=== PATIENT | male | born 1950 | race African-American/Black ===

== ENCOUNTER 2017-12-19 13:49 | Day surgery (SDC) | payer OTHER ==
--- OUTSIDE RECORDS SUMMARY | 2017-12-19 13:55 | XMS REPORT | Clinical Summary ---
:1950 Author Organization [facility] Address [address] [place] [address] Care Team Providers Name Role Phone Britt Cadet MD Primary Care Provider Allergies Active Allergy Reactions Severity Noted Date Comments Diphenhydramine Hcl Other (See Comments) 06/08/2016 Urinary retention Current Medications Prescription Sig. Disp. Refills Start End Date Status Date allopurinol allopurinol 100 mg Active (ZYLOPRIM) 100 MG tablet tablet amLODIPine amlodipine 10 mg Active (NORVASC) 10 mg tablet tablet baclofen (LIORESAL) baclofen 10 mg Active 10 MG tablet tablet codeine-guaifenesin TK 2 TEA PO Q 4 H Active (CHERATUSSIN AC) PRN 10-100 mg/5 mL liquid cycloSPORINE Restasis 0.05 % Active (RESTASIS) 0.05 % eye drops in a ophthalmic emulsion dropperette guanFACINE (TENEX) guanfacine 1 mg Active 1 MG tablet tablet lactulose lactulose 10 Active (CHRONULAC) 10 gram/15 mL oral gram/15 mL solution solution lisinopril lisinopril 20 mg Active (PRINIVIL,ZESTRIL) tablet 20 mg tablet losartan (COZAAR) losartan 100 mg Active 100 MG tablet tablet metoprolol tartrate Take 1 tablet Active (LOPRESSOR) 100 mg every day by oral tablet route for 90 days. tamsulosin (FLOMAX) tamsulosin 0.4 mg Active 0.4 mg capsule capsule,extended release 24hr amoxicillin-pot amoxicillin 875 02/03/20 Discontinued clavulanate mg-potassium 17 (AUGMENTIN) 875-125 clavulanate 125 mg mg per tablet tablet benzonatate Take 1 capsule 02/03/20 Discontinued (TESSALON) 100 MG twice a day by 17 capsule oral route. cefuroxime (CEFTIN) cefuroxime axetil 02/03/20 Discontinued 500 MG tablet 500 mg tablet 17 chlorhexidine chlorhexidine 02/03/20 Discontinued (PERIDEX) 0.12 % gluconate 0.12 % 17 solution mouthwash glimepiride glimepiride 2 mg 10/12/19 Discontinued (AMARYL) 2 MG tablet 18 tablet indomethacin Take 1 capsule as 06/08/20 Discontinued (INDOCIN) 50 MG needed by oral 17 capsule route as needed for 20 days. levoFLOXacin levofloxacin 500 02/03/20 Discontinued (LEVAQUIN) 500 MG mg tablet 17 tablet linaclotide Linzess 145 mcg 02/03/20 Discontinued (LINZESS) 145 mcg capsule 17 capsule meloxicam (MOBIC) meloxicam 15 mg 02/03/20 Discontinued 15 mg tablet tablet 17 metFORMIN metformin 500 mg 10/12/19 Discontinued (GLUCOPHAGE) 500 mg tablet BID 18 tablet pyridostigmine pyridostigmine 02/03/20 Discontinued (MESTINON) 60 mg bromide 60 mg 17 tablet tablet solifenacin HS. 02/03/20 Discontinued (VESICARE) 5 MG 17 tablet GUANFACINE HCL 2 TABLETS AT 02/03/20 Discontinued (TENEX ORAL) NIGHT. 17 megestrol (MEGACE) Take 1 tablet (40 270 tablet 3 10/06/02/03/20 Discontinued 40 MG mg total) by mouth 7 17 tabletIndications: 3 (three) times a Amyotrophic lateral day. 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 Dyspnea 06/08/2016 Respiratory insufficiency 06/08/2016 Overview: BIPAP - 05/2008 Resolved Problems Problem Noted Date Resolved Date Anorexia 10/06/2016 06/08/2017 Chronic pain syndrome 06/08/2016 06/08/2017 Localization-related (focal) (partial) symptomatic epilepsy 06/08/20162016 and epileptic syndromes with complex partial seizures, intractable, without status epilepticus Seizure disorder 06/08/2016 06/08/2017 Encounters Date Type Specialty Care Team Description 10/12/2017 Lab Lab Nick Gold Amyotrophic lateral H.MD sclerosis 10/12/2017 Multidisciplinary Visit Neurology Leona Berrios Respiratory insufficiency (Primary Dx); MD Mario Amyotrophic lateral sclerosis Naima Simon RN 10/04/2017 Orders Only Neurology Naima Simon, Amyotrophic lateral RN sclerosis (Primary Dx) 06/08/2017 Lab Lab Nick Gold lateral MD Camelia sclerosis 06/08/2017 Multidisciplinary Visit Neurology Nick Gold Amyotrophic lateral sclerosis (Primary Dx); MD Camelia Shortness of breath; Naima Simon, Sialorrhea Erika Alarcon, [facility] 05/31/2017 Orders Only Neurology Naima Simon, Amyotrophic lateral RN sclerosis (Primary Dx) 05/17/2017 Orders Only Neurology Leona Berrios ALS (amyotrophic P., MD lateral sclerosis) (Primary Dx) 02/02/2017 Lab Lab Nick Gold lateral MD Camelia sclerosis 02/02/2017 Multidisciplinary Visit Neurology Leona Berrios Amyotrophic lateral sclerosis (Primary Dx); MD Mario Respiratory insufficiency Naima Simon, Negra Guerrero, [facility] 02/02/2017 Documentation Neda Bustamante RN 01/24/2017 Orders Only Neurology Naima Simon, Amyotrophic lateral RN sclerosis (Primary Dx) after 12/18/2016 Family History Medical History Relation Name Comments Heart disease Brother Diabetes Other unspecified family Hypertension Other unspecified family Relation Name Status Comments Brother Other unspecified family Social History Tobacco Use Types Packs/Day Years Used Date Never Smoker Sex Assigned at Date Recorded Not on file Last Filed Vital Signs Vital Sign Reading Time Taken Blood Pressure 157/88 10/12/2017 8:05 AM SCAFFOLD ERECTOR Pulse 65 10/12/2017 8:05 AM SCAFFOLD ERECTOR Temperature 36.6 C (97.8 F) 10/12/2017 8:05 AM SCAFFOLD ERECTOR Respiratory Rate 18 10/12/2017 8:05 AM SCAFFOLD ERECTOR Oxygen Saturation - - Inhaled Oxygen Concentration - - Weight 59.6 kg (131 lb 4.8 oz) 10/12/2017 8:05 AM SCAFFOLD ERECTOR Height 170.2 cm (5' 7") 10/12/2017 8:05 AM SCAFFOLD ERECTOR Body Mass Index 20.56 10/12/2017 8:05 AM SCAFFOLD ERECTOR Plan of Treatment Date Type Specialty Care Team Description 02/01/2018 Multidisciplinary Visit Neurology Naima Simon, CORTNEY Health Maintenance Due Date Last Done Comments COLONOSCOPY 01/05/2000 ZOSTER VACCINE 2010 PNEUMOCOCCAL POLYSACCHARIDE VACCINE AGE 65 AND OVER 2015 PNEUMOCOCCAL-13 2015 INFLUENZA VACCINE 04/03/2018 06/03/2015 Results CBC with platelet and differential (10/12/2017 7:40 AM)Only the most recent of3 resultswithin the time period is included. Component Value Ref Range WBC 5.56 4.50 - 11.00 k/uL RBC 4.39 (L) 4.40 - 6.00 m/uL HGB 13.7 (L) 14.0 - 18.0 g/dL HCT 44.1 41.0 - 51.0 % MCV 100.5 (H) 82.0 - 100.0 fL MCH 31.2 27.0 - 34.0 pg MCHC 31.1 31.0 - 37.0 g/dL RDW - SD 45.1 37.0 - 55.0 fL MPV 12.2 8.8 - 13.2 fL Platelet count 198 150 - 400 k/uL Nucleated RBC 0.00 /100 WBC Neutrophils 52.2 39.0 - 69.0 % Lymphocytes 30.8 25.0 - 45.0 % Monocytes 13.3 (H) 0.0 - 10.0 % Eosinophils 2.2 0.0 - 5.0 % Basophils 1.1 (H) 0.0 - 1.0 % Immature granulocytes 0.4Comment: "Immature granulocytes" 0.0 - 1.0 % (promyelocytes, myelocytes, metamyelocytes) Specimen Performing Laboratory Blood [facility] DEPARTMENT OF PATHOLOGY AND GENOMIC MEDICINE [address] [place] [id number] Hepatic function panel (10/12/2017 7:40 AM)Only the most recent of3 resultswithin the time period is included. Component Value Ref Range Albumin 3.8 3.5 - 5.0 g/dL Total bilirubin 0.4 0.0 - 1.2 mg/dL Bilirubin direct <0.2 0.0 - 0.3 mg/dL Alkaline phosphatase 95 40 - 129 U/L Protein 7.8 6.3 - 8.3 g/dL Comment: [place] 4.6-7.0 g/dL 1 week 4.4-7.6 g/dL 7 months-1year5.1-7.3 g/dL 1-2 years5.6-7.5 g/dL >3 years6.0-8.0 g/dL 18-150 6.3-8.3 g/dL ALT 23 5 - 50 U/L AST 31 10 - 50 U/L Specimen Performing Laboratory Plasma specimen [facility] DEPARTMENT OF PATHOLOGY AND GENOMIC MEDICINE [address] [place] [address] after 12/18/2016 Insurance Payer Benefit Plan / Group Subscriber ID Type Phone Address MEDICARE MEDICARE PART A AND B xxxxxxxxxx Medicare [place] [facility] - xxxxxxxxx Indemnity SECONDARY y [phone] [facility] [address] [place] [address] DYSTROPHY,MUSCULA Other Other Home: [id number] [id number] [place] [id number]
--- NOTE | 2017-12-19 15:15 | RAD REPORT ---
EXAM DESCRIPTION: RAD - Abdomen 1 View (KUB) - 12/19/2017 2:35 pm CLINICAL HISTORY: Possible ingested foreign body COMPARISON: None. FINDINGS: Bowel gas pattern is non-specific. No obstruction, free air or pneumatosis. No suspicious calcifications. No radiopaque foreign body identifiable. No significant bony findings IMPRESSION: Negative KUB examination. No foreign body identifiable.
--- NOTE | 2017-12-19 17:50 | EDPHYS ---
Physician Documentation [facility] Name: Felipe Garrett Age: 67 yrs Sex: Male : 1950 Arrival Date: 12/19/2017 Time: 13:46 Bed 3 Private MD: ED Physician Angelo Booth HPI: 12/19 14:13 This 67 yrs old Black Male presents to ER via EMS with complaints of Swallowed Foreign ps1 Body. 14:13 was at dentist and swallowed crown. States that he has FB sensation in neck. Tolerating ps1 secretions. No wheezing. No pain. No difficulty breathing. . Historical: - Allergies: 13:51 Benadryl; dm5 - Home Meds: 14:10 glycopyrrolate oral oral [Active]; Metoprolol Tartrate Oral [Active]; amlodipine oral dm5 [Active]; - PMHx: 13:51 Diabetes - NIDDM; ALS; Hypertension; dm5 - Immunization history:: Adult Immunizations up to date. - Social history:: Smoking status: Patient/guardian denies using tobacco. ROS: 14:13 Constitutional: Negative for fever, chills, and weight loss, Eyes: Negative for injury, ps1 pain, redness, and discharge, Cardiovascular: Negative for chest pain, palpitations, and edema. 14:13 Respiratory: Negative for shortness of breath, cough, wheezing, and pleuritic chest pain, Abdomen/GI: Negative for abdominal pain, nausea, vomiting, diarrhea, and constipation, Back: Negative for injury and pain, MS/Extremity: Negative for injury and deformity, Skin: Negative for injury, rash, and discoloration, Neuro: Negative for headache, weakness, numbness, tingling, and seizure, Psych: Negative for depression, anxiety, suicide ideation, homicidal ideation, and hallucinations. 14:13 ENT: Positive for foreign body sensation. Exam: 14:13 Constitutional: This is a well developed, well nourished patient who is awake, alert, ps1 and in no acute distress. Head/Face: Normocephalic, atraumatic. Eyes: Pupils equal round and reactive to light, extra-ocular motions intact. Lids and lashes normal. Conjunctiva and sclera are non-icteric and not injected. Chest/axilla: Normal chest wall appearance and motion. Nontender with no deformity. No lesions are appreciated. Cardiovascular: Regular rate and rhythm. No gallops, murmurs, or rubs. Normal PMI, no JVD. No pulse deficits. 14:13 Respiratory: Lungs have equal breath sounds bilaterally, clear to auscultation and percussion. No rales, rhonchi or wheezes noted. No increased work of breathing, no retractions or nasal flaring. Abdomen/GI: Soft, non-tender, with normal bowel sounds. No distension or tympany. No guarding or rebound. No evidence of tenderness throughout. MS/ Extremity: Pulses equal, no cyanosis. Neurovascular intact. Full, normal range of motion. Neuro: Awake and alert, GCS 15, oriented to person, place, time, and situation. Cranial nerves II-XII grossly intact. Sensory grossly intact. Psych: Awake, alert, with orientation to person, place and time. Behavior, mood, and affect are within normal limits. 14:13 Neck: External neck: is normal, Trachea: is midline with no obvious abnormalities, no acute changes, no musical sounds. Vital Signs: 13:51 BP 187 / 92; Pulse 63; Resp 18; Temp 98.9; Pulse Ox 99% on R/A; Weight 61.23 kg (R); dm5 15:29 BP 166 / 96; Pulse 55; Resp 16; Pulse Ox 98% ; tl3 17:24 BP 180 / 94; Pulse 52; Resp 16 S; Pulse Ox 100% on R/A; Pain 0/10; jl7 18:09 BP 128 / 92; Pulse 54; Resp 14 S; Pulse Ox 100% on R/A; jl7 MDM: 14:20 Patient medically screened. ps1 16:59 Data reviewed: vital signs, nurses notes. ED course: Called Dr. Gonzalez, she is not on ps1 call. However said that she would come to ED as soon as possible. . 12/19 14:15 Order name: Abdomen 1 View (KUB) XRAY; Complete Time: 15:18 dm5 12/19 15:21 Order name: Neck Soft Tissue XRAY; Complete Time: 18:23 ps1 Administered Medications: No medications were administered Disposition: 12/19/17 17:49 Hospitalization ordered by Cira Sena for Observation. Preliminary diagnosis is Foreign Body in Larynx.. - Bed requested for DAY SURGERY OTHER. - Status is Observation. jl7 - Condition is Stable. - Problem is new. - Symptoms are unchanged. UTI on Admission? No Signatures: Dispatcher [employer] EDMS Swapna Arevalo, RN RN dm5 Erica Brice RN RN jl7 Angelo Booth MD MD ps1 Corrections: (The following items were deleted from the chart) 14:16 13:55 Abdomen 1 View (KUB)+RAD.RAD.BRZ ordered. EDMS EDMS 14:16 14:12 Chest Single View+RAD.RAD.BRZ ordered. EDMS EDMS 14:16 14:12 Abdomen 1 View (KUB)+RAD.RAD.BRZ ordered. EDMS EDMS
--- NOTE | 2017-12-19 17:50 | ER ---
Nurse's Notes [facility] Name: Felipe Garrett Age: 67 yrs Sex: Male : 1950 Arrival Date: 12/19/2017 Time: 13:46 Bed 3 Private MD: Diagnosis: Foreign Body in Larynx. Presentation: 12/19 13:47 Presenting complaint: EMS states: pt was at the dentist when he swallowed the crown dm5 they were placing. Pt states that he feels it is stuck. Airway patent at this time. Pt is able to swallow secretions. Transition of care: patient was received from another setting of care (ambulatory specialty care practice), Dr. Elham DDS. Onset of symptoms was December 19, 2017. Care prior to arrival: None. 13:47 Method Of Arrival: EMS: [facility] dm5 13:47 Acuity: MARINO 3 dm5 13:47 Initial Sepsis Screen: Does the patient meet any 2 criteria? No. Patient's initial dm5 sepsis screen is negative. Does the patient have a suspected source of infection? No. Patient's initial sepsis screen is negative. Triage Assessment: 13:51 General: Appears in no apparent distress. Behavior is calm, cooperative. Pain: Denies dm5 pain. Historical: - Allergies: 13:51 Benadryl; dm5 - Home Meds: 14:10 glycopyrrolate oral oral [Active]; Metoprolol Tartrate Oral [Active]; amlodipine oral dm5 [Active]; - PMHx: 13:51 Diabetes - NIDDM; ALS; Hypertension; dm5 - Immunization history:: Adult Immunizations up to date. - Social history:: Smoking status: Patient/guardian denies using tobacco. Screenin:50 Abuse screen: Denies threats or abuse. Denies injuries from another. Nutritional sg screening: No deficits noted. Tuberculosis screening: No symptoms or risk factors identified. Never had TB. Fall Risk None identified. Assessment: 14:10 General: Appears in no apparent distress. comfortable, well groomed, well developed, sg well nourished, Behavior is calm, cooperative, appropriate for age. Pain: Denies pain. Neuro: Level of Consciousness is awake, alert, obeys commands, Oriented to person, place, time, situation, Wire Stitcher Machine are equal bilaterally Moves all extremities. Full function Gait is steady, Speech is normal, Facial symmetry appears normal, Pupils are PERRLA. Cardiovascular: Heart tones S1 S2 present Capillary refill is brisk in bilateral fingers Patient's skin is warm and dry. Chest pain is denied. Respiratory: Airway is patent Respiratory effort is even, unlabored, Respiratory pattern is regular, symmetrical, Breath sounds are clear. GI: Abdomen is round non-distended, Bowel sounds present X 4 quads. Patient currently denies abdominal pain, nausea, pain, vomiting. : No signs and/or symptoms were reported regarding the genitourinary system. EENT: No signs and/or symptoms were reported regarding the EENT system. Derm: No signs and/or symptoms reported regarding the dermatologic system. Musculoskeletal: No signs and/or symptoms reported regarding the musculoskeletal system. 14:50 Reassessment: Patient appears in no apparent distress at this time. Patient and/or sg family updated on plan of care and expected duration. Pain level reassessed. Patient is alert, oriented x 3, equal unlabored respirations, skin warm/dry/pink. awaiting new orders at this time, awaiting radiology results, will continue to monitor Patient states symptoms have not improved. 16:00 Reassessment: Pt. resting in room \\T\\ this time, in no obvious distress... friend/family rk2 \\T\\ bedside. Pt. voiced no needs \\T\\ this time. Waiting results. 17:26 Reassessment: Pt sitting in bed, respirations even and unlabored, no signs of distress jl7 noted. Pt denies pain but reports "It hurts when I swallow." Yaunker provided to pt and instructed to use the Yaunker instead of swallowing. Pt verbalized understanding. 17:40 Reassessment: Dr. Sena and Dr. Booth at bedside. jl7 Vital Signs: 13:51 BP 187 / 92; Pulse 63; Resp 18; Temp 98.9; Pulse Ox 99% on R/A; Weight 61.23 kg (R); dm5 15:29 BP 166 / 96; Pulse 55; Resp 16; Pulse Ox 98% ; tl3 17:24 BP 180 / 94; Pulse 52; Resp 16 S; Pulse Ox 100% on R/A; Pain 0/10; jl7 18:09 BP 128 / 92; Pulse 54; Resp 14 S; Pulse Ox 100% on R/A; jl7 ED Course: 13:46 Patient arrived in ED. dm5 13:49 Triage completed. dm5 13:50 Nael Franco, RN is Primary Nurse. sg 13:51 Arm band placed on right wrist. dm5 14:04 Angelo Booth MD is Attending Physician. ps1 14:10 No provider procedures requiring assistance completed. sg 14:35 Abdomen 1 View (KUB) XRAY In Process Unspecified. EDMS 15:00 Report given to Trinidad BARR. sg 15:44 X-ray completed. Portable x-ray completed in exam room. Patient tolerated procedure ml well. 15:44 Neck Soft Tissue XRAY In Process Unspecified. EDMS 15:44 Trinidad Dixon, RN is Primary Nurse. rk2 17:20 Primary Nurse role handed off by Trinidad Dixon RN jl7 17:20 Erica Brice RN is Primary Nurse. jl7 17:26 Patient has correct armband on for positive identification. Bed in low position. Call jl7 light in reach. Side rails up X 1. Adult w/ patient. rental car ferry driver on. Pulse ox on. NIBP on. Warm blanket given. 17:49 Cira Sena MD is Hospitalizing Provider. ps1 17:50 Missed attempt(s): 22 gauge in left antecubital area. Bleeding controlled, band aid jl7 applied, catheter tip intact. 18:03 Inserted saline lock: 22 gauge in left antecubital area, using aseptic technique. Blood ae1 collected. 18:42 Patient admitted, IV remains in place. intact, No redness/swelling at site. jl7 Administered Medications: No medications were administered Outcome: 17:49 Decision to Hospitalize by Provider. ps1 18:42 Admitted to OR accompanied by nurse, via stretcher, Other Malka Yin transported pt to OR jl7 via stretcher 18:42 Condition: stable 18:42 Discharge instructions given to patient, friend, Instructed on the need for admit, Demonstrated understanding of instructions. 18:49 Patient left the ED. jl7 Signatures: Dispatcher [employer] EDMS Swapna Arevalo, CORTNEY BARR dm5 Nael Franco, RN RN sg Torri Paez Andrea, RN RN ae1 Erica Brice RN RN jl7 Angelo Booth MD MD ps1 Trinidad Dixon, RN RN rk2 Bere Bustamante, RN RN tl3
--- NOTE | 2017-12-19 18:20 | RAD REPORT ---
EXAM DESCRIPTION: RAD - Neck Soft Tissue - 12/19/2017 3:45 pm CLINICAL HISTORY: Foreign body ingestion COMPARISON: None. TECHNIQUE: Single lateral soft tissue neck exam performed. FINDINGS: Radiopaque foreign body is seen in the right side mid neck. Posterior positioning would in dicate location in the right-side of the cervical esophagus at the level of the larynx. IMPRESSION: Ingested foreign bodies in the right-side of the cervical esophagus at the level of the larynx.
[2017-12-19] MEDS ORDERED: Ringers Lactate 0 ML IV ONE (18:36)
[2017-12-19] MEDS ORDERED: NA CHLORIDE 0.9% 1,000 ML ONE (18:37)
--- OUTSIDE RECORDS SUMMARY | 2017-12-19 18:50 | XMS REPORT | Clinical Summary ---
:1950 Author Organization [facility] Address [address] [place] [address] Care Team Providers Name Role Phone Britt [...] of breath; Naima Simon, Sialorrhea Erika Alarcon, [facility] 05/31/2017 Orders Only Neurology Naima Simon, Amyotrophic lateral RN sclerosis (Primary Dx) 05/17/2017 Orders Only Neurology Leona Berrios ALS (amyotrophic P., MD lateral sclerosis) (Primary Dx) 02/02/2017 Lab Lab Nick Gold lateral MD Camelia sclerosis 02/02/2017 Multidisciplinary Visit Neurology Leona Berrios Amyotrophic lateral sclerosis (Primary Dx); MD Mario Respiratory insufficiency Naima Simon, Negra Guerrero, [facility] 02/02/2017 Documentation Neda Bustamante RN 01/24/2017 Orders [...] Taken Blood Pressure 157/88 10/12/2017 8:05 AM PRECISION GRINDER EXTERNAL Pulse 65 10/12/2017 8:05 AM PRECISION GRINDER EXTERNAL Temperature 36.6 C (97.8 F) 10/12/2017 8:05 AM PRECISION GRINDER EXTERNAL Respiratory Rate 18 10/12/2017 8:05 AM PRECISION GRINDER EXTERNAL Oxygen Saturation - - Inhaled Oxygen Concentration - - Weight 59.6 kg (131 lb 4.8 oz) 10/12/2017 8:05 AM PRECISION GRINDER EXTERNAL Height 170.2 cm (5' 7") 10/12/2017 8:05 AM PRECISION GRINDER EXTERNAL Body Mass Index 20.56 10/12/2017 8:05 AM PRECISION GRINDER EXTERNAL Plan of Treatment Date Type Specialty Care [...] (promyelocytes, myelocytes, metamyelocytes) Specimen Performing Laboratory Blood [facility] DEPARTMENT OF PATHOLOGY AND GENOMIC MEDICINE [address] [place] [id number] Hepatic function panel (10/12/2017 7:40 AM)Only the most recent of3 resultswithin the time period is included. Component Value Ref Range Albumin 3.8 3.5 - 5.0 g/dL Total bilirubin 0.4 0.0 - 1.2 mg/dL Bilirubin direct <0.2 0.0 - 0.3 mg/dL Alkaline phosphatase 95 40 - 129 U/L Protein 7.8 6.3 - 8.3 g/dL Comment: [place] 4.6-7.0 g/dL 1 week 4.4-7.6 g/dL 7 months-1year5.1-7.3 g/dL 1-2 years5.6-7.5 g/dL >3 years6.0-8.0 g/dL 18-150 6.3-8.3 g/dL ALT 23 5 - 50 U/L AST 31 10 - 50 U/L Specimen Performing Laboratory Plasma specimen [facility] DEPARTMENT OF PATHOLOGY AND GENOMIC MEDICINE [address] [place] [address] after 12/18/2016 Insurance Payer Benefit Plan / Group Subscriber ID Type Phone Address MEDICARE MEDICARE PART A AND B xxxxxxxxxx Medicare [place] [facility] - xxxxxxxxx Indemnity SECONDARY y [phone] [facility] [address] [place] [address] DYSTROPHY,MUSCULA Other Other Home: [address] [phone] [place] [id number]
[2017-12-19] MEDS ORDERED: SUCCINYLCHOLINE 20 MG/ML (10 ML) IV ONE (18:53)
[2017-12-19] MEDS ORDERED: PROPOFOL 200 MG/20 ML VIAL IV ONE (18:59)
[2017-12-19] MEDS ORDERED: FENTANYL CITR 100 MCG/2 ML ONE (18:59)
[2017-12-19] MEDS ORDERED: ROCURONIUM 50 MG/5 ML VIAL IV ONE (19:09)
--- NOTE | 2017-12-19 19:30 | P.BOP ---
Preoperative diagnosis: FB larynx/hypopharynx Postoperative diagnosis: negative exam Primary procedure: DL, bronch, cervical esophagoscopy Ad Operations Specialist: NONE,NONE Estimated blood loss: nil Specimen: none Findings: No FB found Anesthesia: General Complications: None Implants: none Fluids & blood products: crystalloid 300ml Transferred to: Recovery Room Condition: Good
--- NOTE | 2017-12-19 20:01 | RAD REPORT ---
EXAM DESCRIPTION: RAD - Chest Single View - 12/19/2017 7:50 pm CLINICAL HISTORY: Postop chest, foreign body retrieval COMPARISON: None. TECHNIQUE: AP portable chest image was obtained 1942 hours . FINDINGS: Lung volumes are low. No pulmonary edema. Cardiomegaly is present accentuated by portable exam. Vasculature is mildly prominent. Trachea is midline. The area of foreign body midcervical esoph amelia is outside of the field of view of this examination. No foreign body seen on this study. No pneu mothorax or measurable pleural fluid collection. No gross bony abnormality seen. No acute aortic find ings suspected. IMPRESSION: Cardiomegaly and mild prominence of the vasculature. Chest findings are accentuated by s hallow inspiration. No diffuse pulmonary edema pattern. Mild cardiac decompensation or volume overload could be obscured by the exam limitations.
--- NOTE | 2017-12-20 05:51 | OP ---
Date of Procedure: 12/19/2017 Surgeon: Cira Sena MD Preoperative Diagnosis: Hypopharyngeal foreign body. Postoperative Diagnosis: Negative exam. Procedures: 1.Direct laryngoscopy with telescope. 2.Rigid cervical esophagoscopy. 3.Flexible bronchoscopy. Indication For Procedure: Mr. Garrett is a 67-year-old black male who presented to the emergency room a fter being at a dentist with concern for an inhaled or swallowed foreign body consisting of a dental crown. An x-ray performed in the emergency room demonstrated a metallic irregular state foreign body which appeared to be lodged in the right piriform sinus. An indirect mirror laryngoscopy was perfor med in the operating room. The vallecula and epiglottis were visualized, but the vocal cords and pir iform sinus could not be visualized, and decision was made to proceed to the operating room for keli r visualization and removal of the foreign body. The risks, benefits, and alternatives to the proced ure were discussed with the patient who agreed to proceed. Description Of Procedure: The patient was brought to the operating room. He was placed under genera l anesthesia via inhalational mask and medication with fentanyl and propofol. A brief direct laryngo scopy using a Jessi laryngoscope was performed. The tip of the laryngoscope was placed in the wes lecular space and the vallecular space was carefully examined. There was no evidence of foreign body . The epiglottis was elevated and the postcricoid space was visualized but no foreign body was noted . The piriform sinus was quickly suctioned from secretions but no foreign body could be visualized. Decision was made to place the endotracheal tube and allow for garzon lengthier examination. After Anesthesia intubated the patient, the Foster-Berci laryngoscope with telescope was used to perform a direct laryngoscopy for magnification and better visualization. The tip of the laryngoscope was used to elevate the larynx, the glottis, and endotracheal tube were visualized. There was no evidence of foreign body. The left and right piriform sinuses were carefully examined after suctioning and ther e was no evidence of foreign body. The laryngoscope was set aside and the rigid cervical esophagosco pe was used to perform a cervical esophagoscopy. The tip of the esophagoscope was passed with care t hrough the hypopharynx and slowly advanced. Full advancement was limited by the patient's habitus. The first 5 cm or 6 cm of the esophagus were examined and there was no evidence of foreign body in th ose areas. The scope was then withdrawn. After careful consideration, decision was made to proceed with bronchoscopy to be absolutely sure there was no evidence of foreign body in the airway. The fle xible bronchoscope was passed through the endotracheal tube with care. The juanita was easily visuali zed, the scope was turned, and the right mainstem and secondary bronchi were carefully examined. The re was no evidence of blood, secretions, or foreign body noted. The scope was partially withdrawn an d passed toward the left mainstem bronchus. The left main stem and secondary bronchi were examined a nd there were no signs of secretion. No foreign body and no blood in these areas. The bronchoscope was then carefully withdrawn. The patient was returned to care of the Anesthesia for awakening and e xtubation in the operating room, which proceeded without difficulty. Disposition: The patient was transported to the recovery room. A stat chest x-ray was performed for further confirmation. After negative examination, the x-ray was personally reviewed by me. The lar ynx, trachea, and pulmonary jaime all appeared to be clear from foreign body. There was a densely m etallic irregular-shaped foreign body in the stomach consistent with intraoperative findings/suspicio ns. The patient will be discharged home later today in the care of family friends. He can resume diet as tolerated. He can take Tylenol or ibuprofen as needed for pain and follow up with Dr. Sena on an as-needed basis. The intraoperative findings, pre and postoperative x-rays were reviewed with his brianna fountain, Dr. Lizarraga, and Dr. Lizarraga was reassured. There was no evidence of significant complication note d and the ingested foreign body is expected to pass through the digestive system over the next 12-48 ho urs. HIWOT/MODL Voice ID: [id number] Report ID: [id number]
== END 2017-12-19 21:25 | disposition home health service (06) ==
LOC: ER 13:49 → OR 17:49
PROVIDERS: ATTEND Otolaryngology
PROC: 0CJS8ZZ Inspection of Larynx, Via Natural or Artificial Opening Endoscopic (ICD-10-PCS; 2017-12-19)
PROC: 0BJ08ZZ Inspection of Tracheobronchial Tree, Via Natural or Artificial Opening Endoscopic (ICD-10-PCS; 2017-12-19)
PROC: 0DJ08ZZ Inspection of Upper Intestinal Tract, Via Natural or Artificial Opening Endoscopic (ICD-10-PCS; principal; 2017-12-19 18:30)
DX: T17.298A Other foreign object in pharynx causing other injury, initial encounter (principal); E11.9 Type 2 diabetes mellitus without complications; I10 Essential (primary) hypertension; G12.21 Amyotrophic lateral sclerosis; Z88.8 Allergy status to other drugs, medicaments and biological substances
CPT/HCPCS: 31526; 31622; 43191; 70360; 71045; 74018; 99285; J0330; J3010; J7030

== ENCOUNTER 2018-04-08 10:50 | Day surgery (SDC) | payer OTHER ==
--- OUTSIDE RECORDS SUMMARY | 2018-04-08 12:57 | XMS REPORT | Clinical Summary ---
:1950 Author Organization [facility] Address [address] [place] [address] Care Team Providers Name Role Phone Britt Cadet MD Primary Care Provider Allergies Active Allergy Reactions Severity Noted Date Comments Diphenhydramine Hcl Other (See Comments) 06/08/2016 Urinary retention Current Medications Prescription Sig. Disp. Refills Start Date End Date Status allopurinol 1 TABLET BID Active (ZYLOPRIM) 100 MG tablet amLODIPine 1 TABLET DAILY Active (NORVASC) 10 mg tablet baclofen (LIORESAL) 1 TABLET BID Active 10 MG tablet codeine-guaifenesin TK 2 TEA PO Q 4 H Active (CHERATUSSIN AC) PRN 10-100 mg/5 mL liquid cycloSPORINE 1 DROP EACH EYE Active (RESTASIS) 0.05 % DAILY ophthalmic emulsion guanFACINE (TENEX) 1 TABLET DAILY Active 1 MG tablet lactulose 10 GRAM/15 mL Active (CHRONULAC) 10 NEEDED gram/15 mL solution lisinopril 1 TABLET DAILY Active (PRINIVIL,ZESTRIL) 20 mg tablet losartan (COZAAR) 1 TABLET DAILY Active 100 MG tablet metoprolol tartrate Take 1 tablet Active (LOPRESSOR) 100 mg every day by oral tablet route for 90 days. tamsulosin (FLOMAX) 2 CAPSULES AT Active 0.4 mg NIGHT capsule,extended release 24hr multivitamin Take 1 tablet by Active (THERAGRAN) tablet mouth daily. glimepiride glimepiride 2 mg 10/12/2017 Discontinued (AMARYL) 2 MG tablet tablet indomethacin Take 1 capsule as 06/08/2017 Discontinued (INDOCIN) 50 MG needed by oral capsule route as needed for 20 days. metFORMIN metformin 500 mg 10/12/2017 Discontinued (GLUCOPHAGE) 500 mg tablet BID tablet Active Problems Problem Noted Date Sialorrhea 06/08/2017 [...] Encounters Date Type Specialty Care Team Description 02/01/2018 Lab Lab Nick Gold MD sclerosis 02/01/2018 Multidisciplinary Visit Neurology London Botello Amyotrophic lateral sclerosis (Primary Dx); MD Alon Chavezness of breath Naima Simon RN 02/01/2018 Documentation Jaja Claudio 01/24/2018 Orders Only Neurology Naima Simon, Amyotrophic lateral RN sclerosis (Primary Dx) 10/12/2017 Lab Lab Nick Gold MD sclerosis 10/12/2017 Multidisciplinary Visit Neurology Leona Berrios Respiratory insufficiency (Primary Dx); MD Mario Amyotrophic lateral sclerosis Naima Simon RN 10/04/2017 Orders Only Neurology Naima Simon, Amyotrophic lateral RN sclerosis (Primary Dx) 06/08/2017 Lab Lab Nick Gold MD sclerosis 06/08/2017 Multidisciplinary Visit Neurology Nick Gold Amyotrophic lateral sclerosis (Primary Dx); MD Camelia Shortness of breath; Naima Simon, Sialorrhea RN Erika Barney, CCC-INSPECTOR FINAL ASSEMBLY MECHANICAL 05/31/2017 Orders Only Neurology Naima Simon, Amyotrophic lateral RN sclerosis (Primary Dx) 05/17/2017 Orders Only Neurology Leona Berrios ALS (amyotrophic PMD Lui lateral sclerosis) (Primary Dx) after 04/07/2017 Family History Medical History Relation Name Comments Heart disease Brother Diabetes Other unspecified family Hypertension Other unspecified family Relation Name Status Comments Brother Other unspecified family Social History Tobacco Use Types Packs/Day Years Used Date Never Smoker Sex Assigned at Date Recorded Not on file Last Filed Vital Signs Vital Sign Reading Time Taken Blood Pressure 129/76 02/01/2018 8:35 AM CDT Pulse 64 02/01/2018 8:35 AM CDT Temperature 36.7 C (98.1 F) 02/01/2018 8:34 AM CDT Respiratory Rate 18 02/01/2018 8:34 AM CDT Oxygen Saturation - - Inhaled Oxygen Concentration - - Weight 60.3 kg (133 lb) 02/01/2018 8:34 AM CDT Height 170.2 cm (5' 7") 02/01/2018 8:34 AM CDT Body Mass Index 20.83 02/01/2018 8:34 AM CDT Plan of Treatment Date Type Specialty Care Team Description 06/07/2018 Multidisciplinary Visit Neurology Naima Simon, CORTNEY Health Maintenance Due Date Last Done Comments COLON CANCER SCREENING 01/05/2000 SHINGRIX VACCINE (#1) 01/05/2000 ZOSTER VACCINE 2010 PNEUMOCOCCAL POLYSACCHARIDE VACCINE AGE 65 AND OVER 2015 PNEUMOCOCCAL-13 2015 INFLUENZA VACCINE 04/03/2018 06/03/2015 Procedures Procedure Name Priority Date/Time Associated Diagnosis Comments HEPATIC FUNCTION Routine 02/01/2018 9:50 AM Amyotrophic lateral Results for this PANEL CDT sclerosis procedure are in the results section. HEPATIC FUNCTION Routine 10/12/2017 7:40 AM Amyotrophic lateral Results for this PANEL PHARMACEUTICAL SPECIALTY REPRESENTATIVE sclerosis procedure are in the results section. HC COMPLETE BLD Routine 10/12/2017 7:40 AM Amyotrophic lateral Results for this COUNT W/AUTO DIFF PHARMACEUTICAL SPECIALTY REPRESENTATIVE sclerosis procedure are in the results section. HC COMPLETE BLD Routine 06/08/2017 7:38 AM Amyotrophic lateral Results for this COUNT W/AUTO DIFF CDT sclerosis procedure are in the results section. HEPATIC FUNCTION Routine 06/08/2017 7:38 AM Amyotrophic lateral Results for this PANEL CDT sclerosis procedure are in the results section. after 04/07/2017 Results Hepatic function panel (02/01/2018 9:50 AM)Only the most recent of3 resultswithin the time period is included. Albumin 4.1 3.5 - 5.0 g/dL [facility] DEPARTMENT OF PATHOLOGY AND GENOMIC MEDICINE Total bilirubin 0.3 0.0 - 1.2 mg/dL [facility] DEPARTMENT OF PATHOLOGY AND GENOMIC MEDICINE Bilirubin direct <0.2 0.0 - 0.3 mg/dL [facility] DEPARTMENT OF PATHOLOGY AND GENOMIC MEDICINE Alkaline phosphatase 123 40 - 129 U/L [facility] DEPARTMENT OF PATHOLOGY AND GENOMIC MEDICINE Protein 7.9 6.3 - 8.3 g/dL [facility] DEPARTMENT OF Comment: PATHOLOGY AND GENOMIC [place] 4.6-7.0 g/dL MEDICINE 1 week 4.4-7.6 g/dL 7 months-1year5.1-7.3 g/dL 1-2 years5.6-7.5 g/dL >3 years6.0-8.0 g/dL 18-150 6.3-8.3 g/dL ALT 29 5 - 50 U/L [facility] DEPARTMENT OF PATHOLOGY AND GENOMIC MEDICINE AST 40 10 - 50 U/L [facility] DEPARTMENT OF PATHOLOGY AND GENOMIC MEDICINE Specimen Plasma specimen Performing Organization Address City/State/Zipcode Phone Number [facility] DEPARTMENT OF PATHOLOGY AND [address] [place] [id number] [facility] CBC with platelet and differential (10/12/2017 7:40 AM)Only the most recent of2 resultswithin the time period is included. WBC 5.56 4.50 - 11.00 k/uL [facility] DEPARTMENT OF PATHOLOGY AND GENOMIC MEDICINE RBC 4.39 (L) 4.40 - 6.00 m/uL [facility] DEPARTMENT OF PATHOLOGY AND GENOMIC MEDICINE HGB 13.7 (L) 14.0 - 18.0 g/dL [facility] DEPARTMENT OF PATHOLOGY AND GENOMIC MEDICINE HCT 44.1 41.0 - 51.0 % [facility] DEPARTMENT OF PATHOLOGY AND GENOMIC MEDICINE MCV 100.5 (H) 82.0 - 100.0 fL [facility] DEPARTMENT OF PATHOLOGY AND GENOMIC MEDICINE MCH 31.2 27.0 - 34.0 pg [facility] DEPARTMENT OF PATHOLOGY AND GENOMIC MEDICINE MCHC 31.1 31.0 - 37.0 g/dL [facility] DEPARTMENT OF PATHOLOGY AND GENOMIC MEDICINE RDW - SD 45.1 37.0 - 55.0 fL [facility] DEPARTMENT OF PATHOLOGY AND GENOMIC MEDICINE MPV 12.2 8.8 - 13.2 fL [facility] DEPARTMENT OF PATHOLOGY AND GENOMIC MEDICINE Platelet count 198 150 - 400 k/uL [facility] DEPARTMENT OF PATHOLOGY AND GENOMIC MEDICINE Nucleated RBC 0.00 /100 WBC [facility] DEPARTMENT OF PATHOLOGY AND GENOMIC MEDICINE Neutrophils 52.2 39.0 - 69.0 % [facility] DEPARTMENT OF PATHOLOGY AND GENOMIC MEDICINE Lymphocytes 30.8 25.0 - 45.0 % [facility] DEPARTMENT OF PATHOLOGY AND GENOMIC MEDICINE Monocytes 13.3 (H) 0.0 - 10.0 % [facility] DEPARTMENT OF PATHOLOGY AND GENOMIC MEDICINE Eosinophils 2.2 0.0 - 5.0 % [facility] DEPARTMENT OF PATHOLOGY AND GENOMIC MEDICINE Basophils 1.1 (H) 0.0 - 1.0 % [facility] DEPARTMENT OF PATHOLOGY AND GENOMIC MEDICINE Immature granulocytes 0.4Comment: 0.0 - 1.0 % [facility] DEPARTMENT OF "Immature PATHOLOGY AND GENOMIC granulocytes" MEDICINE (promyelocytes, myelocytes, metamyelocytes) Specimen Blood Performing Organization Address City/State/Zipcode Phone Number [facility] DEPARTMENT OF PATHOLOGY AND [address] [place] [address] GENOMIC MEDICINE after 04/07/2017 Insurance Payer Benefit Plan / Group Subscriber ID Type Phone Address MEDICARE MEDICARE PART A AND B xxxxxxxxxx Medicare [place], [place] y [phone] [place] [id number] [employer]YSTR[employer]HY,MUSCULA Other Other Home: [address] [facility] [phone] [place] [id number]
[2018-04-08] MEDS ORDERED: Ringers Lactate 1,000 ML IV ONE (13:02)
[2018-04-08] MEDS ORDERED: PROPOFOL 200 MG/20 ML VIAL IV ONE (14:05)
[2018-04-08] MEDS ORDERED: LIDOCAINE 1% MPF 5 ML VIAL ONE (14:06)
[2018-04-08] MEDS ORDERED: EPHEDRINE SULF 50 MG/ML SYR ONE (14:20)
--- NOTE | 2018-04-08 15:37 | RAD REPORT ---
EXAM DESCRIPTION: RAD - Abdomen 1 View (KUB) - 04/08/2018 3:21 pm CLINICAL HISTORY: Abdominal distention, possible foreign body COMPARISON: KUB February 08 FINDINGS: Patient continues to show a very prominent -is distention of the large and small bowel. It is unknown if this is chronic or the patient had a colonoscopy procedure earlier in the day. No free air or pneumatosis. The metallic foreign body seen in the right mid abdomen on the February 08 study is no longer present. IMPRESSION: Metallic foreign body has passed since the February 08 study. Prominent large and small bowel gas pattern. No free air or pneumatosis.
--- NOTE | 2018-04-08 15:53 | ENDO RPT ---
[address], [address] COLONOSCOPY PROCEDURE REPORT EXAM DATE: 04/08/2018 PATIENT NAME: Felipe Garrett MR #: [id number] BIRTHDATE: 1950 ATTENDING: Live [address]ore[address] Dr STATUS: outpatient MEDICAL DRIVER: Jacquelin Treviño and Almaz Haddad RN INDICATIONS: The patient is a 68 yr old Male here for a colonoscopy due to foreign body removal - gold tooth cap and abnormal CT of abdomen / KUB PROCEDURE PERFORMED: Colonoscopy with biopsy - cold polypectomy MEDICATIONS: Per Anesthesia. ESTIMATED BLOOD LOSS: None CONSENT: The patient understands the risks and benefits of the procedure and understands that these risks include, but are not limited to: sedation, allergic reaction, infection, perforation and/or bleeding. Alternative means of evaluation and treatment include, among others: physical exam, x-rays, and/or surgical intervention. The patient elects to proceed with this endoscopic procedure. DESCRIPTION OF PROCEDURE: During intra-op preparation period all mechanical medical equipment was checked for proper function. Hand hygiene and appropriate measures for infection prevention was taken. Procedure, possible complications, alternatives including, but not limited to possibility of bleeding, perforation, tear, infection, sepsis, need for surgery, need for blood transfusion, were explained to the patient. After the risks, benefits and alternatives of the procedure were thoroughly explained, Informed consent was verified, confirmed and timeout was successfully executed by the treatment team. The patient was placed in the left lateral position. A digital rectal exam was performed and revealed no abnormalities of the rectum. After appropriate level of anesthesia, the scope was passed. The EC-[id number] ([id number]) endoscope was introduced through the anus and advanced to the terminal ileum which was intubated for a short distance. The quality of the prep was good. The instrument was then slowly withdrawn as the colon was fully examined. Scope withdrawal time was 9 minutes. COLON FINDINGS: A flat polyp measuring 7 mm in size was found at the cecum. A polypectomy was performed with cold forceps. Mild diverticulosis was noted in the left colon. No bleeding was noted from the diverticulosis. Small internal hemorrhoids were found. Retroflexed views revealed small hemorrhoids. The scope was then completely withdrawn from the patient and the procedure terminated. ADVERSE EVENTS: There were no complications. IMPRESSIONS: 1. 7 mm flat polyp in the cecum; polypectomy was performed with cold forceps 2. Mild diverticulosis in the left colon (transverse to sigmoid colon) 3. Small internal hemorrhoids 4. Intubation to terminal ileum RECOMMENDATIONS: KUB now RECALL: Live Sorensen Dr eSigned: Live Sorensen Dr 04/08/2018 2:44 PM cc: Cira Sena M.D and Britt Cadet M.D. CPT CODES: ICD9 CODES: PATIENT NAME: Felipe Garrett MR#: [id number]
--- NOTE | 2018-04-08 15:53 | ENDO RPT ---
[address], [address] COLONOSCOPY PROCEDURE REPORT EXAM DATE: 04/08/2018 PATIENT NAME: Felipe Garrett MR #: [id number] BIRTHDATE: 1950 ATTENDING: Live Sorensen Dr STATUS: outpatient MORTISING MACHINE OPERATOR: Jacquelin Treviño and Almaz Haddad RN INDICATIONS: The patient is a 68 yr old Male here for a colonoscopy due to foreign body removal - gold tooth cap possibly within the terminal ileum on KUB PROCEDURE PERFORMED: Colonoscopy with biopsy - cold polypectomy MEDICATIONS: Per Anesthesia. ESTIMATED BLOOD LOSS: None CONSENT: The patient understands the risks and benefits of the procedure and understands that these risks include, but are not limited to: sedation, allergic reaction, infection, perforation and/or bleeding. Alternative means of evaluation and treatment include, among others: physical exam, x-rays, and/or surgical intervention. The patient elects to proceed with this endoscopic procedure. DESCRIPTION OF PROCEDURE: During intra-op preparation period all mechanical medical equipment was checked for proper function. Hand hygiene and appropriate measures for infection prevention was taken. Procedure, possible complications, alternatives including, but not limited to possibility of bleeding, perforation, tear, infection, sepsis, need for surgery, need for blood transfusion, were explained to the patient. After the risks, benefits and alternatives of the procedure were thoroughly explained, Informed consent was verified, confirmed and timeout was successfully executed by the treatment team. The patient was placed in the left lateral position. A digital rectal exam was performed and revealed no abnormalities of the rectum. After appropriate level of anesthesia, the scope was passed. The EC-[id number] ([id number]) endoscope was introduced through the anus and advanced to the terminal ileum which was intubated for a short distance. The quality of the prep was good. The instrument was then slowly withdrawn as the colon was fully examined. Scope withdrawal time was 9 minutes. COLON FINDINGS: A flat polyp measuring 7 mm in size was found at the cecum. A polypectomy was performed with cold forceps. Mild diverticulosis was noted in the left colon. No bleeding was noted from the diverticulosis. Small internal hemorrhoids were found. Retroflexed views revealed small hemorrhoids. The scope was then completely withdrawn from the patient and the procedure terminated. ADVERSE EVENTS: There were no complications. IMPRESSIONS: 1. 7 mm flat polyp in the cecum; polypectomy was performed with cold forceps 2. Mild diverticulosis in the left colon (transverse to sigmoid colon) 3. Small internal hemorrhoids 4. Intubation to terminal ileum RECOMMENDATIONS: KUB now RECALL: Live Sorensen Dr eSigned: Live Sorensen Dr 04/08/2018 2:46 PM Revised: 04/08/2018 2:46 PM cc: Cira Sena M.D and Britt Cadet M.D. CPT CODES: ICD9 CODES: PATIENT NAME: Felipe Garrett MR#: [id number]
== END 2018-04-08 15:36 | disposition home or self-care (01) ==
LOC: OR 10:50
PROVIDERS: ATTEND Internal Medicine Gastroenterology
PROC: 0DBH8ZX Excision of Cecum, Via Natural or Artificial Opening Endoscopic, Diagnostic (ICD-10-PCS; principal; 2018-04-08 14:45)
DX: D12.0 Benign neoplasm of cecum (principal); K57.30 Diverticulosis of large intestine without perforation or abscess without bleeding; K64.8 Other hemorrhoids; E11.9 Type 2 diabetes mellitus without complications; G12.21 Amyotrophic lateral sclerosis
CPT/HCPCS: 74018; 88305

== ENCOUNTER 2022-06-19 14:07 | Observation (INO) | payer OTHER ==
--- OUTSIDE RECORDS SUMMARY | 2022-06-19 14:13 | XMS REPORT | Continuity of Care Document ---
:1950 Author Organization [facility] t Address [address] [place] [address] [address] [place] [address] Care Team Providers Name Role Phone Juan FIGUEREDO, Britt Aj Primary Care Physician Carley Lemus Attending Clinician Unavailable Olivier Lala Attending Clinician Unavailable JUAN_Cherelle Attending Clinician Unavailable Aurelia Moura MD Attending Clinician [phone] Naima Simon RN Attending Clinician Unavailable Bijan Gold MD Attending Clinician Vidhi Murillo RN Attending Clinician Unavailable Britt Cadet Attending Clinician [phone] Filemon Jhaveri MD Attending Clinician Blanca Kay MD Attending Clinician YanMargaretW Attending Clinician Unavailable Reynaldo Fuller RN Attending Clinician Unavailable Thea Manning Attending Clinician [phone] MARLYN PATEL Attending Clinician Unavailable ILDA WOODS Attending Clinician Unavailable juan_cherelle Attending Clinician Unavailable Physician, No Primary or Family Admitting Clinician UnavailOlivier Barney Admitting Clinician Unavailable JUAN_Cherelle Admitting Clinician Unavailable Rian Admitting Clinician Unavailable geena Admitting Clinician Unavailable Payers Payer Name Policy Type Policy Number Effective Date Expiration Date Prem sarmiento [place]ICARE [place]: [id number] 2006 NOVITAS 00:00:00 SOLUTIONS [facility]IC[facility] [id number] [facility] MEDICARE NOVITAS MB [id number] [facility] [id number] [facility] Problems Condition Condition Condition Status Onset Resolution Last Treating Co mments Source Name Details Category Date Date Treatment Clinician Date Acute Acute Problem Active [place] pharyngiti Pharyngiti 8-11 Co m[facility]:00: [facility] Scre[facility] Problem Active 0 Swe rupesh for for 5-26 Communi malignant Malignant 00:00: ty neoplasm Neoplasm 00 [facility] prostate Prostate Clinic s Impacted Impacted Problem Active 0 [facility]ween y cerumen of Cerumen of 5-26 Co mmuni bilateral Bilateral 00:00: ty ears [facility] Hemoptysis Hemoptysis Problem Active 2020- S weeny 1-16 Communi 00:00: ty 00 [facility]ospita Clinics 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 6-03 Communi 00:00: ty 00 Hospita Clinics Chest pain Chest Pain Problem Active 2020-0 S weeny 2-11 Communi 00:00: ty [facility] At risk At Risk Problem Active 2020-0 [place] for falls for Falls 2-11 Comm uni 00:00: ty 00 Hospita Clinics Nausea Nausea Problem Active 2019-0 [place] 6-11 Communi 00:00: ty 00 [facility]ospita Clinics Abdominal Abdominal Problem Active 2019-0 Swe rupesh pain Pain 6-11 Communi 00:00: ty 00 Hospita Clinics Insomnia Insomnia Problem Active 2019-0 Sween y 2-25 Communi 00:00: ty 00 Hospita Clinics Bradycardi Bradycardi Problem Active 2018-09 S solo a a 1-21 Communi 00:00: ty [facility] Abnormal Abnormal Problem Active [facility] weight Weight 9-19 Communi loss Loss 00:00: ty 00 [facility] Folliculit Folliculit Problem Active S solo is is 7-11 Communi 00:00: ty 00 [facility] Cough Cough Problem Active [place] 6-19 Communi 00:00: ty 00 [facility] Chronic Chronic Problem Active [place] constipati Constipati 4-22 Co mmuni on on 00:00: ty [facility] Pain of Pain of Problem Active [place] left ankle Left Ankle 1-08 Co mmuni joint Joint 00:00: ty 00 [facility] 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 6-27 Commun i mellitus Mellitus 00:00: ty 00 [facility] Essential Essential Problem Active Swe rupesh hypertensi Hypertensi 6-27 Co mmuni on on 00:00: ty 00 [facility] Benign Benign Problem Active [place] hypertensi Hypertensi 6-27 Co mmuni on on 00:00: ty 00 [facility] Neck pain Neck Pain Problem Active 2016-09 [facility] 2-19 da 00:00: Medical 00 Group Sialorrhea Sialorrhea Disease Active 2016-09 M ethodi 0-06 st 00:00: Hospita 00 l Benign Benign Problem Active [place] prostatic Prostatic 8-07 da hyperplasi Hyperplasi 00:00: Me dical a without a without 00 Grou p outflow Outflow obstructio Obstructio n n Gastroesop Gastroesop Problem Active M [facility] hageal hageal 5-15 da reflux Reflux 00:00: Medical disease Disease 00 Group Obstructiv Obstructiv Disease Active 2015-09 M ethodi e sleep e sleep 0-06 st apnea apnea 00:00: Hospita syndrome syndrome 00 l 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 BIPAP - 05/2008 Amyotrophi Amyotrophi Problem Active S weeny c lateral c Lateral 09-03 Comm uni sclerosis Sclerosis 00:00: ty 00 Hospita l Clinics Impacted Impacted Problem Active [place] [facility] Acute Acute Problem Active [place] sinusitis Sinusitis [facility] Acute Acute Problem Active [place] bronchitis Bronchitis [facility] Constipati Constipati Problem Active M [facility] on on [facility] Unexplaine Unexplaine Problem Active M [facility] d weight d Weight da loss Loss Medical Group Long-term Long-term Problem Active [place] drug Drug da therapy Therapy Medical Group Well male Well Male Problem Active [place] [facility] [id number] Incomplete Problem Active Co mmon emptying Spirit of bladder [facility] [id number] BPH loc w Problem Active Com mon urin Spirit obs/LUTS [facility] Prostate Prostate Problem Active Commo n nodule nodule [facility] [id number] Lesion of Problem Active Com mon bladder Spirit 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[place] [facility] Allergies, Adverse Reactions, Alerts Allergy Allergy Status Severity Reaction(s) Onset Inactive Treating Comm ents Source Name Type Date Date Clinician diphenhy DA Active U UNKNOWN [facility] dramine 2-23 Clear 00:00: [facility] diphenhy DA Active U [facility] dramine 2-23 Clear 00:00: Flor 00 [facility] Breanne Propensi Active Methodi Inhibito ty to 02-07 st rs adverse 00:00: Hospita reaction 00 l s to drug Diphenhy Propensi Active Other (See 2015-09 Urinary M ethodi dramine ty to Comments) 0-[address] Hcl adverse 00:00: Hospita reaction 00 l s to drug BREANNE Allergy Active [place] INHIBITO to [facility] RS substanc ty e Hospita l Clinics Benadryl Allergy Active Severe Other [place] to [facility] substan ty e Hospita l Clinics Family History Family Member Diagnosis Comments Start Date Stop Date Source Natural brother Heart disease [facility] Other Diabetes [facility] Other Hypertension [facility] Social History Social Habit Start Date Stop Date Quantity Comments Source History of [facility] - [facility] Use [facility] Sex Assigned At [facility] - [facility] Tobacco use and 2018-10-11 2018-10-11 Smokeless tobacco Me [facility]odist exposure 00:00:00 00:00:00 non-user Hospital Smoking Status Start Date Stop Date Source Never smoked tobacco [facility] Medications Ordered Filled Start Stop Current Ordering Indication Dosage Frequency Signature Comments Components Source Medication Medication Date Date Medication? Clinician (SIG) Name Name allopurinol 2021-09 Yes 1 TABLET Me thodi (ZYLOPRIM) 0-[address] 100 MG 07:36: Hospita tablet 18 l baclofen 2021-09 Yes 1 TABLET Metho di (LIORESAL) 0-[address] 10 MG 07:36: Hospita tablet 18 l codeine-gua 2021-09 Yes TK 2 TEA Me thodi ifenesin 0-07 PO Q [address] (GUAIFENESI 07:36: PRN Hospit a N AC) 18 l 10-100 mg/5 mL liquid cycloSPORIN 2021-09 Yes 1 DROP Meth sheree E 0-[address] (RESTASIS) 07:36: DAILY Hospit a 0.05 % 18 l ophthalmic emulsion lactulose 2021-09 Yes 4 ounces Meth sheree (CHRONULAC) 0-[address] 10 gram/15 07:36: days Hospita mL solution 18 l metoprolol 2021-09 Yes Take .5 Meth sheree tartrate 0-[address] (LOPRESSOR) 07:36: every day H ospita 100 mg 18 by oral l tablet route for 90 days. tamsulosin 2021-09 Yes 2 CAPSULES M ethodi (FLOMAX) 0-[address] 0.4 mg 07:36: Hospita capsule,ext 18 l ended release 24hr multivitami 2021-09 Yes 1{tbl} QD Take 1 Me thodi n 0-[address] (THERAGRAN) 07:36: mouth Hospi ta tablet 18 daily. l diltiazem 2021-09 Yes 240mg QD Take 240 Met hodi CD 0-[address] (CardIZEM 07:36: mouth Hospita CD) 240 MG 18 daily. l 24 hr capsule oxybutynin 2021-09 Yes 10mg QD Take 10 mg M ethodi XL 0-[address] (DITROPAN-X 07:36: nightly. Ho spita L) 10 MG 24 18 l hr tablet indomethaci 2021-09 Yes 100mg Take 100 M ethodi n (INDOCIN) 0-[address] 50 MG 07:36: mouth as Hospita capsule 18 needed. l cholecalcif 2021-09 Yes 2000U QD Take 2,000 Methodi pb, 0-[address] vitamin D3, 07:36: mouth Hospi ta (VITAMIN 18 every l D3) 2,000 morning. unit capsule capsule omega-3-dha 2021-09 Yes 1{tbl} QD Take 1 Me thodi -epa-dpa-fi 0-[address] sh oil 07:36: mouth Hospita 1,050-1,200 18 nightly. l mg capsule docusate 2021-09 Yes 100mg Take 100 Meth sheree sodium 0-[address] (COLACE) 07:36: mouth as Hospi ta 100 MG 18 needed. l capsule aspirin 2021-09 Yes 81mg QD Take 81 mg Meth sheree (ECOTRIN) 0-[address] 81 MG 07:36: daily. Hospita enteric 18 l coated tablet UNABLE TO 2021-09 Yes 1{tbl} QD Take 1 Meth sheree FIND 0-[address] 07:36: mouth Hospita 18 every l morning. Med Name: PHYTOSTEM finasteride 2021-09 Yes 5mg QD Take 5 mg M ethodi (PROSCAR) 5 0-[address] mg tablet 07:36: daily. Hospit a 18 l multivitami 2021-09 Yes 15mL QD Take 15 mL Methodi ns & 0-[address] minerals-fe 07:36: daily. Hosp tanner rrous 18 l gluconate 9 mg iron/15 mL liquid montelukast 2021-09 Yes 10mg QD Take 1 Meth sheree (SINGULAIR) 0-07 tablet (10 st 10 mg 07:36: mg total) Hospita tablet 18 by mouth l nightly. lubiproston 2021-09 Yes 24ug Q.5D Take 24 Met hodi e (AMITIZA) 0-[address] 24 MCG 07:36: mouth 2 Hospita capsule 18 (two) l times a day with meals. senna 2021-09 Yes 1{tbl} QD Take 1 Methodi (SENOKOT) 0-[address] 8.6 mg 07:36: mouth Hospita tablet 18 daily. l ticagrelor 2021-09 Yes 90mg Q.5D Take 90 mg M ethodi (BRILINTA) 0-[address] 90 mg 07:36: (two) Hospita tablet 18 times a l day. 2 pills daily AM, PM FOR THE HEART atorvastati 2021-09 Yes 40mg QD Take 40 mg Methodi n (LIPITOR) 0-[address] 40 mg 07:36: daily. 1 Hospita tablet 18 PILL daily l PM for Cholestero l bedtime folic 2021-09 Yes Take by Methodi acid/multiv 0-[address] it-min/lute 07:36: pill daily Hospita in (CENTRUM 18 AM l SILVER ORAL) melatonin 5 2021-09 Yes Take by Met hodi mg capsule 0-[address] 07:36: Hospita 18 l Brilinta 90 Brilinta 90 No 1 BID Brilinta [place] mg tablet mg tablet 8-11 90 mg Comm uni Take 1 Take 1 00:00: tablet ty tablet tablet 00 Take 1 Hospita twice a day twice a day tablet l by oral by oral twice a Clinic s route. route. day by oral route. Brilinta 90 Brilinta 90 No 1 BID Brilinta [place] mg tablet mg tablet 8-11 90 mg Comm uni Take 1 Take 1 00:00: tablet ty tablet tablet 00 Take 1 Hospita twice a day twice a day tablet l by oral by oral twice a Clinic s route. route. day by oral route. azithromyci Yes 250mg QD Take 1 Met hodi n 8-[address] (Zithromax 00:00: (250 mg Hosp tanner Z-Hakan) 250 00 total) by l MG tablet mouth daily. Take 2 tablets the first day, then 1 tablet daily for 4 days. famotidine 2021- No 40mg QD Take 1 Meth sheree (Pepcid) 40 04-1210 tablet (40 s t MG tablet 00:00: 04:59 mg total) Ho spita 00 :00 by mouth l daily for 30 days. bisacodyL No 10mg QD Insert 1 Met hodi (Dulcolax, 04-[address] bisacodyl,) 00:00: 04:59 y (10 mg H ospita 10 mg 00 :00 total) l suppository into the rectum daily for 30 days. docusate No 100mg Q12H Take 1 Metho di sodium 04-[address] (COLACE) 00:00: 04:59 (100 mg Hospi ta 100 MG 00 :00 total) by l capsule mouth every 12 (twelve) hours for 30 days. albuterol No 2{puff} Q4H Inhale 2 Methodi (PROAIR 04-12 08-[address] HFA) 90 00:00: 04:59 every 4 Hospit a mcg/actuati 00 :00 (four) l on inhaler hours as needed (cough) for up to 10 days. dexamethaso No 6mg QD Take 1 Met hodi ne 04-12 08-16 tablet (6 st (DECADRON) 00:00: 04:59 mg total) H ospita 6 MG tablet 00 :00 by mouth l daily with breakfast for 5 days. glycopyrrol 2020-09 Yes 2 TABLETS M ethodi ate 0-01 QAM, 2 st (ROBINUL) 2 00:00: TABLETS [facility] [place] MG tablet 00 MIDDAY, 2 l TABLETS QHS Cefdinir Cefdinir 2019-09- No BID Cefdinir 300 MG 300 MG 1-12 11-19 300 MG 00:00: 00:00 00 :00 Centrum - Centrum - No Centrum - Oxybutynin Oxybutynin No 1{table BID Oxybutynin Chloride 5 Chloride 5 t} Chloride 5 MG MG MG baclofen baclofen No baclofen Montelukast Montelukast No 1{table QD Montelukas Sodium 10 Sodium 10 t} t Sodium MG MG 10 MG Vitamin D3 Vitamin D3 No Vitamin D3 [id number] UNIT/GM UNIT/GM UNIT/GM Glycopyrrol Glycopyrrol No 1{table QD Glycopyrro ate 2 MG ate 2 MG t} late 2 MG Cartia XT Cartia XT No 1{capsu QD Cartia XT 300 MG 300 MG le} 300 MG Sennosides Sennosides No 2{table QD Sennosides 8.6 MG 8.6 MG ts_at_b 8.6 MG edtime_ as_need ed} Aspirin 81 Aspirin 81 No 1{table QD Aspirin 81 81 MG 81 MG t} 81 MG Lactulose Lactulose No 1{packe QD Lactulose 10 GM 10 GM t} 10 GM Metoprolol Metoprolol No 1{capsu QD Metoprolol Succinate Succinate le} Succinate 100 MG 100 MG 100 MG Allopurinol Allopurinol No 1{table QD Allopurino 100 MG 100 MG t} l 100 MG Finasteride Finasteride No 1{table QD Finasterid 5 MG 5 MG t} e 5 MG Tamsulosin Tamsulosin No 1{capsu QD Tamsulosin HCl 0.4 MG HCl 0.4 MG le} HCl 0.4 MG Lubiproston Lubiproston No BID Lubiprosto e 24 MCG e 24 MCG ne 24 MCG Centrum - Centrum - No Centrum - Lubiproston Lubiproston No BID Lubiprosto e 24 MCG e 24 MCG ne 24 MCG Metoprolol Metoprolol No 1{capsu QD Metoprolol Succinate Succinate le} Succinate 100 MG 100 MG 100 MG baclofen baclofen No baclofen Montelukast Montelukast No 1{table QD Montelukas Sodium 10 Sodium 10 t} t Sodium MG MG 10 MG Vitamin D3 Vitamin D3 No Vitamin D3 [id number] UNIT/GM UNIT/GM UNIT/GM Glycopyrrol Glycopyrrol No 1{table QD Glycopyrro ate 2 MG ate 2 MG t} late 2 MG Sennosides Sennosides No 2{table QD Sennosides 8.6 MG 8.6 MG ts_at_b 8.6 MG edtime_ as_need ed} Oxybutynin Oxybutynin No 1{table BID Oxybutynin Chloride 5 Chloride 5 t} Chloride 5 MG MG MG Aspirin 81 Aspirin 81 No 1{table QD Aspirin 81 81 MG 81 MG t} 81 MG Allopurinol Allopurinol No 1{table QD Allopurino 100 MG 100 MG t} l 100 MG Cartia XT Cartia XT No 1{capsu QD Cartia XT 300 MG 300 MG le} 300 MG Finasteride Finasteride No 1{table QD Finasterid 5 MG 5 MG t} e 5 MG Tamsulosin Tamsulosin No 1{capsu QD Tamsulosin HCl 0.4 MG HCl 0.4 MG le} HCl 0.4 MG Lactulose Lactulose No 1{packe QD Lactulose 10 GM 10 GM t} 10 GM Lubiproston Lubiproston No BID Lubiprosto e 24 MCG e 24 MCG ne 24 MCG Allopurinol Allopurinol No 1{table QD Allopurino 100 MG 100 MG t} l 100 MG Glycopyrrol Glycopyrrol No 1{table QD Glycopyrro ate 2 MG ate 2 MG t} late 2 MG Tamsulosin Tamsulosin No 1{capsu QD Tamsulosin HCl 0.4 MG HCl 0.4 MG le} HCl 0.4 MG Metoprolol Metoprolol No 1{capsu QD Metoprolol Succinate Succinate le} Succinate 100 MG 100 MG 100 MG Oxybutynin Oxybutynin No 1{table BID Oxybutynin Chloride 5 Chloride 5 t} Chloride 5 MG MG MG Cartia XT Cartia XT No 1{capsu QD Cartia XT 300 MG 300 MG le} 300 MG Aspirin 81 Aspirin 81 No 1{table QD Aspirin 81 81 MG 81 MG t} 81 MG baclofen baclofen No baclofen Montelukast Montelukast No 1{table QD Montelukas Sodium 10 Sodium 10 t} t Sodium MG MG 10 MG Lactulose Lactulose No 1{packe QD Lactulose 10 GM 10 GM t} 10 GM Sennosides Sennosides No 2{table QD Sennosides 8.6 MG 8.6 MG ts_at_b 8.6 MG edtime_ as_need ed} Vitamin D3 Vitamin D3 No Vitamin D3 [id number] UNIT/GM UNIT/GM UNIT/GM Finasteride Finasteride No 1{table QD Finasterid 5 MG 5 MG t} e 5 MG Centrum - Centrum - No Centrum - allopurinol allopurinol No allopurino [place] 100 mg 100 mg l 100 mg da tablet Take tablet Take tablet Medical 1 tablet by 1 tablet by Take 1 Group mouth every mouth every tablet by day in the day in the mouth morning morning every day in the morning baclofen 10 baclofen 10 No baclofen [place] mg tablet mg tablet 10 mg da Take 1 Take 1 tablet Medical tablet by tablet by Take 1 [place] up mouth twice mouth twice tablet by a day a day mouth twice a day allopurinol allopurinol No 1 Q1D allopurino [place] 100 mg 100 mg l 100 mg Communi tablet Take tablet Take tablet ty 1 tablet 1 tablet Take 1 Hospi ta every day every day tablet l by oral by oral every day Clin ics route. route. by oral route. Asprin Ec Asprin Ec No 1 Q1D Asprin Ec [place] Low Dose 81 Low Dose 81 Low Dose Communi mg mg 81 mg ty tablet,ioana tablet,ioana tablet,del Hospita yed release yed release ayed l Take 1 Take 1 release Clinics tablet tablet Take 1 every day every day tablet by oral by oral every day route. route. by oral route. baclofen 10 baclofen 10 No 1 BID baclofen [place] mg tablet mg tablet 10 mg Comm uni Take 1 Take 1 tablet ty tablet tablet Take 1 Hospita twice a day twice a day tablet l by oral by oral twice a Clinic s route. route. day by oral route. carboxymeth carboxymeth No 1drop(s Q1D carboxymet [place] yl 0.5 yl 0.5 ) hyl 0.5 Communi %-glycerin %-glycerin %-glycerin ty 1 1 1 Hospita %-polysorb %-polysorb %-polysorb l 80 0.5 %-PF 80 0.5 %-PF 80 0.5 Clinics eye eye %-PF eye dropperette dropperette dropperett Apply 1 Apply 1 e Apply 1 drop every drop every drop every day by day by day by ophthalmic ophthalmic ophthalmic route as route as route as needed. needed. needed. Cartia XT Cartia XT No Cartia XT [place] 300 mg 300 mg 300 mg Communi capsule,ext capsule,ext capsule,ex ty ended ended tended Hospita release release release l TAKE 1 TAKE 1 TAKE 1 Clinics CAPSULE BY CAPSULE BY CAPSULE BY MOUTH ONCE MOUTH ONCE MOUTH ONCE DAILY DAILY DAILY cholecalcif cholecalcif No 1capsul Q1D cholecalci [place] pb pb e(s) ferol Communi (vitamin (vitamin (vitamin ty D3) 10 mcg D3) 10 mcg D3) 10 mcg Hospita (400 unit) (400 unit) (400 unit) l capsule capsule capsule Clinic s Take 1 Take 1 Take 1 capsule capsule capsule every day every day every day by oral by oral by oral route. route. route. Dulcolax Dulcolax No Dulcolax Swe rupesh (bisacodyl) (bisacodyl) (bisacodyl Communi 90 mg 90 mg ) 90 mg ty liquid liquid liquid Hospita l Clinics finasteride finasteride No finasterid [place] 5 mg tablet 5 mg tablet e 5 mg Communi TAKE 1 TAKE 1 tablet ty TABLET BY TABLET BY TAKE 1 [facility] MOUTH ONCE MOUTH ONCE TABLET BY l DAILY DAILY MOUTH ONCE Clinics DAILY glycopyrrol glycopyrrol No glycopyrro [place] ate 2 mg ate 2 mg late 2 mg Co mmuni tablet TAKE tablet TAKE tablet ty 2 TABLETS 2 TABLETS TAKE 2 [facility] BY MOUTH BY MOUTH TABLETS BY l THREE TIMES THREE TIMES MOUTH Clinics DAILY DAILY THREE TIMES DAILY hydrocodone hydrocodone No hydrocodon [place] 10 10 e 10 Communi mg-chlorphe mg-chlorphe mg-chlorph ty niramine 8 niramine 8 eniramine Hospita mg/5 mL mg/5 mL 8 mg/5 mL l oral susp oral susp oral susp Clinics extend.rel extend.rel extend.rel 12hr TAKE 5 12hr TAKE 5 12hr TAKE ML BY MOUTH ML BY MOUTH 5 ML BY EVERY 12 EVERY 12 MOUTH HOURS HOURS EVERY 12 HOURS FreeStyle FreeStyle No FreeStyle [place] Lite Strips Lite Strips Lite d a check sugar check sugar Strips Medical 3x a day 3x a day check Group sugar 3x a day indomethaci indomethaci No indomethac [place] n 50 mg n 50 mg in 50 mg Commu ni capsule capsule capsule ty TAKE 1 TAKE 1 TAKE 1 Hospita CAPSULE BY CAPSULE BY CAPSULE BY l MOUTH THREE MOUTH THREE MOUTH Clinics TIMES DAILY TIMES DAILY THREE TIMES DAILY lactulose lactulose No lactulose [place] Communi ty Hospita Clinics levofloxaci levofloxaci No levofloxac [place] n 750 mg n 750 mg in 750 mg Co mmuni tablet TAKE tablet TAKE tablet ty 1 TABLET BY 1 TABLET BY TAKE 1 Hospita MOUTH ONCE MOUTH ONCE TABLET BY l DAILY FOR DAILY FOR MOUTH ONCE Clinics 10 DAYS 10 DAYS DAILY FOR 10 DAYS lubiproston lubiproston No 1capsul BID lubiprosto [place] e 24 mcg e 24 mcg e(s) ne 24 mcg Co mmuni capsule capsule capsule ty Take 1 Take 1 Take 1 Hospita capsule capsule capsule l twice a day twice a day twice a Clinics by oral by oral day by route. route. oral route. metoprolol metoprolol No metoprolol [place] tartrate 25 tartrate 25 tartrate Communi mg tablet mg tablet 25 mg ty TAKE 1 TAKE 1 tablet Hospita TABLET BY TABLET BY TAKE 1 l MOUTH TWICE MOUTH TWICE TABLET BY Clinics DAILY DAILY MOUTH TWICE DAILY montelukast montelukast No 1 Q1D montelukas [place] 10 mg 10 mg t 10 mg Communi tablet Take tablet Take tablet ty 1 tablet 1 tablet Take 1 Hospi ta every day every day tablet l by oral by oral every day Clin ics route. route. by oral route. polyethylen polyethylen No polyethyle [place] e glycol e glycol ne glycol Co mmuni 3350 8.5 3350 8.5 3350 8.5 ty gram oral gram oral gram oral Hospita powder powder powder l packet packet packet [facility] Dissolve in Dissolve in Dissolve liquid mix liquid mix in liquid per per mix per instruction instruction instructio s, drink by s, drink by ns, drink mouth twice mouth twice by mouth a day as a day as twice a directed directed day as directed Restasis Restasis No Restasis Swe rupesh 0.05 % eye 0.05 % eye 0.05 % eye Communi drops in a drops in a drops in a ty dropperette dropperette dropperett Hospita INSTILL 1 INSTILL 1 e INSTILL l DROP INTO DROP INTO 1 DROP Cli nics AFFECTED AFFECTED INTO EYE(S) BY EYE(S) BY AFFECTED OPHTHALMIC OPHTHALMIC EYE(S) BY ROUTE EVERY ROUTE EVERY OPHTHALMIC 12 HOURS 12 HOURS ROUTE EVERY 12 HOURS sodium sodium No sodium [place] citrate citrate citrate Commun i ty Hospita l Clinics allopurinol allopurinol No 1 Q1D allopurino [place] 100 mg 100 mg l 100 mg Communi tablet Take tablet Take tablet ty 1 tablet 1 tablet Take 1 Hospi ta every day every day tablet l by oral by oral every day Clin ics route. route. by oral route. Asprin Ec Asprin Ec No 1 Q1D Asprin Ec [place] Low Dose 81 Low Dose 81 Low Dose Communi mg mg 81 mg ty tablet,ioana tablet,ioana tablet,del Hospita yed release yed release ayed l Take 1 Take 1 release Clinics tablet tablet Take 1 every day every day tablet by oral by oral every day route. route. by oral route. atorvastati atorvastati No 1 Q1D atorvastat [place] n 40 mg n 40 mg in 40 mg Commu ni tablet Take tablet Take tablet ty 1 tablet 1 tablet Take 1 Hospi ta every day every day tablet l by oral by oral every day Clin ics route. route. by oral route. baclofen 10 baclofen 10 No 1 BID baclofen [place] mg tablet mg tablet 10 mg Comm uni Take 1 Take 1 tablet ty tablet tablet Take 1 Hospita twice a day twice a day tablet l by oral by oral twice a Clinic s route. route. day by oral route. Brilinta 90 Brilinta 90 No 1 BID Brilinta [place] mg tablet mg tablet 90 mg Comm uni Take 1 Take 1 tablet ty tablet tablet Take 1 Hospita twice a day twice a day tablet l by oral by oral twice a Clinic s route. route. day by oral route. Centrum Centrum No Centrum [place] Silver Silver Silver Communi ty Hospita l [facility] [place] diltiazem diltiazem No 1capsul Q1D diltiazem [place] CD 240 mg CD 240 mg e(s) CD 240 mg Communi capsule,ext capsule,ext capsule,ex ty ended ended tended Hospita release 24 release 24 release 24 l hr Take 1 hr Take 1 hr Take 1 Clinics capsule capsule capsule every day every day every day by oral by oral by oral route. route. route. finasteride finasteride No finasterid [place] 5 mg tablet 5 mg tablet e 5 mg [facility]i TAKE 1 TAKE 1 tablet ty TABLET BY TABLET BY TAKE 1 [facility] MOUTH ONCE MOUTH ONCE TABLET BY l DAILY DAILY MOUTH ONCE Clinics DAILY glycopyrrol glycopyrrol No glycopyrro [place] ate 2 mg ate 2 mg late 2 mg [facility] tablet TAKE tablet TAKE tablet ty 2 TABLETS 2 TABLETS TAKE 2 [facility] BY MOUTH BY MOUTH TABLETS BY l THREE TIMES THREE TIMES MOUTH Clinics DAILY DAILY THREE TIMES DAILY indomethaci indomethaci No indomethac [place] n 50 mg n 50 mg in 50 mg Commu ni capsule capsule capsule ty TAKE 1 TAKE 1 TAKE 1 Hospita CAPSULE BY CAPSULE BY CAPSULE BY l MOUTH THREE MOUTH THREE MOUTH Clinics TIMES DAILY TIMES DAILY THREE WITH MEALS WITH MEALS TIMES NEEDED NEEDED DAILY WITH FOR GOUT FOR GOUT MEALS NEEDED FOR GOUT Linzess 145 Linzess 145 No 1capsul Q1D Linzess [place] mcg capsule mcg capsule e(s) 145 mcg [facility] Take 1 Take 1 capsule ty capsule capsule Take 1 Hospita every day every day capsule l by oral by oral every day Clin ics route. route. by oral route. metoprolol metoprolol No metoprolol [place] succinate succinate succinate [facility] ER 25 mg ER 25 mg ER 25 mg ty tablet,exte tablet,exte tablet,ext [facility]ospita nded nded ended l release 24 release 24 release 24 Clinics hr TAKE 1 hr TAKE 1 hr TAKE 1 TABLET BY TABLET BY TABLET BY MOUTH ONCE MOUTH ONCE MOUTH ONCE DAILY DAILY DAILY montelukast montelukast No 1 Q1D montelukas [place] 10 mg 10 mg t 10 mg [facility] tablet Take tablet Take tablet ty 1 tablet 1 tablet Take 1 [facility]pi ta every day every day tablet l by oral by oral every day Clin ics route. route. by oral route. [place] 3 [place] 3 No [place] 3 [place] [facility] oxybutynin oxybutynin No 1 Q1D oxybutynin [place] chloride ER chloride ER chloride [facility] 10 mg 10 mg ER 10 mg ty tablet,exte tablet,exte tablet,ext [facility]ospita nded nded ended l release 24 release 24 release 24 Clinics hr Take 1 hr Take 1 hr Take 1 tablet tablet tablet every day every day every day by oral by oral by oral route. route. route. sennosides sennosides No 8 Q1D sennosides [place] 8.6 mg 8.6 mg 8.6 mg [facility] tablet Take tablet Take tablet ty 8 tablets 8 tablets Take 8 [facility] every day every day tablets l by oral by oral every day Clin ics route. route. by oral route. tamsulosin tamsulosin No 2capsul Q1D tamsulosin [place] 0.4 mg 0.4 mg e(s) 0.4 mg [facility] capsule capsule capsule ty Take 2 Take 2 Take 2 Hospita capsules capsules capsules l every day every day every day Clinics by oral by oral by oral route. route. route. allopurinol allopurinol No 1 Q1D allopurino [place] 100 mg 100 mg l 100 mg [facility] tablet Take tablet Take tablet ty 1 tablet 1 tablet Take 1 [facility] ta every day every day tablet l by oral by oral every day Clin ics route. route. by oral route. Asprin Ec Asprin Ec No 1 Q1D Asprin Ec [place] Low Dose 81 Low Dose 81 Low Dose [facility] mg mg 81 mg ty tablet,ioana tablet,ioana tablet,del [facility]ospita yed release yed release ayed l Take 1 Take 1 release Clinics tablet tablet Take 1 every day every day tablet by oral by oral every day route. route. by oral route. atorvastati atorvastati No 1 Q1D atorvastat [place] n 40 mg n 40 mg in 40 mg [facility] ni tablet Take tablet Take tablet ty 1 tablet 1 tablet Take 1 [facility] ta every day every day tablet l by oral by oral every day Clin ics route. route. by oral route. baclofen 10 baclofen 10 No 1 BID baclofen [place] mg tablet mg tablet 10 mg Comm uni Take 1 Take 1 tablet ty tablet tablet Take 1 [facility]ospita twice a day twice a day tablet l by oral by oral twice a Clinic s route. route. day by oral route. glycopyrrol glycopyrrol No glycopyrro [place] ate 1 mg ate 1 mg late 1 mg da tablet Take tablet Take tablet Medical by oral by oral Take by Group route. route. oral route. Brilinta 90 Brilinta 90 No 1 BID Brilinta [place] mg tablet mg tablet 90 mg Comm uni Take 1 Take 1 tablet ty tablet tablet Take 1 Hospita twice a day twice a day tablet l by oral by oral twice a Clinic s route. route. day by oral route. Centrum Centrum No Centrum [place] Silver Silver Silver [facility] diltiazem diltiazem No 1capsul Q1D diltiazem [place] CD 240 mg CD 240 mg e(s) CD 240 mg [facility] capsule,ext capsule,ext capsule,ex ty ended ended tended [facility]ospita release 24 release 24 release 24 l hr Take 1 hr Take 1 hr Take 1 Clinics capsule capsule capsule every day every day every day by oral by oral by oral route. route. route. finasteride finasteride No finasterid [place] 5 mg tablet 5 mg tablet e 5 mg [facility] TAKE 1 TAKE 1 tablet ty TABLET BY TABLET BY TAKE 1 [facility] MOUTH ONCE MOUTH ONCE TABLET BY l DAILY DAILY MOUTH ONCE Clinics DAILY glycopyrrol glycopyrrol No glycopyrro [place] ate 2 mg ate 2 mg late 2 mg [facility] tablet TAKE tablet TAKE tablet ty 2 TABLETS 2 TABLETS TAKE 2 [facility] BY MOUTH BY MOUTH TABLETS BY l THREE TIMES THREE TIMES MOUTH Clinics DAILY DAILY THREE TIMES DAILY indomethaci indomethaci No indomethac [place] n 50 mg n 50 mg in 50 mg [facility] ni capsule capsule capsule ty TAKE 1 TAKE 1 TAKE 1 [facility]ospita CAPSULE BY CAPSULE BY CAPSULE BY l MOUTH THREE MOUTH THREE MOUTH Clinics TIMES DAILY TIMES DAILY THREE WITH MEALS WITH MEALS TIMES NEEDED NEEDED DAILY WITH FOR GOUT FOR GOUT MEALS NEEDED FOR GOUT metoprolol metoprolol No metoprolol [place] succinate succinate succinate [facility] ER 25 mg ER 25 mg ER 25 mg ty tablet,exte tablet,exte tablet,ext [facility]ospita nded nded ended l release 24 release 24 release 24 Clinics hr TAKE 1 hr TAKE 1 hr TAKE 1 TABLET BY TABLET BY TABLET BY MOUTH ONCE MOUTH ONCE MOUTH ONCE DAILY DAILY DAILY montelukast montelukast No 1 Q1D montelukas [place] 10 mg 10 mg t 10 mg [facility] tablet Take tablet Take tablet ty 1 tablet 1 tablet Take 1 Hospi ta every day every day tablet l by oral by oral every day Clin ics route. route. by oral route. [place] 3 [place] 3 No [place] 3 [place] [facility] oxybutynin oxybutynin No 1 Q1D oxybutynin [place] chloride ER chloride ER chloride [facility] 10 mg 10 mg ER 10 mg ty tablet,exte tablet,exte tablet,ext [facility]ospita nded nded ended l release 24 release 24 release 24 Clinics hr Take 1 hr Take 1 hr Take 1 tablet tablet tablet every day every day every day by oral by oral by oral route. route. route. sennosides sennosides No 8 Q1D sennosides [place] 8.6 mg 8.6 mg 8.6 mg [facility] tablet Take tablet Take tablet ty 8 tablets 8 tablets Take 8 [facility] every day every day tablets l by oral by oral every day Clin ics route. route. by oral route. tamsulosin tamsulosin No 2capsul Q1D tamsulosin [place] 0.4 mg 0.4 mg e(s) 0.4 mg [facility] capsule capsule capsule ty Take 2 Take 2 Take 2 [facility]ospita capsules capsules capsules l every day every day every day Clinics by oral by oral by oral route. route. route. allopurinol allopurinol No 1 Q1D allopurino [place] 100 mg 100 mg l 100 mg [facility] tablet Take tablet Take tablet ty 1 tablet 1 tablet Take 1 Hos[facility] ta every day every day tablet l by oral by oral every day Clin ics route. route. by oral route. Asprin Ec Asprin Ec No 1 Q1D Asprin Ec [place] Low Dose 81 Low Dose 81 Low Dose [facility] mg mg 81 mg ty tablet,ioana tablet,ioana tablet,del [facility]ospita yed release yed release ayed l Take 1 Take 1 release Clinics tablet tablet Take 1 every day every day tablet by oral by oral every day route. route. by oral route. atorvastati atorvastati No 1 Q1D atorvastat [place] n 40 mg n 40 mg in 40 mg [facility] ni tablet Take tablet Take tablet ty 1 tablet 1 tablet Take 1 Hos[facility] ta every day every day tablet l by oral by oral every day Clin ics route. route. by oral route. baclofen 10 baclofen 10 No 1 BID baclofen [place] mg tablet mg tablet 10 mg Comm uni Take 1 Take 1 tablet ty tablet tablet Take 1 [facility]ospita twice a day twice a day tablet l by oral by oral twice a Clinic s route. route. day by oral route. Brilinta 90 Brilinta 90 No 1 BID Brilinta [place] mg tablet mg tablet 90 mg Comm uni Take 1 Take 1 tablet ty tablet tablet Take 1 [facility]ospita twice a day twice a day tablet l by oral by oral twice a Clinic s route. route. day by oral route. Centrum Centrum No Centrum [place] Silver Silver Silver [facility] l Clinics Cipro 500 Cipro 500 No 1 Q12H Cipro 500 [place] mg tablet mg tablet mg tablet [facility] Take 1 Take 1 Take 1 ty tablet tablet tablet Hospita every 12 every 12 every 12 l hours by hours by hours by Cli nics oral route oral route oral route for 7 days. for 7 days. for 7 days. lactulose lactulose No 15mL Q1D lactulose [place] 10 gram/15 10 gram/15 10 gram/15 da mL oral mL oral mL oral Medica l solution solution solution [place] up Take 15 mL Take 15 mL Take 15 mL every day every day every day by oral by oral by oral route for route for route for 90 days. 90 days. 90 days. diltiazem diltiazem No 1capsul Q1D diltiazem [place] CD 240 mg CD 240 mg e(s) CD 240 mg [facility] capsule,ext capsule,ext capsule,ex ty ended ended tended [facility]ospita release 24 release 24 release 24 l hr Take 1 hr Take 1 hr Take 1 Clinics capsule capsule capsule every day every day every day by oral by oral by oral route. route. route. finasteride finasteride No finasterid [place] 5 mg tablet 5 mg tablet e 5 mg [facility] TAKE 1 TAKE 1 tablet ty TABLET BY TABLET BY TAKE 1 [facility] MOUTH ONCE MOUTH ONCE TABLET BY l DAILY DAILY MOUTH ONCE Clinics DAILY glycopyrrol glycopyrrol No glycopyrro [place] ate 2 mg ate 2 mg late 2 mg [facility] tablet TAKE tablet TAKE tablet ty 2 TABLETS 2 TABLETS TAKE 2 [facility] BY MOUTH BY MOUTH TABLETS BY l THREE TIMES THREE TIMES MOUTH Clinics DAILY DAILY THREE TIMES DAILY indomethaci indomethaci No indomethac [place] n 50 mg n 50 mg in 50 mg [facility] ni capsule capsule capsule ty TAKE 1 TAKE 1 TAKE 1 [facility]ospita CAPSULE BY CAPSULE BY CAPSULE BY l MOUTH THREE MOUTH THREE MOUTH Clinics TIMES DAILY TIMES DAILY THREE WITH MEALS WITH MEALS TIMES NEEDED NEEDED DAILY WITH FOR GOUT FOR GOUT MEALS NEEDED FOR GOUT metoprolol metoprolol No metoprolol [place] succinate succinate succinate [facility] ER 25 mg ER 25 mg ER 25 mg ty tablet,exte tablet,exte tablet,ext [facility]ospita nded nded ended l release 24 release 24 release 24 Clinics hr TAKE 1 hr TAKE 1 hr TAKE 1 TABLET BY TABLET BY TABLET BY MOUTH ONCE MOUTH ONCE MOUTH ONCE DAILY DAILY DAILY montelukast montelukast No 1 Q1D montelukas [place] 10 mg 10 mg t 10 mg [facility] tablet Take tablet Take tablet ty 1 tablet 1 tablet Take 1 [facility] ta every day every day tablet l by oral by oral every day Clin ics route. route. by oral route. [place] 3 [place] 3 No [place] 3 [place] [facility] oxybutynin oxybutynin No 1 Q1D oxybutynin [place] chloride ER chloride ER chloride [facility] 10 mg 10 mg ER 10 mg ty tablet,exte tablet,exte tablet,ext [facility]ospita nded nded ended l release 24 release 24 release 24 Clinics hr Take 1 hr Take 1 hr Take 1 tablet tablet tablet every day every day every day by oral by oral by oral route. route. route. sennosides sennosides No 8 Q1D sennosides [place] 8.6 mg 8.6 mg 8.6 mg [facility] tablet Take tablet Take tablet ty 8 tablets 8 tablets Take 8 [facility] every day every day tablets l by oral by oral every day Clin ics route. route. by oral route. tamsulosin tamsulosin No 2capsul Q1D tamsulosin [place] 0.4 mg 0.4 mg e(s) 0.4 mg [facility] capsule capsule capsule ty Take 2 Take 2 Take 2 Hospita capsules capsules capsules l every day every day every day Clinics by oral by oral by oral route. route. route. losartan losartan No losartan [place] 100 mg 100 mg 100 mg da tablet Take tablet Take tablet Medical by oral by oral Take by Group route. route. oral route. allopurinol allopurinol No 1 Q1D allopurino [place] 100 mg 100 mg l 100 mg [facility] tablet Take tablet Take tablet ty 1 tablet 1 tablet Take 1 [facility] ta every day every day tablet l by oral by oral every day Clin ics route. route. by oral route. Asprin Ec Asprin Ec No 1 Q1D Asprin Ec [place] Low Dose 81 Low Dose 81 Low Dose [facility] mg mg 81 mg ty tablet,ioana tablet,ioana tablet,del [facility]ospita yed release yed release ayed l Take 1 Take 1 release Clinics tablet tablet Take 1 every day every day tablet by oral by oral every day route. route. by oral route. atorvastati atorvastati No 1 Q1D atorvastat [place] n 40 mg n 40 mg in 40 mg [facility] ni tablet Take tablet Take tablet ty 1 tablet 1 tablet Take 1 [facility] ta every day every day tablet l by oral by oral every day Clin ics route. route. by oral route. baclofen 10 baclofen 10 No 1 BID baclofen [place] mg tablet mg tablet 10 mg Comm uni Take 1 Take 1 tablet ty tablet tablet Take 1 [facility]ospita twice a day twice a day tablet l by oral by oral twice a Clinic s route. route. day by oral route. Brilinta 90 Brilinta 90 No 1 BID Brilinta [place] mg tablet mg tablet 90 mg Comm uni Take 1 Take 1 tablet ty tablet tablet Take 1 [facility]ospita twice a day twice a day tablet l by oral by oral twice a Clinic s route. route. day by oral route. Centrum Centrum No Centrum [place] Silver Silver Silver [facility] Clin[facility] diltiazem diltiazem No 1capsul Q1D diltiazem [place] CD 240 mg CD 240 mg e(s) CD 240 mg [facility] capsule,ext capsule,ext capsule,ex ty ended ended tended [facility]osp[facility] release 24 release 24 release 24 l hr Take 1 hr Take 1 hr Take 1 Clinics capsule capsule capsule every day every day every day by oral by oral by oral route. route. route. metformin metformin No metformin [place] 500 mg 500 mg 500 mg da tablet Take tablet Take tablet Medical 1 tablet by 1 tablet by Take 1 Group mouth twice mouth twice tablet by a day a day mouth twice a day finasteride finasteride No finasterid [place] 5 mg tablet 5 mg tablet e 5 mg [facility]i TAKE 1 TAKE 1 tablet ty TABLET BY TABLET BY TAKE 1 [facility] MOUTH ONCE MOUTH ONCE TABLET BY l DAILY DAILY MOUTH ONCE Clinics DAILY glycopyrrol glycopyrrol No glycopyrro [place] ate 2 mg ate 2 mg late 2 mg [facility] tablet TAKE tablet TAKE tablet ty 2 TABLETS 2 TABLETS TAKE 2 [facility] BY MOUTH BY MOUTH TABLETS BY l THREE TIMES THREE TIMES MOUTH Clinics DAILY DAILY THREE TIMES DAILY indomethaci indomethaci No indomethac [place] n 50 mg n 50 mg in 50 mg [facility] ni capsule capsule capsule ty TAKE 1 TAKE 1 TAKE 1 [facility] CAPSULE BY CAPSULE BY CAPSULE BY l MOUTH THREE MOUTH THREE MOUTH Clinics TIMES DAILY TIMES DAILY THREE WITH MEALS WITH MEALS TIMES NEEDED NEEDED DAILY WITH FOR GOUT FOR GOUT MEALS NEEDED FOR GOUT metoprolol metoprolol No metoprolol [place] succinate succinate succinate [facility] ER 25 mg ER 25 mg ER 25 mg ty tablet,exte tablet,exte tablet,ext [facility]ospita nded nded ended l release 24 release 24 release 24 Clinics hr TAKE 1 hr TAKE 1 hr TAKE 1 TABLET BY TABLET BY TABLET BY MOUTH ONCE MOUTH ONCE MOUTH ONCE DAILY DAILY DAILY montelukast montelukast No 1 Q1D montelukas [place] 10 mg 10 mg t 10 mg [facility] tablet Take tablet Take tablet ty 1 tablet 1 tablet Take 1 [facility] every day every day tablet l by oral by oral every day Clin ics route. route. by oral route. [place] 3 [place] 3 No [place] 3 [place] [facility] oxybutynin oxybutynin No 1 Q1D oxybutynin [place] chloride ER chloride ER chloride [facility] 10 mg 10 mg ER 10 mg ty tablet,exte tablet,exte tablet,ext [facility]ospita nded nded ended l release 24 release 24 release 24 Clinics hr Take 1 hr Take 1 hr Take 1 tablet tablet tablet every day every day every day by oral by oral by oral route. route. route. sennosides sennosides No 8 Q1D sennosides [place] 8.6 mg 8.6 mg 8.6 mg [facility] tablet Take tablet Take tablet ty 8 tablets 8 tablets Take 8 [facility] every day every day tablets l by oral by oral every day Clin ics route. route. by oral route. tamsulosin tamsulosin No 2capsul Q1D tamsulosin [place] 0.4 mg 0.4 mg e(s) 0.4 mg [facility] capsule capsule capsule ty Take 2 Take 2 Take 2 [facility]ospita capsules capsules capsules l every day every day every day Clinics by oral by oral by oral route. route. route. allopurinol allopurinol No 1 Q1D allopurino [place] 100 mg 100 mg l 100 mg [facility] tablet Take tablet Take tablet ty 1 tablet 1 tablet Take 1 [facility] ta every day every day tablet l by oral by oral every day Clin ics route. route. by oral route. Asprin Ec Asprin Ec No 1 Q1D Asprin Ec [place] Low Dose 81 Low Dose 81 Low Dose [facility] mg mg 81 mg ty tablet,ioana tablet,ioana tablet,del [facility]osp[facility] yed release yed release ayed l Take 1 Take 1 release Clinics tablet tablet Take 1 every day every day tablet by oral by oral every day route. route. by oral route. atorvastati atorvastati No 1 Q1D atorvastat [place] n 40 mg n 40 mg in 40 mg [facility] ni tablet Take tablet Take tablet ty 1 tablet 1 tablet Take 1 [facility] ta every day every day tablet l by oral by oral every day Clin ics route. route. by oral route. baclofen 10 baclofen 10 No 1 BID baclofen [place] mg tablet mg tablet 10 mg Comm uni Take 1 Take 1 tablet ty tablet tablet Take 1 [facility]ospita twice a day twice a day tablet l by oral by oral twice a Clinic s route. route. day by oral route. benzonatate benzonatate No 1capsul TID benzonatat [place] 100 mg 100 mg e(s) e 100 mg [facility] capsule capsule capsule ty Take 1 Take 1 Take 1 [facility]ospita capsule 3 capsule 3 capsule 3 l times a day times a day times a Clinics by oral by oral day by route as route as oral route needed. needed. as needed. metoprolol metoprolol No metoprolol [place] tartrate tartrate tartrate da 100 mg 100 mg 100 mg Medical tablet Take tablet Take tablet Group 2 tablets 2 tablets Take 2 by mouth by mouth tablets by every every mouth morning morning every morning Brilinta 90 Brilinta 90 No 1 BID Brilinta [place] mg tablet mg tablet 90 mg Comm uni Take 1 Take 1 tablet ty tablet tablet Take 1 [facility]ospita twice a day twice a day tablet l by oral by oral twice a Clinic s route. route. day by oral route. Centrum Centrum No Centrum [place] Silver Silver Silver [facility] Clin[facility] diltiazem diltiazem No 1capsul Q1D diltiazem [place] CD 240 mg CD 240 mg e(s) CD 240 mg [facility] capsule,ext capsule,ext capsule,ex ty ended ended tended [facility] release 24 release 24 release 24 l hr Take 1 hr Take 1 hr Take 1 Clinics capsule capsule capsule every day every day every day by oral by oral by oral route. route. route. finasteride finasteride No finasterid [place] 5 mg tablet 5 mg tablet e 5 mg [facility] TAKE 1 TAKE 1 tablet ty TABLET BY TABLET BY TAKE 1 [facility] MOUTH ONCE MOUTH ONCE TABLET BY l DAILY DAILY MOUTH ONCE Clinics DAILY glycopyrrol glycopyrrol No glycopyrro [place] ate 2 mg ate 2 mg late 2 mg [facility] tablet TAKE tablet TAKE tablet ty 2 TABLETS 2 TABLETS TAKE 2 [facility] BY MOUTH BY MOUTH TABLETS BY l THREE TIMES THREE TIMES MOUTH Clinics DAILY DAILY THREE TIMES DAILY indomethaci indomethaci No indomethac [place] n 50 mg n 50 mg in 50 mg [facility] ni capsule capsule capsule ty TAKE 1 TAKE 1 TAKE 1 [facility]ita CAPSULE BY CAPSULE BY CAPSULE BY l MOUTH THREE MOUTH THREE MOUTH Clinics TIMES DAILY TIMES DAILY THREE WITH MEALS WITH MEALS TIMES NEEDED NEEDED DAILY WITH FOR GOUT FOR GOUT MEALS NEEDED FOR GOUT Linzess 290 Linzess 290 No 1capsul Q1D Linzess [place] mcg capsule mcg capsule e(s) 290 mcg [facility] Take 1 Take 1 capsule ty capsule capsule Take 1 [facility]ospita every day every day capsule l by oral by oral every day Clin ics route for route for by oral 30 days. 30 days. route for 30 days. metoclopram metoclopram No metoclopra [place] anurag 10 mg anurag 10 mg mide 10 mg [facility] tablet TAKE tablet TAKE tablet ty 4 TABLETS 4 TABLETS TAKE 4 [facility] BY MOUTH BY MOUTH TABLETS BY l DIRECTED DIRECTED MOUTH Cli nics PER YOUR PER YOUR DIRECTED COLONOSCOPY COLONOSCOPY PER YOUR PREP PACKET PREP PACKET COLONOSCOP Y PREP PACKET oxybutynin oxybutynin No 1 Q1D oxybutynin [place] chloride ER chloride ER chloride da 10 mg 10 mg ER 10 mg Medical tablet,exte tablet,exte tablet,ext Group nded nded ended release 24 release 24 release 24 hr Take 1 hr Take 1 hr Take 1 tablet tablet tablet every day every day every day by oral by oral by oral route. route. route. metoprolol metoprolol No metoprolol [place] succinate succinate succinate [facility] ER 25 mg ER 25 mg ER 25 mg ty tablet,exte tablet,exte tablet,ext [facility]ospita nded nded ended l release 24 release 24 release 24 Clinics hr TAKE 1 hr TAKE 1 hr TAKE 1 TABLET BY TABLET BY TABLET BY MOUTH ONCE MOUTH ONCE MOUTH ONCE DAILY DAILY DAILY montelukast montelukast No 1 Q1D montelukas [place] 10 mg 10 mg t 10 mg [facility] tablet Take tablet Take tablet ty 1 tablet 1 tablet Take 1 [facility] ta every day every day tablet l by oral by oral every day Clin ics route. route. by oral route. [place] 3 [place] 3 No [place] 3 [place] [facility] oxybutynin No oxybutynin [place] chloride ER chloride ER chloride Communi 10 mg 10 mg ER 10 mg ty tablet,exte tablet,exte tablet,ext [facility]ospita nded nded ended l release 24 release 24 release 24 Clinics hr Take 1 hr Take 1 hr Take 1 tablet tablet tablet every day every day every day by oral by oral by oral route for route for route for 30 days. 30 days. 30 days. sennosides sennosides No 8 Q1D sennosides [place] 8.6 mg 8.6 mg 8.6 mg [facility] tablet Take tablet Take tablet ty 8 tablets 8 tablets Take 8 [facility] every day every day tablets l by oral by oral every day Clin ics route. route. by oral route. tamsulosin tamsulosin No 2capsul Q1D tamsulosin [place] 0.4 mg 0.4 mg e(s) 0.4 mg [facility] capsule capsule capsule ty Take 2 Take 2 Take 2 Hospita capsules capsules capsules l every day every day every day Clinics by oral by oral by oral route. route. route. albuterol albuterol No 2puff(s Q4H albuterol [place] sulf 90 sulf 90 ) sulf 90 Commun i mcg/actuati mcg/actuati mcg/actuat ty on breath on breath ion breath [facility] activated activated activated l powder powder powder [facility] inhaler,sen inhaler,sen inhaler,se sor Inhale sor Inhale nsor 2 puffs 2 puffs Inhale 2 every 4 every 4 puffs hours by hours by every 4 inhalation inhalation hours by route. route. inhalation route. allopurinol allopurinol No 1 Q1D allopurino [place] 100 mg 100 mg l 100 mg [facility]i tablet Take tablet Take tablet ty 1 tablet 1 tablet Take 1 Hos[facility] ta every day every day tablet l by oral by oral every day Clin ics route. route. by oral route. Asprin Ec Asprin Ec No 1 Q1D Asprin Ec [place] Low Dose 81 Low Dose 81 Low Dose [facility] mg mg 81 mg ty tablet,ioana tablet,ioana tablet,del [facility]ospita yed release yed release ayed l Take 1 Take 1 release Clinics tablet tablet Take 1 every day every day tablet by oral by oral every day route. route. by oral route. atorvastati atorvastati No 1 Q1D atorvastat [place] n 40 mg n 40 mg in 40 mg Commu ni tablet Take tablet Take tablet ty 1 tablet 1 tablet Take 1 Hospi ta every day every day tablet l by oral by oral every day Clin ics route. route. by oral route. Restasis Restasis No Restasis [place] 0.05 % eye 0.05 % eye 0.05 % eye da drops in a drops in a drops in a Medical dropperette dropperette dropperett Group e azithromyci azithromyci No azithromyc [place] n 250 mg n 250 mg in 250 mg [facility] tablet TAKE tablet TAKE tablet ty 2 TABLETS 2 TABLETS TAKE 2 [facility] (500 MG) BY (500 MG) BY TABLETS l ORAL ROUTE ORAL ROUTE (500 MG) Clinics ONCE DAILY ONCE DAILY BY ORAL FOR 1 DAY FOR 1 DAY ROUTE ONCE THEN 1 THEN 1 DAILY FOR TABLET (250 TABLET (250 1 DAY THEN MG) BY ORAL MG) BY ORAL 1 TABLET ROUTE ONCE ROUTE ONCE (250 MG) DAILY FOR 4 DAILY FOR 4 BY ORAL DAYS DAYS ROUTE ONCE DAILY FOR 4 DAYS baclofen 10 baclofen 10 No 1 BID baclofen [place] mg tablet mg tablet 10 mg Comm uni Take 1 Take 1 tablet ty tablet tablet Take 1 Hospita twice a day twice a day tablet l by oral by oral twice a Clinic s route. route. day by oral route. benzonatate benzonatate No 1capsul TID benzonatat [place] 100 mg 100 mg e(s) e 100 mg Communi capsule capsule capsule ty Take 1 Take 1 Take 1 [facility] capsule 3 capsule 3 capsule 3 l times a day times a day times a Clinics by oral by oral day by route as route as oral route needed. needed. as needed. bisacodyl bisacodyl No 1suppos Q1D bisacodyl [place] 10 mg 10 mg itor(y/ 10 mg [facility]i rectal rectal ies) rectal ty suppository suppository suppositor [facility] Insert 1 Insert 1 y Insert 1 l suppository suppository suppositor Clinics every day every day y every by rectal by rectal day by route for route for rectal 30 days. 30 days. route for 30 days. Centrum Centrum No Centrum [place] Silver Silver Silver Communi ty [facility]osp[facility] l Clinics dexamethaso dexamethaso No 1 Q1D dexamethas [place] ne 6 mg ne 6 mg one 6 mg Commu ni tablet Take tablet Take tablet ty 1 tablet 1 tablet Take 1 Hospi ta every day every day tablet l by oral by oral every day Clin ics route with route with by oral meals for 5 meals for 5 route with days. days. meals for 5 days. diltiazem diltiazem No 1capsul Q1D diltiazem [place] CD 240 mg CD 240 mg e(s) CD 240 mg Communi capsule,ext capsule,ext capsule,ex ty ended ended tended [facility]ospita release 24 release 24 release 24 l hr Take 1 hr Take 1 hr Take 1 Clinics capsule capsule capsule every day every day every day by oral by oral by oral route. route. route. finasteride finasteride No finasterid [place] 5 mg tablet 5 mg tablet e 5 mg [facility]i TAKE 1 TAKE 1 tablet ty TABLET BY TABLET BY TAKE 1 [facility] MOUTH ONCE MOUTH ONCE TABLET BY l DAILY DAILY MOUTH ONCE Clinics DAILY glycopyrrol glycopyrrol No glycopyrro [place] ate 2 mg ate 2 mg late 2 mg [facility] tablet TAKE tablet TAKE tablet ty 2 TABLETS 2 TABLETS TAKE 2 [facility] BY MOUTH BY MOUTH TABLETS BY l THREE TIMES THREE TIMES MOUTH Clinics DAILY DAILY THREE TIMES DAILY indomethaci indomethaci No indomethac [place] n 50 mg n 50 mg in 50 mg Commu ni capsule capsule capsule ty TAKE 1 TAKE 1 TAKE 1 [facility]ospita CAPSULE BY CAPSULE BY CAPSULE BY l MOUTH THREE MOUTH THREE MOUTH Clinics TIMES DAILY TIMES DAILY THREE WITH MEALS WITH MEALS TIMES NEEDED NEEDED DAILY WITH FOR GOUT FOR GOUT MEALS NEEDED FOR GOUT lactulose lactulose No 15mL Q1D lactulose [place] 10 gram/15 10 gram/15 10 gram/15 [facility] mL (15 mL) mL (15 mL) mL (15 mL) ty oral oral oral [facility]osp[facility] solution solution solution l Take 15 mL Take 15 mL Take 15 mL Clinics every day every day every day by oral by oral by oral route. route. route. tamsulosin tamsulosin No tamsulosin [place] 0.4 mg 0.4 mg 0.4 mg da capsule capsule capsule Medica l Take 1 Take 1 Take 1 Group capsule capsule capsule twice a day twice a day twice a by oral by oral day by route for route for oral route 90 days. 90 days. for 90 days. Linzess 290 Linzess 290 No 1capsul Q1D Linzess [place] mcg capsule mcg capsule e(s) 290 mcg [facility] Take 1 Take 1 capsule ty capsule capsule Take 1 [facility]ospita every day every day capsule l by oral by oral every day Clin ics route for route for by oral 30 days. 30 days. route for 30 days. lubiproston lubiproston No 1capsul BID lubiprosto [place] e 24 mcg e 24 mcg e(s) ne 24 mcg [facility] capsule capsule capsule ty Take 1 Take 1 Take 1 [facility]ospita capsule capsule capsule l twice a day twice a day twice a Clinics by oral by oral day by route. route. oral route. melatonin melatonin No melatonin [place] Commun[facility] ty [facility] metoclopram metoclopram No metoclopra [place] anurag 10 mg anurag 10 mg mide 10 mg Communi tablet TAKE tablet TAKE tablet ty 4 TABLETS 4 TABLETS TAKE 4 [facility] BY MOUTH BY MOUTH TABLETS BY l DIRECTED DIRECTED MOUTH Cli nics PER YOUR PER YOUR DIRECTED COLONOSCOPY COLONOSCOPY PER YOUR PREP PACKET PREP PACKET COLONOSCOP Y PREP PACKET metoprolol metoprolol No 1 Q1D metoprolol [place] tartrate tartrate tartrate Com [place] 100 mg 100 mg 100 mg ty tablet Take tablet Take tablet Hospita 1 tablet 1 tablet Take 1 l every day every day tablet Cli nics by oral by oral every day route. route. by oral route. montelukast montelukast No 1 Q1D montelukas [place] 10 mg 10 mg t 10 mg Communi tablet Take tablet Take tablet ty 1 tablet 1 tablet Take 1 Hospi ta every day every day tablet l by oral by oral every day Clin ics route. route. by oral route. [place] 3 [place] 3 No [place] 3 [place] Commun[facility] ty [facility] oxybutynin oxybutynin No oxybutynin [place] chloride ER chloride ER chloride [facility]i 10 mg 10 mg ER 10 mg ty tablet,exte tablet,exte tablet,ext Hospita nded nded ended l release 24 release 24 release 24 Clinics hr Take 1 hr Take 1 hr Take 1 tablet tablet tablet every day every day every day by oral by oral by oral route for route for route for 30 days. 30 days. 30 days. senna 8.6 senna 8.6 No 2 Q1D senna 8.6 [place] mg tablet mg tablet mg tablet Commun[facility] Take 2 Take 2 Take 2 ty tablets tablets tablets Hospit a every day every day every day l by oral by oral by oral Clinic s route. route. route. tamsulosin tamsulosin No 2capsul Q1D tamsulosin [place] 0.4 mg 0.4 mg e(s) 0.4 mg [facility]i capsule capsule capsule ty Take 2 Take 2 Take 2 Hospita capsules capsules capsules l every day every day every day Clinics by oral by oral by oral route. route. route. albuterol albuterol No 2puff(s Q4H albuterol [place] sulf 90 sulf 90 ) sulf 90 Commun i mcg/actuati mcg/actuati mcg/actuat ty on breath on breath ion breath [facility]ospita activated activated activated l powder powder powder Clinics inhaler,sen inhaler,sen inhaler,se sor Inhale sor Inhale nsor 2 puffs 2 puffs Inhale 2 every 4 every 4 puffs hours by hours by every 4 inhalation inhalation hours by route. route. inhalation route. albuterol albuterol No albuterol [place] sulfate HFA sulfate HFA sulfate Communi 90 90 HFA 90 ty mcg/actuati mcg/actuati mcg/actuat Hospita on aerosol on aerosol ion l inhaler inhaler aerosol Clinic s INHALE 2 INHALE 2 inhaler PUFFS BY PUFFS BY INHALE 2 MOUTH EVERY MOUTH EVERY PUFFS BY 4 HOURS 4 HOURS MOUTH NEEDED FOR NEEDED FOR EVERY 4 COUGH FOR COUGH FOR HOURS 10 DAYS 10 DAYS NEEDED FOR COUGH FOR 10 DAYS allopurinol allopurinol No 1 Q1D allopurino [place] 100 mg 100 mg l 100 mg Communi tablet Take tablet Take tablet ty 1 tablet 1 tablet Take 1 Hospi ta every day every day tablet l by oral by oral every day Clin ics route. route. by oral route. Asprin Ec Asprin Ec No 1 Q1D Asprin Ec [place] Low Dose 81 Low Dose 81 Low Dose Communi mg mg 81 mg ty tablet,ioana tablet,ioana tablet,del Hospita yed release yed release ayed l Take 1 Take 1 release Clinics tablet tablet Take 1 every day every day tablet by oral by oral every day route. route. by oral route. atorvastati atorvastati No 1 Q1D atorvastat [place] n 40 mg n 40 mg in 40 mg Commu ni tablet Take tablet Take tablet ty 1 tablet 1 tablet Take 1 Hospi ta every day every day tablet l by oral by oral every day Clin ics route. route. by oral route. baclofen 10 baclofen 10 No 1 BID baclofen [place] mg tablet mg tablet 10 mg Comm uni Take 1 Take 1 tablet ty tablet tablet Take 1 [facility]ospita twice a day twice a day tablet l by oral by oral twice a Clinic s route. route. day by oral route. bisacodyl bisacodyl No 1suppos Q1D bisacodyl [place] 10 mg 10 mg itor(y/ 10 mg [facility] rectal rectal ies) rectal ty suppository suppository suppositor [facility] Insert 1 Insert 1 y Insert 1 l suppository suppository suppositor Clinics every day every day y every by rectal by rectal day by route for route for rectal 30 days. 30 days. route for 30 days. Centrum Centrum No Centrum [place] Silver Silver Silver Communi ty [facility]osp[facility] l Clinics diltiazem diltiazem No 1capsul Q1D diltiazem [place] CD 240 mg CD 240 mg e(s) CD 240 mg Communi capsule,ext capsule,ext capsule,ex ty ended ended tended [facility]osp[facility] release 24 release 24 release 24 l hr Take 1 hr Take 1 hr Take 1 Clinics capsule capsule capsule every day every day every day by oral by oral by oral route. route. route. famotidine famotidine No famotidine [place] 40 mg 40 mg 40 mg [facility] tablet TAKE tablet TAKE tablet ty 1 TABLET BY 1 TABLET BY TAKE 1 [facility]ospita MOUTH ONCE MOUTH ONCE TABLET BY l DAILY FOR DAILY FOR MOUTH ONCE Clinics 30 DAYS 30 DAYS DAILY FOR 30 DAYS finasteride finasteride No finasterid [place] 5 mg tablet 5 mg tablet e 5 mg Communi TAKE 1 TAKE 1 tablet ty TABLET BY TABLET BY TAKE 1 [facility] MOUTH ONCE MOUTH ONCE TABLET BY l DAILY DAILY MOUTH ONCE Clinics DAILY glycopyrrol glycopyrrol No glycopyrro [place] ate 2 mg ate 2 mg late 2 mg [facility] tablet TAKE tablet TAKE tablet ty 2 TABLETS 2 TABLETS TAKE 2 [facility] BY MOUTH BY MOUTH TABLETS BY l THREE TIMES THREE TIMES MOUTH Clinics DAILY DAILY THREE TIMES DAILY indomethaci indomethaci No indomethac [place] n 50 mg n 50 mg in 50 mg Commu ni capsule capsule capsule ty TAKE 1 TAKE 1 TAKE 1 [facility]ospita CAPSULE BY CAPSULE BY CAPSULE BY l MOUTH THREE MOUTH THREE MOUTH Clinics TIMES DAILY TIMES DAILY THREE WITH MEALS WITH MEALS TIMES NEEDED NEEDED DAILY WITH FOR GOUT FOR GOUT MEALS NEEDED FOR GOUT lactulose lactulose No 15mL Q1D lactulose [place] 10 gram/15 10 gram/15 10 gram/15 [facility] mL (15 mL) mL (15 mL) mL (15 mL) ty oral oral oral [facility]osp[facility] solution solution solution l Take 15 mL Take 15 mL Take 15 mL Clinics every day every day every day by oral by oral by oral route. route. route. Linzess 290 Linzess 290 No 1capsul Q1D Linzess [place] mcg capsule mcg capsule e(s) 290 mcg Communi Take 1 Take 1 capsule ty capsule capsule Take 1 [facility]ospita every day every day capsule l by oral by oral every day Clin ics route for route for by oral 30 days. 30 days. route for 30 days. lubiproston lubiproston No 1capsul BID lubiprosto [place] e 24 mcg e 24 mcg e(s) ne 24 mcg [facility] capsule capsule capsule ty Take 1 Take 1 Take 1 [facility]ospita capsule capsule capsule l twice a day twice a day twice a Clinics by oral by oral day by route. route. oral route. melatonin melatonin No melatonin [place] Commun[facility] ty [facility] l Clinics metoprolol metoprolol No 1 Q1D metoprolol [place] tartrate tartrate tartrate Com [place] 100 mg 100 mg 100 mg ty tablet Take tablet Take tablet [facility]ospita 1 tablet 1 tablet Take 1 l every day every day tablet Cli nics by oral by oral every day route. route. by oral route. montelukast montelukast No 1 Q1D montelukas [place] 10 mg 10 mg t 10 mg Communi tablet Take tablet Take tablet ty 1 tablet 1 tablet Take 1 Hospi ta every day every day tablet l by oral by oral every day Clin ics route. route. by oral route. [place] 3 [place] 3 No [place] 3 [place] [facility] l Clinics oxybutynin oxybutynin No oxybutynin [place] chloride ER chloride ER chloride Communi 10 mg 10 mg ER 10 mg ty tablet,exte tablet,exte tablet,ext [facility]ospita nded nded ended l release 24 release 24 release 24 Clinics hr Take 1 hr Take 1 hr Take 1 tablet tablet tablet every day every day every day by oral by oral by oral route for route for route for 30 days. 30 days. 30 days. senna 8.6 senna 8.6 No 2 Q1D senna 8.6 [place] mg tablet mg tablet mg tablet Communi Take 2 Take 2 Take 2 ty tablets tablets tablets Hospit a every day every day every day l by oral by oral by oral Clinic s route. route. route. tamsulosin tamsulosin No 2capsul Q1D tamsulosin [place] 0.4 mg 0.4 mg e(s) 0.4 mg [facility] capsule capsule capsule ty Take 2 Take 2 Take 2 Hospita capsules capsules capsules l every day every day every day Clinics by oral by oral by oral route. route. route. allopurinol allopurinol No 1 Q1D allopurino [place] 100 mg 100 mg l 100 mg Communi tablet Take tablet Take tablet ty 1 tablet 1 tablet Take 1 Hospi ta every day every day tablet l by oral by oral every day Clin ics route. route. by oral route. Asprin Ec Asprin Ec No 1 Q1D Asprin Ec [place] Low Dose 81 Low Dose 81 Low Dose [facility] mg mg 81 mg ty tablet,ioana tablet,ioana tablet,del Hospita yed release yed release ayed l Take 1 Take 1 release Clinics tablet tablet Take 1 every day every day tablet by oral by oral every day route. route. by oral route. baclofen 10 baclofen 10 No 1 BID baclofen [place] mg tablet mg tablet 10 mg Comm uni Take 1 Take 1 tablet ty tablet tablet Take 1 Hospita twice a day twice a day tablet l by oral by oral twice a Clinic s route. route. day by oral route. carboxymeth carboxymeth No 1drop(s Q1D carboxymet [place] yl 0.5 yl 0.5 ) hyl 0.5 Communi %-glycerin %-glycerin %-glycerin ty 1 1 1 Hospita %-polysorb %-polysorb %-polysorb l 80 0.5 %-PF 80 0.5 %-PF 80 0.5 Clinics eye eye %-PF eye dropperette dropperette dropperett Apply 1 Apply 1 e Apply 1 drop every drop every drop every day by day by day by ophthalmic ophthalmic ophthalmic route as route as route as needed. needed. needed. Cartia XT Cartia XT No Cartia XT [place] 300 mg 300 mg 300 mg Commun[facility] capsule,ext capsule,ext capsule,ex ty ended ended tended [facility]osp[facility] release release release l TAKE 1 TAKE 1 TAKE 1 Clinics CAPSULE BY CAPSULE BY CAPSULE BY MOUTH ONCE MOUTH ONCE MOUTH ONCE DAILY DAILY DAILY cholecalcif cholecalcif No 1capsul Q1D cholecalci [place] pb pb e(s) ferol [facility] (vitamin (vitamin (vitamin ty D3) 10 mcg D3) 10 mcg D3) 10 mcg Hospita (400 unit) (400 unit) (400 unit) l capsule capsule capsule Clinic s Take 1 Take 1 Take 1 capsule capsule capsule every day every day every day by oral by oral by oral route. route. route. Dulcolax Dulcolax No Dulcolax Swe rupesh (bisacodyl) (bisacodyl) (bisacodyl [facility] 90 mg 90 mg ) 90 mg ty liquid liquid liquid Hospita l Clinics finasteride finasteride No finasterid [place] 5 mg tablet 5 mg tablet e 5 mg Communi TAKE 1 TAKE 1 tablet ty TABLET BY TABLET BY TAKE 1 [facility] MOUTH ONCE MOUTH ONCE TABLET BY l DAILY DAILY MOUTH ONCE Clinics DAILY glycopyrrol glycopyrrol No glycopyrro [place] ate 2 mg ate 2 mg late 2 mg [facility] tablet TAKE tablet TAKE tablet ty 2 TABLETS 2 TABLETS TAKE 2 [facility] BY MOUTH BY MOUTH TABLETS BY l THREE TIMES THREE TIMES MOUTH Clinics DAILY DAILY THREE TIMES DAILY hydrocodone hydrocodone No hydrocodon [place] 10 10 e 10 Communi mg-chlorphe mg-chlorphe mg-chlorph ty niramine 8 niramine 8 eniramine Hospita mg/5 mL mg/5 mL 8 mg/5 mL l oral susp oral susp oral susp Clinics extend.rel extend.rel extend.rel 12hr TAKE 5 12hr TAKE 5 12hr TAKE ML BY MOUTH ML BY MOUTH 5 ML BY EVERY 12 EVERY 12 MOUTH HOURS HOURS EVERY 12 HOURS indomethaci indomethaci No indomethac [place] n 50 mg n 50 mg in 50 mg Commu ni capsule capsule capsule ty TAKE 1 TAKE 1 TAKE 1 [facility]ospita CAPSULE BY CAPSULE BY CAPSULE BY l MOUTH THREE MOUTH THREE MOUTH Clinics TIMES DAILY TIMES DAILY THREE TIMES DAILY lactulose lactulose No lactulose [place] Communi ty [facility] l Clinics levofloxaci levofloxaci No levofloxac [place] n 750 mg n 750 mg in 750 mg [facility] tablet TAKE tablet TAKE tablet ty 1 TABLET BY 1 TABLET BY TAKE 1 [facility]ospita MOUTH ONCE MOUTH ONCE TABLET BY l DAILY FOR DAILY FOR MOUTH ONCE Clinics 10 DAYS 10 DAYS DAILY FOR 10 DAYS lubiproston lubiproston No 1capsul BID lubiprosto [place] e 24 mcg e 24 mcg e(s) ne 24 mcg [facility] capsule capsule capsule ty Take 1 Take 1 Take 1 [facility]ospita capsule capsule capsule l twice a day twice a day twice a Clinics by oral by oral day by route. route. oral route. metoprolol metoprolol No 1 BID metoprolol [place] tartrate 25 tartrate 25 tartrate Communi mg tablet mg tablet 25 mg ty Take 1 Take 1 tablet Hospita tablet tablet Take 1 l twice a day twice a day tablet Clinics by oral by oral twice a route. route. day by oral route. montelukast montelukast No 1 Q1D montelukas [place] 10 mg 10 mg t 10 mg Communi tablet Take tablet Take tablet ty 1 tablet 1 tablet Take 1 Hospi ta every day every day tablet l by oral by oral every day Clin ics route. route. by oral route. polyethylen polyethylen No polyethyle [place] e glycol e glycol ne glycol [facility] 3350 8.5 3350 8.5 3350 8.5 ty gram oral gram oral gram oral [facility]osp[facility] powder powder powder l packet packet packet Clinics Dissolve in Dissolve in Dissolve liquid mix liquid mix in liquid per per mix per instruction instruction instructio s, drink by s, drink by ns, drink mouth twice mouth twice by mouth a day as a day as twice a directed directed day as directed Restasis Restasis No Restasis Swe rupesh 0.05 % eye 0.05 % eye 0.05 % eye [facility]i drops in a drops in a drops in a ty dropperette dropperette dropperett [facility] INSTILL 1 e INSTILL l DROP INTO DROP INTO 1 DROP Cli nics AFFECTED AFFECTED INTO EYE(S) BY EYE(S) BY AFFECTED OPHTHALMIC OPHTHALMIC EYE(S) BY ROUTE EVERY ROUTE EVERY OPHTHALMIC 12 HOURS 12 HOURS ROUTE EVERY 12 HOURS sodium sodium No sodium [place] citrate citrate citrate Commun i ty Hospita l Clinics Immunizations Ordered Immunization Filled Immunization Date Status Commen ts Source Name Name [facility] READY TO USE 2022-03-18 Completed [facility] COVID-19 MRNA 00:00:00 [facility] VACCINATION PFIZER COVID-19 MRNA 2021-06-06 Completed [facility] VACCINATION 00:00:00 Hospital PFIZER COVID-19 MRNA 2020-10-04 Completed [facility] VACCINATION 00:00:00 [facility] PFIZER COVID-19 MRNA 2020-09-16 Completed [facility] VACCINATION 00:00:00 [facility] Influenza, Influenza, 2020-06-03 Completed [place] injectable, MDCK, injectable, MDCK, 11:51:51 [facility] Influenza, Influenza, 2020-06-03 Completed [place] injectable, MDCK, injectable, MDCK, 11:51:51 [facility] Influenza, Influenza, 2020-06-03 Completed [place] injectable, MDCK, injectable, MDCK, 11:51:51 [facility] Influenza, Influenza, 2020-06-03 Completed [place] injectable, MDCK, injectable, MDCK, 11:51:51 [facility] Influenza, Influenza, 2020-06-03 Completed [place] injectable, MDCK, injectable, MDCK, 11:51:51 [facility] Influenza, Influenza, 2020-06-03 Completed [place] injectable, MDCK, injectable, MDCK, 11:51:51 [facility] Influenza, Influenza, 2020-06-03 Completed [place] injectable, MDCK, injectable, MDCK, 11:51:51 [facility] Influenza, Influenza, 2020-06-03 Completed [place] injectable, MDCK, injectable, MDCK, 11:51:51 [facility] Influenza, Influenza, 2020-06-03 Completed [place] injectable, MDCK, injectable, MDCK, 11:51:51 [facility] 2019-[facility]-26 Completed [place] injectable, injectable, 00:00:00 [facility] influenza, influenza, 2019-06-26 Completed [place] injectable, injectable, 00:00:00 [facility] influenza, influenza, 2019-06-26 Completed [place] injectable, injectable, 00:00:00 [facility] influenza, influenza, 2019-06-26 Completed [place] injectable, injectable, 00:00:00 [facility] influenza, influenza, 2019-06-26 Completed [place] injectable, injectable, 00:00:00 [facility] influenza, influenza, 2019-06-26 Completed [place] injectable, injectable, 00:00:00 [facility] influenza, influenza, 2019-06-26 Completed [place] injectable, injectable, 00:00:00 [facility] influenza, influenza, 2019-06-26 Completed [place] injectable, injectable, 00:00:00 [facility] influenza, influenza, 2019-06-26 Completed [place] injectable, injectable, 00:00:00 [facility] pneumococcal pneumococcal 2018-11-05 Completed [place] polysaccharide PPV23 polysaccharide PPV23 00:00:00 [facility] influenza, influenza, 2018-11-05 Completed [place] unspecified unspecified 00:00:00 [facility] pneumococcal pneumococcal 2018-11-05 Completed [place] polysaccharide PPV23 polysaccharide PPV23 00:00:00 [facility] influenza, influenza, 2018-11-05 Completed [place] unspecified unspecified 00:00:00 [facility] pneumococcal pneumococcal 2018-11-05 Completed [place] polysaccharide PPV23 polysaccharide PPV23 00:00:00 [facility] influenza, influenza, 2018-11-05 Completed [place] unspecified unspecified 00:00:00 [facility] pneumococcal pneumococcal 2018-11-05 Completed [place] polysaccharide PPV23 polysaccharide PPV23 00:00:00 [facility] influenza, influenza, 2018-11-05 Completed [place] unspecified unspecified 00:00:00 [facility] pneumococcal pneumococcal 2018-11-05 Completed [place] polysaccharide PPV23 polysaccharide PPV23 00:00:00 [facility] influenza, influenza, 2018-11-05 Completed [place] unspecified unspecified 00:00:00 [facility] pneumococcal pneumococcal 2018-11-05 Completed [place] polysaccharide PPV23 polysaccharide PPV23 00:00:00 [facility] influenza, influenza, 2018-11-05 Completed [place] unspecified unspecified 00:00:00 [facility] pneumococcal pneumococcal 2018-11-05 Completed [place] polysaccharide PPV23 polysaccharide PPV23 00:00:00 [facility] influenza, influenza, 2018-11-05 Completed [place] unspecified unspecified 00:00:00 [facility] pneumococcal pneumococcal 2018-11-05 Completed [place] polysaccharide PPV23 polysaccharide PPV23 00:00:00 [facility] influenza, influenza, 2018-11-05 Completed [place] unspecified unspecified 00:00:00 [facility] pneumococcal pneumococcal 2018-11-05 Completed [place] polysaccharide PPV23 polysaccharide PPV23 00:00:00 [facility] influenza, influenza, 2018-11-05 Completed [place] unspecified unspecified 00:00:00 [facility] pneumococcal pneumococcal 2017-06-11 Completed [place] polysaccharide PPV23 polysaccharide PPV23 16:16:02 [facility] influenza, high dose influenza, high dose 2017-06-11 Completed [place] seasonal seasonal 16:14:44 [facility] influenza, high dose influenza, high dose 2015-06-02 Completed [place] seasonal seasonal 14:40:46 [facility] influenza, influenza, 2014-06-03 Completed [place] injectable, injectable, 12:03:05 [facility] quadrivalent quadrivalent Vital Signs Vital Name Observation Time Observation Value Comments Source BP Diastolic 2022-05-09 00:00:00 80 mm[Hg] [facility] s Height 2022-05-09 00:00:00 67 [in_i] [facility] s BMI (Body Mass 2022-05-09 00:00:00 17.4 kg/m2 [facility] s BP Systolic 2022-05-09 00:00:00 130 mm[Hg] [facility] s Body Weight 2022-05-09 00:00:00 1776 [oz_av] [facility] s BP Diastolic 2022-04-13 00:00:00 70 mm[Hg] [facility] s Height 2022-04-13 00:00:00 67 [in_i] [facility] s BMI (Body Mass 2022-04-13 00:00:00 17.6 kg/m2 [facility]) [facility] s BP Systolic 2022-04-13 00:00:00 130 mm[Hg] [facility] s Body Weight 2022-04-13 00:00:00 1798.4 [oz_av] [facility] s BP Diastolic 2022-01-26 00:00:00 60 mm[Hg] [facility] s Height 2022-01-26 00:00:00 67 [in_i] [facility] s BMI (Body Mass 2022-01-26 00:00:00 18 kg/m2 [facility]) [facility] s BP Systolic 2022-01-26 00:00:00 110 mm[Hg] [facility] s Body Weight 2022-01-26 00:00:00 1836.8 [oz_av] [facility] s BP Diastolic 2021-07-21 00:00:00 85 mm[Hg] [facility] Height 2021-07-21 00:00:00 64 [in_i] [facility] BMI (Body Mass 2021-07-21 00:00:00 20.8 kg/m2 [facility] 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 BP Systolic 2021-07-21 00:00:00 141 mm[Hg] [facility] Body Weight 2021-07-21 00:00:00 121.2 [lb_av] [facility] BP Diastolic 2021-07-19 00:00:00 80 mm[Hg] [facility] s Height 2021-07-19 00:00:00 67 [in_i] [facility] s BMI (Body Mass 2021-07-19 00:00:00 18.8 kg/m2 [facility] s BP Systolic 2021-07-19 00:00:00 130 mm[Hg] [facility] s Body Weight 2021-07-19 00:00:00 1923.2 [oz_av] [facility] s BP Diastolic 2021-04-20 00:00:00 76 mm[Hg] [facility] s Height 2021-04-20 00:00:00 67 [in_i] [facility] s BMI (Body Mass 2021-04-20 00:00:00 18.8 kg/m2 [facility] s BP Systolic 2021-04-20 00:00:00 132 mm[Hg] [facility] s Body Weight 2021-04-20 00:00:00 1920 [oz_av] [facility] s BP Diastolic 2021-02-24 00:00:00 68 mm[Hg] [facility] s Height 2021-02-24 00:00:00 67 [in_i] [facility] s BMI (Body Mass 2021-02-24 00:00:00 18.6 kg/m2 [facility] s BP Systolic 2021-02-24 00:00:00 122 mm[Hg] [facility] s Body Weight 2021-02-24 00:00:00 1904 [oz_av] [facility] s BP Diastolic 2021-02-03 00:00:00 68 mm[Hg] [facility] s Height 2021-02-03 00:00:00 67 [in_i] [facility] s BMI (Body Mass 2021-02-03 00:00:00 18.4 kg/m2 [facility] s BP Systolic 2021-02-03 00:00:00 120 mm[Hg] [facility] s Body Weight 2021-02-03 00:00:00 1875.2 [oz_av] [facility] s Height 2020-10-26 00:00:00 67 [in_i] [facility] s BP Diastolic 2020-10-14 00:00:00 100 mm[Hg] [facility] Height 2020-10-14 00:00:00 67 [in_i] [facility] s BMI (Body Mass 2020-10-14 00:00:00 18.8 kg/m2 [facility] s BP Systolic 2020-10-14 00:00:00 120 mm[Hg] [facility] s Body Weight 2020-10-14 00:00:00 1920 [oz_av] [facility] s height 2020-09-09 13:30:00 67 [in_i] [facility] weight 2020-09-09 13:30:00 123.6 [lb_av] [facility] temperature 2020-09-09 13:30:00 98.2 [degF] [facility] bmi 2020-09-09 13:30:00 19.36 kg/m2 [facility] oximetry 2020-09-09 13:30:00 98 % [facility] blood pressure 2020-09-09 13:30:00 133 mm[Hg] [facility] blood pressure 2020-09-09 13:30:00 77 mm[Hg] [facility] height 2020-07-06 13:00:00 67 [in_i] Common [facility] weight 2020-07-06 13:00:00 121.4 [lb_av] Common [facility] temperature 2020-07-06 13:00:00 97.0 [degF] [facility] bmi 2020-07-06 13:00:00 19.01 kg/m2 Common S [facility] oximetry 2020-07-06 13:00:00 97 % [facility] blood pressure 2020-07-06 13:00:00 127 mm[Hg] [facility] blood pressure 2020-07-06 13:00:00 66 mm[Hg] [facility] Systolic blood 2022-06-09 12:34:00 152 mm[Hg] [facility] pressure Diastolic blood 2022-06-09 12:34:00 82 mm[Hg] [facility] pressure Heart rate 2022-06-09 12:34:00 66 /min [facility] Body temperature 2022-06-09 12:34:00 36.11 Angela [facility] Body height 2022-06-09 12:34:00 170.2 cm [facility] Body weight 2022-06-09 12:34:00 51.529 kg [facility] BMI 2022-06-09 12:34:00 17.79 kg/m2 [facility] Respiratory rate 2022-04-12 16:08:58 18 /min [facility] Oxygen saturation in 2022-04-12 16:08:58 99 /min [facility] Arterial blood by Pulse oximetry Procedures Procedure Date / Time Performing Clinician Source Performed HEPATIC FUNCTION PANEL 2022-06-09 13:00:00 [facility] RESPIRATORY PATHOGEN PANEL 2022-04-12 17:57:00 [facility] WITH COVID-19 RT-PCR XR CHEST 2 VW 2022-04-12 17:06:00 [facility] HEPATIC FUNCTION PANEL 2022-02-03 12:30:00 [facility] HEPATIC FUNCTION PANEL 2021-10-07 13:45:00 [facility] XR, chest, 2 view 2021-07-19 00:00:00 [facility] Cardiac Catheterization 2021-01-01 00:00:00 [facility] [id number] 2020-10-29 00:00:00 ALDMO [facility] [id number] 2020-10-29 00:00:00 CHEZU [facility] [id number] 2020-10-29 00:00:00 ALDMO [facility] [id number] 2020-10-29 00:00:00 ALDMO [facility] [id number] 2020-10-29 00:00:00 ALDMO [facility] [id number] 2020-10-29 00:00:00 ALDMO [facility] [id number] 2020-10-29 00:00:00 ALDMO [facility] [id number] 2020-10-29 00:00:00 CHEZU [facility] [id number] 2020-10-28 00:00:00 ARMRO.01 [facility] [id number] 2020-10-28 00:00:00 ARMRO.01 [facility] [id number] 2020-10-27 00:00:00 ARMRO.01 [facility] [id number] 2020-10-27 00:00:00 ARMRO.01 [facility] electrocardiogram 2020-10-14 00:00:00 [facility] XR, chest, 2 view 2020-10-14 00:00:00 [facility] Hernia Repair [facility] Hemorrhoidectomy [facility] Back [facility] Cervical Laminoplsty 2/> Counts Include 234 Beds At [facility] Clinics Placement of Stent in Count includes the [facility] Cardiac Conduit [facility] Plan of Care Planned Activity Planned Date Details Comments Source Future Scheduled Test 2022-06-19 HEPATITIS B VACCINES [facility] 14:09:39 (1 of 3 - 3-dose series) [code = HEPATITIS B VACCINES (1 of 3 - 3-dose series)] Future Scheduled Test 2022-06-19 Hepatitis C screening [facility] 14:09:39 (procedure) [code = 281250664] Future Scheduled Test 2022-06-19 COLONOSCOPY SCREENING [facility] 14:09:39 [code = COLONOSCOPY SCREENING] Future Scheduled Test 2022-06-19 SHINGLES VACCINES (1 [facility] 14:09:39 of 2) [code = SHINGLES VACCINES (1 of 2)] Future Scheduled Test 2022-06-19 65+ PNEUMOCOCCAL Me [facility] 14:09:39 VACCINE (2 - PCV) [code = 65+ PNEUMOCOCCAL VACCINE (2 - PCV)] Future Scheduled Test 2022-06-19 INFLUENZA VACCINE [facility] 14:09:39 [code = INFLUENZA VACCINE] Future Scheduled Test 2022-06-19 COVID-19 VACCINE (5 - [facility] 14:09:39 Booster for Pfizer series) [code = COVID-19 VACCINE (5 - Booster for Pfizer series)] Diagnostic Test 2022-05-09 HbA1c (hemoglobin [facility] Pending 00:00:00 A1c), blood [code = [facility] HbA1c (hemoglobin A1c), blood] Diagnostic Test 2022-05-09 lipid panel, serum [facility] Pending 00:00:00 [code = lipid panel, [facility] serum] Diagnostic Test 2022-05-09 CMP, serum or plasma [facility] Pending 00:00:00 [code = CMP, serum or [facility] plasma] Diagnostic Test 2022-05-09 CBC w/ auto diff [facility] Pending 00:00:00 [code = CBC w/ auto [facility] diff] Diagnostic Test 2022-05-09 TSH + T4, serum [code [facility] Pending 00:00:00 = TSH + T4, serum] Hospital Clinics Diagnostic Test 2022-05-09 vitamin D, [place] [facility] Pending 00:00:00 25-hydroxy, total, [facility] serum [code = vitamin D, 25-hydroxy, total, serum] Diagnostic Test 2022-05-09 urinalysis complete, [facility] Pending 00:00:00 reflex culture [code [facility] = urinalysis complete, reflex culture] Diagnostic Test 2022-05-09 uric acid, serum or [facility] Pending 00:00:00 plasma [code = uric [facility] acid, serum or plasma] Diagnostic Test 2022-05-09 vitamin B12 + folate, [facility] Pending 00:00:00 serum or blood [code [facility] = vitamin B12 + folate, serum or blood] Diagnostic Test 2022-05-09 microalbumin, urine [facility] Pending 00:00:00 [code = microalbumin, Hospit [facility] urine] Diagnostic Test 2022-05-09 PSA, serum or plasma [facility] Pending 00:00:00 [code = PSA, serum or Hospit [facility] plasma] Future Appointment 2022-08-08 Britt Cadet, [address] [facility] 00:00:00 [address]; [facility] [address], [place] [address] Encounters Start End Encounter Admission Attending Care Care Encounter Source Date/Time Date/Time Type Type Clinicians Facility Department ID 2021-09-28 Outpatient [facility] [id number] Common 12:01:38 47850 [facility] 2020-11-06 Inpatient Aldeiri, HCACL [facility] [id number] [facility] 00:58:34 Mol[place] 01 [facility] 2020-10-29 Inpatient EM Lala, HCAMN HCAMN [id number] [facility] 05:28:11 Olivier 75 [facility] 2022-06-13 2022-06-13 Outpatient JUAN_Cherelle [facility] [id number] [place] 00:00:00 00:00:00 011 [facility] 2022-06-09 2022-06-09 Multidisci Aurelia Moura 1.2.840. 1 [id number] Methodi 07:00:00 14:53:11 plinary Naima Simon 99433.1.[address] Visit 3.430.2.7 Hospit a .3.984003 l .8 2022-06-09 2022-06-09 Lab Ale, 1.2.840.1 [id number] Methodi 07:15:00 07:20:[address] [facility] 3.430.2.7 Hospit a .3.625988 l .8 2022-06-09 2022-06-09 Travel 1.2.840.1 1.2.672.379 [id number] Methodi 00:00:00 00:00:[address] 3.430.2.7 0.2.7.3.698 Ho spita .3.624607 084.8 l .8 2022-06-09 2022-06-09 Outpatient DANIELE, [facility] [id number] [address] [place] 00:00:00 00:00:[address] 2022-06-09 2022-06-09 Outpatient ALE, [facility] [id number] [address] [place] 00:00:00 00:00:00 BIJAN [address] 2022-06-02 2022-06-02 Travel 1.2.840.1 1.2.290.793 7124 [id number] Methodi 00:00:00 00:00:[address] 3.430.2.7 0.2.7.3.698 Ho spita .3.916328 084.8 l .8 2022-06-01 2022-06-01 Orders Chidi, 1.2.840.1 [id number] 1985 Methodi 00:00:00 00:00:00 [address] Vidhi 84889.1.[address] 3.430.2.7 Hospit a .3.323264 l .8 2022-06-01 2022-06-01 Orders Chidi, 1.2.840.1 [id number] Methodi 00:00:00 00:00:[address] Vidhi 07294.1.[address] 3.430.2.7 Hospit a .3.581494 l .8 2022-05-09 2022-05-09 Outpatient GEENA [facility] [id number] [place] 00:00:00 00:00:00 906 [facility] i ty [facility]osp[facility] Clinics 2022-05-09 2022-05-09 Britt Aj [facility] [place] 906 [place] 00:00:00 00:00:00 Elvis Cadet MD: [address] [facility] ty [place] Hospit a [address], COMM[facility]ITY [address], H[facility], [address] JUAN , Ph. 2022-05-09 2022-05-09 Outpatient Britt Cadet [facility] [id number] 00:00:00 00:00:00 Madai [id number] 2022-04-13 2022-04-13 Outpatient GEENA [facility] [id number] [place] 00:00:00 00:00:00 811 [facility] i ty Hospita l [facility] 2022-04-13 2022-04-13 Britt Aj [facility] [place] 811 [place] 00:00:00 00:00:00 Elvis Cadet [facility] MD: [address] [facility] Hospit a [address], [facility] [address], [facility], [address] JUAN , Ph. 2022-04-13 2022-04-13 Outpatient Britt Cadet [facility] [id number] 00:00:00 00:00:00 Madai [id number] 2022-04-12 2022-04-12 Emergency Pending Sale To [facility], 1.2.840.1 [id number] Methodi 11:05:00 13:04:00 [facility] 92434.1.[address] 3.430.2.7 Hospit a .3.434489 l .8 2022-04-12 2022-04-12 Travel 1.2.840.1 1.2.063.860 9473 [id number] Methodi 00:00:00 00:00:[address] 3.430.2.7 0.2.7.3.698 Ho spita .3.277384 084.8 l .8 2022-04-12 2022-04-12 [facility] [id number] [address] [place] 00:00:00 00:00:00 FILEMON [address] 2022-04-01 2022-04-01 Outpatient KEFFER_A [facility] [id number] [place] 00:00:00 00:00:00 730 Commun i ty Hospita [facility] Clinics 2022-02-03 2022-02-03 Multidisci AleBijan coyne [facility] 1.2.840.1 [id number] Methodi 07:00:00 16:02:42 plinary Toerupindercesario Naima 29695.1.[address] Visit 3.430.2.7 Hospit a .3.537325 l .8 2022-02-03 2022-02-03 Lab Ale, 1.2.840.1 [id number] 6222 Methodi 06:15:00 06:20:[address] [facility] 3.430.2.7 Hospit a .3.595204 l .8 2022-02-03 2022-02-03 Travel 1.2.840.1 1.2.735.845 8334 [id number] Methodi 00:00:00 00:00:[address] 3.430.2.7 0.2.7.3.698 Ho spita .3.409715 084.8 l .8 2022-02-03 2022-02-03 Outpatient [facility] [id number] [address] [place] 00:00:00 00:00:[address]IJAN [address] 2022-02-03 2022-02-03 Outpatient [facility] [id number] [address] [place] 00:00:00 00:00:00 BIJAN [address] 2022-01-31 2022-01-31 Travel 1.2.840.1 1.2.517.913 2986 [id number] Methodi 00:00:00 00:00:[address] 3.430.2.7 0.2.7.3.698 Ho spita .3.667653 084.8 l .8 2022-01-27 2022-01-27 Orders Chidi, 1.2.840.1 [id number] 7589 Methodi 00:00:00 00:00:00 Only Vidhi 77745.1.[address] 3.430.2.7 Hospit a .3.826019 l .8 2022-01-26 2022-01-26 Outpatient GEENA [facility] [id number] [place] 03:12:00 03:12:00 526 Commun i ty Hospita l [facility] 2022-01-26 2022-01-26 Britt jA [facility] [place] 526 [place] 00:00:00 00:00:00 Elvis Cadet MD: [address] [facility] ty [facility] Hospit a [address], [facility] [address], HOSPITAL [facility] [place] [facility], [address] JUAN , Ph. 2022-01-26 2022-01-26 Outpatient Britt Cadet [facility] bba [id number] 00:00:00 00:00:00 Madai [id number] 2021-10-07 2021-10-07 Multidisci Blanca Kay 1.2.840.1 [id number] Methodi 07:00:00 13:00:17 plinary Aurelia Moura 90908.1.[address] Naima [place] 3.430.2.7 Hospita .3.726663 l .8 2021-10-07 2021-10-07 Lab Ale, 1.2.840.1 [id number] 5077 Methodi 08:50:00 08:55:[address] [facility] 3.430.2.7 Hospit a .3.121060 l .8 2021-10-07 2021-10-07 Travel 1.2.840.1 1.2.803.599 6143 [id number] Methodi 00:00:00 00:00:[address] 3.430.2.7 0.2.7.3.698 Ho spita .3.088853 084.8 l .8 2021-10-07 2021-10-07 Outpatient ALE, [facility] [id number] [place] 00:00:00 00:00:[address]AN [address] 2021-10-07 2021-10-07 Outpatient TANISHA, [facility] [id number] [place] 00:00:00 00:00:[address] BLANCA [address] 2021-09-30 2021-09-30 Travel 1.2.840.1 1.2.211.265 2941 [id number] Methodi 00:00:00 00:00:[address] 3.430.2.7 0.2.7.3.698 Ho spita .3.895251 084.8 l .8 2021-09-29 2021-09-29 Orders Chidi, 1.2.840.1 [id number] 0441 Methodi 00:00:00 00:00:00 Only Vidhi 17537.1.[address] 3.430.2.7 Hospit a .3.416275 l .8 2021-09-29 2021-09-29 Orders Chidi, 1.2.840.1 [id number] 5959 Methodi 00:00:00 00:00:00 Only Vidhi 85901.1.[address] 3.430.2.7 Hospit a .3.888570 l .8 2021-08-13 2021-08-13 Outpatient KEFFER_A [facility] [id number] [place] 04:11:00 04:11:00 211 Commun i ty Hospita l Clinics 2021-08-11 2021-08-11 Outpatient Yan_W [facility] [id number] [place] 01:02:00 01:02:00 1209 [facility] 2021-07-21 2021-07-21 Outpatient Yan_W [facility] [id number] 021 [place] 12:22:00 12:22:00 1118 [facility] 2021-07-21 2021-07-21 Hi Castle [facility] [place] - [id number] [place] 00:00:00 00:00:00 : [address] [facility] [address], [facility] [place] kwameKEIKO [address] , Ph. 2021-07-20 2021-07-20 Outpatient Tin_W [facility] [id number] 021 [place] 03:46:00 03:46:00 1117 Medical [facility] 2021-07-19 2021-07-19 Outpatient JUAN_Cherelle [facility] [id number] [place] 02:45:00 02:45:00 116 [facility] 2021-07-19 2021-07-19 Britt Aj [facility] [place] 116 [place] 00:00:00 00:00:00 Elvis Cadet MD: [address] [facility] Hospit a [address], [facility] [address], H[facility] [place], [place] CLINIC, [address] JUAN , Ph. 2021-07-19 2021-07-19 Outpatient Britt Cadet [facility] [id number] 00:00:00 00:00:00 Madai [id number] 8589-11-01 2021-07-04 Telephone Alina 1.2.840.1 [id number] Methodi 00:00:00 00:00:[address] 3.430.2.7 Hospit a .3.964344 l .8 2021-06-30 2021-06-30 Telephone Wilner Fuller.2.840.1 [id number] Methodi 00:00:00 00:00:[address] 3.430.2.7 Hospit a .3.380906 l .8 2021-06-03 2021-06-03 [id number] [address] [place] 00:00:00 00:00:00 BIJAN [address] 2021-06-03 2021-06-03 Outpatient DANIELE [facility] [id number] [place] 00:00:00 00:00:00 [address] [facility] 2021-05-28 2021-05-28 Outpatient [facility] [id number] [place] 03:01:00 03:01:00 925 [facility] i ty [facility] Clinics 2021-04-20 2021-04-20 Outpatient KEFFER_A [facility] [id number] [place] 03:07:00 03:07:00 818 Commun i ty Hospita [facility] Clinics 2021-04-20 2021-04-20 Outpatient Nigel [facility] [id number] 00:00:00 00:00:00 Thea [id number] 2021-04-20 2021-04-20 [facility] [place] 00:00:00 00:00:00 [facility] [place] [facility], [facility] [facility], Hospital - ty RN PACU-C: 303 [place] Hospi [facility], [place] [facility] s [address], [facility] [address], [place], [place] MSN, RN PACU-C [address] , Ph. 2021-04-12 2021-04-12 Outpatient [facility] [id number] [place] 12:57:00 12:57:00 810 Commun i ty Hosp[facility] Clinics 2021-03-08 2021-03-08 Outpatient KEFFER_A [facility] [id number] 0210 [place] 12:34:00 12:34:00 706 Commun i ty [facility]ospita [facility] Clinics 2021-02-24 2021-02-24 Outpatient [facility]A [facility] [id number] [place] 03:03:00 03:03:00 624 Commun i ty Hospita [facility] Clinics 2021-02-24 2021-02-24 Britt Aj [facility] [place] [id number] 624 [place] 00:00:00 00:00:00 Elvis [facility] MD[facility] [address] [facility] [address] [address], [facility] [place], [place] CL[place]IC, [address] JUAN , Ph. 2021-02-24 2021-02-24 Outpatient Britt Cadet [facility] [id number] 00:00:00 00:00:00 Madai [id number] 2021-02-04 2021-02-04 Outpatient ALE, [facility] [id number] [place] 00:00:00 00:00:00 BIJAN [address] 2021-02-04 2021-02-04 Outpatient ALE, [facility] [id number] [place] 00:00:00 00:00:00 BIJAN [address] 2021-02-03 2021-02-03 Outpatient KEFFER_A [facility] [id number] [place] 03:28:00 03:28:00 603 Commun i ty Hosp[facility] Clinics 2021-02-03 2021-02-03 Britt Aj [facility] [id number] [place] 00:00:00 00:00:00 Elvis Cadet MD: [address] [facility] [place] Hospit a [address], COMMUNITY l [address], HOSPITAL [place], [place] CLINIC, [address] JUAN , Ph. 2021-02-03 2021-02-03 Outpatient Britt Cadet [facility] [id number] 00:00:00 00:00:00 Madai [id number] 2020-11-14 2020-11-14 Outpatient [facility] [id number] [place] 01:03:00 01:03:00 314 Commun i ty [facility] Clinics 2020-10-26 2020-10-26 Outpatient [facility] [id number] [place] 04:27:00 04:27:00 223 Commun i ty Hospita l Clinics 2020-10-26 2020-10-26 Britt Aj [facility] [place] 223 [place] 00:00:00 00:00:00 Elvis Cadet MD: [address] [facility] [address], COMMUNITY l [address], [facility], [address] JUAN , Ph. 2020-10-26 2020-10-26 Outpatient JuanBritt [facility] [id number] 00:00:00 00:00:00 Madai [id number] 2020-10-14 2020-10-14 Outpatient GEENA [facility] [id number] [place] 03:42:00 03:42:00 211 Commun i ty Hospita [facility] Clinics 2020-10-14 2020-10-14 Outpatient JuanBritt [facility] [id number] 00:00:00 00:00:00 Madai [id number] 2020-10-14 2020-10-14 Britt Aj [facility] [place] 211 [place] 00:00:00 00:00:00 Elvis Cadet MD: [address] [facility] a [address], COMMUNITY l [address], [facility], [address] JUAN , Ph. 2020-10-08 2020-10-08 Outpatient ALE, [facility] [id number] [address] [place] 00:00:00 00:00:00 BIJAN [address] 2020-10-08 2020-10-08 Outpatient MOURA, [facility] [id number] [place] 00:00:00 00:00:00 AURELIA [address] 2020-10-04 2020-10-04 Outpatient [facility] [id number] [place] 00:00:00 00:00:00 605 Method i 2020-09-16 2020-09-16 Outpatient PATEL, [facility] [id number] [place] 00:00:00 00:00:00 MARLYN 939 Method i 2020-09-09 2020-09-09 OFFICE STLMLC STLMLC [id number] [place] 00:00:00 00:00:00 VISIT [facility] EST[facility] PT - [facility] LEVEL 2 [facility] 2020-07-15 2020-07-15 (TEL) STLMLC ST[facility] [id number] [place] 00:00:00 00:00:00 [facility] - [facility] 2020-07-06 2020-07-06 OFFICE STL[facility] [id number] [place] 00:00:00 00:00:00 VISIT MANOLO Tamayo it PT LEVEL 4 - [facility] 2020-06-04 2020-06-04 Outpatient ALE, [facility] [id number] [place] 00:00:00 00:00:00 BIJAN 848 [facility] 2020-06-04 2020-06-04 Outpatient TANISHA, [facility] [id number] [address] [place] 00:00:00 00:00:00 BLANCA 171 [facility] 2019-06-02 2019-06-02 Outpatient COLOMER, [facility] [id number] [place] 00:00:00 00:00:00 ILDA 460 [facility] i 2018-06-04 2018-06-04 Outpatient keffer_a [facility] [id number] [place] 09:30:00 09:30:00 0422 [facility] Results Test Description Test Time Test Comments Results Result Comments Source BASIC METABOLIC PANEL 2020-11-02 20:45:00 Test Item Value Reference Range Interpretation Comme nts SODIUM (test code = NA) 139 mEq/L 134-147 N POTASSIUM (test code = K) 4.2 mEq/L 3.4-5.0 N CHLORIDE (test code = CL) 108 mEq/L 100-108 N CARBON DIOXIDE (test code = CO2) 28 mEq/l 21-33 N ANION GAP (test code = GAP) 7 0-20 N GLUCOSE (test code = GLU) 151 mg/dL 70-110 H BLOOD UREA NITROGEN (test code = 15 mg/dL 7-18 N BUN) GLOMERULAR FILTRATION RATE (test 115.6 70-80 H Units of measure = ml/min/1.73 code = GFR) m2 CREATININE (test code = CREAT) 0.8 mg/dL 0.6-1.3 N CALCIUM (test code = CA) 9.0 mg/dL 8.0-10.5 N [id number] 20:45:00 Test Item Value Reference Range Interpretation Comments MAGNESIUM (test code = MAG) 2.20 mg/dL 1.80-2.40 N [id number] 20:26:00 Test Item Value Reference Range Interpretation Comments GLUBED (test code = 94 MG/DL 70-110 N Performe d by certified GLUBED) ager operator at [facility] [id number] 10:40:00 Test Item Value Reference Range Interpretation Comments MAGNESIUM (test code = MAG) 2.09 mg/dL 1.80-2.40 N BASIC METABOLIC [id number] 05:48:00 Test Item Value Reference Range Interpretation Comments SODIUM (test code = NA) 137 mEq/L 134-147 N POTASSIUM (test code = 4.7 mEq/L 3.4-5.0 K) CHLORIDE (test code = 107 mEq/L 100-108 N CL) CARBON DIOXIDE (test 24 mEq/l 21-33 N code = CO2) ANION GAP (test code = 11 0-20 N GAP) GLUCOSE (test code = 110 mg/dL 70-110 N GLU) BLOOD UREA NITROGEN 15 mg/dL 7-18 N (test code = BUN) GLOMERULAR FILTRATION 134.9 70-80 H Units of measure = RATE (test code = GFR) ml/mi n/1.73 m2 CREATININE (test code = 0.7 mg/dL 0.6-1.3 N CREAT) CALCIUM (test code = 8.8 mg/dL 8.0-10.5 N CA) BASIC METABOLIC [id number] 05:17:00 Test Item Value Reference Range Interpretation Comments SODIUM (test code = NA) 139 mEq/L 134-147 N POTASSIUM (test code = 3.7 mEq/L 3.4-5.0 N K) CHLORIDE (test code = 108 mEq/L 100-108 N CL) CARBON DIOXIDE (test 22 mEq/l 21-33 N code = CO2) ANION GAP (test code = 13 0-20 N GAP) GLUCOSE (test code = 129 mg/dL 70-110 H GLU) BLOOD UREA NITROGEN 18 mg/dL 7-18 N (test code = BUN) GLOMERULAR FILTRATION 115.6 70-80 H Units of measure = RATE (test code = GFR) ml/mi n/1.73 m2 CREATININE (test code = 0.8 mg/dL 0.6-1.3 N CREAT) CALCIUM (test code = 9.1 mg/dL 8.0-10.5 N CA) LIPID PROFILE (CORONARY RISK)2020-10-30 05:17:00 Test Item Value Reference Range Interpretation Comments TRIGLYCERIDES (test 112 mg/dL 40-150 N code = TRIG) CHOLESTEROL (test 127 mg/dL <200 code = CHOL) CHOLESTEROL/HDL 3.38 RATIO 3.43-4.97 L RISK ASSOCIA ANAMARIA WITH RATIO (test code = CHOL/HDL RATIOS: RISK CHOLHDL) MALE FEMALE1/2 AVERAGE 3.43 3.27AVERAG E 4.97 4.442X AVERAGE 9.55 7.053X AVERAGE 23.39 11.04 NOTE THAT THE REFERENCE VALUE IS RELATEDTO RISK LEVELS RECOMMENDED BY THE NATL.HEART, QASIM G, AND BLOOD INST. HDL CHOLESTEROL 37.6 mg/dL 32-72 N (test code = HDL) LIPOPROTEIN LDL 77.7 mg/dL 0-100 N <100 OPTIMAL 100-129 (test code = LDL) NEAR OPTIM AL/ABOVE [id number] HIGH>OF=916 JOZEF Y HIGH*Guidelines provided by the National Choles terol EducationProgra m Adult Treatment Panel III [id number] 05:17:00 Test Item Value Reference Range Interpretation Comments MAGNESIUM (test code = MAG) 1.90 mg/dL 1.80-2.40 N CBC W/AUTO [id number] 05:02:00 Test Item Value Reference Range Interpretation Comments WHITE BLOOD CELL (test code = 8.7 x10 3/uL 4.5-11.0 N WBC) RED BLOOD CELL (test code = 3.44 x10 6/uL 4.00-5.60 L RBC) HEMOGLOBIN (test code = HGB) 10.6 g/dL 12.5-16.9 L HEMATOCRIT (test code = HCT) 33.7 % 37.5-50.7 L MEAN CELL VOLUME (test code = 98.0 fL 81.0-99.0 N MCV) MEAN CELL HGB (test code = MCH) 30.8 pg 27.0-33.0 N MEAN CELL HGB CONCETRATION 31.5 g/dL 33.0-37.0 L (test code = MCHC) RED CELL DISTRIBUTION WIDTH CV 12.4 % 11.5-14.5 N (test code = RDW) RED CELL DISTRIBUTION WIDTH SD 44.8 fL 37.0-54.0 N (test code = RDW-SD) PLATELET COUNT (test code = 166 x10 3/uL 150-400 N PLT) MEAN PLATELET VOLUME (test code 11.3 fL 7.0-9.0 H = MPV) NEUTROPHIL % (test code = NT%) 74.4 % 56.0-77.0 N IMMATURE GRANULOCYTE % (test 0.2 % 0.0-2.0 N code = IG%) LYMPHOCYTE % (test code = LY%) 15.2 % 14.0-32.0 N MONOCYTE % (test code = MO%) 9.4 % 4.8-9.0 H EOSINOPHIL % (test code = EO%) 0.6 % 0.3-3.7 N BASOPHIL % (test code = BA%) 0.2 % 0.0-2.0 N NUCLEATED RBC % (test code = 0.0 % 0-0 N NRBC%) NEUTROPHIL # (test code = NT#) 6.48 x10 3/uL 2.0-7.6 N IMMATURE GRANULOCYTE # (test 0.02 x10 3/uL 0.00-0.03 N code = IG#) LYMPHOCYTE # (test code = LY#) 1.32 x10 3/uL 1.0-3.8 N MONOCYTE # (test code = MO#) 0.82 x10 3/uL 0.1-0.8 H EOSINOPHIL # (test code = EO#) 0.05 x10 3/uL 0.0-0.2 N BASOPHIL # (test code = BA#) 0.02 x10 3/uL 0.0-0.2 N NUCLEATED RBC # (test code = 0.00 x10 3/uL 0.0-0.1 N NRBC#) MANUAL DIFF REQUIRED (test code NO = MDIFF) CBC W/AUTO [id number] 05:01:00 Test Item Value Reference Range Interpretation Comments WHITE BLOOD CELL (test code = x10 3/uL 4.5-11.0 WBC) RED BLOOD CELL (test code = RBC) x10 6/uL 4.00-5.60 HEMOGLOBIN (test code = HGB) g/dL 12.5-16.9 HEMATOCRIT (test code = HCT) % 37.5-50.7 MEAN CELL VOLUME (test code = fL 81.0-99.0 MCV) MEAN CELL HGB (test code = MCH) pg 27.0-33.0 MEAN CELL HGB CONCETRATION (test g/dL 33.0-37.0 code = MCHC) RED CELL DISTRIBUTION WIDTH CV % 11.5-14.5 (test code = RDW) PLATELET COUNT (test code = PLT) 166 x10 3/uL 150-400 N NEUTROPHIL % (test code = NT%) % 56.0-77.0 LYMPHOCYTE % (test code = LY%) % 14.0-32.0 NEUTROPHIL # (test code = NT#) x10 3/uL 2.0-7.6 LYMPHOCYTE # (test code = LY#) x10 3/uL 1.0-3.8 MANUAL DIFF REQUIRED (test code = MDIFF) [id number] 17:29:00 Test Item Value Reference Range Interpretation Comments ACT-ISTAT (test code 340 SEC 74-137 H Perform ed by certified = ACTI) 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 operator at [facility] [id number] 17:10:00 Test Item Value Reference Range Interpretation Comments ACT-ISTAT (test code 279 SEC 74-137 H Perform ed by certified = ACTI) ager operator at [facility] [id number] 14:12:00 Test Item Value Reference Range Interpretation Comments GLUBED (test code = GLUBED) 105 mg/dL 70-110 N [id number] 14:11:00 Test Item Value Reference Range Interpretation Comments GLUBED (test code = GLUBED) 91 mg/dL 70-110 N [id number] 08:55:00 Test Item Value Reference Range Interpretation Comments GLUBED (test code = GLUBED) 102 mg/dL 70-110 N BASIC METABOLIC [id number] 07:25:00 Test Item Value Reference Range Interpretation Comments SODIUM (test code = NA) 133 mmol/l 134.0-147.0 L POTASSIUM (test code = K) 3.6 mmol/L 3.6-5.2 N CHLORIDE (test code = CL) 99 mmol/l 98.0-107.0 N CARBON DIOXIDE (test code = CO2) 26.2 mmol/l 21.0-33.0 N ANION GAP (test code = GAP) 11.4 0-20 N GLUCOSE (test code = GLU) 103 mg/dl 70.0-110.0 N BLOOD UREA NITROGEN (test code = 15 mg/dl 7.0-18.0 N BUN) CREATININE (test code = CREAT) 0.60 mg/dL 0.60-1.30 N GFR NON BLACK (test code = 142 mL/min 70-80 H GFRNONBLACK) GFR BLACK (test code = GFRBLACK) 171 mL/min 85-97 H CALCIUM (test code = CA) 8.7 mg/dl 8.0-10.5 N THROMBOPLASTIN TIME [id number] 07:03:00 Test Item Value Reference Range Interpretation Comments THROMBOPLASTIN TIME 68.00 SECONDS 25.86-36.07 [facility] PARTIAL (test code = Therape utic Range - PTT) APTT of 55.8-85 .4 secondscorrelat es with plasma heparin concentration o f 0.2-0.4 u/mL Ne w range effective - Is patient on anticoagulants? YIf yes, please list anticoagulants: HEPARINIs patient on heparin protocol? YCBC W/AUTO [id number] 06:47:00 Test Item Value Reference Range Interpretation Comments WHITE BLOOD CELL (test code = 5.5 K/mm3 4.5-11.0 N WBC) RED BLOOD CELL (test code = 3.95 M/mm3 4.40-5.90 L RBC) HEMOGLOBIN (test code = HGB) 12.1 gm/dL 13.0-17.0 L HEMATOCRIT (test code = HCT) 38.2 % 36.0-48.0 N MEAN CELL VOLUME (test code = 96.7 UM3 80.0-94.0 H MCV) MEAN CELL HGB (test code = MCH) 30.6 UUG 25.5-32.5 N MEAN CELL HGB CONCETRATION 31.7 gm/dL 29.0-35.5 N (test code = MCHC) RED CELL DISTRIBUTION WIDTH 12.3 % 11.5-15.0 N (test code = RDW) RED CELL DISTRIBUTION WIDTH SD 44.2 fL 34.8-50.2 N (test code = RDW-SD) PLATELET COUNT (test code = 181 K/mm3 150-400 PLT) MEAN PLATELET VOLUME (test code 12.3 fl 7.4-10.4 H = MPV) NEUTROPHIL % (test code = NT%) 64.4 % 49.0-76.0 N IMMATURE GRANULOCYTE % (test 0.2 % 0.0-0.4 N code = IG%) LYMPHOCYTE % (test code = LY%) 22.8 % 23.0-38.0 L MONOCYTE % (test code = MO%) 10.4 % 1.0-10.0 H EOSINOPHIL % (test code = EO%) 1.8 % 1.0-5.0 N BASOPHIL % (test code = BA%) 0.4 % 0.0-1.0 N NUCLEATED RBC % (test code = 0.0 % 0.0-0.1 N NRBC%) NEUTROPHIL # (test code = NT#) 3.5 K/mm3 2.4-6.3 N IMMATURE GRANULOCYTE # (test 0.01 x10 3/uL 0.00-0.07 N code = IG#) LYMPHOCYTE # (test code = LY#) 1.3 K/mm3 1.2-4.0 N MONOCYTE # (test code = MO#) 0.6 K/mm3 0.0-0.6 N EOSINOPHIL # (test code = EO#) 0.1 K/MM3 0.0-0.7 N BASOPHIL # (test code = BA#) 0.0 K/mm3 0.0-0.2 N NUCLEATED RBC # (test code = 0.00 X10 3uL 0.00-0.01 N NRBC#) Specimen comments: Daily while on HeparinTHROMBOPLASTIN TIME [id number] 20:35:00 Test Item Value Reference Range Interpretation Comments THROMBOPLASTIN TIME 61.00 SECONDS 25.86-36.07 [facility] PARTIAL (test code = Therape utic Range - PTT) APTT of 55.8-85 .4 secondscorrelat es with plasma heparin concentration o f 0.2-0.4 u/mL Ne w range effective - Is patient on anticoagulants? YIf yes, please list anticoagulants: HEPARINIs patient on heparin protocol? [id number] 14:10:00 Test Item Value Reference Range Interpretation Comments GLUBED (test code = GLUBED) 89 mg/dL 70-110 N THROMBOPLASTIN TIME [id number] 06:36:00 Test Item Value Reference Range Interpretation Comments THROMBOPLASTIN TIME 58.70 SECONDS 25.86-36.07 [facility] PARTIAL (test code = Therape utic Range - PTT) APTT of 55.8-85 .4 secondscorrelat es with plasma heparin concentration o f 0.2-0.4 u/mL Ne w range effective - Specimen comments: DRAW PTT 6 HOURS AFTER INITIATION OF HEPARINCBC W/AUTO DIFF 2020-10-28 05:27:00 Test Item Value Reference Range Interpretation Comments WHITE BLOOD CELL (test code = 5.2 K/mm3 4.5-11.0 N WBC) RED BLOOD CELL (test code = 4.28 M/mm3 4.40-5.90 L RBC) HEMOGLOBIN (test code = HGB) 13.1 gm/dL 13.0-17.0 N HEMATOCRIT (test code = HCT) 41.1 % 36.0-48.0 N MEAN CELL VOLUME (test code = 96.0 UM3 80.0-94.0 H MCV) MEAN CELL HGB (test code = MCH) 30.6 UUG 25.5-32.5 N MEAN CELL HGB CONCETRATION 31.9 gm/dL 29.0-35.5 N (test code = MCHC) RED CELL DISTRIBUTION WIDTH 12.6 % 11.5-15.0 N (test code = RDW) RED CELL DISTRIBUTION WIDTH SD 44.4 fL 34.8-50.2 N (test code = RDW-SD) PLATELET COUNT (test code = 119 K/mm3 150-400 L PLT) MEAN PLATELET VOLUME (test code 12.7 fl 7.4-10.4 H = MPV) NEUTROPHIL % (test code = NT%) 64.2 % 49.0-76.0 N IMMATURE GRANULOCYTE % (test 0.2 % 0.0-0.4 N code = IG%) LYMPHOCYTE % (test code = LY%) 18.4 % 23.0-38.0 L MONOCYTE % (test code = MO%) 14.9 % 1.0-10.0 H EOSINOPHIL % (test code = EO%) 2.1 % 1.0-5.0 N BASOPHIL % (test code = BA%) 0.2 % 0.0-1.0 N NUCLEATED RBC % (test code = 0.0 % 0.0-0.1 N NRBC%) NEUTROPHIL # (test code = NT#) 3.4 K/mm3 2.4-6.3 N IMMATURE GRANULOCYTE # (test 0.01 x10 3/uL 0.00-0.07 N code = IG#) LYMPHOCYTE # (test code = LY#) 1.0 K/mm3 1.2-4.0 L MONOCYTE # (test code = MO#) 0.8 K/mm3 0.0-0.6 H EOSINOPHIL # (test code = EO#) 0.1 K/MM3 0.0-0.7 N BASOPHIL # (test code = BA#) 0.0 K/mm3 0.0-0.2 N NUCLEATED RBC # (test code = 0.00 X10 3uL 0.00-0.01 N NRBC#) Specimen comments: Daily while on [id number] 00:21:00 Test Item Value Reference Range Interpretation Comments GLUBED (test code = GLUBED) 124 mg/dL 70-110 H LIPID PROFILE (CORONARY RISK)2020-10-27 18:06:00 Test Item Value Reference Range Interpretation Comments TRIGLYCERIDES (test code = TRIG) 55 mg/dl 40.0-150.0 N CHOLESTEROL (test code = CHOL) 188 mg/dl 0.0-200.0 N CHOLESTEROL/HDL RATIO (test code = 2.2 RATIO CHOLHDL) HDL CHOLESTEROL (test code = HDL) 85 mg/dl 30.0-60.0 H LIPOPROTEIN LDL (test code = LDL) 94 mg/dl 70-130 N [id number] 17:14:00 Test Item Value Reference Range Interpretation Comments GLUBED (test code = GLUBED) 95 mg/dL 70-110 N PROTHROMBIN [id number] 16:19:00 Test Item Value Reference Range Interpretation Comments PROTHROMBIN TIME 13.5 SECONDS 9.9-12.8 H PATIENT (test code = PTP) INTERNATIONAL NORMAL 1.1 0.89-1.14 N THE INR IS TO BE USED RATIO (test code = ONLY FOR MONITORING INR) ORAL ANTICOAGULANTTH ERAPY. THE FOLLOWING A RE SUGGESTED RANGE S FROM [facility]:[place] C[facility] INR VALUEPROPHY LAXIS OF VENOUS THROM BOSIS (ORTHOPEDIC QIAN DIVINA) 2.0 - 3.0PROPHY LAXIS OF VENOUS THROM BOSIS (OTHER THAN HIG H-RISK SURGERY) 2.0 - 3.0TREATMENT OF DEEP VEIN THROMBOSIS OR PULMONARY EMBOL ISM 2.0 - 3.0PREVENTION OF SYSTEMIC EMBOLI SM TISSUE HEART VA LVES 2.0 - 3.0 ACUTE MYOCARDIAL INFA RCTION (TO PREVENT SYS TEMIC EMBOLISM) 2.0 - 3.0 ACUTE MYOCARDIA L INFARCTION (TO PREVENT RECURRENT INFAR CT) 2.5 - 3.0 VALVULAR HEART DISEASE 2.0 - 3 .0 ATRIAL FIBRILAT ION 2.0 - 3.0BILEAFLET MECHANICAL VALV E IN AORTIC POSITION 2.0 - 3.0MECHANICAL PROSTHETIC VALV ES (HIGH RISK) 2.5 - 3.5PRESENCE OF LUPUS ANTICOAGULANT O R ANTIPHOSPHOLIPI D ANTIBODIES 2.5 - 3.5 Specimen comments: IF NOT ALREADY DONE WITHIN LAST 24 HOURSTHROMBOPLASTIN TIME [id number] 16:19:00 Test Item Value Reference Range Interpretation Comments THROMBOPLASTIN TIME 51.40 SECONDS 25.86-36.07 [facility] PARTIAL (test code = Therape uti Range - PTT) APTT of 55.8-85 .4 secondscorrelat es with plasma heparin concentration o f 0.2-0.4 u/mL Ne w range effective - Specimen comments: IF NOT ALREADY DONE WITHIN LAST 24 HOURSCB W/AUTO DIFF 2020-10-27 15:47:00 Test Item Value Reference Range Interpretation Comments WHITE BLOOD CELL (test code = 4.4 K/mm3 4.5-11.0 L WBC) RED BLOOD CELL (test code = 4.52 M/mm3 4.40-5.90 N RBC) HEMOGLOBIN (test code = HGB) 13.9 gm/dL 13.0-17.0 N HEMATOCRIT (test code = HCT) 43.3 % 36.0-48.0 N MEAN CELL VOLUME (test code = 95.8 UM3 80.0-94.0 H MCV) MEAN CELL HGB (test code = MCH) 30.8 UUG 25.5-32.5 N MEAN CELL HGB CONCETRATION 32.1 gm/dL 29.0-35.5 N (test code = MCHC) RED CELL DISTRIBUTION WIDTH 12.7 % 11.5-15.0 N (test code = RDW) RED CELL DISTRIBUTION WIDTH SD 45.2 fL 34.8-50.2 N (test code = RDW-SD) PLATELET COUNT (test code = 168 K/mm3 150-400 N PLT) MEAN PLATELET VOLUME (test code 12.6 fl 7.4-10.4 H = MPV) NEUTROPHIL % (test code = NT%) 72.8 % 49.0-76.0 N IMMATURE GRANULOCYTE % (test 0.2 % 0.0-0.4 N code = IG%) LYMPHOCYTE % (test code = LY%) 13.1 % 23.0-38.0 L MONOCYTE % (test code = MO%) 13.5 % 1.0-10.0 H EOSINOPHIL % (test code = EO%) 0.2 % 1.0-5.0 L BASOPHIL % (test code = BA%) 0.2 % 0.0-1.0 N NUCLEATED RBC % (test code = 0.0 % 0.0-0.1 N NRBC%) NEUTROPHIL # (test code = NT#) 3.2 K/mm3 2.4-6.3 N IMMATURE GRANULOCYTE # (test 0.01 x10 3/uL 0.00-0.07 N code = IG#) LYMPHOCYTE # (test code = LY#) 0.6 K/mm3 1.2-4.0 L MONOCYTE # (test code = MO#) 0.6 K/mm3 0.0-0.6 N EOSINOPHIL # (test code = EO#) 0.0 K/MM3 0.0-0.7 N BASOPHIL # (test code = BA#) 0.0 K/mm3 0.0-0.2 N NUCLEATED RBC # (test code = 0.00 X10 3uL 0.00-0.01 N NRBC#) Specimen comments: IF NOT ALREADY DONE WITHIN LAST 24 [id number] 15:32:00 Test Item Value Reference Range Interpretation Comments HGBA1C% (test code = HGBA1C%) 5.4 %A1C 4.8-6.0 N ESTIMATED AVERAGE GLUCOSE (test 108 MG/DL code = EAG) [id number] 08:10:00 Test Item Value Reference Range Interpretation Comments TROPONIN-I (test 2.80 NG/ML 0.00-0.06 HH REFERENCE R JERRY TROPONIN code = TROPI) I HEALTHY WATSON VIDUALS: <0.06 ng/mL R/O ISCHEMIA: 0.07 - 0.60 ng/mL CUT-OFF R JERRY FOR AMI: 0.60 - 1.5 ng/mL [id number] 04:08:00 Test Item Value Reference Range Interpretation Comments TROPONIN-I (test 2.71 NG/ML 0.00-0.06 HH REFERENCE R JERRY TROPONIN code = TROPI) I HEALTHY [place]SON VIDUALS: <0.06 ng/mL R/O ISCHEMIA: 0.07 - 0.60 ng/mL CUT-OFF R JERRY FOR AMI: 0.60 - 1.5 ng/mL BASIC METABOLIC [id number] 22:26:00 Test Item Value Reference Range Interpretation Comments SODIUM (test code = NA) 131 mmol/l 134.0-147.0 L POTASSIUM (test code = K) 3.8 mmol/L 3.6-5.2 N CHLORIDE (test code = CL) 96 mmol/l 98.0-107.0 L CARBON DIOXIDE (test code = CO2) 27.0 mmol/l 21.0-33.0 N ANION GAP (test code = GAP) 11.8 0-20 N GLUCOSE (test code = GLU) 111 mg/dl 70.0-110.0 H BLOOD UREA NITROGEN (test code = 20 mg/dl 7.0-18.0 H BUN) CREATININE (test code = CREAT) 0.62 mg/dL 0.60-1.30 N GFR NON BLACK (test code = 136 mL/min 70-80 H GFRNONBLACK) GFR BLACK (test code = GFRBLACK) 165 mL/min 85-97 H CALCIUM (test code = CA) 8.9 mg/dl 8.0-10.5 N [id number] 22:26:00 Test Item Value Reference Range Interpretation Comments TROPONIN-I (test 3.74 NG/ML 0.00-0.06 HH REFERENCE R JERRY TROPONIN code = TROPI) I HEALTHY W[place]SON VIDUALS: <0.06 ng/mL R/O ISCHEMIA: 0.07 - 0.60 ng/mL CUT-OFF R JERRY FOR AMI: 0.60 - 1.5 ng/mL CBC W/AUTO [id number] 22:19:00 Test Item Value Reference Range Interpretation Comments WHITE BLOOD CELL (test code = 4.1 K/mm3 4.5-11.0 L WBC) RED BLOOD CELL (test code = 4.42 M/mm3 4.40-5.90 N RBC) HEMOGLOBIN (test code = HGB) 13.6 gm/dL 13.0-17.0 N HEMATOCRIT (test code = HCT) 43.1 % 36.0-48.0 N MEAN CELL VOLUME (test code = 97.5 UM3 80.0-94.0 H MCV) MEAN CELL HGB (test code = MCH) 30.8 UUG 25.5-32.5 N MEAN CELL HGB CONCETRATION 31.6 gm/dL 29.0-35.5 N (test code = MCHC) RED CELL DISTRIBUTION WIDTH 12.7 % 11.5-15.0 N (test code = RDW) RED CELL DISTRIBUTION WIDTH SD 45.5 fL 34.8-50.2 N (test code = RDW-SD) PLATELET COUNT (test code = 194 K/mm3 150-400 N PLT) MEAN PLATELET VOLUME (test code 11.0 fl 7.4-10.4 H = MPV) NEUTROPHIL % (test code = NT%) 73.0 % 49.0-76.0 N IMMATURE GRANULOCYTE % (test 0.5 % 0.0-0.4 H code = IG%) LYMPHOCYTE % (test code = LY%) 14.6 % 23.0-38.0 L MONOCYTE % (test code = MO%) 11.2 % 1.0-10.0 H EOSINOPHIL % (test code = EO%) 0.2 % 1.0-5.0 L BASOPHIL % (test code = BA%) 0.5 % 0.0-1.0 N NUCLEATED RBC % (test code = 0.0 % 0.0-0.1 N NRBC%) NEUTROPHIL # (test code = NT#) 3.0 K/mm3 2.4-6.3 N IMMATURE GRANULOCYTE # (test 0.02 x10 3/uL 0.00-0.07 N code = IG#) LYMPHOCYTE # (test code = LY#) 0.6 K/mm3 1.2-4.0 L MONOCYTE # (test code = MO#) 0.5 K/mm3 0.0-0.6 N EOSINOPHIL # (test code = EO#) 0.0 K/MM3 0.0-0.7 N BASOPHIL # (test code = BA#) 0.0 K/mm3 0.0-0.2 N NUCLEATED RBC # (test code = 0.00 X10 3uL 0.00-0.01 N NRBC#) - XR CHEST 1 [id number] 22:03:00 [facility] 1950 Sex: M FAX: Wayne Emerson DO [phone] [place]: EM St: PRE Name: VLADIMIR DICKSON [facility] : 1950 Age/S: 70/M [address] [facility] Unit #: [id number] Loc: [address] Phys: [place] [id number] Acct: [id number] Dis Date: Status: PRE ER PHONE #: [phone] Exam Date: 10/26/20202200 FAX #: [phone] Reason: SOB EXAMS: CPT CODE: [id number] XR CHEST 1 V 15588 EXAM: - XR CHEST 1 V COMPARISON: None LOCATION: H57 HISTORY: 70 years-old Male with SOB TECHNIQUE: Single AP view of the chest. FINDINGS: The cardiomediastinal silhouette is within normal limits. The lungs are well aerated. Small scattered pleural calcifications or granulomas are seen. No large pneumothorax or pleural effusion. Osseous structu res and soft tissues demonstrate no acute findings. The visualized upper abdomen is unremarkable. IMPRESSION: No acute cardiopulmonary abnormality. at 2203 Reported and signed by: Leo Martin MD CC: Wayne Emerson DO Technologist: SARAH Rockwell Date/Time/By: 10/26/2020 (2202) : By: [email or web address] PAGE 1 Signed Report FAX: Wayne Emerson DO [phone] [place]: St: PRE Name: VLADIMIR DICKSON [facility] : 1950 Age/S: 70/M [address] [facility] Unit #: [id number] Loc: [address] Phys: [place] [id number] Acct: [id number] Date: Status: PRE ER PHONE #: [phone] Exam Date: 10/26/20202200 FAX #: [phone] Reason: SOB EXAMS: CPT CODE: [id number] XR CHEST 1 V 25564 (Continued) Orig Print D/T: S: 10/26/2020 (2205) PAGE 2 Signed Report
[2022-06-19 15:54] LABS: Absolute Lymphocytes (CBC) 1.3 K/uL (0.7-4.9); Hematocrit 43.4 % (39.6-49.0); Lymphocytes % 23.4 % (15.3-44.8); MCV 99.8 fL (80-100); MPV 9.2 fL (7.6-11.3); RBC Red Blood Cell Count 4.35 M/uL (4.33-5.43)
[2022-06-19 16:14] LABS: Albumin 4.4 g/dL (3.4-5.0); Bilirubin Total 0.8 mg/dL (0.2-1.0); Protein, Total 8.7 g/dL (6.4-8.2)
[2022-06-19] MEDS ORDERED: MORPHINE 4 MG/ML SYR ONE (16:46)
[2022-06-19] MEDS ORDERED: ONDANSETRON 4 MG/2 ML VIAL ONE (16:47)
[2022-06-19] MEDS ORDERED: NA CHLORIDE 0.9% 500 ML ONE (16:47)
--- NOTE | 2022-06-19 17:09 | RAD REPORT ---
EXAM DESCRIPTION: CT - Angio Aorta For Dissection - 06/19/2022 4:58 pm CLINICAL HISTORY: Chest pain radiating to the back. abd pain COMPARISON: Abdomen 1 View (KUB) dated 04/08/2018 TECHNIQUE: CT angiography of the aorta was performed with MIPs. All CT scans are performed using dose optimization technique as appropriate and may include automated exposure control or mA/KV adjustment according to patient size. FINDINGS: A left aortic arch is present with normal branching pattern of the great vessels.No acute aortic finding is seen such as aneurysm, penetrating ulcer or dissection. Moderate atherosclerosis i s seen at the origin of the major visceral arteries. No abdominal aortic aneurysm or dissection seen. No evidence of pulmonary embolism. 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 Mild COPD is present. The liver demonstrates no focal mass or biliary dilatation.The spleen, pancreas, adrenal glands and r ight kidney are within normal limits for arterial phase imaging.5 cm cyst is present left kidney. There is small umbilical hernia present containing small loop of small intestine.There is a significa nt amount of air and stool in a distended colon. There is elevation of the right hemidiaphragm.No pat hologic enlarged lymphadenopathy identified. Significant lumbosacral degenerative changes are present. IMPRESSION: No acute aortic finding is demonstrated. There is quite significant retained stool and air distention of the colon present.
[2022-06-19] MEDS ORDERED: FLEET ENEMA ADULT PR ONE (18:32)
[2022-06-19] MEDS ORDERED: BISACODYL E.C. 5 MG TAB PO ONE (19:25)
--- NOTE | 2022-06-19 19:49 | EDPHYS ---
Physician Documentation [facility] Name: Felipe Garrett Age: 72 yrs Sex: Male : 1950 Arrival Date: 06/19/2022 Time: 14:09 Bed 26 Private MD: ED Physician Cira Paris HPI: 06/19 15:26 This 72 yrs old Black Male presents to ER via Unassigned with complaints of Abdominal kb Pain. 15:26 The patient presents with abdominal pain that is diffuse. Onset: The symptoms/episode kb began/occurred at 06:30. The symptoms do not radiate. Associated signs and symptoms: Pertinent positives: constipation. The symptoms are described as intermittent. Modifying factors: The symptoms are alleviated by nothing, the symptoms are aggravated by nothing. Severity of pain: At its worst the pain was moderate in the emergency department the pain has improved. The patient has not experienced similar symptoms in the past. The patient has not recently seen a physician. Pt reports diffuse abd pain that started at 0630. States he has had constipation for 6 days so he took 7ml of lactulose every 5 minutes for 45 minutes. Still has not had a bowel movement.. Historical: - Allergies: 15:53 Benadryl; ld1 - PMHx: 15:53 ALS; Diabetes - NIDDM; Hypertension; ld1 - PSHx: 15:53 None; ld1 - Immunization history:: Adult Immunizations up to date, Client reports receiving the 2nd dose of the Covid vaccine. - Social history:: Smoking status: Patient denies any tobacco usage or history of. Patient/guardian denies using alcohol. ROS: 15:25 Constitutional: Negative for fever, chills, and weight loss. kb 15:25 Abdomen/GI: Positive for abdominal pain, constipation. 15:25 All other systems are negative. Exam: 15:25 Constitutional: This is a well developed, well nourished patient who is awake, alert, kb and in no acute distress. Head/Face: Normocephalic, atraumatic. ENT: Moist Mucous membranes Cardiovascular: Regular rate and rhythm with a normal S1 and S2. No gallops, murmurs, or rubs. No pulse deficits. Respiratory: Respirations even and unlabored. No increased work of breathing. Talking in full sentences Abdomen/GI: Soft, non-tender. No distention Skin: Warm, dry with normal turgor. Normal color. MS/ Extremity: Pulses equal, no cyanosis. Neurovascular intact. Full, normal range of motion. Neuro: Awake and alert, GCS 15, oriented to person, place, time, and situation. Moves all extremities. Normal gait. Vital Signs: 15:51 BP 170 / 102; Pulse 87; Resp 26; Temp 98.1(O); Pulse Ox 99% on R/A; Weight 54.43 kg; ld1 Height 5 ft. 5 in. (165.10 cm); Pain 10/10; 16:30 BP 176 / 103; Pulse 88; Resp 21; Pulse Ox 99% on R/A; Pain 10/10; ld1 17:14 BP 164 / 94; Pulse 91; Resp 23; Pulse Ox 98% on R/A; ld1 17:51 BP 160 / 99; Pulse 94; Resp 20; Pulse Ox 94% on R/A; Pain 3/10; ld1 19:02 BP 145 / 86; Pulse 89; Resp 19; Pulse Ox 94% on R/A; ld1 20:20 BP 163 / 92; Pulse 81; Resp 20; Pulse Ox 95% on R/A; ld1 15:51 Body Mass Index 19.97 (54.43 kg, 165.10 cm) ld1 MDM: 15:08 Patient medically screened. 15:26 Data reviewed: vital signs, nurses notes. Data interpreted: Pulse oximetry: on room air kb is 100 %. Interpretation: normal. ED course: Pt reports no tenderness at this time. STates the pain comes and goes. 19:48 Data reviewed: I have discussed the patient's presentation/case with the attending Emergency Department Physician; and as a result, I will admit patient. Counseling: I had a detailed discussion with the patient and/or guardian regarding: the historical points, exam findings, and any diagnostic results supporting the discharge/admit diagnosis, lab results, radiology results, the need for further work-up and treatment in the hospital. Physician consultation: Clary Bustamante PA-C was contacted at 19:48, regarding admission, patient's condition. 06/19 15:16 Order name: CBC with Diff; Complete Time: 16:07 kb 06/19 15:16 Order name: CMP; Complete Time: 16:26 kb 06/19 15:16 Order name: Lipase; Complete Time: 16:26 kb 06/19 19:49 Order name: SARS RAPID; Complete Time: 20:36 kb 06/19 23:19 Order name: Glucose, Ancillary Testing; Complete Time: 00:10 EDMS 06/20 03:04 Order name: CBC with Automated Diff; Complete Time: 03:38 EDMS 06/20 03:31 Order name: Basic Metabolic Panel; Complete Time: 03:38 EDMS 06/20 03:31 Order name: Phosphorus; Complete Time: 03:38 EDMS 06/20 03:31 Order name: Lipid Profile; Complete Time: 03:38 EDMS 06/20 03:31 Order name: Magnesium; Complete Time: 03:38 EDMS 06/20 03:31 Order name: Thyroid Stimulating Hormone; Complete Time: 03:38 EDMS 06/20 07:58 Order name: Glucose, Ancillary Testing EDMS 06/20 12:17 Order name: Glucose, Ancillary Testing EDMS 06/20 15:43 Order name: Urinalysis EDMS 06/19 14:14 Order name: CT Aorta for Dissection snw 06/19 15:16 Order name: IV Saline Lock; Complete Time: 16:29 kb 06/19 15:16 Order name: Labs collected and sent; Complete Time: 15:51 kb 06/19 15:27 Order name: Angio Aorta For Dissection; Complete Time: 17:15 EDMS Administered Medications: 16:50 Drug: morphine 4 mg Route: IVP; Infused Over: 4 mins; Site: left wrist; ld1 17:51 Follow up: Response: No adverse reaction; Pain is decreased; RASS: Alert and Calm (0) ld1 16:50 Drug: Zofran (Ondansetron) 4 mg Route: IVP; Site: left wrist; ld1 17:51 Follow up: Response: No adverse reaction ld1 17:50 Drug: NS 0.9% 500 ml Route: IV; Rate: bolus; Site: left wrist; ld1 18:47 Drug: Fleet Enema (sodium phosphate) 133 ml Route: [place]; ld1 19:30 Not Given (Other Intervention Used): Magnesium Citrate Liquid 300 ml PO once ld1 19:30 Drug: Dulcolax (bisacodyl) Delayed Release Tablet 10 mg Route: PO; ld1 Disposition Summary: 06/19/22 19:49 Hospitalization Ordered Hospitalization Status: Observation kb Provider: Jacques Escobedo Condition: Stable(06/19/22 19:49) kb Problem: new kb Symptoms: are unchanged kb Bed/Room Type: Standard kb Location: [facility] ER HOLD(06/19/22 20:22) Room Assignment: ERHOLD-(06/19/22 20:22) cg Diagnosis - Constipation(06/19/22 19:49) kb - Abdominal pain, Generalized(06/19/22 19:49) kb Forms: - Medication Reconciliation Form kb - SBAR form kb Addendum: 06/22/2022 03:45 STAFF ATTESTATION STATEMENT: I was immediately available onsite in the emergency s d2 department for consultation in the care of this patient. I did not see or examine this patient. Cira Paris MD. Signatures: Dispatcher [employer] EDMS Cassie Diaz, RELATIONS MANAGER-C RELATIONS MANAGER-Latasha Maradiaga RN RN cg Nori Rojas RN RN ld1 Cira Paris MD MD sd2 Clary Bustamante PA-C PA-C sb4 Corrections: (The following items were deleted from the chart) 06/19 15:31 15:27 CT-ABD ordered. EDWA EDMS 19:48 19:48 Home kb kb 19:48 19:48 Stable kb kb 19:48 19:48 Constipation kb kb 19:48 19:48 Abdominal pain, Generalized kb kb 20:22 19:49 Telemetry/MedSurg (observation) kb cg 20:22 19:49 kb
--- NOTE | 2022-06-19 19:49 | ER ---
Nurse's Notes [facility] Name: Felipe Garrett Age: 72 yrs Sex: Male : 1950 Arrival Date: 06/19/2022 Time: 14:09 Bed 26 Private MD: Diagnosis: Constipation;Abdominal pain, Generalized Presentation: 06/19 15:51 Chief complaint: Patient states: Lower abdominal pain X 3-4 days - reports ld1 constipation. Coronavirus screen: At this time, the client does not indicate any symptoms associated with coronavirus-19. Ebola Screen: No symptoms or risks identified at this time. Initial Sepsis Screen: Does the patient meet any 2 criteria? No. Patient's initial sepsis screen is negative. Does the patient have a suspected source of infection? No. Patient's initial sepsis screen is negative. Risk Assessment: Do you want to hurt yourself or someone else? Patient reports no desire to harm self or others. Onset of symptoms was June 19, 2022. 15:51 Method Of Arrival: Wheelchair ld1 15:51 Acuity: MARINO 3 ld1 Triage Assessment: 15:53 General: Appears in no apparent distress. uncomfortable, Behavior is calm, cooperative, ld1 appropriate for age. Pain: Complains of pain in right lower quadrant and left lower quadrant Pain does not radiate. Pain currently is 10 out of 10 on a pain scale. Quality of pain is described as aching, crampy, throbbing, Pain began 2-3 days ago. Is intermittent. EENT: No signs and/or symptoms were reported regarding the EENT system. Neuro: Level of Consciousness is awake, alert, obeys commands, Oriented to person, place, time, situation, Appropriate for age. Cardiovascular: Capillary refill < 3 seconds Patient's skin is warm and dry. Rhythm is sinus rhythm. Respiratory: Airway is patent Respiratory effort is even, labored, Respiratory pattern is regular, symmetrical. GI: Abdomen is flat, non-distended, Reports lower abdominal pain. GI: Reports constipation. : No signs and/or symptoms were reported regarding the genitourinary system. Derm: No signs and/or symptoms reported regarding the dermatologic system. Musculoskeletal: No signs and/or symptoms reported regarding the musculoskeletal system. Historical: - Allergies: 15:53 Benadryl; ld1 - PMHx: 15:53 ALS; Diabetes - NIDDM; Hypertension; ld1 - PSHx: 15:53 None; ld1 - Immunization history:: Adult Immunizations up to date, Client reports receiving the 2nd dose of the Covid vaccine. - Social history:: Smoking status: Patient denies any tobacco usage or history of. Patient/guardian denies using alcohol. Screenin:54 Abuse screen: Denies threats or abuse. Denies injuries from another. Nutritional ld1 screening: No deficits noted. Tuberculosis screening: No symptoms or risk factors identified. Fall Risk None identified. Assessment: 15:54 Reassessment: See triage assessment. ld1 16:30 Reassessment: Pt C/O Abdominal pain - notified ERP. See [facility] for orders. ld1 17:14 Reassessment: Patient appears in no apparent distress at this time. Patient and/or ld1 family updated on plan of care and expected duration. Pain level reassessed. 17:51 Reassessment: Patient appears in no apparent distress at this time. Patient and/or ld1 family updated on plan of care and expected duration. Pain level reassessed. Patient is alert, oriented x 3, equal unlabored respirations, skin warm/dry/pink. Patient states symptoms have improved. 19:02 Reassessment: Patient appears in no apparent distress at this time. Patient and/or ld1 family updated on plan of care and expected duration. Pain level reassessed. 20:24 GI: Bowel sounds present X 4 quads. Abd is soft Abdomen is tender to palpation X 4 ld1 quads. Vital Signs: 15:51 BP 170 / 102; Pulse 87; Resp 26; Temp 98.1(O); Pulse Ox 99% on R/A; Weight 54.43 kg; ld1 Height 5 ft. 5 in. (165.10 cm); Pain 10/10; 16:30 BP 176 / 103; Pulse 88; Resp 21; Pulse Ox 99% on R/A; Pain 10/10; ld1 17:14 BP 164 / 94; Pulse 91; Resp 23; Pulse Ox 98% on R/A; ld1 17:51 BP 160 / 99; Pulse 94; Resp 20; Pulse Ox 94% on R/A; Pain 3/10; ld1 19:02 BP 145 / 86; Pulse 89; Resp 19; Pulse Ox 94% on R/A; ld1 20:20 BP 163 / 92; Pulse 81; Resp 20; Pulse Ox 95% on R/A; ld1 15:51 Body Mass Index 19.97 (54.43 kg, 165.10 cm) ld1 ED Course: 14:09 Patient arrived in ED. as 15:07 [facility]C [facility] kb 15:07 Cira Paris MD is Attending Physician. kb 15:53 Triage completed. ld1 15:53 Arm band placed on right wrist. ld1 15:54 Patient has correct armband on for positive identification. Placed in gown. Bed in low ld1 position. Call light in reach. Side rails up X2. monitor technician on. Pulse ox on. NIBP on. Door closed. Noise minimized. Warm blanket given. 15:54 No provider procedures requiring assistance completed. Missed attempt(s): 20 gauge in ld1 right antecubital area. 17:00 Angio Aorta For Dissection In Process Unspecified. EDMS 17:14 Nori Rojas, CORTNEY is Primary Nurse. ld1 19:49 Jacques Escobedo is Hospitalizing Provider. kb 20:24 Patient admitted, IV remains in place. ld1 Administered Medications: 16:50 Drug: morphine 4 mg Route: IVP; Infused Over: 4 mins; Site: left wrist; ld1 17:51 Follow up: Response: No adverse reaction; Pain is decreased; RASS: Alert and Calm (0) ld1 16:50 Drug: Zofran (Ondansetron) 4 mg Route: IVP; Site: left wrist; ld1 17:51 Follow up: Response: No adverse reaction ld1 17:50 Drug: NS 0.9% 500 ml Route: IV; Rate: bolus; Site: left wrist; ld1 18:47 Drug: Fleet Enema (sodium phosphate) 133 ml Route: [place]; ld1 19:30 Not Given (Other Intervention Used): Magnesium Citrate Liquid 300 ml PO once ld1 19:30 Drug: Dulcolax (bisacodyl) Delayed Release Tablet 10 mg Route: PO; ld1 Medication: 15:54 VIS not applicable for this client. ld1 Outcome: 19:48 Discharge ordered by . kb 19:49 Decision to Hospitalize by Provider. kb 20:24 Admitted to ER Hold. Please see [employer] for further documentation. ld1 20:24 Condition: stable 20:24 Instructed on the need for admit. 06/20 16:09 Patient left the ED. ss Signatures: Dispatcher [employer] EDCassie John, INNERSOLE MAKER-C INNERSOLE MAKER-Itzel Patton Shelby, RN RN ss Nori Rojas RN RN ld1 Corrections: (The following items were deleted from the chart) 06/19 20:21 20:20 BP 163 / 92; Pulse 81bpm; ld1 ld1
[2022-06-19 20:31] LABS: SARS-CoV-2 Antigen Rapid Res Negative (Negative)
--- NOTE | 2022-06-19 21:30 | P.HP ---
Certification for Inpatient Patient admitted to: Observation With expected LOS: <2 Midnights Patient will require the following post-hospital care: None Practitioner: I am a practitioner with admitting privileges, knowledge of patient current condition, hospital course, and medical plan of care. Services: Services provided to patient in accordance with Admission requirements found in Title 42 Section 412.3 of the Code of Federal Regulations Patient History Date of Service: 06/20/22 Reason for admission: Abdominal Pain, Constipation History of Present Illness: Patient is a 72-year-old male with history of ALS, gout, [id number] type 2 diabetes, and hypertension who presented to the ED with complaints of diffuse abdominal pain. Patient reports the pain began this morning. He reports that he has not had a bowel movement in 6 days. He states that he took 7 mL of lactulose every 5 minutes for 45 minutes today and still did not have a bowel movement. He was given morphine, Zofran, 0.5L fluid, fleet enema, and Dulcolax in the ED. Hospital does not have mag citrate at this time. CT showed significant retained stool and air distention of the colon. The pain has persisted and patient has not had a bowel movement. ED provider wishes admit patient for observation. Allergies diphenhydramine [From Benadryl] Allergy (Verified 04/08/18 13:35) Unknown Home medications list reviewed: Yes Home Medications: Aspirin 81 mg PO DAILY 04/08/18 Baclofen [Lioresal] 10 mg PO BID 04/08/18 Glycopyrrolate 1 mg PO Q4H PRN 04/08/18 Indomethacin 50 mg PO DAILY PRN 04/08/18 Lactulose 10 gm PO DAILY PRN 04/08/18 Losartan Potassium 100 mg PO DAILY 04/08/18 Metoprolol Tartrate 100 mg PO DAILY 04/08/18 Tamsulosin [Flomax] 0.4 mg PO BEDTIME 04/08/18 allopurinoL [Allopurinol] 100 mg PO DAILY 04/08/18 - Past Medical/Surgical History Diabetic: No -: ALS -: NIDDM -: Hypertension -: Gout Past Surgical History: Patient denies surgical history Psychosocial/ Personal History: Patient lives at home. - Family History Family History: Reviewed- Non-Contributory - Social History Smoking Status: Never smoker Alcohol use: No CD- Drugs: No Caffeine use: Yes Place of Residence: Home Review of Systems Gastrointestinal: Abdominal Pain, Constipation Physical Examination - Physical Exam General: Alert, In no apparent distress HEENT: Atraumatic, PERRLA, EOMI, Sclerae nonicteric Neck: Supple, 2+ carotid pulse no bruit, No LAD, Without JVD or thyroid abnormality Respiratory: Clear to auscultation bilaterally, Normal air movement Cardiovascular: Regular rate/rhythm, Normal S1 S2 Gastrointestinal: Normal bowel sounds, No tenderness Musculoskeletal: No tenderness Integumentary: No rashes Neurological: Normal speech, Normal strength at 5/5 x4 extr, Normal tone, Normal affect - Studies Laboratory Data (last 24 hrs) 06/19/22 15:47: Sodium 144, Potassium 4.0, BUN 17, Creatinine 0.98, Glucose 113 H, Total Bilirubin 0.8, AST 33, ALT 38, Alkaline Phosphatase 109, Lipase 41 L 06/19/22 15:47: WBC 5.40, Hgb 14.0, Hct 43.4, Plt Count 195 Assessment and Plan - Problems (Diagnosis) (1) Constipation Current Visit: Yes Status: Acute Qualifiers: Constipation type: unspecified constipation type Qualified Code(s): K59.00 - Constipation, unspecified (2) Abdominal pain Current Visit: Yes Status: Acute Qualifiers: Abdominal location: generalized Qualified Code(s): R10.84 - Generalized abdominal pain (3) Type 2 diabetes mellitus Current Visit: Yes Status: Chronic Qualifiers: Diabetes mellitus terminologist insulin use: without terminologist use Diabetes mellitus complication status: without complication Qualified Code(s): E11.9 - Type 2 diabetes mellitus without complications (4) ALS (amyotrophic lateral sclerosis) Current Visit: Yes Status: Chronic (5) Hypertension Current Visit: Yes Status: Chronic Qualifiers: Hypertension type: primary hypertension Qualified Code(s): I10 - Essential (primary) hypertension - Plan -Will try klyte to relieve constipation/abdominal pain -Minimize pain medications -Full liquid diet -Monitor and replete electrolytes per protocol -Reconcile and continue home medications -Lovenox for VTE ppx -Full code Discharge Plan: Home Plan to discharge in: 24 Hours - Advance Directives Does patient have a Living Will: No Does patient have a Durable POA for Healthcare: No - Code Status/Comfort Care Code Status Assessed: Yes (Full) Critical Care: No Time Spent Managing Pts Care (In Minutes): 50
[2022-06-19] MEDS ORDERED: GOLYTELY 4000 ML PO SCH (22:19)
[2022-06-19] MEDS ORDERED: ACETAMINOPHEN 500 MG TAB PO PRN (22:19)
[2022-06-19] MEDS: INSULIN -REGULAR HUMAN 50 UNIT/0.5 ML ML SQ SCH (22:19)
[2022-06-19] MEDS ORDERED: ONDANSETRON 4 MG/2 ML VIAL IV PRN (22:19)
[2022-06-19] MEDS ORDERED: NA CHLORIDE 0.9% 1,000 ML ONE (22:44)
[2022-06-19] MEDS: NA CHLORIDE 0.9% 1,000 ML IV SCH (22:59)
[2022-06-20 02:13] VITALS: O2SAT 96; BMI 17.7
[2022-06-20 02:56] LABS: Absolute Lymphocytes (CBC) 1.2 K/uL (0.7-4.9); Hematocrit 39.9 % (39.6-49.0); Lymphocytes % 14.9 % (15.3-44.8); MCV 99.8 fL (80-100); MPV 9.5 fL (7.6-11.3)
[2022-06-20 03:30] LABS: Magnesium 2.2 mg/dL (1.8-2.4); Phosphorus 3.6 mg/dL (2.5-4.9); Potassium 3.7 mmol/L (3.5-5.1); Thyroid Stimulating Hormone 0.379 uIU/mL (0.360-3.740)
[2022-06-20] MEDS ORDERED: POTASSIUM CL SA 10 MEQ TAB PO ONE ×2 (05:04→06:00)
[2022-06-20] MEDS: INSULIN -REGULAR HUMAN 50 UNIT/0.5 ML ML SQ SCH ×2 (07:30→11:30)
[2022-06-20] MEDS ORDERED: PNEUMOCOCCAL VACCINE 0.5 ML IMVAC ONE (08:00)
[2022-06-20] MEDS ORDERED: INFLUENZA VACCINE (for 6+ mo) 0.5 ML DOSE IMVAC ONE (08:00)
[2022-06-20] MEDS ORDERED: NA CHLORIDE 0.9% 1,000 ML ONE (09:07)
[2022-06-20] MEDS: NA CHLORIDE 0.9% 1,000 ML IV SCH (09:10)
[2022-06-20] MEDS ORDERED: allopurinoL 100 MG TAB PO SCH (12:31)
[2022-06-20] MEDS ORDERED: METOPROLOL XL 25 MG TAB PO SCH (12:32)
[2022-06-20] MEDS ORDERED: FINASTERIDE 5 MG TAB PO SCH (12:32)
[2022-06-20] MEDS ORDERED: TICAGRELOR 90 MG TABLET PO SCH (12:33)
[2022-06-20] MEDS ORDERED: SENOSIDES 8.6 MG TAB PO SCH ×2 (12:33→21:00)
[2022-06-20] MEDS ORDERED: MONTELUKAST 10 MG TAB PO SCH (12:33)
[2022-06-20 13:29] VITALS: BP 158/80; TEMP 98.8
[2022-06-20] MEDS ORDERED: DILTIAZEM HCL 120 MG SR CAP PO SCH (14:00)
[2022-06-20] MEDS ORDERED: GLYCOPYRROLATE 1 MG PO SCH (14:00)
--- NOTE | 2022-06-20 14:49 | P.DS ---
Admission Date: 06/19/22 Discharge Date: 06/20/22 Disposition: [facility] HOME/HOME HEALTH CARE Discharge Condition: FAIR Reason for Admission: Abdominal Pain, Constipation - Problems (1) Abdominal pain Current Visit: Yes Status: Acute Qualifiers: Abdominal location: generalized Qualified Code(s): R10.84 - Generalized abdominal pain (2) Constipation Current Visit: Yes Status: Acute Qualifiers: Constipation type: unspecified constipation type Qualified Code(s): K59.00 - Constipation, unspecified (3) ALS (amyotrophic lateral sclerosis) Current Visit: Yes Status: Chronic (4) Hypertension Current Visit: Yes Status: Chronic Qualifiers: Hypertension type: primary hypertension Qualified Code(s): I10 - Essential (primary) hypertension (5) Type 2 diabetes mellitus Current Visit: Yes Status: Chronic Qualifiers: Diabetes mellitus termite treater insulin use: without termite treater use Diabetes mellitus complication status: without complication Qualified Code(s): E11.9 - Type 2 diabetes mellitus without complications Brief History of Present Illness: Patient is a 72-year-old male with history of ALS, gout, exb-cjzfsez-qrxkfpnlr type 2 diabetes, and hypertension who presented to the ED with complaints of diffuse abdominal pain. He reported no bowel movement for 6 days. He stated that he took 7 mL of lactulose every 5 minutes for 45 minutes today and still did not have a bowel movement. He was given morphine, Zofran, 0.5L fluid, fleet enema, and Dulcolax in the ED. CT showed significant retained stool and air distention of the colon. Patient was hospitalized for further management. Hospital Course: Patient placed under observation on the medical floor and treated with GoLytely for the constipation. He successfully had multiple bowel movements. Her abdominal pain resolved. Patient was complaining of urinary retention. Bladder scan revealed about 700 mL of postvoid urine. He has a history of BPH on Flomax and finasteride. Patient reports prior history of urinary retention. Fierro catheter was inserted and maintained with about 700 ml of urine drained. Patient will need the Fierro catheter for at least 2 weeks. He is recommended to follow-up with urology as outpatient for voiding trial. Patient request to go home today. He is clinically stable. Other home medications resumed on discharge. Vital Signs/Physical Exam: Temp Pulse Resp BP Pulse Ox 98.8 F 87 16 158/80 H 98 06/20/22 12:00 06/20/22 12:00 06/20/22 12:00 06/20/22 12:00 06/20/22 12:00 General: Alert, In no apparent distress, Oriented x3 HEENT: Mucous membr. moist/pink Neck: JVD not distended Respiratory: Clear to auscultation bilaterally, Normal air movement Cardiovascular: No edema, Regular rate/rhythm, Normal S1 S2 Gastrointestinal: Normal bowel sounds, Soft and benign, Non-distended Musculoskeletal: No swelling Integumentary: No breakdown Laboratory Data at Discharge: WBC 8.40 K/uL (4.3-10.9) 06/20/22 02:28 Hgb 12.9 g/dL (13.6-17.9) L 06/20/22 02:28 Hct 39.9 % (39.6-49.0) 06/20/22 02:28 Plt Count 179 K/uL (152-406) 06/20/22 02:28 Sodium 141 mmol/L (136-145) 06/20/22 02:28 Potassium 3.7 mmol/L (3.5-5.1) 06/20/22 02:28 BUN 11 mg/dL (7-18) 06/20/22 02:28 Creatinine 0.65 mg/dL (0.55-1.3) 06/20/22 02:28 Glucose 104 mg/dL (74-106) 06/20/22 02:28 Phosphorus 3.6 mg/dL (2.5-4.9) 06/20/22 02:28 Magnesium 2.2 mg/dL (1.8-2.4) 06/20/22 02:28 Total Bilirubin 0.8 mg/dL (0.2-1.0) 06/19/22 15:47 AST 33 U/L (15-37) 06/19/22 15:47 ALT 38 U/L (12-78) 06/19/22 15:47 Alkaline Phosphatase 109 U/L (45-117) 06/19/22 15:47 Triglycerides 43 mg/dL (<150) 06/20/22 02:28 Cholesterol 137 mg/dL (<200) 06/20/22 02:28 HDL Cholesterol 75 mg/dL (40-60) H 06/20/22 02:28 Cholesterol/HDL Ratio 1.83 06/20/22 02:28 Lipase 41 U/L (73-393) L 06/19/22 15:47 Home Medications: Aspirin 81 mg PO DAILY 04/08/18 Baclofen [Lioresal*] 10 mg PO BID 04/08/18 Glycopyrrolate 2 mg PO TID 04/08/18 Tamsulosin [Flomax*] 0.8 mg PO BEDTIME 04/08/18 allopurinoL [Allopurinol] 100 mg PO DAILY 04/08/18 Atorvastatin Calcium 40 mg PO BEDTIME 06/20/22 Diltiazem Tab [Cardizem Tab*] 240 mg PO DAILY 06/20/22 Finasteride 5 mg PO DAILY 06/20/22 Metoprolol Succinate 25 mg PO DAILY 06/20/22 Montelukast [Singulair*] 10 mg PO DAILY 06/20/22 Oxybutynin Chloride [Ditropan Xl] 10 mg PO DAILY 06/20/22 Polyethylene Glycol 3350 [Miralax] 17 gm PO DAILY #30 packet 06/20/22 Sennosides 17.2 mg PO BEDTIME 06/20/22 Sennosides 17.2 mg PO NOON 06/20/22 Sennosides 34.4 mg PO DAILY 06/20/22 Ticagrelor [Brilinta*] 90 mg PO BID 06/20/22 New Medications: Polyethylene Glycol 3350 [Miralax] 17 gm PO DAILY #30 packet Diet: AHA Activity: Fall precautions Followup: PEDRO VASQUEZ [Primary Care Provider] - Tereso Giraldo [ACTIVE - CAN ADMIT] - 1-2 Weeks (Urinary retention. BPH Retained fierro catheter)
[2022-06-20 15:43] LABS: Specific Gravity > 1.030 (1.005-1.030); Urine Bilirubin NEGATIVE (Negative); Urine Blood Negative (Negative); Urine Clarity Clear (Clear); Urine Color Light-Yellow (Yellow); Urine Glucose NEGATIVE (Negative); Urine Protein NEGATIVE (Negative); Urine Urobilinogen Normal (Normal)
[2022-06-20] MEDS ORDERED: TAMSULOSIN 0.4 MG SR CAP PO SCH (21:00)
[2022-06-20] MEDS ORDERED: BACLOFEN 10 MG TAB PO SCH (21:00)
[2022-06-20] MEDS ORDERED: ATORVASTATIN 40 MG TAB PO SCH (21:00)
[2022-06-21] MEDS ORDERED: ASPIRIN 81 MG CHEWABLE TABLET PO SCH (09:00)
== END 2022-06-20 16:09 | disposition home or self-care (01) ==
LOC: ER 14:07 → ERHOLD 20:42
PROVIDERS: ADMIT Internal Medicine; ATTEND Internal Medicine
PROC: 0T9B70Z Drainage of Bladder with Drainage Device, Via Natural or Artificial Opening (ICD-10-PCS; principal; 2022-06-20)
DX: K59.00 Constipation, unspecified (principal); M10.9 Gout, unspecified; G12.21 Amyotrophic lateral sclerosis; R10.84 Generalized abdominal pain; N40.0 Benign prostatic hyperplasia without lower urinary tract symptoms; R33.9 Retention of urine, unspecified; Z20.822 Contact with and (suspected) exposure to COVID-19; E11.9 Type 2 diabetes mellitus without complications
CPT/HCPCS: 36415; 71275; 74175; 80048; 80053; 80061; 81003; 82947; 83690; 83735; 84100; 84443; 85025; 87811; 96374; 96375; 99285; G0378; J2405; J7030; J7050; Q9967

== ENCOUNTER 2022-06-23 12:53 | Emergency (ER) | payer OTHER ==
--- OUTSIDE RECORDS SUMMARY | 2022-06-23 13:01 | XMS REPORT | Continuity of Care Document ---
:1950 Author Organization [facility] t Address [address] [place] [address] [address]. [address] [place] [address] Care Team Providers Name Role Phone Sandra FIGUEREDO, Britt Aj Primary Care Physician Carley Lemus Attending Clinician Unavailable Olivier Lala Attending Clinician Unavailable SANDRA_A Attending Clinician Unavailable Aurelia Moura MD Attending Clinician [phone] Naima Simon RN Attending Clinician Unavailable Ale FIGUEREDO, Bijan Romo Attending Clinician Vidhi Murillo RN Attending Clinician Unavailable Britt Cadet Attending Clinician [phone] Filemon Jhaveri MD Attending Clinician Tanisha FIGUEREDO, Blanca Attending Clinician Rian Attending Clinician Unavailable Reynaldo Fuller RN Attending Clinician Unavailable Thea Manning Attending Clinician [phone] MARLYN PATEL Attending Clinician Unavailable ILDA WOODS Attending Clinician Unavailable keffer_a Attending Clinician Unavailable Physician, No Primary or Family Admitting Clinician UnavailOlivier Barney Admitting Clinician Unavailable SANDRA_A Admitting Clinician Unavailable Tin_Alicia Admitting Clinician Unavailable geena Admitting Clinician Unavailable Payers Payer Name Policy Type Policy Number Effective Date Expiration Date Prem sarmiento [place]ICARE [place]: [id number] 2006 NOVITAS 00:00:00 SOLUTIONS MEDICARE [facility] [place] [id number] [facility] [id number] [facility] [id number] [facility] Problems Condition Condition Condition Status Onset Resolution Last Treating Co mments Source Name Details Category Date Date Treatment Clinician Date Acute Acute Problem Active [place] pharyngiti Pharyngiti 8-11 Co m[facility] s s 00:00: ty 00 [facility] Screening Screening Problem Active Swe rupesh for for 5-26 Communi malignant Malignant 00:00: ty neoplasm Neoplasm 00 [facility] prostate [facility] s Impacted Impacted Problem Active 0 [facility] cerumen of Cerumen of 5-26 Co [facility]i bilateral Bilateral 00:00: ty [facility] Hemoptysis Hemoptysis Problem Active 2020-09 S weeny 1-16 [facility] 00:00: ty 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 Chest pain Chest Pain Problem Active 2020-0 S weeny 2-11 Communi 00:00: ty 00 [facility] Clin[facility] At risk At Risk Problem Active 2020-0 [place] for falls for Falls 2-11 Comm uni 00:00: ty 00 [facility]ospita Clinics Nausea Nausea Problem Active 2019-0 [facility] 6-11 [facility] 00:00: ty [facility] Abdominal Abdominal Problem Active 2019-0 Swe rupesh pain Pain 6-11 [facility] 00:00: ty [facility] Insomnia Insomnia Problem Active 2019-0 Sween y 2-25 Communi 00:00: ty 00 [facility] Clin[facility] Bradycardi Bradycardi Problem Active 2018-09 S solo a a 1-21 Communi 00:00: ty 00 [facility] Abnormal Abnormal Problem Active 2018- [facility] y weight Weight 9-19 Communi loss Loss 00:00: ty 00 [facility] Folliculit Folliculit Problem Active S solo is is 7-11 Communi 00:00: ty 00 [facility] Cough Cough Problem Active 2018- [facility] 6-19 Communi 00:00: ty 00 [facility] Chronic Chronic Problem Active 2018- [place] constipati Constipati 4-22 Co mmuni on on 00:00: ty 00 [facility] Pain of Pain of Problem Active 2018- [place] left ankle Left Ankle 1-08 [facility] joint Joint 00:00: ty 00 [facility] Type 2 Type 2 Problem Active [place] diabetes Diabetes 6-27 Commun i mellitus Mellitus 00:00: ty 00 [facility] Essential Essential Problem Active Swe rupesh hypertensi Hypertensi 6-27 Co mmuni on on 00:00: ty 00 [facility] Benign Benign Problem Active 2017- [place] hypertensi Hypertensi 6-27 Co mmuni on on 00:00: ty 00 [facility] Neck pain Neck Pain Problem Active 2016-09 [...] Comm uni sclerosis Sclerosis 00:00: ty [facility] [id number] Incomplete Problem Active Co mmon emptying [facility] of bladder [facility] [id number] BPH loc w Problem Active Com mon urin Spirit obs/LUTS [facility] Prostate Prostate Problem Active Commo n nodule nodule [facility] [id number] Lesion of Problem Active Com mon bladder [facility] Benign BPH Problem Active [facility] prostatic (benign [facility] hyperplasi prostatic - C HI a hyperplasi [facility] Mycosis Mycosis Problem Active [facility] Impacted Impacted Problem Active [place] cerumen [...] [facility] Allergies, Adverse Reactions, Alerts Allergy Allergy Status Severity Reaction(s) Onset Inactive Treating Comm ents Source Name Type Date Date Clinician diphenhy DA Active U UNKNOWN [facility] dramine 2-23 Clear 00:00: Flor 00 [facility] diphenhy DA Active U [facility] dramine 2-23 Clear 00:00: Flor 00 [facility] Breanne Propensi Active Methodi Inhibito ty to 07 st rs adverse 00:00: Hospita reaction 00 l s to drug Diphenhy Propensi Active Other (See 2015-09 Urinary M ethodi dramine ty to Comments) 0-[address] Hcl adverse 00:00: Hospita reaction 00 l s to drug BREANNE Allergy Active [place] INHIBITO to Communi RS substanc ty e Hospita l Clinics Benadryl Allergy Active Severe Other [place] to Communi substanc ty e Hospita l Clinics Family History Family Member Diagnosis Comments Start Date Stop Date Source Natural brother [facility] Other Hypertension [facility] Social History Social Habit Start Date Stop Date Quantity Comments Source History of [facility] - Tobacco Use [facility] Sex Assigned At [facility] Tobacco use and 2018-10-11 2018-10-11 Smokeless tobacco [facility] exposure 00:00:00 00:00:00 [facility]-user Hospital Smoking Status Start Date Stop Date Source Never smoked tobacco [facility] Medications Ordered Filled Start Stop [...] Take 2,000 Methodi pb, 0-07 Units by vitamin D3, 07:36: mouth Hospi ta (VITAMIN 18 every l D3) 2,000 morning. unit capsule capsule omega-3-dha 2021-09 Yes 1{tbl} QD Take 1 Me thodi -epa-dpa-fi 0-07 tablet by sh oil 07:36: mouth Hospita 1,050-1,200 18 [...] 0-[address] 07:36: Hospita 18 l allopurinol 2021-09 Yes 1 TABLET Me thodi [...] 90 Brilinta 90 No 1 BID Brilinta [place] mg tablet mg tablet 8-11 90 mg Comm uni Take 1 Take 1 00:00: tablet ty tablet tablet 00 Take 1 Hospita twice a day twice a day tablet l by oral by oral twice a Clinic s route. route. day by oral route. Brilinta 90 Brilinta 90 0 No 1 BID Brilinta [place] mg tablet mg tablet 8-11 90 mg Comm uni Take 1 Take 1 00:00: tablet ty tablet tablet 00 Take 1 Hospita twice a day twice a day tablet l by oral by oral twice a Clinic s route. route. day by oral route. azithromyci 2021-0 Yes 250mg QD Take 1 Met hodi n 8-[address] (Zithromax 00:00: (250 mg Hosp tanner Z-Hakan) 250 00 total) by l MG tablet mouth daily. Take 2 tablets the first day, then 1 tablet daily for 4 days. azithromyci 2021-0 Yes 250mg QD Take 1 Met hodi n 8-[address] (Zithromax 00:00: (250 mg Hosp tanner [facility]) 250 00 total) by l MG tablet mouth daily. Take 2 tablets the first day, then 1 tablet daily for 4 days. famotidine 2021- No 40mg QD Take 1 Meth sheree (Pepcid) 40 8- 09-10 tablet (40 s t MG tablet 00:00: 04:59 mg total) Ho spita 00 :00 by mouth l daily for 30 days. bisacodyL 2021- No 10mg QD Insert 1 Met hodi ([facility]ulcol[facility], 04[facility] [facility] 00:00: 04:59 y (10 mg H ospita 10 mg 00 :00 total) l suppository into the rectum daily for 30 days. docusate 2021- No 100mg Q12H Take 1 Metho di sodium 8-06 11-[address] (COLACE) 00:00: 04:59 (100 mg Hospi ta 100 MG 00 :00 total) by l capsule mouth every 12 (twelve) hours for 30 days. famotidine 2021- No 40mg QD Take 1 Meth shreee (Pepcid) 40 8- 09-10 tablet (40 s t MG tablet 00:00: 04:59 mg total) Ho spita 00 :00 by mouth l daily for 30 days. bisacodyL 2021- No 10mg QD Insert 1 Met hodi (Dulcolax, 04-[address] bisacodyl,) 00:00: 04:59 y (10 mg H ospita 10 mg 00 :00 total) l suppository into the rectum daily for 30 days. docusate 2021- No 100mg Q12H Take 1 Metho di sodium 04-[address] (COLACE) 00:00: 04:59 (100 mg Hospi ta 100 MG 00 :00 total) by l capsule mouth every 12 (twelve) hours for 30 days. albuterol 2021- No 2{puff} Q4H Inhale 2 Methodi (PROAIR 8-10 08-[address] HFA) 90 00:00: 04:59 every 4 Hospit a mcg/actuati 00 :00 (four) l on inhaler hours as needed (cough) for up to 10 days. albuterol 2021- No 2{puff} Q4H Inhale 2 Methodi (PROAIR 8-10 08-[address] HFA) 90 00:00: 04:59 every 4 Hospit a mcg/actuati 00 :00 (four) l on inhaler hours as needed (cough) for up to 10 days. dexamethaso 2021- No 6mg QD Take 1 Met hodi ne 04-12-16 tablet (6 st (DECADRON) 00:00: 04:59 mg total) H ospita 6 MG tablet 00 :00 by mouth l daily with breakfast for 5 days. dexamethaso 2021- No 6mg QD Take 1 Met hodi ne - 08-16 tablet (6 st (DECADRON) 00:00: 04:59 mg total) H ospita 6 MG tablet 00 :00 by mouth l daily with breakfast for 5 days. glycopyrrol 2020-09 Yes 2 TABLETS M ethodi ate 0-01 QAM, 2 st (ROBINUL) 2 00:00: TABLETS [facility] MG tablet 00 MIDDAY, 2 l TABLETS QHS glycopyrrol 2020-09 Yes 2 TABLETS M ethodi ate 0-01 QAM, 2 st (ROBINUL) 2 00:00: TABLETS [facility] MG tablet 00 MIDDAY, 2 l TABLETS Q Cefdinir Cefdinir 2019-09 2020- No BID Cefdinir 300 MG 300 MG 09-14 300 MG 00:00: 00:00 00 :00 Cartia XT Cartia XT No 1{capsu QD Cartia XT 300 MG 300 MG le} 300 MG metoprolol metoprolol No 1 BID metoprolol [place] tartrate 25 tartrate 25 tartrate Communi mg tablet mg tablet 25 mg ty Take 1 Take 1 tablet Hospita tablet tablet Take 1 l twice a day twice a day tablet Clinics by oral by oral twice a route. route. day by oral route. montelukast montelukast No 1 Q1D montelukas [facility] 10 mg 10 mg t 10 mg Communi tablet Take tablet Take tablet ty 1 tablet 1 tablet Take 1 Hospi ta every day every day tablet l by oral by oral every day Clin ics route. route. by oral route. polyethylen polyethylen No polyethyle [place] e glycol e glycol ne glycol Co [...] EVERY 12 HOURS sodium sodium No sodium [place] citrate citrate citrate Commun i ty Hospita Clinics Finasteride Finasteride No 1{table QD Finasterid 5 [...] Vitamin D3 Vitamin D3 No Vitamin D3 [id number] UNIT/GM UNIT/GM UNIT/GM Finasteride Finasteride No 1{table [...] day a day mouth twice a day FreeStyle FreeStyle No FreeStyle [place] Lite Strips Lite Strips Lite d a check sugar check sugar Strips Medical 3x a day 3x a day check Group sugar 3x a day glycopyrrol glycopyrrol No glycopyrro [place] ate 1 mg ate 1 mg late 1 mg da tablet Take tablet Take tablet Medical by oral by oral Take by Group route. route. oral route. lactulose lactulose No 15mL Q1D lactulose [facility] 10 gram/15 10 gram/15 10 gram/15 da mL oral mL oral mL oral Medica l solution solution solution Giuliana up Take 15 mL Take 15 mL Take 15 mL every day every day every day by oral by oral by oral route for route for route for 90 days. 90 days. 90 days. losartan losartan No losartan [facility] 100 mg 100 mg 100 mg da tablet Take tablet Take tablet Medical by oral by oral Take by Group route. route. oral route. metformin metformin No metformin [place] 500 mg 500 mg 500 mg da tablet Take tablet Take tablet Medical 1 tablet by 1 tablet by Take 1 Group mouth twice mouth twice tablet by a day a day mouth twice a day metoprolol metoprolol No metoprolol [facility] tartrate tartrate tartrate da 100 mg 100 mg 100 mg Medical tablet Take tablet Take tablet Group 2 tablets 2 tablets Take 2 by mouth by mouth tablets by every every mouth morning morning every morning oxybutynin oxybutynin No 1 Q1D oxybutynin [place] chloride ER chloride ER chloride da 10 mg 10 mg ER 10 mg Medical tablet,exte tablet,exte tablet,ext Group nded nded ended release 24 release 24 release 24 hr Take 1 hr Take 1 hr Take 1 tablet tablet tablet every day every day every day by oral by oral by oral route. route. route. Restasis Restasis No Restasis [facility] 0.05 % eye 0.05 % eye 0.05 % eye da drops in a drops in a drops in a Medical dropperette dropperette dropperett Group e tamsulosin tamsulosin No tamsulosin [facility] 0.4 mg 0.4 mg 0.4 mg da capsule capsule capsule Medica l Take 1 Take 1 Take 1 Group capsule capsule capsule twice a day twice a day twice a by oral by oral day by route for route for oral route 90 days. 90 days. for 90 days. allopurinol allopurinol No 1 Q1D allopurino [facility] 100 mg 100 mg l 100 mg Communi tablet Take tablet Take tablet ty 1 tablet 1 tablet Take 1 Hospi ta every day every day tablet l by oral by oral every day Clin ics route. route. by oral route. Asprin Ec Asprin Ec No 1 Q1D Asprin Ec [facility] Low Dose 81 Low Dose 81 Low Dose Communi mg mg 81 mg ty tablet,ioana tablet,ioana tablet,del Hospita yed release yed release ayed l Take 1 Take 1 release Clinics tablet tablet Take 1 every day every day tablet by oral by oral every day route. route. by oral route. baclofen 10 baclofen 10 No 1 BID baclofen [facility] mg tablet mg tablet 10 mg Comm uni Take 1 Take 1 tablet ty tablet tablet Take 1 Hospita twice a day twice a day tablet l by oral by oral twice a Clinic s route. route. day by oral route. carboxymeth carboxymeth No 1drop(s Q1D carboxymet [facility] yl 0.5 yl 0.5 ) hyl 0.5 [...] Cartia XT Cartia XT No Cartia XT [facility] 300 mg 300 mg 300 mg Communi capsule,ext capsule,ext capsule,ex ty ended ended tended Hospita release release release l TAKE 1 TAKE 1 TAKE 1 Clinics CAPSULE BY CAPSULE BY CAPSULE BY MOUTH ONCE MOUTH ONCE MOUTH ONCE DAILY DAILY DAILY cholecalcif cholecalcif No 1capsul Q1D cholecalci [facility] pb pb e(s) ferol Communi (vitamin (vitamin [...] ) 90 mg ty liquid liquid liquid [facility] finasteride finasteride No finasterid [place] 5 mg tablet 5 mg tablet e 5 mg Communi TAKE 1 TAKE 1 tablet ty TABLET BY TABLET BY TAKE 1 [facility] MOUTH ONCE MOUTH ONCE TABLET BY l DAILY DAILY MOUTH ONCE Clinics DAILY glycopyrrol glycopyrrol No glycopyrro [place] ate 2 mg ate 2 mg late 2 mg Co mmuni tablet TAKE tablet TAKE tablet ty 2 TABLETS 2 TABLETS TAKE 2 [facility] BY MOUTH BY MOUTH TABLETS BY l THREE TIMES THREE TIMES MOUTH Clinics DAILY DAILY THREE TIMES DAILY hydrocodone hydrocodone No hydrocodon [facility] 10 10 e 10 Communi mg-chlorphe mg-chlorphe [...] EVERY 12 HOURS indomethaci indomethaci No indomethac [place] n 50 mg n 50 mg in 50 mg Commu ni capsule capsule capsule ty TAKE 1 TAKE 1 TAKE 1 Hospita CAPSULE BY CAPSULE BY CAPSULE BY l MOUTH THREE MOUTH THREE MOUTH Clinics TIMES DAILY TIMES DAILY THREE TIMES DAILY lactulose lactulose No lactulose [facility] Communi ty [facility] Clinics levofloxaci levofloxaci No levofloxac [place] n 750 mg n 750 mg in 750 mg Co mmuni tablet TAKE tablet TAKE tablet ty 1 TABLET BY 1 TABLET BY TAKE 1 Hospita MOUTH ONCE MOUTH ONCE TABLET BY l DAILY FOR DAILY FOR MOUTH ONCE Clinics 10 DAYS 10 DAYS DAILY FOR 10 DAYS lubiproston lubiproston No 1capsul BID lubiprosto [facility] e 24 mcg e 24 mcg e(s) ne 24 mcg Co mmuni capsule capsule capsule ty Take 1 Take 1 Take 1 Hospita capsule capsule capsule l twice a day twice a day twice a Clinics by oral by oral day by route. route. oral route. metoprolol metoprolol No metoprolol [place] tartrate 25 tartrate 25 tartrate Communi mg tablet mg tablet 25 mg ty TAKE 1 TAKE 1 tablet Hospita TABLET BY TABLET BY TAKE 1 l MOUTH TWICE MOUTH TWICE TABLET BY Clinics DAILY DAILY MOUTH TWICE DAILY montelukast montelukast No 1 Q1D montelukas [facility] 10 mg 10 mg t 10 mg Communi tablet Take tablet Take tablet ty 1 tablet 1 tablet Take 1 Hospi ta every day every day tablet l by oral by oral every day Clin ics route. route. by oral route. polyethylen polyethylen No polyethyle [facility] e glycol e glycol ne glycol Co mmuni 3350 8.5 3350 8.5 3350 8.5 ty gram oral gram oral gram oral Hospita powder powder powder l packet packet packet [facility] Dissolve in Dissolve in Dissolve liquid mix [...] drops in a ty dropperette [facility] IN[facility]ILL 1 INSTILL 1 e INSTILL l DROP INTO DROP INTO 1 DROP Cli nics AFFECTED AFFECTED INTO EYE(S) BY EYE(S) BY AFFECTED OPHTHALMIC OPHTHALMIC EYE(S) BY ROUTE EVERY ROUTE EVERY OPHTHALMIC 12 HOURS 12 HOURS ROUTE EVERY 12 HOURS sodium sodium No sodium [facility] citrate citrate citrate [facility] allop[facility]ol allopurinol No 1 Q1D allopurino [place] 100 mg 100 mg l 100 mg Communi tablet Take tablet Take tablet ty 1 tablet 1 tablet Take 1 Hospi ta every day every day tablet l by oral by oral every day Clin ics route. route. by oral route. Asprin Ec Asprin Ec No 1 Q1D Asprin Ec [place] Low Dose 81 Low Dose 81 Low Dose Communi mg mg 81 mg ty tablet,ioana tablet,ioana tablet,del Hospita yed release yed release ayed l Take 1 Take 1 release [facility] tablet tablet Take 1 every day every day tablet by oral by oral every day route. route. by oral route. atorvastati atorvastati No 1 Q1D atorvastat [facility] n 40 mg n 40 mg in 40 mg Commu ni tablet Take tablet Take tablet ty 1 tablet 1 tablet Take 1 Hospi ta every day every day tablet l by oral by oral every day Clin ics route. route. by oral route. baclofen 10 baclofen 10 No 1 BID baclofen [facility] mg tablet mg tablet 10 mg Comm uni Take 1 Take 1 tablet ty tablet tablet Take 1 Hospita twice a day twice a day tablet l by oral by oral twice a Clinic s route. route. day by oral route. Brilinta 90 Brilinta 90 No 1 BID Brilinta [facility] mg tablet mg tablet 90 mg Comm uni Take 1 Take 1 tablet ty tablet tablet Take 1 Hospita twice a day twice a day tablet l by oral by oral twice a Clinic s route. route. day by oral route. Centrum Centrum No Centrum [place] Silver Silver Silver Communi ty Hospita l Clinics diltiazem diltiazem No 1capsul Q1D diltiazem [facility] CD 240 mg CD 240 mg e(s) CD 240 mg Communi capsule,ext capsule,ext capsule,ex ty ended ended tended Hospita release 24 release 24 release 24 l hr Take 1 hr Take 1 hr Take 1 Clinics capsule capsule capsule every day every day every day by oral by oral by oral route. route. route. finasteride finasteride No finasterid [facility] 5 mg tablet 5 mg tablet e 5 mg Communi TAKE 1 TAKE 1 tablet ty TABLET BY TABLET BY TAKE 1 [facility] MOUTH ONCE MOUTH ONCE TABLET BY l DAILY DAILY MOUTH ONCE Clinics DAILY glycopyrrol glycopyrrol No glycopyrro [place] ate 2 mg ate 2 mg late 2 mg Co mmuni tablet TAKE tablet TAKE tablet ty 2 TABLETS 2 TABLETS TAKE 2 [facility] BY MOUTH BY MOUTH TABLETS BY l THREE TIMES THREE TIMES MOUTH Clinics DAILY DAILY THREE TIMES DAILY indomethaci indomethaci No indomethac [facility] n 50 mg n 50 mg in [...] 145 Linzess 145 No 1capsul Q1D Linzess [facility] mcg capsule mcg capsule e(s) 145 mcg Communi Take 1 Take 1 capsule ty capsule capsule Take 1 Hospita every day every day capsule l by oral by oral every day Clin ics route. route. by oral route. metoprolol metoprolol No metoprolol [facility] succinate succinate succinate Communi ER 25 mg ER 25 mg ER 25 mg ty tablet,exte tablet,exte tablet,ext Hospita nded nded ended l release 24 release 24 release 24 Clinics hr TAKE 1 hr TAKE 1 hr TAKE 1 TABLET BY TABLET BY TABLET BY MOUTH ONCE MOUTH ONCE MOUTH ONCE DAILY DAILY DAILY montelukast montelukast No 1 Q1D montelukas [facility] 10 mg 10 mg t 10 mg Communi tablet Take tablet Take tablet ty 1 tablet 1 tablet Take 1 Hospi ta every day every day tablet l by oral by oral every day Clin ics route. route. by oral route. [employer] [facility] [employer] [facility] No [employer] [facility] [place] Communi ty [facility]ospita Clinics oxybutynin oxybutynin No 1 Q1D oxybutynin [place] chloride ER chloride ER chloride Communi 10 mg 10 mg ER 10 mg ty tablet,exte tablet,exte tablet,ext Hospita nded nded ended l release 24 release 24 release 24 Clinics hr Take 1 hr Take 1 hr Take 1 tablet tablet tablet every day every day every day by oral by oral by oral route. route. route. sennosides sennosides No 8 Q1D sennosides [facility] 8.6 mg 8.6 mg 8.6 mg Communi tablet Take tablet Take tablet ty 8 tablets 8 tablets Take 8 [facility] every day every day tablets l by oral by oral every day Clin ics route. route. by oral route. tamsulosin tamsulosin No 2capsul Q1D tamsulosin [facility] 0.4 mg 0.4 mg e(s) 0.4 mg Communi capsule capsule capsule ty Take 2 Take 2 Take 2 Hospita capsules capsules capsules l every day every day every day Clinics by oral by oral by oral route. route. route. allopurinol allopurinol No 1 Q1D allopurino [facility] 100 mg 100 mg l 100 mg Communi tablet Take tablet Take tablet ty 1 tablet 1 tablet Take 1 Hospi ta every day every day tablet l by oral by oral every day Clin ics route. route. by oral route. Asprin Ec Asprin Ec No 1 Q1D Asprin Ec [place] Low Dose 81 Low Dose 81 Low Dose Communi mg mg 81 mg ty tablet,ioana tablet,ioana tablet,del Hospita yed release yed release ayed l Take 1 Take 1 release Clinics tablet tablet Take 1 every day every day tablet by oral by oral every day route. route. by oral route. atorvastati atorvastati No 1 Q1D atorvastat [facility] n 40 mg n 40 mg in 40 mg Commu ni tablet Take tablet Take tablet ty 1 tablet 1 tablet Take 1 Hospi ta every day every day tablet l by oral by oral every day Clin ics route. route. by oral route. baclofen 10 baclofen 10 No 1 BID baclofen [facility] mg tablet mg tablet 10 mg Comm uni Take 1 Take 1 tablet ty tablet tablet Take 1 Hospita twice a day twice a day tablet l by oral by oral twice a Clinic s route. route. day by oral route. Brilinta 90 Brilinta 90 No 1 BID Brilinta [facility] mg tablet mg tablet 90 mg Comm uni Take 1 Take 1 tablet ty tablet tablet Take 1 Hospita twice a day twice a day tablet l by oral by oral twice a Clinic s route. route. day by oral route. Centrum Centrum No Centrum [place] Silver Silver Silver Communi ty Hospita l Clinics diltiazem diltiazem No 1capsul Q1D diltiazem [facility] CD 240 mg CD 240 mg e(s) CD 240 mg Communi capsule,ext capsule,ext capsule,ex ty ended ended tended Hospita release 24 release 24 release 24 l hr Take 1 hr Take 1 hr Take 1 Clinics capsule capsule capsule every day every day every day by oral by oral by oral route. route. route. finasteride finasteride No finasterid [facility] 5 mg tablet 5 mg tablet e 5 mg Communi TAKE 1 TAKE 1 tablet ty TABLET BY TABLET BY TAKE 1 [facility] MOUTH ONCE MOUTH ONCE TABLET BY l DAILY DAILY MOUTH ONCE Clinics DAILY glycopyrrol glycopyrrol No glycopyrro [place] ate 2 mg ate 2 mg late 2 mg Co mmuni tablet TAKE tablet TAKE tablet ty 2 TABLETS 2 TABLETS TAKE 2 [facility] BY MOUTH BY MOUTH TABLETS BY l THREE TIMES THREE TIMES MOUTH Clinics DAILY DAILY THREE TIMES DAILY indomethaci indomethaci No indomethac [place] n 50 mg n 50 mg in 50 mg Commu ni capsule capsule capsule ty TAKE 1 TAKE 1 TAKE 1 Hospita CAPSULE BY CAPSULE BY CAPSULE BY l MOUTH THREE MOUTH THREE MOUTH Clinics TIMES DAILY TIMES DAILY THREE WITH MEALS WITH MEALS TIMES NEEDED NEEDED DAILY WITH FOR GOUT FOR GOUT MEALS NEEDED FOR GOUT metoprolol metoprolol No metoprolol [place] succinate succinate succinate Communi ER 25 mg ER 25 mg ER 25 mg ty tablet,exte tablet,exte tablet,ext Hospita nded nded ended l release 24 release 24 release 24 Clinics hr TAKE 1 hr TAKE 1 hr TAKE 1 TABLET BY TABLET BY TABLET BY MOUTH ONCE MOUTH ONCE MOUTH ONCE DAILY DAILY DAILY montelukast montelukast No 1 Q1D montelukas [facility] 10 mg 10 mg t 10 mg Communi tablet Take tablet Take tablet ty 1 tablet 1 tablet Take 1 Hospi ta every day every day tablet l by oral by oral every day Clin ics route. route. by oral route. [employer] [facility] [employer] No [employer] [facility] [place] Communi ty Hospita l Clinics oxybutynin oxybutynin No 1 Q1D oxybutynin [place] chloride ER chloride ER chloride Communi 10 mg 10 mg ER 10 mg ty tablet,exte tablet,exte tablet,ext Hospita nded nded ended l release 24 release 24 release 24 Clinics hr Take 1 hr Take 1 hr Take 1 tablet tablet tablet every day every day every day by oral by oral by oral route. route. route. sennosides sennosides No 8 Q1D sennosides [facility] 8.6 mg 8.6 mg 8.6 mg [facility] tablet Take tablet Take tablet ty 8 tablets 8 tablets Take 8 [facility] every day every day tablets l by oral by oral every day Clin ics route. route. by oral route. tamsulosin tamsulosin No 2capsul Q1D tamsulosin [facility] 0.4 mg 0.4 mg e(s) 0.4 mg [facility] capsule capsule capsule ty Take 2 Take 2 Take 2 [facility] capsules capsules capsules l every day every day every day Clinics by oral by oral by oral route. route. route. allopurinol allopurinol No 1 Q1D allopurino [facility] 100 mg 100 mg l 100 mg [facility] tablet Take tablet Take tablet ty 1 tablet 1 tablet Take 1 [facility] every day every day tablet l by oral by oral every day Clin ics route. route. by oral route. Asprin Ec Asprin Ec No 1 Q1D Asprin Ec [facility] Low Dose 81 Low Dose 81 Low Dose [facility] mg mg 81 mg ty tablet,ioana tablet,ioana tablet,del [facility] yed release yed release ayed l Take 1 Take 1 release Clinics tablet tablet Take 1 every day every day tablet by oral by oral every day route. route. by oral route. atorvastati atorvastati No 1 Q1D atorvastat [facility] n 40 mg n 40 mg in 40 mg Commu ni tablet Take tablet Take tablet ty 1 tablet 1 tablet Take 1 [facility] ta every day every day tablet l by oral by oral every day Clin ics route. route. by oral route. baclofen 10 baclofen 10 No 1 BID baclofen [facility] mg tablet mg tablet 10 mg Comm uni Take 1 Take 1 tablet ty tablet tablet Take 1 [facility]osp[facility] twice a day twice a day tablet l by oral by oral twice a Clinic s route. route. day by oral route. Brilinta 90 Brilinta 90 No 1 BID Brilinta [facility] mg tablet mg tablet 90 mg Comm uni Take 1 Take 1 tablet ty tablet tablet Take 1 [facility]osp[facility] twice a day twice a day tablet l by oral by oral twice a Clinic s route. route. day by oral route. Centrum Centrum No Centrum [place] Silver Silver Silver [facility] Cipro 500 Cipro 500 No 1 Q12H Cipro 500 [facility] mg tablet mg tablet mg tablet [facility] Take 1 Take 1 Take 1 ty tablet tablet tablet [facility]ospita every 12 every 12 every 12 l hours by hours by hours by Cli nics oral route oral route oral route for 7 days. for 7 days. for 7 days. diltiazem diltiazem No 1capsul Q1D diltiazem [facility] CD 240 mg CD 240 mg e(s) CD 240 mg [facility] capsule,ext capsule,ext capsule,ex ty ended ended tended [facility]ospita release 24 release 24 release 24 l hr Take 1 hr Take 1 hr Take 1 Clinics capsule capsule capsule every day every day every day by oral by oral by oral route. route. route. finasteride finasteride No finasterid [facility] 5 mg tablet 5 mg tablet e 5 mg [facility] TAKE 1 TAKE 1 tablet ty TABLET BY TABLET BY TAKE 1 [facility] MOUTH ONCE MOUTH ONCE TABLET BY l DAILY DAILY MOUTH ONCE Clinics DAILY glycopyrrol glycopyrrol No glycopyrro [facility] ate 2 mg ate 2 mg late 2 mg [facility] tablet TAKE tablet TAKE tablet ty 2 TABLETS 2 TABLETS TAKE 2 [facility] BY MOUTH BY MOUTH TABLETS BY l THREE TIMES THREE TIMES MOUTH Clinics DAILY DAILY THREE TIMES DAILY indomethaci indomethaci No indomethac [facility] n 50 mg n 50 mg in 50 mg Commu ni capsule capsule capsule ty TAKE 1 TAKE 1 TAKE 1 [facility]ospita CAPSULE BY CAPSULE BY CAPSULE BY l MOUTH THREE MOUTH THREE MOUTH Clinics TIMES DAILY TIMES DAILY THREE WITH MEALS WITH MEALS TIMES NEEDED NEEDED DAILY WITH FOR GOUT FOR GOUT MEALS NEEDED FOR GOUT metoprolol metoprolol No metoprolol [facility] succinate succinate succinate [facility] ER 25 mg ER 25 mg ER 25 mg ty tablet,exte tablet,exte tablet,ext [facility]ospita nded nded ended l release 24 release 24 release 24 Clinics hr TAKE 1 hr TAKE 1 hr TAKE 1 TABLET BY TABLET BY TABLET BY MOUTH ONCE MOUTH ONCE MOUTH ONCE DAILY DAILY DAILY montelukast montelukast No 1 Q1D montelukas [facility] 10 mg 10 mg t 10 mg [facility] tablet Take tablet Take tablet ty 1 tablet 1 tablet Take 1 [facility] every day every day tablet l by oral by oral every day Clin ics route. route. by oral route. [employer] [facility] [employer] [facility] No [employer] [facility] [facility] oxybutynin oxybutynin No 1 Q1D oxybutynin [place] chloride ER chloride ER chloride [facility] 10 mg 10 mg ER 10 mg ty tablet,exte tablet,exte tablet,ext [facility]ospita nded nded ended l release 24 release 24 release 24 Clinics hr Take 1 hr Take 1 hr Take 1 tablet tablet tablet every day every day every day by oral by oral by oral route. route. route. sennosides sennosides No 8 Q1D sennosides [facility] 8.6 mg 8.6 mg 8.6 mg [facility] tablet Take tablet Take tablet ty 8 tablets 8 tablets Take 8 [facility] every day every day tablets l by oral by oral every day Clin ics route. route. by oral route. tamsulosin tamsulosin No 2capsul Q1D tamsulosin [facility] 0.4 mg 0.4 mg e(s) 0.4 mg [facility] capsule capsule capsule ty Take 2 Take 2 Take 2 [facility]osp[facility] capsules capsules capsules l every day every day every day Clinics by oral by oral by oral route. route. route. allopurinol allopurinol No 1 Q1D allopurino [facility] 100 mg 100 mg l 100 mg [facility] tablet Take tablet Take tablet ty 1 tablet 1 tablet Take 1 [facility] every day every day tablet l by oral by oral every day Clin ics route. route. by oral route. Asprin Ec Asprin Ec No 1 Q1D Asprin Ec [facility] Low Dose 81 Low Dose 81 Low Dose [facility] mg mg 81 mg ty tablet,ioana tablet,ioana tablet,del [facility] yed release yed release ayed l Take 1 Take 1 release Clinics tablet tablet Take 1 every day every day tablet by oral by oral every day route. route. by oral route. atorvastati atorvastati No 1 Q1D atorvastat [facility] n 40 mg n 40 mg in 40 mg Commu ni tablet Take tablet Take tablet ty 1 tablet 1 tablet Take 1 [facility] every day every day tablet l by oral by oral every day Clin ics route. route. by oral route. baclofen 10 baclofen 10 No 1 BID baclofen [facility] mg tablet mg tablet 10 mg Comm uni Take 1 Take 1 tablet ty tablet tablet Take 1 [facility]osp[facility] twice a day twice a day tablet l by oral by oral twice a Clinic s route. route. day by oral route. Brilinta 90 Brilinta 90 No 1 BID Brilinta [facility] mg tablet mg tablet 90 mg Comm uni Take 1 Take 1 tablet ty tablet tablet Take 1 [facility]osp[facility] twice a day twice a day tablet l by oral by oral twice a Clinic s route. route. day by oral route. Centrum Centrum No Centrum [place] Silver Silver Silver [facility] diltiazem diltiazem No 1capsul Q1D diltiazem [facility] CD 240 mg CD 240 mg e(s) CD 240 mg [facility] capsule,ext capsule,ext capsule,ex ty ended ended tended [facility]osp[facility] release 24 release 24 release 24 l hr Take 1 hr Take 1 hr Take 1 Clinics capsule capsule capsule every day every day every day by oral by oral by oral route. route. route. finasteride finasteride No finasterid [facility] 5 mg tablet 5 mg tablet e 5 mg [facility] TAKE 1 TAKE 1 tablet ty TABLET BY TABLET BY TAKE 1 [facility] MOUTH ONCE MOUTH ONCE TABLET BY l DAILY DAILY MOUTH ONCE Clinics DAILY glycopyrrol glycopyrrol No glycopyrro [facility] ate 2 mg ate 2 mg late 2 mg [facility] tablet TAKE tablet TAKE tablet ty 2 TABLETS 2 TABLETS TAKE 2 [facility] BY MOUTH BY MOUTH TABLETS BY l THREE TIMES THREE TIMES MOUTH Clinics DAILY DAILY THREE TIMES DAILY indomethaci indomethaci No indomethac [facility] n 50 mg n 50 mg in 50 mg Commu ni capsule capsule capsule ty TAKE 1 TAKE 1 TAKE 1 [facility] CAPSULE BY CAPSULE BY CAPSULE BY l MOUTH THREE MOUTH THREE MOUTH Clinics TIMES DAILY TIMES DAILY THREE WITH MEALS WITH MEALS TIMES NEEDED NEEDED DAILY WITH FOR GOUT FOR GOUT MEALS NEEDED FOR GOUT metoprolol metoprolol No metoprolol [facility] succinate succinate succinate [facility] ER 25 mg ER 25 mg ER 25 mg ty tablet,exte tablet,exte tablet,ext [facility]ospita nded nded ended l release 24 release 24 release 24 Clinics hr TAKE 1 hr TAKE 1 hr TAKE 1 TABLET BY TABLET BY TABLET BY MOUTH ONCE MOUTH ONCE MOUTH ONCE DAILY DAILY DAILY montelukast montelukast No 1 Q1D montelukas [facility] 10 mg 10 mg t 10 mg [facility] tablet Take tablet Take tablet ty 1 tablet 1 tablet Take 1 [facility] every day every day tablet l by oral by oral every day Clin ics route. route. by oral route. Centrum - Centrum - No Centrum - [employer] [facility] [employer] [facility] No [employer] [facility] oxybutynin oxybutynin No 1 Q1D oxybutynin [facility] chloride ER chloride ER chloride [facility] 10 mg 10 mg ER 10 mg ty tablet,exte tablet,exte tablet,ext [facility]ospita nded nded ended l release 24 release 24 release 24 Clinics hr Take 1 hr Take 1 hr Take 1 tablet tablet tablet every day every day every day by oral by oral by oral route. route. route. sennosides sennosides No 8 Q1D sennosides [facility] 8.6 mg 8.6 mg 8.6 mg [facility] tablet Take tablet Take tablet ty 8 tablets 8 tablets Take 8 [facility] every day every day tablets l by oral by oral every day Clin ics route. route. by oral route. Oxybutynin Oxybutynin No 1{table BID Oxybutynin Chloride 5 Chloride 5 t} Chloride 5 MG MG MG tamsulosin tamsulosin No 2capsul Q1D tamsulosin [facility] 0.4 mg 0.4 mg e(s) 0.4 mg [facility] capsule capsule capsule ty Take 2 Take 2 Take 2 [facility]osp[facility] capsules capsules capsules l every day every day every day Clinics by oral by oral by oral route. route. route. allopurinol allopurinol No 1 Q1D allopurino [facility] 100 mg 100 mg l 100 mg [facility] tablet Take tablet Take tablet ty 1 tablet 1 tablet Take 1 [facility] every day every day tablet l by oral by oral every day Clin ics route. route. by oral route. Asprin Ec Asprin Ec No 1 Q1D Asprin Ec [place] Low Dose 81 Low Dose 81 Low Dose [facility] mg mg 81 mg ty tablet,ioana tablet,ionaa tablet,del [facility]osp[facility] yed release yed release ayed l Take 1 Take 1 release Clinics tablet tablet Take 1 every day every day tablet by oral by oral every day route. route. by oral route. baclofen baclofen No baclofen atorvastati atorvastati No 1 Q1D atorvastat [facility] n 40 mg n 40 mg in 40 mg Commu ni tablet Take tablet Take tablet ty 1 tablet 1 tablet Take 1 [facility] ta every day every day tablet l by oral by oral every day Clin ics route. route. by oral route. baclofen 10 baclofen 10 No 1 BID baclofen [facility] mg tablet mg tablet 10 mg Comm uni Take 1 Take 1 tablet ty tablet tablet Take 1 [facility]osp[facility] twice a day twice a day tablet l by oral by oral twice a Clinic s route. route. day by oral route. benzonatate benzonatate No 1capsul TID benzonatat [facility] 100 mg 100 mg e(s) e 100 mg [facility] capsule capsule capsule ty Take 1 Take 1 Take 1 [facility] capsule 3 capsule 3 capsule 3 l times a day times a day times a Clinics by oral by oral day by route as route as oral route needed. needed. as needed. Montelukast Montelukast No 1{table QD Montelukas Sodium 10 Sodium 10 t} t Sodium MG MG 10 MG Brilinta 90 Brilinta 90 No 1 BID Brilinta [facility] mg tablet mg tablet 90 mg Comm uni Take 1 Take 1 tablet ty tablet tablet Take 1 [facility]osp[facility] twice a day twice a day tablet l by oral by oral twice a Clinic s route. route. day by oral route. Centrum Centrum No Centrum [place] Silver Silver Silver [facility] diltiazem diltiazem No 1capsul Q1D diltiazem [facility] CD 240 mg CD 240 mg e(s) CD 240 mg [facility] capsule,ext capsule,ext capsule,ex ty ended ended tended [facility]osp[facility] release 24 release 24 release 24 l hr Take 1 hr Take 1 hr Take 1 Clinics capsule capsule capsule every day every day every day by oral by oral by oral route. route. route. finasteride finasteride No finasterid [facility] 5 mg tablet 5 mg tablet e 5 mg [facility] TAKE 1 TAKE 1 tablet ty TABLET BY TABLET BY TAKE 1 [facility] MOUTH ONCE MOUTH ONCE TABLET BY l DAILY DAILY MOUTH ONCE Clinics DAILY Vitamin D3 Vitamin D3 No Vitamin D3 [id number] UNIT/GM UNIT/GM UNIT/GM glycopyrrol glycopyrrol No glycopyrro [facility] ate 2 mg ate 2 mg late 2 mg [facility] tablet TAKE tablet TAKE tablet ty 2 TABLETS 2 TABLETS TAKE 2 [facility] BY MOUTH BY MOUTH TABLETS BY l THREE TIMES THREE TIMES MOUTH Clinics DAILY DAILY THREE TIMES DAILY indomethaci indomethaci No indomethac [facility] n 50 mg n 50 mg in [...] 290 Linzess 290 No 1capsul Q1D Linzess [facility] mcg capsule mcg capsule e(s) 290 mcg [facility] Take 1 Take 1 capsule ty capsule capsule Take 1 [facility]ospita every day every day capsule l by oral by oral every day Clin ics route for route for by oral 30 days. 30 days. route for 30 days. Glycopyrrol Glycopyrrol No 1{table QD Glycopyrro ate 2 MG ate 2 MG t} late 2 MG metoclopram metoclopram No metoclopra [facility] anurag 10 mg anurag 10 mg mide 10 mg [facility] tablet TAKE tablet TAKE tablet ty 4 TABLETS 4 TABLETS TAKE 4 [facility] BY MOUTH BY MOUTH TABLETS BY l DIRECTED DIRECTED MOUTH Cli nics PER YOUR PER YOUR DIRECTED COLONOSCOPY COLONOSCOPY PER YOUR PREP PACKET PREP PACKET COLONOSCOP Y PREP PACKET metoprolol metoprolol No metoprolol [facility] succinate succinate succinate [facility] ER 25 mg ER 25 mg ER 25 mg ty tablet,exte tablet,exte tablet,ext [facility]ospita nded nded ended l release 24 release 24 release 24 Clinics hr TAKE 1 hr TAKE 1 hr TAKE 1 TABLET BY TABLET BY TABLET BY MOUTH ONCE MOUTH ONCE MOUTH ONCE DAILY DAILY DAILY montelukast montelukast No 1 Q1D montelukas [facility] 10 mg 10 mg t 10 mg [facility] tablet Take tablet Take tablet ty 1 tablet 1 tablet Take 1 [facility] ta every day every day tablet l by oral by oral every day Clin ics route. route. by oral route. Cartia XT Cartia XT No 1{capsu QD Cartia XT 300 MG 300 MG le} 300 MG [employer] [facility] [employer] [facility] No [employer] [facility] oxybutynin oxybutynin No oxybutynin [place] chloride ER chloride ER chloride Communi 10 [...] days. sennosides sennosides No 8 Q1D sennosides [place] 8.6 mg 8.6 mg 8.6 mg [facility] tablet Take tablet Take tablet ty 8 tablets 8 tablets Take 8 [facility] every day every day tablets l by oral by oral every day Clin ics route. route. by oral route. Sennosides Sennosides No 2{table QD Sennosides 8.6 MG 8.6 MG ts_at_b 8.6 MG edtime_ as_need ed} tamsulosin tamsulosin No 2capsul Q1D tamsulosin [facility] 0.4 mg 0.4 mg e(s) 0.4 mg [facility] capsule capsule capsule ty Take 2 Take 2 Take 2 [facility]ospita capsules capsules capsules l every day every day every day Clinics by oral by oral by oral route. route. route. albuterol albuterol No 2puff(s Q4H albuterol [facility] sulf 90 sulf 90 ) sulf 90 [...] route. allopurinol allopurinol No 1 Q1D allopurino [facility] 100 mg 100 mg l 100 mg [facility] tablet Take tablet Take tablet ty 1 tablet 1 tablet Take 1 [facility] ta every day every day tablet l by oral by oral every day Clin ics route. route. by oral route. Aspirin 81 Aspirin 81 No 1{table QD Aspirin 81 81 MG 81 MG t} 81 MG Asprin Ec Asprin Ec No 1 Q1D Asprin Ec [facility] Low Dose 81 Low Dose 81 Low Dose [facility] mg mg 81 mg ty tablet,ioana tablet,ioana tablet,del [facility]osp[facility] yed release yed release ayed l Take 1 Take 1 release Clinics tablet tablet Take 1 every day every day tablet by oral by oral every day route. route. by oral route. Lactulose Lactulose No 1{packe QD Lactulose 10 GM 10 GM t} 10 GM atorvastati atorvastati No 1 Q1D atorvastat [facility] n 40 mg n 40 mg in 40 mg Commu ni tablet Take tablet Take tablet ty 1 tablet 1 tablet Take 1 [facility] ta every day every day tablet l by oral by oral every day Clin ics route. route. by oral route. azithromyci azithromyci No azithromyc [facility] n 250 mg n 250 mg in [...] 10 baclofen 10 No 1 BID baclofen [facility] mg tablet mg tablet 10 mg Comm uni Take 1 Take 1 tablet ty tablet tablet Take 1 [facility]osp[facility] twice a day twice a day tablet l by oral by oral twice a Clinic s route. route. day by oral route. Metoprolol Metoprolol No 1{capsu QD Metoprolol Succinate Succinate le} Succinate 100 MG 100 MG 100 MG benzonatate benzonatate No 1capsul TID benzonatat [facility] 100 mg 100 mg e(s) e 100 mg [facility] capsule capsule capsule ty Take 1 Take 1 Take 1 [facility]osp[facility] capsule 3 capsule 3 capsule 3 l times a day times a day times a Clinics by oral by oral day by route as route as oral route needed. needed. as needed. bisacodyl bisacodyl No 1suppos Q1D bisacodyl [facility] 10 mg 10 mg itor(y/ 10 mg [facility] rectal rectal ies) rectal ty suppository suppository suppositor [facility] Insert 1 Insert 1 y Insert 1 l suppository suppository suppositor Clinics every day every day y every by rectal by rectal day by route for route for rectal 30 days. 30 days. route for 30 days. Centrum Centrum No Centrum [place] Silver Silver Silver [facility] Allopurinol Allopurinol No 1{table QD Allopurino 100 MG 100 MG t} l 100 MG dexamethaso dexamethaso No 1 Q1D dexamethas [facility] ne 6 mg ne 6 mg one [...] days. diltiazem diltiazem No 1capsul Q1D diltiazem [facility] CD 240 mg CD 240 mg e(s) CD 240 mg [facility] capsule,ext capsule,ext capsule,ex ty ended ended tended [facility]osp[facility] release 24 release 24 release 24 l hr Take 1 hr Take 1 hr Take 1 Clinics capsule capsule capsule every day every day every day by oral by oral by oral route. route. route. finasteride finasteride No finasterid [facility] 5 mg tablet 5 mg tablet e 5 mg [facility] TAKE 1 TAKE 1 tablet ty TABLET BY TABLET BY TAKE 1 [facility] MOUTH ONCE MOUTH ONCE TABLET BY l DAILY DAILY MOUTH ONCE Clinics DAILY Finasteride Finasteride No 1{table QD Finasterid 5 MG 5 MG t} e 5 MG glycopyrrol glycopyrrol No glycopyrro [facility] ate 2 mg ate 2 mg late 2 mg [facility] tablet TAKE tablet TAKE tablet ty 2 TABLETS 2 TABLETS TAKE 2 [facility] BY MOUTH BY MOUTH TABLETS BY l THREE TIMES THREE TIMES MOUTH Clinics DAILY DAILY THREE TIMES DAILY indomethaci indomethaci No indomethac [facility] n 50 mg n 50 mg in 50 mg Commu ni capsule capsule capsule ty TAKE 1 TAKE 1 TAKE 1 [facility] CAPSULE BY CAPSULE BY CAPSULE BY l MOUTH THREE MOUTH THREE MOUTH Clinics TIMES DAILY TIMES DAILY THREE WITH MEALS WITH MEALS TIMES NEEDED NEEDED DAILY WITH FOR GOUT FOR GOUT MEALS NEEDED FOR GOUT lactulose lactulose No 15mL Q1D lactulose [facility] 10 gram/15 10 gram/15 10 gram/15 [facility] mL (15 mL) mL (15 mL) mL (15 mL) ty oral oral oral [facility]ospita solution solution solution l Take 15 mL Take 15 mL Take 15 mL Clinics every day every day every day by oral by oral by oral route. route. route. Tamsulosin Tamsulosin No 1{capsu QD Tamsulosin HCl 0.4 MG HCl 0.4 MG le} HCl 0.4 MG Linzess 290 Linzess 290 No 1capsul Q1D Linzess [facility] mcg capsule mcg capsule e(s) 290 mcg [facility] Take 1 Take 1 capsule ty capsule capsule Take 1 [facility]ospita every day every day capsule l by oral by oral every day Clin ics route for route for by oral 30 days. 30 days. route for 30 days. lubiproston lubiproston No 1capsul BID lubiprosto [facility] e 24 mcg e 24 mcg e(s) ne 24 mcg [facility] capsule capsule capsule ty Take 1 Take 1 Take 1 [facility]osp[facility] capsule capsule capsule l twice a day twice a day twice a Clinics by oral by oral day by route. route. oral route. melatonin melatonin No melatonin [facility] Lubiproston Lubiproston No BID Lubiprosto e 24 MCG e 24 MCG ne 24 MCG metoclopram metoclopram No metoclopra [facility] anurag 10 mg anurag 10 mg mide 10 mg [facility] tablet TAKE tablet TAKE tablet ty 4 TABLETS 4 TABLETS TAKE 4 [facility] BY MOUTH BY MOUTH TABLETS BY l DIRECTED DIRECTED MOUTH Cli nics PER YOUR PER YOUR DIRECTED COLONOSCOPY COLONOSCOPY PER YOUR PREP PACKET PREP PACKET COLONOSCOP Y PREP PACKET metoprolol metoprolol No 1 Q1D metoprolol [facility] tartrate tartrate tartrate Com dieudonne 100 mg 100 mg 100 mg ty tablet Take tablet Take tablet [facility]ospita 1 tablet 1 tablet Take 1 l every day every day tablet Cli nics by oral by oral every day route. route. by oral route. montelukast montelukast No 1 Q1D montelukas [facility] 10 mg 10 mg t 10 mg [facility] tablet Take tablet Take tablet ty 1 tablet 1 tablet Take 1 [facility] ta every day every day tablet l by oral by oral every day Clin ics route. route. by oral route. Centrum - Centrum - No Centrum - [employer] [facility] [employer] [facility] No [employer] [facility] oxybutynin oxybutynin No oxybutynin [place] chloride ER chloride ER chloride Communi 10 [...] senna 8.6 No 2 Q1D senna 8.6 [facility] mg tablet mg tablet mg tablet [facility] Take 2 Take 2 Take 2 ty tablets tablets tablets Hospit a every day every day every day l by oral by oral by oral Clinic s route. route. route. Lubiproston Lubiproston No BID Lubiprosto e 24 MCG e 24 MCG ne 24 MCG tamsulosin tamsulosin No 2capsul Q1D tamsulosin [facility] 0.4 mg 0.4 mg e(s) 0.4 mg [facility]i capsule capsule capsule ty Take 2 Take 2 Take 2 [facility]ospita capsules capsules capsules l every day every day every day Clinics by oral by oral by oral route. route. route. albuterol albuterol No 2puff(s Q4H albuterol [facility] sulf 90 sulf 90 ) sulf 90 [...] route. inhalation route. albuterol albuterol No albuterol [facility] sulfate HFA sulfate HFA sulfate Communi 90 [...] DAYS NEEDED FOR COUGH FOR 10 DAYS Metoprolol Metoprolol No 1{capsu QD Metoprolol Succinate Succinate le} Succinate 100 MG 100 MG 100 MG allopurinol allopurinol No 1 Q1D allopurino [facility] 100 mg 100 mg l 100 mg [facility] tablet Take tablet Take tablet ty 1 tablet 1 tablet Take 1 [facility] ta every day every day tablet l by oral by oral every day Clin ics route. route. by oral route. Asprin Ec Asprin Ec No 1 Q1D Asprin Ec [facility] Low Dose 81 Low Dose 81 Low Dose [facility] mg mg 81 mg ty tablet,ioana tablet,ioana tablet,del [facility]osp[facility] yed release yed release ayed l Take 1 Take 1 release Clinics tablet tablet Take 1 every day every day tablet by oral by oral every day route. route. by oral route. atorvastati atorvastati No 1 Q1D atorvastat [facility] n 40 mg n 40 mg in 40 mg Commu ni tablet Take tablet Take tablet ty 1 tablet 1 tablet Take 1 [facility] ta every day every day tablet l by oral by oral every day Clin ics route. route. by oral route. baclofen 10 baclofen 10 No 1 BID baclofen [facility] mg tablet mg tablet 10 mg Comm uni Take 1 Take 1 tablet ty tablet tablet Take 1 [facility]ospita twice a day twice a day tablet l by oral by oral twice a Clinic s route. route. day by oral route. baclofen baclofen No baclofen bisacodyl bisacodyl No 1suppos Q1D bisacodyl [facility] 10 mg 10 mg itor(y/ 10 mg [facility]i rectal rectal ies) rectal [facility] y Insert 1 l suppository suppository suppositor Clinics every day every day y every by rectal by rectal day by route for route for rectal 30 days. 30 days. route for 30 days. Centrum Centrum No Centrum [place] Silver Silver Silver [facility] l Clinics diltiazem diltiazem No 1capsul Q1D diltiazem [facility] CD 240 mg CD 240 mg e(s) CD 240 mg [facility]i capsule,ext capsule,ext capsule,ex ty ended ended tended [facility]ospita release 24 release 24 release 24 l hr Take 1 hr Take 1 hr Take 1 Clinics capsule capsule capsule every day every day every day by oral by oral by oral route. route. route. Montelukast Montelukast No 1{table QD Montelukas Sodium 10 Sodium 10 t} t Sodium MG MG 10 MG famotidine famotidine No famotidine [facility] 40 mg 40 mg 40 mg [facility] tablet TAKE tablet TAKE tablet ty 1 TABLET BY 1 TABLET BY TAKE 1 [facility]ospita MOUTH ONCE MOUTH ONCE TABLET BY l DAILY FOR DAILY FOR MOUTH ONCE Clinics 30 DAYS 30 DAYS DAILY FOR 30 DAYS finasteride finasteride No finasterid [facility] 5 mg tablet 5 mg tablet e 5 mg Communi TAKE 1 TAKE 1 tablet ty TABLET BY TABLET BY TAKE 1 [facility] MOUTH ONCE MOUTH ONCE TABLET BY l DAILY DAILY MOUTH ONCE Clinics DAILY glycopyrrol glycopyrrol No glycopyrro [facility] ate 2 mg ate 2 mg late 2 mg [facility] tablet TAKE tablet TAKE tablet ty 2 TABLETS 2 TABLETS TAKE 2 [facility] BY MOUTH BY MOUTH TABLETS BY l THREE TIMES THREE TIMES MOUTH Clinics DAILY DAILY THREE TIMES DAILY Vitamin D3 Vitamin D3 No Vitamin D3 [id number] UNIT/GM UNIT/GM UNIT/GM indomethaci indomethaci No indomethac [facility] n 50 mg n 50 mg in 50 mg Commu ni capsule capsule capsule ty TAKE 1 TAKE 1 TAKE 1 [facility]osp[facility] CAPSULE BY CAPSULE BY CAPSULE BY l MOUTH THREE MOUTH THREE MOUTH Clinics TIMES DAILY TIMES DAILY THREE WITH MEALS WITH MEALS TIMES NEEDED NEEDED DAILY WITH FOR GOUT FOR GOUT MEALS NEEDED FOR GOUT lactulose lactulose No 15mL Q1D lactulose [facility] 10 gram/15 10 gram/15 10 gram/15 [facility] mL (15 mL) mL (15 mL) mL (15 mL) ty oral oral oral [facility]ospita solution solution solution l Take 15 mL Take 15 mL Take 15 mL Clinics every day every day every day by oral by oral by oral route. route. route. Karyn 290 Linzess 290 No 1capsul Q1D Linzess [facility] mcg capsule mcg capsule e(s) 290 mcg Communi Take 1 Take 1 capsule ty capsule capsule Take 1 Hospita every day every day capsule l by oral by oral every day Clin ics route for route for by oral 30 days. 30 days. route for 30 days. Glycopyrrol Glycopyrrol No 1{table QD Glycopyrro ate 2 MG ate 2 MG t} late 2 MG lubiproston lubiproston No 1capsul BID lubiprosto [facility] e 24 mcg e 24 mcg e(s) ne 24 mcg Co [facility] capsule capsule capsule ty Take 1 Take 1 Take 1 Hospita capsule capsule capsule l twice a day twice a day twice a Clinics by oral by oral day by route. route. oral route. melatonin melatonin No melatonin [facility] metoprolol metoprolol No 1 Q1D metoprolol [facility] tartrate tartrate tartrate Com dieudonne 100 mg 100 mg 100 mg ty tablet Take tablet Take tablet Hospita 1 tablet 1 tablet Take 1 l every day every day tablet Cli nics by oral by oral every day route. route. by oral route. Sennosides Sennosides No 2{table QD Sennosides 8.6 MG 8.6 MG ts_at_b 8.6 MG edtime_ as_need ed} montelukast montelukast No 1 Q1D montelukas [facility] 10 mg 10 mg t 10 mg Communi tablet Take tablet Take tablet ty 1 tablet 1 tablet Take 1 Hospi ta every day every day tablet l by oral by oral every day Clin ics route. route. by oral route. [facility] 3 [facility] No [facility] oxybutynin oxybutynin No oxybutynin [place] chloride ER chloride ER chloride Communi 10 [...] for 30 days. 30 days. 30 days. Oxybutynin Oxybutynin No 1{table BID Oxybutynin Chloride 5 Chloride 5 t} Chloride 5 MG MG MG senna 8.6 senna 8.6 No 2 Q1D senna 8.6 [facility] mg tablet mg tablet mg tablet Communi Take 2 Take 2 Take 2 ty tablets tablets tablets Hospit a every day every day every day l by oral by oral by oral Clinic s route. route. route. tamsulosin tamsulosin No 2capsul Q1D tamsulosin [facility] 0.4 mg 0.4 mg e(s) 0.4 mg Communi capsule capsule capsule ty Take 2 Take 2 Take 2 Hospita capsules capsules capsules l every day every day every day Clinics by oral by oral by oral route. route. route. allopurinol allopurinol No 1 Q1D allopurino [facility] 100 mg 100 mg l 100 mg Communi tablet Take tablet Take tablet ty 1 tablet 1 tablet Take 1 Hospi ta every day every day tablet l by oral by oral every day Clin ics route. route. by oral route. Aspirin 81 Aspirin 81 No 1{table QD Aspirin 81 81 MG 81 MG t} 81 MG Asprin Ec Asprin Ec No 1 Q1D Asprin Ec [facility] Low Dose 81 Low Dose 81 Low Dose Communi mg mg 81 mg ty tablet,ioana tablet,ioana tablet,del Hospita yed release yed release ayed l Take 1 Take 1 release Clinics tablet tablet Take 1 every day every day tablet by oral by oral every day route. route. by oral route. baclofen 10 baclofen 10 No 1 BID baclofen [facility] mg tablet mg tablet 10 mg Comm uni Take 1 Take 1 tablet ty tablet tablet Take 1 Hospita twice a day twice a day tablet l by oral by oral twice a Clinic s route. route. day by oral route. carboxymeth carboxymeth No 1drop(s Q1D carboxymet [facility] yl 0.5 yl 0.5 ) hyl 0.5 [...] Cartia XT Cartia XT No Cartia XT [place] 300 mg 300 mg 300 mg Communi capsule,ext capsule,ext capsule,ex ty ended ended tended Hospita release release release l TAKE 1 TAKE 1 TAKE 1 Clinics CAPSULE BY CAPSULE BY CAPSULE BY MOUTH ONCE MOUTH ONCE MOUTH ONCE DAILY DAILY DAILY Allopurinol Allopurinol No 1{table QD Allopurino 100 MG 100 MG t} l 100 MG cholecalcif cholecalcif No 1capsul Q1D cholecalci [facility] pb pb e(s) ferol Communi (vitamin (vitamin [...] Hospita l Clinics finasteride finasteride No finasterid [place] 5 mg tablet 5 mg tablet e 5 mg Communi TAKE 1 TAKE 1 tablet ty TABLET BY TABLET BY TAKE 1 [facility] MOUTH ONCE MOUTH ONCE TABLET BY l DAILY DAILY MOUTH ONCE Clinics DAILY glycopyrrol glycopyrrol No glycopyrro [place] ate 2 mg ate 2 mg late 2 mg Co [facility] tablet TAKE tablet TAKE tablet ty 2 TABLETS 2 TABLETS TAKE 2 [facility] BY MOUTH BY MOUTH TABLETS BY l THREE TIMES THREE TIMES MOUTH Clinics DAILY DAILY THREE TIMES DAILY hydrocodone hydrocodone No hydrocodon [facility] 10 10 e 10 Communi mg-chlorphe mg-chlorphe [...] EVERY 12 HOURS indomethaci indomethaci No indomethac [facility] n 50 mg n 50 mg in 50 mg Commu ni capsule capsule capsule ty TAKE 1 TAKE 1 TAKE 1 Hospita CAPSULE BY CAPSULE BY CAPSULE BY l MOUTH THREE MOUTH THREE MOUTH Clinics TIMES DAILY TIMES DAILY THREE TIMES DAILY lactulose lactulose No lactulose [facility] levofloxaci levofloxaci No levofloxac [facility] n 750 mg n 750 mg in 750 mg Co [facility] tablet TAKE tablet TAKE tablet ty 1 TABLET BY 1 TABLET BY TAKE 1 Hospita MOUTH ONCE MOUTH ONCE TABLET BY l DAILY FOR DAILY FOR MOUTH ONCE Clinics 10 DAYS 10 DAYS DAILY FOR 10 DAYS lubiproston lubiproston No 1capsul BID lubiprosto [place] e 24 mcg e 24 mcg e(s) ne 24 mcg Co [facility] capsule capsule capsule ty Take 1 Take 1 Take 1 Hospita capsule capsule capsule l twice a day twice a day twice a Clinics by oral by oral day by route. route. oral route. Immunizations Ordered Immunization Filled Immunization Date Status Commen ts Source Name Name PFIZER READY TO USE 2022-03-18 Completed [facility] COVID-19 MRNA 00:00:00 Hospital VACCINATION PFIZER READY TO USE 2022-03-18 Completed [facility] COVID-19 MRNA 00:00:00 Hospital VACCINATION PFIZER COVID-19 MRNA 2021-06-06 Completed [facility] VACCINATION 00:00:00 [facility] PFIZER COVID-19 MRNA 2021-06-06 Completed [facility] VACCINATION 00:00:00 [facility] PFIZER COVID-19 MRNA 2020-10-04 Completed [facility] VACCINATION 00:00:00 [facility] PFIZER COVID-19 MRNA 2020-10-04 Completed [facility] VACCINATION 00:00:00 [facility] PFIZER COVID-19 MRNA 2020-09-16 Completed [facility] VACCINATION 00:00:00 [facility] PFIZER COVID-19 MRNA 2020-09-16 Completed [facility] VACCINATION 00:00:00 [facility] Influenza, Influenza, 2020-06-03 Completed [place] injectable, MDCK, injectable, MDCK, 11:51:51 [facility] Influenza, Influenza, 2020-06-03 Completed [place] injectable, MDCK, injectable, MDCK, 11:51:51 [facility] Influenza, Influenza, 2020-06-03 Completed [place] injectable, MDCK, injectable, MDCK, 11:51:51 [facility] Influenza, Influenza, 2020-06-03 Completed [place] injectable, MDCK, injectable, MDCK, 11:51:51 [facility] Influenza, Influenza, 2020-06-03 Completed [place] injectable, MDCK, injectable, MDCK, 11:51:51 [facility] Influenza, Influenza, 2020-06-03 Completed [place] injectable, MDCK, injectable, MDCK, 11:51:51 [facility] Influenza, Influenza, 2020-06-03 Completed [place] injectable, MDCK, injectable, MDCK, 11:51:51 [facility] Influenza, Influenza, 2020-06-03 Completed [place] injectable, MDCK, injectable, MDCK, 11:51:51 [facility] Influenza, Influenza, 2020-06-03 Completed [place] injectable, MDCK, injectable, MDCK, 11:51:51 [facility] influenza, influenza, 2019-06-26 Completed [place] injectable, injectable, 00:00:00 [facility] influenza, influenza, 2019-06-26 Completed [place] injectable, injectable, 00:00:00 [facility] influenza, influenza, 2019-06-26 Completed [place] injectable, injectable, 00:00:00 [facility] influenza, influenza, 2019-06-26 Completed [place] injectable, injectable, 00:00:00 [facility] influenza, influenza, 2019-06-26 Completed [place] injectable, injectable, 00:00:00 [facility] influenza, influenza, 2019-06-26 Completed [place] injectable, injectable, 00:00:00 [facility] influenza, influenza, 2019-06-26 Completed [place] injectable, injectable, 00:00:00 [facility] influenza, influenza, 2019-06-26 Completed [place] injectable, injectable, 00:00:00 [facility] influenza, influenza, 2019-06-26 Completed [facility] injectable, injectable, 00:00:00 [facility] pneumococcal pneumococcal 2018-11-05 Completed [place] polysaccharide PPV23 polysaccharide PPV23 00:00:00 [facility] influenza, influenza, 2018-11-05 Completed [place] unspecified unspecified 00:00:00 [facility] formulation formulation Hospital Clinics pneumococcal pneumococcal 2018-11-05 Completed [place] polysaccharide PPV23 polysaccharide PPV23 00:00:00 [facility] influenza, influenza, 2018-11-05 Completed [place] unspecified unspecified 00:00:00 [facility] formulation formulation Hospital Clinics pneumococcal pneumococcal 2018-11-05 Completed [place] polysaccharide PPV23 polysaccharide PPV23 00:00:00 [facility] influenza, influenza, 2018-11-05 Completed [place] unspecified unspecified 00:00:00 [facility] formulation formulation Hospital Clinics pneumococcal pneumococcal 2018-11-05 Completed [place] polysaccharide PPV23 polysaccharide PPV23 00:00:00 [facility] influenza, influenza, 2018-11-05 Completed [place] unspecified unspecified 00:00:00 [facility] formulation formulation [facility] Clinics pneumococcal pneumococcal 2018-11-05 Completed [place] polysaccharide PPV23 polysaccharide PPV23 00:00:00 [facility] influenza, influenza, 2018-11-05 Completed [place] unspecified unspecified 00:00:00 [facility]ics pneumococcal pneumococcal 2018-11-05 Completed [place] polysaccharide PPV23 polysaccharide PPV23 00:00:00 [facility] influenza, influenza, 2018-11-05 Completed [place] unspecified unspecified 00:00:00 [facility] formulation formulation [facility] Clinics pneumococcal pneumococcal 2018-11-05 Completed [place] polysaccharide PPV23 polysaccharide PPV23 00:00:00 [facility] influenza, influenza, 2018-11-05 Completed [place] unspecified unspecified 00:00:00 [facility] formulation formulation Hospital Clinics pneumococcal pneumococcal 2018-11-05 Completed [place] polysaccharide PPV23 polysaccharide PPV23 00:00:00 [facility] influenza, influenza, 2018-11-05 Completed [place] unspecified unspecified 00:00:00 [facility] formulation formulation Hospital Clinics pneumococcal pneumococcal 2018-11-05 Completed [place] polysaccharide PPV23 polysaccharide PPV23 00:00:00 [facility] influenza, influenza, 2018-11-05 Completed [place] unspecified unspecified 00:00:00 [facility]ics pneumococcal pneumococcal 2017-06-11 Completed [place] polysaccharide PPV23 polysaccharide PPV23 16:16:02 [facility] Group influenza, high dose influenza, high dose 2017-06-11 Completed [place] seasonal seasonal 16:14:44 [facility] Group influenza, high dose influenza, high dose 2015-06-02 Completed [place] seasonal seasonal 14:40:46 [facility] influenza, influenza, 2014-06-03 Completed [place] injectable, injectable, 12:03:05 [facility] quadrivalent quadrivalent Vital Signs Vital Name Observation Time Observation Value Comments Source BP Diastolic 2022-05-09 00:00:00 80 mm[Hg] [facility] Height 2022-05-09 00:00:00 67 [in_i] [facility] s BMI (Body Mass 2022-05-09 00:00:00 17.4 kg/m2 [facility]) [facility] s BP Systolic 2022-05-09 00:00:00 130 mm[Hg] [facility] s Body Weight 2022-05-09 00:00:00 1776 [oz_av] [facility] BP Diastolic 2022-04-13 00:00:00 70 mm[Hg] [facility] Height 2022-04-13 00:00:00 67 [in_i] [facility] s BMI (Body Mass 2022-04-13 00:00:00 17.6 kg/m2 [facility]) [facility] s BP Systolic 2022-04-13 00:00:00 130 mm[Hg] [facility] Body Weight 2022-04-13 00:00:00 1798.4 [oz_av] [facility] s BP Diastolic 2022-01-26 00:00:00 60 mm[Hg] [facility] Height 2022-01-26 00:00:00 67 [in_i] [facility] s BMI (Body Mass 2022-01-26 00:00:00 18 kg/m2 [facility]) [facility] s BP Systolic 2022-01-26 00:00:00 110 mm[Hg] [facility] Body Weight 2022-01-26 00:00:00 1836.8 [oz_av] [facility] s BP Diastolic 2021-07-21 00:00:00 85 mm[Hg] [facility] Height 2021-07-21 00:00:00 64 [in_i] [facility] BMI (Body Mass 2021-07-21 00:00:00 20.8 kg/m2 [facility]) Group BP Systolic 2021-07-21 00:00:00 141 mm[Hg] [facility] Body Weight 2021-07-21 00:00:00 121.2 [lb_av] [facility] Diastolic 2021-07-19 00:00:00 80 mm[Hg] [facility] Height 2021-07-19 00:00:00 67 [in_i] [facility] s BMI (Body Mass 2021-07-19 00:00:00 18.8 kg/m2 [facility]) [facility] s BP Systolic 2021-07-19 00:00:00 130 mm[Hg] [facility] s Body Weight 2021-07-19 00:00:00 1923.2 [oz_av] [facility] s BP Diastolic 2021-04-20 00:00:00 76 mm[Hg] [facility] s Height 2021-04-20 00:00:00 67 [in_i] [facility] s BMI (Body Mass 2021-04-20 00:00:00 18.8 kg/m2 [facility]) [facility] s BP Systolic 2021-04-20 00:00:00 132 mm[Hg] [facility] Body Weight 2021-04-20 00:00:00 1920 [oz_av] [facility] BP Diastolic 2021-02-24 00:00:00 68 mm[Hg] [facility] Height 2021-02-24 00:00:00 67 [in_i] [facility] BMI (Body Mass 2021-02-24 00:00:00 18.6 kg/m2 [facility] Index) [facility] s BP Systolic 2021-02-24 00:00:00 122 mm[Hg] [facility] Body Weight 2021-02-24 00:00:00 1904 [oz_av] [facility] BP Diastolic 2021-02-03 00:00:00 68 mm[Hg] [facility] Height 2021-02-03 00:00:00 67 [in_i] [facility] s BMI (Body Mass 2021-02-03 00:00:00 18.4 kg/m2 [facility] Index) Hospital Clinic s BP Systolic 2021-02-03 00:00:00 120 mm[Hg] [facility] s Body Weight 2021-02-03 00:00:00 1875.2 [oz_av] [facility] s Height 2020-10-26 00:00:00 67 [in_i] [facility] s BP Diastolic 2020-10-14 00:00:00 100 mm[Hg] [facility] s Height 2020-10-14 00:00:00 67 [in_i] [facility] s BMI (Body Mass 2020-10-14 00:00:00 18.8 kg/m2 [facility]) [facility] Clinic s BP Systolic 2020-10-14 00:00:00 120 mm[Hg] [facility] Body Weight 2020-10-14 00:00:00 1920 [oz_av] [facility] height 2020-09-09 13:30:00 67 [in_i] [facility] weight 2020-09-09 13:30:00 123.6 [lb_av] [facility] temperature 2020-09-09 13:30:00 98.2 [degF] [facility] bmi 2020-09-09 13:30:00 19.36 kg/m2 [facility] oximetry 2020-09-09 13:30:00 98 % [facility] blood pressure 2020-09-09 13:30:00 133 mm[Hg] [facility] systolic [facility] blood pressure 2020-09-09 13:30:00 77 mm[Hg] [facility] - diastolic [facility] height 2020-07-06 13:00:00 67 [in_i] [facility] weight 2020-07-06 13:00:00 121.4 [lb_av] [facility] temperature 2020-07-06 13:00:00 97.0 [degF] [facility] bmi 2020-07-06 13:00:00 19.01 kg/m2 [facility] oximetry 2020-07-06 13:00:00 97 % [facility] blood pressure 2020-07-06 13:00:00 127 mm[Hg] [facility] systolic [facility] blood pressure 2020-07-06 13:00:00 66 mm[Hg] [facility] - diastolic [facility] Systolic blood 2022-06-09 12:34:00 152 mm[Hg] [facility] pressure Diastolic blood 2022-06-09 12:34:00 82 mm[Hg] [facility] pressure Heart rate 2022-06-09 12:34:00 66 /min [facility] Body temperature 2022-06-09 12:34:00 36.11 [facility] Body height 2022-06-09 12:34:00 170.2 cm [facility] Body weight 2022-06-09 12:34:00 51.529 kg [facility] BMI 2022-06-09 12:34:00 17.79 kg/m2 [facility] Respiratory rate 2022-04-12 16:08:58 18 /min [facility] Oxygen saturation in 2022-04-12 16:08:58 99 /min [facility] Arterial blood by Pulse oximetry Procedures Procedure Date / Time Performing Clinician Source Performed HEPATIC FUNCTION PANEL 2022-06-09 13:00:00 [facility] RESPIRATORY PATHOGEN PANEL 2022-04-12 17:57:00 [facility] WITH COVID-19 RT-PCR XR CHEST 2 VW 2022-04-12 17:06:00 [facility] HEPATIC FUNCTION PANEL 2022-02-03 12:30:00 [facility] HEPATIC FUNCTION PANEL 2021-10-07 13:45:00 [facility] XR, chest, 2 view 2021-07-19 00:00:00 [facility] Cardiac Catheterization 2021-01-01 00:00:00 [facility] [id number] 2020-10-29 00:00:00 ALDMO [facility] [id number] 2020-10-29 00:00:00 CHEZU [facility] [id number] 2020-10-29 00:00:00 ALDMO [facility] [id number] 2020-10-29 00:00:00 ALDMO [facility] [id number] 2020-10-29 00:00:00 ALDMO [facility] [id number] 2020-10-29 00:00:00 ALDMO [facility] [id number] 2020-10-29 00:00:00 ALDMO [facility] [id number] 2020-10-29 00:00:00 CHEZU [facility] [id number] 2020-10-28 00:00:00 ARMRO.01 [facility] [id number] 2020-10-28 00:00:00 ARMRO.01 [facility] [id number] 2020-10-27 00:00:00 ARMRO.01 [facility] [id number] 2020-10-27 00:00:00 ARMRO.01 [facility] electrocardiogram 2020-10-14 00:00:00 [facility] XR, chest, 2 view 2020-10-14 00:00:00 [facility] Clinics [facility] Clinics Cervical Laminoplsty 2/> [facility] Clinics Placement of Stent in [facility] Hernia Repair [facility] Plan of Care Planned Activity Planned Date Details Comments Source Future Scheduled Test 2022-06-19 HEPATITIS B VACCINES [facility] 14:09:39 (1 of 3 - 3-dose series) [code = HEPATITIS B VACCINES (1 of 3 - 3-dose series)] Future Scheduled Test 2022-06-19 Hepatitis C screening [facility] 14:09:39 (procedure) [code = [id number]] Future Scheduled Test 2022-06-19 COLONOSCOPY SCREENING [facility] 14:09:39 [code = COLONOSCOPY SCREENING] Future Scheduled Test 2022-06-19 SHINGLES VACCINES (1 [facility] 14:09:39 of 2) [code = SHINGLES VACCINES (1 of 2)] Future Scheduled Test 2022-06-19 65+ PNEUMOCOCCAL [facility] 14:09:39 VACCINE (2 - PCV) [code = 65+ PNEUMOCOCCAL VACCINE (2 - PCV)] Future Scheduled Test 2022-06-19 INFLUENZA VACCINE [facility] 14:09:39 [code = INFLUENZA VACCINE] Future Scheduled Test 2022-06-19 COVID-19 VACCINE (5 - [facility] 14:09:39 Booster for Pfizer series) [code = COVID-19 VACCINE (5 - Booster for Pfizer series)] Future Scheduled Test 2022-06-19 HEPATITIS B VACCINES [facility] 14:09:39 (1 of 3 - 3-dose series) [code = HEPATITIS B VACCINES (1 of 3 - 3-dose series)] Future Scheduled Test 2022-06-19 Hepatitis C screening [facility] 14:09:39 (procedure) [code = [id number]] Future Scheduled Test 2022-06-19 COLONOSCOPY SCREENING [facility] 14:09:39 [code = COLONOSCOPY SCREENING] Future Scheduled Test 2022-06-19 SHINGLES VACCINES (1 [facility] 14:09:39 of 2) [code = SHINGLES VACCINES (1 of 2)] Future Scheduled Test 2022-06-19 65+ PNEUMOCOCCAL [facility] 14:09:39 VACCINE (2 - PCV) [code = 65+ PNEUMOCOCCAL VACCINE (2 - PCV)] Future Scheduled Test 2022-06-19 INFLUENZA VACCINE [facility] 14:09:39 [code = INFLUENZA VACCINE] Future Scheduled Test 2022-06-19 COVID-19 VACCINE ([address] [place] [address] 14:09:39 Booster for Pfizer series) [code = COVID-19 VACCINE (5 - Booster for Pfizer series)] Diagnostic Test 2022-05-09 HbA1c (hemoglobin [facility] Pending 00:00:00 A1c), blood [code = [facility] HbA1c (hemoglobin A1c), blood] Diagnostic Test 2022-05-09 lipid panel, serum [facility] Pending 00:00:00 [code = lipid panel, [facility] serum] Diagnostic Test 2022-05-09 CMP, serum or plasma [facility] Pending 00:00:00 [code = [facility] plasma] Diagnostic Test 2022-05-09 CBC w/ auto diff [facility] Pending 00:00:00 [code = CBC w/ auto [facility] diff] Diagnostic Test 2022-05-09 TSH + T4, serum [code [facility] Pending 00:00:00 = TSH + T4, serum] [facility] Diagnostic Test 2022-05-09 vitamin D, [facility] Pending 00:00:00 25-hydroxy, total, [facility] serum [code = vitamin D, 25-hydroxy, total, serum] Diagnostic Test 2022-05-09 urinalysis complete, [facility] Pending 00:00:00 reflex culture [code [facility] = urinalysis complete, reflex culture] Diagnostic Test 2022-05-09 uric acid, serum or [facility] Pending 00:00:00 plasma [code = uric Hospital Clinics acid, serum or plasma] Diagnostic Test 2022-05-09 vitamin B12 + folate, [facility] Pending 00:00:00 serum or blood [code [facility] = vitamin B12 + folate, serum or blood] Diagnostic Test 2022-05-09 microalbumin, urine [facility] Pending 00:00:00 [code = microalbumin, [facility] urine] Diagnostic Test 2022-05-09 PSA, serum or plasma [facility] Pending 00:00:00 [code = PSA, serum or Hospit al Clinics plasma] Future Appointment 2022-08-08 Britt Sandra, [address] [facility] 00:00:00 Tara [address]; [facility] [address], [place] [address] Encounters Start End Encounter Admission Attending Care Care Encounter Source Date/Time Date/Time Type Type Clinicians Facility Department ID 2021-09-28 Outpatient STLMLC STLMLC [id number] Common 12:01:38 [id number] [facility] 2020-11-06 Inpatient Aldeiri, HCACL HCACL [id number] HCA 00:58:34 Molham 01 [facility] 2020-10-29 Inpatient EM Lala, HCAMN HCAMN [id number] HCA 05:28:11 Olivier 75 [facility] 2022-06-13 2022-06-13 Outpatient SANDRA_Cherelle [facility] [id number] 0221 [place] 00:00:00 00:00:00 011 Commun i ty Hospita [facility] 2022-06-09 2022-06-09 Aurelia Schroeder 1.2.840. 1 [id number] Methodi 07:00:00 14:53:11 Naima Ma 75967.1.[address] Visit 3.430.2.7 Hospit a .3.596534 l .8 2022-06-09 2022-06-09 Aurelia Schroeder 1.2.840. 1 [id number] Methodi 07:00:00 14:53:11 Naima Ma 60645.1.[address] Visit 3.430.2.7 Hospit a .3.671396 l .8 2022-06-09 2022-06-09 Lab Ale, 1.2.840.1 [id number] 0307 Methodi 07:15:00 07:20:[address] Demetrius 3.430.2.7 Hospit a .3.997186 l .8 2022-06-09 2022-06-09 Lab Ale, 1.2.840.1 [id number] 960551 1131 Methodi 07:15:00 07:20:[address] Demetirus 3.430.2.7 Hospit a .3.738139 l .8 2022-06-09 2022-06-09 Travel 1.2.840.1 1.2.139.454 0592 680156 Methodi 00:00:00 00:00:[address] 3.430.2.7 0.2.7.3.698 Ho spita .3.146529 084.8 l .8 2022-06-09 2022-06-09 Travel 1.2.840.1 1.2.460.299 6038 973928 Methodi 00:00:00 00:00:[address] 3.430.2.7 0.2.7.3.698 Ho spita .3.381996 084.8 l .8 2022-06-02 2022-06-02 Travel 1.2.840.1 1.2.015.313 2439 291415 Methodi 00:00:00 00:00:[address] 3.430.2.7 0.2.7.3.698 Ho spita .3.636555 084.8 l .8 2022-06-02 2022-06-02 Travel 1.2.840.1 1.2.592.704 9201 917390 Methodi 00:00:00 00:00:[address] 3.430.2.7 0.2.7.3.698 Ho spita .3.982061 084.8 l .8 2022-06-01 2022-06-01 Orders Chidi, 1.2.840.1 [id number] 700457 4244 Methodi 00:00:00 00:00:00 Only Vidhi 43759.1.[address] 3.430.2.7 Hospit a .3.595105 l .8 2022-06-01 2022-06-01 Orders Chidi, 1.2.840.1 [id number] 106588 9062 Methodi 00:00:00 00:00:00 Only Vidhi 00699.1.[address] 3.430.2.7 Hospit a .3.743313 l .8 2022-06-01 2022-06-01 Orders Chidi, 1.2.840.1 094122226 213322 4449 Methodi 00:00:00 00:00:00 Only Vidhi 94068.1.[address] 3.430.2.7 Hospit a .3.790473 l .8 2022-06-01 2022-06-01 Orders Chidi, 1.2.840.1 [id number] 308655 2747 Methodi 00:00:00 00:00:00 [address] Vidhi 61122.1.[address] 3.430.2.7 Hospit a .3.007681 l .8 2022-05-09 2022-05-09 Outpatient SANDRA_Cherelle [facility] 5586-2 0220 [place] 00:00:00 00:00:00 906 Commun i ty Hospita [facility] 2022-05-09 2022-05-09 Britt Aj [facility] [place] 00:00:00 00:00:00 Elvis Cadet MD: [address] [facility] Hosp a [address], [facility] [address], [facility], [facility] [address] SANDRA , Ph. 2022-05-09 2022-05-09 Outpatient Britt Cadet [facility] 7a4 [id number] 00:00:00 00:00:00 Madai [id number] [id number] nns440 2022-04-13 2022-04-13 Outpatient SANDRA_Cherelle [facility] 5586-2 0220 [place] 00:00:00 00:00:00 811 Commun i ty Hospita l [facility] 2022-04-13 2022-04-13 Britt Aj [facility] [place] [address] 811 [place] 00:00:00 00:00:00 Elvis Cadet MD: [address] [facility] Hospit a [address], COMMUNITY l [address], HOSPITAL Clinic [facility], [facility], [address] SANDRA , Ph. 2022-04-13 2022-04-13 Outpatient Britt Cadet [facility] 293 [id number] 00:00:00 00:00:00 Madai [id number]-c [id number] ab016s 2022-04-12 2022-04-12 Emergency Kukkalli, 1.2.840.1 [id number] Methodi 11:05:00 13:04:[address] 3.430.2.7 Hospit a .3.439101 l .8 2022-04-12 2022-04-12 Emergency Kukkalli, 1.2.840.1 [id number] 21 [id number] Methodi 11:05:00 13:04:[address] 3.430.2.7 Hospit a .3.549780 l .8 2022-04-12 2022-04-12 Travel 1.2.840.1 1.2.899.847 5231 653428 Methodi 00:00:00 00:00:[address] 3.430.2.7 0.2.7.3.698 Ho spita .3.858173 084.8 l .8 2022-04-12 2022-04-12 Travel 1.2.840.1 1.2.121.851 2300 404120 Methodi 00:00:00 00:00:[address] 3.430.2.7 0.2.7.3.698 Ho spita .3.358546 084.8 l .8 2022-04-01 2022-04-01 Outpatient KEFFER_A [facility] 5586-2 0220 [place] 00:00:00 00:00:00 730 Commun i ty Hospita l Clinics 2022-02-03 2022-02-03 Multidisci AleBijan coyne 1.2.840.1 [id number] Methodi 07:00:00 16:02:42 plinary ToeNaima rossi 11334.1.[address] Visit 3.430.2.7 Hospit a .3.347011 l .8 2022-02-03 2022-02-03 Multidisci AleBijan coyne 1.2.840.1 [id number] [id number] Methodi 07:00:00 16:02:42 plinary Naima Simon 67239.1.[address] Visit 3.430.2.7 Hospit a .3.274128 l .8 2022-02-03 2022-02-03 Lab Ale, 1.2.840.1 560056007 620281 3389 Methodi 06:15:00 06:20:[address] Demetrius 3.430.2.7 Hospit a .3.700541 l .8 2022-02-03 2022-02-03 Lab Ale, 1.2.840.1 [id number] 297504 6018 Methodi 06:15:00 06:20:[address] Demetrius 3.430.2.7 Hospit a .3.422878 l .8 2022-02-03 2022-02-03 Travel 1.2.840.1 1.2.322.897 6953 932736 Methodi 00:00:00 00:00:[address] 3.430.2.7 0.2.7.3.698 Ho spita .3.173038 084.8 l .8 2022-02-03 2022-02-03 Travel 1.2.840.1 1.2.888.151 2568 414675 Methodi 00:00:00 00:00:[address] 3.430.2.7 0.2.7.3.698 Ho spita .3.611737 084.8 l .8 2022-01-31 2022-01-31 Travel 1.2.840.1 1.2.432.454 9607 548693 Methodi 00:00:00 00:00:[address] 3.430.2.7 0.2.7.3.698 Ho spita .3.663071 084.8 l .8 2022-01-31 2022-01-31 Travel 1.2.840.1 1.2.386.610 7677 236015 Methodi 00:00:00 00:00:[address] 3.430.2.7 0.2.7.3.698 Ho spita .3.739449 084.8 l .8 2022-01-27 2022-01-27 Orders Chidi, 1.2.840.1 [id number] 695689 1998 Methodi 00:00:00 00:00:00 Only Vidhi 33707.1.[address] 3.430.2.7 Hospit a .3.705257 l .8 2022-01-27 2022-01-27 Orders Chidi, 1.2.840.1 [id number] 004624 8519 Methodi 00:00:00 00:00:00 Only Vidhi 67573.1.[address] 3.430.2.7 Hospit a .3.819101 l .8 2022-01-26 2022-01-26 Outpatient SANDRA_Cherelle [facility] 5586-2 0220 [place] 03:12:00 03:12:00 526 Commun i ty Hospita l Clinics 2022-01-26 2022-01-26 Britt Aj [facility] [place] - [place] 526 [place] 00:00:00 00:00:00 Elvis Cadet MD: [address] [facility] [place] a [address], COMMUNITY l [address], HOSPITAL [place], [address] SANDRA , Ph. 2022-01-26 2022-01-26 Outpatient Britt Cadet [facility] bba q960n-f 00:00:00 00:00:00 Madai z56-70kg-2 [id number] 30eec2 2021-10-07 2021-10-07 Multidisci Tanisha, Blanca 1.2.840.1 07319 5005 [id number] Methodi 07:00:00 13:00:17 plinary Aurelia Mouraley 73540.1.[address] Visit Naima Simon 3.430.2.7 Hospita .3.011047 l .8 2021-10-07 2021-10-07 Multidisci Tanisha, Blanca 1.2.840.1 67039 5005 [id number] Methodi 07:00:00 13:00:17 plAurelia Arce Portley 06277.1.[address] Visit ToeNaima rossi 3.430.2.7 Hospita .3.204711 l .8 2021-10-07 2021-10-07 Lab Ale, 1.2.840.1 [id number] 642492 1701 Methodi 08:50:00 08:55:[address] Demetrius 3.430.2.7 Hospit a .3.642766 l .8 2021-10-07 2021-10-07 Lab Ale, 1.2.840.1 [id number] 852068 8575 Methodi 08:50:00 08:55:[address] Demetrius 3.430.2.7 Hospit a .3.974769 l .8 2021-10-07 2021-10-07 Travel 1.2.840.1 1.2.655.387 5575 097707 Methodi 00:00:00 00:00:[address] 3.430.2.7 0.2.7.3.698 Ho spita .3.322985 084.8 l .8 2021-10-07 2021-10-07 Travel 1.2.840.1 1.2.615.350 4781 489921 Methodi 00:00:00 00:00:[address] 3.430.2.7 0.2.7.3.698 Ho spita .3.878985 084.8 l .8 2021-09-30 2021-09-30 Travel 1.2.840.1 1.2.230.641 2723 331833 Methodi 00:00:00 00:00:[address] 3.430.2.7 0.2.7.3.698 Ho spita .3.120993 084.8 l .8 2021-09-30 2021-09-30 Travel 1.2.840.1 1.2.836.829 4607 667279 Methodi 00:00:00 00:00:[address] 3.430.2.7 0.2.7.3.698 Ho spita .3.349966 084.8 l .8 2021-09-29 2021-09-29 Orders Chidi, 1.2.840.1 343225544 027631 9375 Methodi 00:00:00 00:00:00 Only Vidhi 84431.1.[address] 3.430.2.7 Hospit a .3.748047 l .8 2021-09-29 2021-09-29 Orders Chidi, 1.2.840.1 298974800 937266 1911 Methodi 00:00:00 00:00:00 Only Vidhi 61127.1.[address] 3.430.2.7 Hospit a .3.192185 l .8 2021-09-29 2021-09-29 Orders Chidi, 1.2.840.1 389944591 630959 1505 Methodi 00:00:00 00:00:00 Only Vidhi 65089.1.[address] 3.430.2.7 Hospit a .3.944296 l .8 2021-09-29 2021-09-29 Shahzad Murillo, 1.2.840.1 [id number] 031519 4773 Method 00:00:00 00:00:00 Only Vidhi 57359.1.[address] 3.430.2.7 Hospit a .3.999381 l .8 2021-08-13 2021-08-13 Outpatient SANDRA_A [facility] 5586-2 210 [place] 04:11:00 04:11:00 211 Commun i ty Hospita l Clinics 2021-08-11 2021-08-11 Outpatient Yan_W [facility] [id number] 021 [place] 01:02:00 01:02:00 1209 Medical Group 2021-07-21 2021-07-21 Outpatient Yan_W [facility] [id number] 021 [place] 12:22:00 12:22:00 1118 Medical [facility] 2021-07-21 2021-07-21 Hi Castle [facility] [place] - [id number] [place] 00:00:00 00:00:00 MD: Andrew Urena [facility] [address], [facility], [place] Precious [address] , Ph. 2021-07-20 2021-07-20 Outpatient Yan_W [facility] [id number] 021 [place] 03:46:00 03:46:00 1117 Medical Group 2021-07-19 2021-07-19 Outpatient KEFFER_A [facility] 5586-2 210 [place] 02:45:00 02:45:00 116 Commun i ty Hospita l Clinics 2021-07-19 2021-07-19 Britt Aj [facility] [place] - 116 [place] 00:00:00 00:00:00 Elvis Cadet MD: [address] [facility] [place] Hospit a [address], COMMUNITY l [address], HOSPITAL [facility] [place], [place] [address] [place] [address] SANDRA , Ph. 2021-07-19 2021-07-19 Outpatient Britt Cadet [facility] 736 01aea-4 00:00:00 00:00:00 Madai [id number]-a [id number] 830428 9904-11-01 2021-07-04 Telephone Shivitz, 1.2.840.1 [id number] 050 [id number] Methodi 00:00:00 00:00:[address] 3.430.2.7 Hospit a .3.960149 l .8 2021-07-04 2021-07-04 Telephone Shivitz, 1.2.840.1 [id number] [address] [id number] Methodi 00:00:00 00:00:[address] 3.430.2.7 Hospit a .3.384105 l .8 2021-06-30 2021-06-30 Telephone Shivitz, 1.2.840.1 [id number] 714 5750440 Methodi 00:00:00 00:00:[address] 3.430.2.7 Hospit a .3.239348 l .8 2021-06-30 2021-06-30 Telephone Shivitz, 1.2.840.1 035517944 483 1789512 Methodi 00:00:00 00:00:[address] 3.430.2.7 Hospit a .3.549929 l .8 2021-06-03 2021-06-03 Outpatient MOURA, [facility] [id number] 947 [facility] 00:00:00 00:00:00 AURELIA [address] 2021-06-03 2021-06-03 Outpatient ALE, [facility] [id number] 568 [facility] 00:00:00 00:00:00 BIJAN [address] 2021-05-28 2021-05-28 Outpatient GEENA [facility] [id number] 0210 [place] 03:01:00 03:01:00 925 Commun i ty Hospita l Clinics 2021-04-20 2021-04-20 Outpatient KEFFER_A [facility] 5586-2 0210 [place] 03:07:00 03:07:00 818 Commun i ty Hospita l Clinics 2021-04-20 2021-04-20 Outpatient Nigel [facility] [id number] a-0 00:00:00 00:00:00 Thea 05b-11ec-8 [id number] 2021-04-20 2021-04-20 [facility] [place] - [place] 18 [place] 00:00:00 00:00:00 Nigel [facility] MSN, ABALONE PROCESSOR, [facility] ty PASTEURIZER-C: [address] [place] [facility], Clinic s [address], [facility] [address], Nigel [place], [place] MSN, PASTEURIZER-C [address] , Ph. 2021-04-12 2021-04-12 Outpatient KEFFER_A [facility] [id number] 0210 [place] 12:57:00 12:57:00 810 Commun i ty Hospita l Clinics 2021-03-08 2021-03-08 Outpatient KEFFER_A [facility] 5586-2 0210 [place] 12:34:00 12:34:00 706 Commun i ty Hospita l Clinics 2021-02-24 2021-02-24 Outpatient KEFFER_A [facility] 5586-2 0210 [place] 03:03:00 03:03:00 624 Commun i ty Hospita l Clinics 2021-02-24 2021-02-24 Britt Aj [facility] [place] - [place] 624 [place] 00:00:00 00:00:00 Elvis Cadet MD: [address] [facility] [place] Hospit a [address], [facility] l [address], HOSPITAL Clinic s [place], [place] CLINIC, [address] SANDRA , Ph. 2021-02-24 2021-02-24 Outpatient Britt Cadet [facility] 253 [id number] 00:00:00 00:00:00 Madai [id number] 2021-02-04 2021-02-04 Outpatient ALE, [facility] [id number] 662 [facility] 00:00:00 00:00:00 BIJAN [address] 2021-02-04 2021-02-04 Outpatient ALE [facility] [id number] 780 [facility] 00:00:00 00:00:00 BIJAN [address] 2021-02-03 2021-02-03 Outpatient SANDRA_A [facility] [id number] 0210 [place] 03:28:00 03:28:00 603 Commun i ty Hospita l Clinics 2021-02-03 2021-02-03 Britt Aj [facility] [place] - [place] 60 [place] 00:00:00 00:00:00 Elvis Cadet MD: [address] [facility] Hospit a [address], COMMUNITY l [address], [place], [place] CLINIC, [address] SANDRA , Ph. 2021-02-03 2021-02-03 Outpatient Britt Cadet [facility] 23f [id number] 00:00:00 00:00:00 Madai [id number] 2020-11-14 2020-11-14 Outpatient SANDRA_A [facility] 5586-2 0210 [place] 01:03:00 01:03:00 314 Commun i ty Hospita l Clinics 2020-10-26 2020-10-26 Outpatient KEFFER_A [facility] 5586-2 0210 [place] 04:27:00 04:27:00 223 Commun i ty Hospita l Clinics 2020-10-26 2020-10-26 Britt Aj [facility] [place] - [place] 223 [place] 00:00:00 00:00:00 Elvis Cadet MD: [address] [facility] Hospit a [address], COMMUNITY l [address], [place], [place] CLINIC, [address] SANDRA , Ph. 2020-10-26 2020-10-26 Outpatient Britt Cadet [facility] 0d4 [id number] 00:00:00 00:00:00 Madai [id number] 2020-10-14 2020-10-14 Outpatient GEENA [facility] 5586-2 209 [place] 03:42:00 03:42:00 211 [facility] i ty Hospita l Clinics 2020-10-14 2020-10-14 Outpatient Britt Cadet [facility] 0c9 [id number] 00:00:00 00:00:00 Madai [id number] 2020-10-14 2020-10-14 Britt Aj [facility] [place] 00:00:00 00:00:00 Elvis Cadet MD: [address] [facility] Hospit a [address], [facility] l [address], HOSPITAL [facility] s [place], [place] CLINIC, [address] SANDRA , Ph. 2020-10-08 2020-10-08 Outpatient ALE, [facility] [id number] 219 [facility] 00:00:00 00:00:00 BIJAN [address] 2020-10-08 2020-10-08 Outpatient DANIELE, [facility] [id number] 982 [facility] 00:00:00 00:00:00 AURELIA [address] 2020-10-04 2020-10-04 Outpatient [facility] [id number] [facility] 00:00:00 00:00:[address] 2020-09-16 2020-09-16 Outpatient PATEL, [facility] [id number] [facility] 00:00:00 00:00:[address] MARLYN [address] 2020-09-09 2020-09-09 OFFICE STLMLC STLMLC [id number] Co mmon 00:00:00 00:00:00 VISIT [facility] ESTAB PT - [facility] 2020-07-15 2020-07-15 (TEL) STLMLC STLMLC [id number] Co mmon 00:00:00 00:00:00 [facility] 2020-07-06 2020-07-06 OFFICE STLMLC STLMLC [id number] Co mmon 00:00:00 00:00:00 VISIT NEW Spir it PT LEVEL 4 - [facility] 2020-06-04 2020-06-04 Outpatient ALE, [facility] [id number] 570 [facility] 00:00:00 00:00:00 BIJAN 848 Method i 2020-06-04 2020-06-04 Outpatient TANISHA, [facility] [id number] 457 [facility] 00:00:00 00:00:00 BLANCA 171 Method i 2019-06-02 2019-06-02 Outpatient COLOMER, [facility] [id number] [facility] 00:00:00 00:00:00 ILDA 460 Method i 2018-06-04 2018-06-04 Outpatient keffer_a [facility] 2019 [place] 09:30:00 09:30:00 0422 [facility] [...] code = CA) 9.0 mg/dL 8.0-10.5 N [id number] 20:45:00 Test Item Value Reference Range Interpretation Comments MAGNESIUM (test code = MAG) 2.20 mg/dL 1.80-2.40 N [id number] 20:26:00 Test Item Value Reference Range Interpretation Comments GLUBED (test code = 94 MG/DL 70-110 N Performe d by certified GLUBED) 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 [facility] [id number] 10:40:00 Test Item Value Reference Range Interpretation Comments MAGNESIUM (test code = MAG) 2.09 mg/dL 1.80-2.40 N BASIC METABOLIC [id number] 05:48:00 Test Item Value Reference Range Interpretation [...] 8.8 mg/dL 8.0-10.5 N CA) BASIC METABOLIC [id number] 05:17:00 Test Item Value Reference Range Interpretation [...] (test code = LDL) NEAR OPTIM AL/ABOVE [id number] HIGH>AA=549 JOZEF Y HIGH*Guidelines provided by the National [facility] terol [employer] m Adult Treatment Panel III [id number] 05:17:00 Test Item Value Reference Range Interpretation Comments MAGNESIUM (test code = MAG) 1.90 mg/dL 1.80-2.40 N CBC W/AUTO [id number] 05:02:00 Test Item Value Reference Range Interpretation [...] (test code NO = MDIFF) CBC W/AUTO [id number] 05:01:00 Test Item Value Reference Range Interpretation [...] MANUAL DIFF REQUIRED (test code = MDIFF) [id number] 17:29:00 Test Item Value Reference Range Interpretation Comments ACT-ISTAT (test code 340 SEC 74-137 H Perform ed by certified = ACTI) 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 [facility] [id number] 17:10:00 Test Item Value Reference Range Interpretation Comments ACT-ISTAT (test code 279 SEC 74-137 H Perform ed by certified = ACTI) 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 [facility] [id number] 14:12:00 Test Item Value Reference Range Interpretation Comments GLUBED (test code = GLUBED) 105 mg/dL 70-110 N [id number] 14:11:00 Test Item Value Reference Range Interpretation Comments GLUBED (test code = GLUBED) 91 mg/dL 70-110 N [id number] 08:55:00 Test Item Value Reference Range Interpretation Comments GLUBED (test code = GLUBED) 102 mg/dL 70-110 N BASIC METABOLIC [id number] 07:25:00 Test Item Value Reference Range Interpretation [...] CA) 8.7 mg/dl 8.0-10.5 N THROMBOPLASTIN TIME [id number] 07:03:00 Test Item Value Reference Range Interpretation Comments THROMBOPLASTIN TIME 68.00 SECONDS 25.86-36.07 H [facility] Lab PARTIAL (test code = Therape utic Range - PTT) APTT of 55.8-85 .4 secondscorrelat es with plasma heparin concentration o f 0.2-0.4 u/mL Ne w range effective - Is patient on anticoagulants? YIf yes, please list anticoagulants: HEPARINIs patient on heparin protocol? YCBC W/AUTO [id number] 06:47:00 Test Item Value Reference Range Interpretation [...] Specimen comments: Daily while on HeparinTHROMBOPLASTIN TIME [id number] 20:35:00 Test Item Value Reference Range Interpretation Comments THROMBOPLASTIN TIME 61.00 SECONDS 25.86-36.07 H [place] d Lab PARTIAL (test code = Therape uti Range - PTT) APTT of 55.8-85 .4 secondscorrelat es with plasma heparin concentration o f 0.2-0.4 u/mL Ne w range effective - Is patient on anticoagulants? YIf yes, please list anticoagulants: HEPARINIs patient on heparin protocol? [id number] 14:10:00 Test Item Value Reference Range Interpretation Comments GLUBED (test code = GLUBED) 89 mg/dL 70-110 N THROMBOPLASTIN TIME [id number] 06:36:00 Test Item Value Reference Range Interpretation [...] N NRBC#) Specimen comments: Daily while on [id number] 00:21:00 Test Item Value Reference Range Interpretation [...] code = LDL) 94 mg/dl 70-130 N [id number] 17:14:00 Test Item Value Reference Range Interpretation Comments GLUBED (test code = GLUBED) 95 mg/dL 70-110 N PROTHROMBIN [id number] 16:19:00 Test Item Value Reference Range Interpretation Comments PROTHROMBIN TIME 13.5 SECONDS 9.9-12.8 H PATIENT (test code = PTP) INTERNATIONAL NORMAL 1.1 0.89-1.14 N THE INR IS TO BE USED RATIO (test code = ONLY FOR MONITORING INR) ORAL ANTICOAGULANTTH ERAPY. THE FOLLOWING A RE SUGGESTED RANGE S [facility]:[place] [facility] INR VALUEPROPHY LAXIS [...] ALREADY DONE WITHIN LAST 24 HOURSTHROMBOPLASTIN TIME [id number] 16:19:00 Test Item Value Reference Range Interpretation Comments THROMBOPLASTIN TIME 51.40 SECONDS 25.86-36.07 [facility] PARTIAL (test code = Therape utic Range - PTT) APTT of 55.8-85 .4 secondscorrelat es with plasma heparin concentration o f 0.2-0.4 u/mL Ne w range effective - Specimen comments: IF NOT ALREADY DONE WITHIN LAST 24 HOURSCBC W/AUTO DIFF 2020-10-27 15:47:00 Test Item Value [...] IF NOT ALREADY DONE WITHIN LAST 24 [id number] 15:32:00 Test Item Value Reference Range Interpretation Comments HGBA1C% (test code = HGBA1C%) 5.4 %A1C 4.8-6.0 N ESTIMATED AVERAGE GLUCOSE (test 108 MG/DL code = EAG) [id number] 08:10:00 Test Item Value Reference Range Interpretation Comments TROPONIN-I (test 2.80 NG/ML 0.00-0.06 HH REFERENCE R JERRY TROPONIN code = TROPI) I HEALTHY [place] VIDUALS: <0.06 ng/mL R/O ISCHEMIA: 0.07 - 0.60 ng/mL CUT-OFF R JERRY FOR AMI: 0.60 - 1.5 ng/mL [id number] 04:08:00 Test Item Value Reference Range Interpretation Comments TROPONIN-I (test 2.71 NG/ML 0.00-0.06 REFERENCE R JERRY TROPONIN code = TROPI) I HEALTHY [place] VIDUALS: <0.06 ng/mL R/O ISCHEMIA: 0.07 - 0.60 ng/mL CUT-OFF R JERRY FOR AMI: 0.60 - 1.5 ng/mL BASIC METABOLIC [id number] 22:26:00 Test Item Value Reference Range Interpretation [...] code = CA) 8.9 mg/dl 8.0-10.5 N [id number] 22:26:00 Test Item Value Reference Range Interpretation Comments TROPONIN-I (test 3.74 NG/ML 0.00-0.06 REFERENCE R JERRY TROPONIN code = TROPI) I HEALTHY [place] VIDUALS: <0.06 ng/mL R/O ISCHEMIA: 0.07 - 0.60 ng/mL CUT-OFF R JERRY FOR AMI: 0.60 - 1.5 ng/mL CBC W/AUTO [id number] 22:19:00 Test Item Value Reference Range Interpretation [...] 0.00-0.01 N NRBC#) - XR CHEST 1 [id number] 22:03:00 [facility] [place] [place] : 1950 Sex: M FAX: Wayne Emerson DO [phone] [place]: St: PRE Name: VLADIMIR DICKSON [facility] : 1950 Age/S: 70/M [address] [facility] Unit #: [id number] Loc: [address] Phys: [place] [id number] Acct: [id number] Dis Date: Status: PRE ER PHONE #: [phone] Exam Date: 10/26/20202200 FAX #: [phone] Reason: SOB EXAMS: CPT CODE: [id number] XR CHEST 1 V 25230 EXAM: - XR CHEST 1 V COMPARISON: None LOCATION: H57 HISTORY: 70 years-old Male with SOB TECHNIQUE: Single AP view of the chest. FINDINGS: Thecardiomediastinal silhouette is within normal limits. The lungs are well aerated. Small scattered pleural calcifications or granulomas are seen. No large pneumothorax or pleural effusion. Osseous structures and soft tissues demonstrate no acute findings. The visualized upper abdomen is unremarkable. IMPRESSION: No acute cardiopulmonary abnormality. at 2203 Reported and signed by: Leo Martin MD CC: Wayne Emerson DO Technologist: SARAH Rockwell Date/Time/By: 10/26/2020 (2202) : By: [email or web address] PAGE 1 Signed Report FAX: Wayne Emerson DO [phone] [place]: St: PRE Name: RANDOLPHVLADIMIR [facility] : 1950 Age/S: 70/M [address] [facility] Unit #: [id number] Loc: [address] Phys: [place] [id number] Acct: [id number] Dis Date: Status: PRE ER PHONE #: [phone] Exam Date: 10/26/20202200 FAX #: [phone] Reason: SOB EXAMS: CPT CODE: [id number] XR CHEST 1 V 92017 (Continued) Orig Print D/T: S: 10/26/2020 (2205) PAGE 2 Signed Report
[2022-06-23 13:50] LABS: Absolute Lymphocytes (CBC) 1.5 K/uL (0.7-4.9); Hematocrit 39.2 % (39.6-49.0); Lymphocytes % 25.8 % (15.3-44.8); MCV 99.6 fL (80-100); MPV 9.5 fL (7.6-11.3); RBC Red Blood Cell Count 3.93 M/uL (4.33-5.43)
[2022-06-23 14:05] LABS: Albumin 3.6 g/dL (3.4-5.0); Bilirubin Total 0.5 mg/dL (0.2-1.0); Potassium 4.1 mmol/L (3.5-5.1); Protein, Total 7.5 g/dL (6.4-8.2)
--- NOTE | 2022-06-23 15:25 | RAD REPORT ---
EXAM DESCRIPTION: CT - Stone Protocol - 06/23/2022 2:57 pm CLINICAL HISTORY: blood in catheter COMPARISON: Angio Aorta For Dissection dated 06/19/2022 TECHNIQUE: Axial 3 mm thick images were obtained without oral or IV contrast. The [id number] span s the entirety of the system including uppermost abdomen and lung bases. All CT scans are performed using dose optimization technique as appropriate and may include automated exposure control or mA/KV adjustment according to patient size. FINDINGS: No hydronephrosis is present and no obstructing ureteral calculi. No nonobstructing calcul i seen. Isodense masses and pyelonephritis are not excluded stone protocol study. A 4-5 cm homogeneou s fluid attenuation mass lower pole left kidney has not changed from the short interval June 19 st . Benign cyst is favored etiology. No significant adrenal finding. Urinary bladder is fully contra cted around a Vargas catheter and cannot be further assessed. Imaged portions of the liver, spleen and pancreas show no suspicious findings on non-contrast imaging . Gallbladder is contracted. A 5 mm gallstone is suspected. No biliary tree dilatation. Stomach is dilated. This is distended primarily by air. An obstructing mass near the pylorus is not s een. No gastric wall thickening or wall thickness asymmetry. No acute small bowel finding. Prominent amount of stool is present in the right-side of the colon. No colon mass or wall thickening identifie d. No suspicion for appendicitis. No hernia, mass or bulky lymphadenopathy noted. No free air, free fluid or inflammatory stranding. No significant bony abnormality. IMPRESSION: Urinary bladder is fully contracted around a Vargas catheter and cannot be further assess ed. No hydronephrosis or acute renal finding. A 4-5 cm low-attenuation mass lower pole left kidney is bel ieved to be an incidental cyst unchanged from short interval June 19 imaging. Stomach is dilated without evidence for obstructing mass at the pylorus. This could be gastro paresis affect. There is a large stool volume in the right-side of the colon. Isodense masses and pyelonephritis are not excluded on stone protocol technique.
[2022-06-23 15:41] LABS: Urine Blood 3+ (Negative); Urine Glucose Negative (Negative); Urine Protein Negative (Negative); Urine Specific Gravity 1.015 (1.005-1.030); Urine pH 8.5 (5.0-7.0)
[2022-06-23 16:18] LABS: Urine Crystals Unidentified Few /HPF (None Seen); Urine Mucus Slight /HPF (None Seen); Urine RBC >50 /HPF (None Seen); Urine WBC Clump Rare /HPF (None Seen)
--- NOTE | 2022-06-23 16:26 | ER ---
Nurse's Notes [facility] Name: Felipe Garrett Age: 72 yrs Sex: Male : 1950 Arrival Date: 06/23/2022 Time: 12:54 Bed 4 Private MD: Diagnosis: Hematuria, unspecified Presentation: 06/23 13:13 Chief complaint: Patient states: Blood in urine since last night. Coronavirus screen: kb3 Vaccine status: Patient reports receiving the 2nd dose of the covid vaccine. Client denies travel out of the [place] in the last 14 days. Ebola Screen: Patient negative for fever greater than or equal to 101.5 degrees Fahrenheit, and additional compatible Ebola Virus Disease symptoms Patient denies exposure to infectious person. Patient denies travel to an Ebola-affected area in the 21 days before illness onset. No symptoms or risks identified at this time. Initial Sepsis Screen: Does the patient meet any 2 criteria? No. Patient's initial sepsis screen is negative. Does the patient have a suspected source of infection? No. Patient's initial sepsis screen is negative. Risk Assessment: Do you want to hurt yourself or someone else? Patient reports no desire to harm self or others. Onset of symptoms was June 22, 2022. 13:13 Method Of Arrival: Wheelchair kb3 13:13 Acuity: MARINO 3 kb3 Triage Assessment: 13:14 General: Appears in no apparent distress. Behavior is calm, cooperative. Pain: Denies kb3 pain. Historical: - Allergies: 13:14 Benadryl; kb3 - PMHx: 13:14 ALS; Diabetes - NIDDM; Hypertension; Urinary retention; kb3 - Immunization history:: Adult Immunizations up to date, Client reports receiving the 2nd dose of the Covid vaccine, Last tetanus immunization: up to date. - Social history:: Smoking status: Patient denies any tobacco usage or history of. Screenin:43 Abuse screen: Denies threats or abuse. Denies injuries from another. Nutritional tp1 screening: No deficits noted. Tuberculosis screening: No symptoms or risk factors identified. Fall Risk No fall in past 12 months (0 pts). No secondary diagnosis (0 pts). IV access (20 points). Ambulatory Aid- None/Bed Rest/Nurse Assist (0 pts). Gait- Normal/Bed Rest/Wheelchair (0 pts) Mental Status- Oriented to own ability (0 pts). Total Wick Fall Scale indicates No Risk (0-24 pts). Assessment: 13:10 General: Appears in no apparent distress. comfortable, Behavior is calm, cooperative. tp1 Pain: Denies pain. Neuro: Level of Consciousness is awake, alert, obeys commands, Oriented to person, place, time, situation. Cardiovascular: Patient's skin is warm and dry. Respiratory: Airway is patent Respiratory effort is even, unlabored. GI: Abdomen is flat, non-distended, Patient currently denies abdominal pain, diarrhea, nausea, vomiting. : Vargas in place to gravity drainage urine appears dark red in color. EENT: No signs and/or symptoms were reported regarding the EENT system. Derm: Skin is pink, warm \T\ dry. Musculoskeletal: Circulation, motion, and sensation intact. 14:12 Reassessment: Patient appears in no apparent distress at this time. No changes from tp1 previously documented assessment. Patient and/or family updated on plan of care and expected duration. Pain level reassessed. Patient is alert, oriented x 3, equal unlabored respirations, skin warm/dry/pink. Patient denies pain at this time. 15:27 Reassessment: Patient appears in no apparent distress at this time. No changes from tp1 previously documented assessment. Patient is alert, oriented x 3, equal unlabored respirations, skin warm/dry/pink. urinary catheter bag changed. 300mL kavita colored urine collected. Patient denies pain at this time. Vital Signs: 13:13 BP 149 / 77; Pulse 96; Resp 20; Temp 97.9; Pulse Ox 98% ; Weight 49.9 kg; Height 5 ft. kb3 7 in. (170.18 cm); Pain 0/10; 14:12 BP 136 / 72; Pulse 79; Resp 16; Pulse Ox 99% on R/A; tp1 13:13 Body Mass Index 17.23 (49.90 kg, 170.18 cm) kb3 ED Course: 12:54 Patient arrived in ED. am2 13:04 Cassie Diaz FNP-C [facility]. kb 13:04 Mehran Soni MD is Attending Physician. kb 13:04 Arm band placed on Patient placed in an exam room, on a stretcher. ll1 13:10 Patient has correct armband on for positive identification. Placed in gown. Bed in low tp1 position. Call light in reach. Side rails up X2. Pulse ox on. NIBP on. 13:12 Rosie Grimes, RN is Primary Nurse. tp1 13:14 Triage completed. kb3 13:20 Inserted saline lock: 22 gauge in left forearm, using aseptic technique. ,using aseptic vg1 technique. flushes well; no blood return. 13:26 Inserted saline lock: 22 gauge in right wrist, using aseptic technique. vg1 14:59 Stone Protocol In Process Unspecified. EDMS 17:23 No provider procedures requiring assistance completed. IV discontinued, intact, iw bleeding controlled, No redness/swelling at site. Pressure dressing applied. Administered Medications: No medications were administered Medication: 17:23 VIS not applicable for this client. iw Outcome: 16:25 Discharge ordered by MD. kb 17:23 Discharged to home via wheelchair, with family. iw 17:23 Condition: good 17:23 Discharge instructions given to patient, family, Instructed on discharge instructions, follow up and referral plans. Demonstrated understanding of instructions, follow-up care, medications, Prescriptions given X 1. 17:24 Patient left the ED. iw Signatures: Dispatcher [employer] EDMS Cassie Diaz, AUTO REPAIR SHOP MANAGER-C AUTO REPAIR SHOP MANAGER-Ckb Gricelda Rothman, RN Laurie Mccloud Victoria, RN CORTNEY vg1 Dougie Fortune RN RN ll1 Rosie Grimes, RN RN tp1 Marie Shaffer, RN RN kb3
--- NOTE | 2022-06-23 16:26 | EDPHYS ---
Physician Documentation [facility] Name: Felipe Garrett Age: 72 yrs Sex: Male : 1950 Arrival Date: 06/23/2022 Time: 12:54 Bed 4 Private MD: ED Physician Mehran Soni HPI: 06/23 13:14 This 72 yrs old Black Male presents to ER via Unassigned with complaints of blood in kb catheter. 13:14 The patient presents with a Vargas catheter problem, draining bloody urine. Onset: The kb symptoms/episode began/occurred this morning. Modifying factors: The symptoms are alleviated by nothing, the symptoms are aggravated by nothing. Associated signs and symptoms: Pertinent positives: hematuria, Pertinent negatives: abdominal pain, constipation, diarrhea, dysuria, fever, nausea, vomiting. Severity of symptoms: At their worst the symptoms were moderate, in the emergency department the symptoms are unchanged. The patient has not experienced similar symptoms in the past. The patient has not recently seen a physician. Historical: - Allergies: 13:14 Benadryl; kb3 - PMHx: 13:14 ALS; Diabetes - NIDDM; Hypertension; Urinary retention; kb3 - Immunization history:: Adult Immunizations up to date, Client reports receiving the 2nd dose of the Covid vaccine, Last tetanus immunization: up to date. - Social history:: Smoking status: Patient denies any tobacco usage or history of. ROS: 13:13 Constitutional: Negative for fever, chills, and weight loss. kb 13:13 : Positive for hematuria. 13:13 All other systems are negative. Exam: 13:13 Constitutional: This is a well developed, well nourished patient who is awake, alert, kb and in no acute distress. Head/Face: Normocephalic, atraumatic. ENT: Moist Mucous membranes Cardiovascular: Regular rate and rhythm with a normal S1 and S2. No gallops, murmurs, or rubs. No pulse deficits. Respiratory: Respirations even and unlabored. No increased work of breathing. Talking in full sentences Abdomen/GI: Soft, non-tender. No distention Back: No spinal tenderness. No costovertebral tenderness. Full range of motion. Skin: Warm, dry with normal turgor. Normal color. MS/ Extremity: Pulses equal, no cyanosis. Neurovascular intact. Full, normal range of motion. 13:13 Neuro: Exam negative for acute changes. Vital Signs: 13:13 BP 149 / 77; Pulse 96; Resp 20; Temp 97.9; Pulse Ox 98% ; Weight 49.9 kg; Height 5 ft. kb3 7 in. (170.18 cm); Pain 0/10; 14:12 BP 136 / 72; Pulse 79; Resp 16; Pulse Ox 99% on R/A; tp1 13:13 Body Mass Index 17.23 (49.90 kg, 170.18 cm) kb3 MDM: 13:04 Patient medically screened. kb 13:13 Data reviewed: vital signs, nurses notes. Data interpreted: Pulse oximetry: on room air kb is 100 %. Interpretation: normal. 16:25 Counseling: I had a detailed discussion with the patient and/or guardian regarding: the kb historical points, exam findings, and any diagnostic results supporting the discharge/admit diagnosis, lab results, radiology results, the need for outpatient follow up, a urologist, to return to the emergency department if symptoms worsen or persist or if there are any questions or concerns that arise at home. 06/23 13:07 Order name: CBC with Diff kb 06/23 13:07 Order name: CMP; Complete Time: 14:06 kb 06/23 13:07 Order name: Lipase; Complete Time: 14:06 kb 06/23 13:07 Order name: Urine Microscopic Only; Complete Time: 16:24 kb 06/23 13:07 Order name: IV Saline Lock; Complete Time: 13:33 kb 06/23 13:07 Order name: Labs collected and sent; Complete Time: 13:33 kb 06/23 13:07 Order name: Urine Dipstick-Ancillary (obtain specimen); Complete Time: 15:50 kb 06/23 13:13 Order name: CT Stone Protocol kb 06/23 13:51 Order name: CBC with Automated Diff; Complete Time: 13:55 EDMS 06/23 14:40 Order name: Stone Protocol; Complete Time: 15:27 EDMS 06/23 15:42 Order name: Urine Dipstick-Ancillary; Complete Time: 15:46 EDMS Administered Medications: No medications were administered Disposition Summary: 06/23/22 16:25 Discharge Ordered Location: Home kb Condition: Stable kb Diagnosis - Hematuria, unspecified kb Followup: kb - With: Emergency Department - When: As needed - Reason: Worsening of condition Followup: kb - With: Private Physician - When: 2 - 3 days - Reason: Recheck today's complaints, Continuance of care, Re-evaluation by your physician Discharge Instructions: - Discharge Summary Sheet kb - Hematuria, Adult kb Forms: - Medication Reconciliation Form kb - Thank You Letter kb - Antibiotic Education kb - Prescription Opioid Use kb Prescriptions: - Cipro 500 mg Oral Tablet - take 1 tablet by ORAL route every 12 hours for 7 days; 14 tablet; Refills: 0, kb Product Selection Permitted Addendum: 06/27/2022 04:09 Co-signature as Attending Physician, Mehran Soni MD I agree with the assessment and c elizabeth plan of care. Signatures: Dispatcher [employer] Cassie Morris, BOILERMAKER HELPER-C BOILERMAKER HELPER-Mehran Carrera MD MD cha Bradberry, Kelly, RN RN kb3 Corrections: (The following items were deleted from the chart) 06/23 14:59 14:59 Stone Protocol ordered. [facility] EDTN
[2022-06-23 17:51] VITALS: TEMP 97.9
[2022-06-23 17:53] VITALS: BP 136/72; O2SAT 99
== END 2022-06-23 17:24 | disposition home or self-care (01) ==
LOC: ER 12:53
DX: R31.9 Hematuria, unspecified (principal); T83.091A Other mechanical complication of indwelling urethral catheter, initial encounter; E11.9 Type 2 diabetes mellitus without complications; I10 Essential (primary) hypertension; R33.9 Retention of urine, unspecified
CPT/HCPCS: 36415; 74176; 76377; 80053; 81003; 81015; 83690; 85025; 99284

== ENCOUNTER 2022-08-29 08:03 | Day surgery (SDC) | payer OTHER ==
[2022-08-16 11:28] LABS: Absolute Lymphocytes (CBC) 0.7 K/uL (0.7-4.9); Hematocrit 29.2 % (39.6-49.0); Lymphocytes % 12.7 % (15.3-44.8); MCV 101.7 fL (80-100); MPV 8.7 fL (7.6-11.3); Protime INR 1.13; RBC Red Blood Cell Count 2.87 M/uL (4.33-5.43)
[2022-08-16 11:30] LABS: Potassium 3.9 mmol/L (3.5-5.1)
--- NOTE | 2022-08-17 08:05 | EKG ---
Test Date: 2022-08-16 Test Time: 10:45:57 Dispatcher Service Chief: COREY MEASUREMENT RESULTS: Intervals: Rate: 90 ID: [id number] QRSD: 76 QT: 350 QTc: 428 [place]: P: 77 ID: [id number] QRS: 74 T: 104 INTERPRETIVE STATEMENTS: Sinus rhythm with short ID Otherwise normal ECG Compared to ECG 06/15/2005 09:47:00 Short ID interval now present Sinus bradycardia no longer present Electronically Signed On 08-17-22 08:01:56 GENERAL MANAGER by Gab Benito
[2022-08-29] MEDS ORDERED: CEFAZOLIN SODIUM 1 GM/VIAL ONE (08:36)
[2022-08-29] MEDS ORDERED: Ringers Lactate 1,000 ML IV ONE (08:37)
[2022-08-29] MEDS ORDERED: LIDOCAINE 2% W/EPI 1:200,000 MPF 20 ML VIAL IM ONE ×2 (09:01→09:54)
[2022-08-29] MEDS ORDERED: FENTANYL CITR 100 MCG/2 ML ONE (09:20)
[2022-08-29 11:12] VITALS: O2SAT 100
--- NOTE | 2022-08-29 11:26 | RAD REPORT ---
EXAM DESCRIPTION: RAD - Urethrocystogrphy Retrograde - 08/29/2022 11:07 am CLINICAL HISTORY: STENT PLACEMENT COMPARISON: No comparisons FINDINGS: Total fluoro time: 0.19 minutes
[2022-08-29] MEDS ORDERED: ACETAMINOPHEN 160 MG/5 ML UCUP PO PRN (11:27)
[2022-08-29 11:49] VITALS: BP 120/56; TEMP 98.2
--- NOTE | 2022-08-29 13:46 | OP ---
Surgeon: ELENA WOLFF Preoperative Diagnoses: 1.Gross hematuria. 2.Bladder lesions. 3.Urinary retention. 4.BPH with obstruction. 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 Postoperative Diagnoses: 1.Gross hematuria. 2.Bladder lesions. 3.Urinary retention. 4.BPH with obstruction. 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 Principal Procedures: 1.Cystoscopy with bladder biopsies. 2.Bilateral retrograde pyelography. Indication For Procedure: Mr. Garrett is a 72-year-old gentleman with ALS, who presented to the Urology Clinic with gross hematuria. He had significant bothersome obstructive lower urinary symptoms and u ltimately required a catheter to be replaced, but cystoscopic evaluation revealed the presence of pos terior wall catheter trauma, typically noted, but there was also a right lateral wall slightly more s uspicious papillary urothelial lesion potentially consistent with tumor. As a result, he was recomme nded for operative evaluation including biopsies and underwent extensive preoperative evaluation and preparation including with Neurology and Pulmonology along with Internal Medicine before presenting t alycia for evaluation. Procedure In Detail: The patient was consented in the preoperative holding area before being transfe rred to the operative suite where an epidural anesthesia was provided using lidocaine and fentanyl. The patient was awake and conversive throughout the procedure and able to express if he had any diffi culty with secretions that might result in aspiration. The patient was placed in the reverse [place] en[place] position in order to keep his head elevated throughout the procedure. He was placed in the li thotomy position, padded and secured appropriately. His genitalia were prepped with Hibiclens and he was draped in standard fashion. The case was begun using a 22-Central African rigid cystoscope to traverse t he urethra and into the bladder with ease. Of note, there was the preexisting lateral lobar hypertro phy, but an elevated median bar with [id number] intravesical projection of the median lobe. Up on entry into the bladder, it was decompressed of fluid and urine and surveyed in its entirety. Misha tionally, a 70-degree lens was also employed to survey the bladder neck. The previously observed pap illary urothelial neoplasm within the right lateral wall of greater suspicion was no longer visible o n this occasion. Posteriorly, there was a sessile and micropapillary urothelial change of minimal hope spicion and likely consistent with catheter trauma. As a result, I biopsied the most suspicious of t hat posterior wall lesion and sent this for pathologic analysis. Using sterile water as the irrigati on, a Bugbee electrode was then used to fulgurate the base of each of these lesions with a cautery se tting of 30. The patient tolerated this procedure without issue. Because preoperative imaging thoug h performed with IV contrast, was performed at an outside facility and did not include a urographic p hase/delayed phase set of imaging, I then employed a 5-Central African ureteral access catheter to perform ret rograde pyelography studies. Left retrograde pyelography: Using a 70:30 mixture of Omnipaque and saline, I attempted to gain access into the left ureteral orif ice using a 5-Central African ureteral access catheter. The catheter would not pass beyond the intramural por tion of the ureter. Thus using a Sensor wire to attempt to navigate the catheter better into the ure teral orifice, this also was thwarted. As a result, I switched to a cone-tipped catheter and was abl e just lodged this in the ureteral orifice and inject contrast. Contrast did demonstrate a very atyp ical trajectory for the ureter extending posterolaterally several cm from the intramural surface of t he bladder before heading superiorly in the typical localization of the ureter. There was no hydrour eteronephrosis, and no filling defects were noted along the course of the ureter or within the renal pelvis or calyces. The calyces were sharp without evidence of caliectasis. I then utilized the 5-Central African ureteral access catheter and a Sensor wire to intubate the right uretera l orifice and inject that 70:30 mixture of Omnipaque and saline on the right side to perform a right retrograde pyelogram. Right retrograde pyelography: The contrast mixture was injected via the 5-Central African ureteral access catheter and did propagate up the nondilated distal into the mid and proximal ureter before entering the renal pelvis and calyces. The re was no pelvicaliectasis, and no filling defects were noted along the entirety of the course of the collecting system. As a result, the catheter was removed, and contrast material efflux was noted to emanate from each of the ureters. I then checked his bladder again for any sign of bleeding and whe n none was noted, I removed the cystoscope and replaced an 18-Central African coude tip catheter into his blad evaristo with ease. Approximately 20-30 cc of sterile water was placed in the balloon, and then I irrigat ed the catheter to ensure absence of clots. The catheter was then reconnected to his extension tubin g, which was washed in a solution of chlorhexidine and then irrigated before connected to a fresh leg bag with a flap valve that he can operate himself at home. He was taken out of the lithotomy positi on, and then transferred to a stretcher before being transferred to the recovery room in good conditi on. Complications: None. Discharge Disposition: He should follow up in the Urology Clinic for urodynamics evaluation to deter mine bladder function and coordination of voiding prior to any consideration for transurethral resect ion of the prostate or/prostatic urethral obstruction. Subsequent discussion of the pathology can al so be held following the urodynamics evaluation since I anticipate the pathology to be benign. GUERO/AUDIE Voice ID: [id number] Report ID: [id number]
== END 2022-08-29 12:40 | disposition home or self-care (01) ==
LOC: OR 08:03
PROVIDERS: ATTEND Urology
PROC: 0TBB8ZX Excision of Bladder, Via Natural or Artificial Opening Endoscopic, Diagnostic (ICD-10-PCS; principal; 2022-08-29 09:30)
DX: N30.91 Cystitis, unspecified with hematuria (principal); D49.4 Neoplasm of unspecified behavior of bladder; R31.0 Gross hematuria; R33.9 Retention of urine, unspecified; N40.1 Benign prostatic hyperplasia with lower urinary tract symptoms; N13.8 Other obstructive and reflux uropathy; G12.21 Amyotrophic lateral sclerosis; N32.9 Bladder disorder, unspecified
CPT/HCPCS: 52204; 93005; 87088; 85025; 87086; 80048; 36415; 85610; 88305; 74450; 51610; J3010; J7120; J0690

== ENCOUNTER 2022-09-04 12:33 | Emergency (ER) | payer OTHER ==
--- OUTSIDE RECORDS SUMMARY | 2022-09-04 12:51 | XMS REPORT | Continuity of Care Document ---
:1950 Author Organization [facility] t Address [address] [place] [address] [address]. [address] [place] [address] Care Team Providers Name Role Phone Sandra FIGUEREDO, Britt Aj Primary Care Physician Carley Lemus Attending Clinician Unavailable Olivier Lala Attending Clinician Unavailable LAURA Attending Clinician Unavailable Jovan FIGUEREDO, Bill Billingsley Attending Clinician [phone] Sonali Matias Attending Clinician Unavailable ALIRIO LEVI Attending Clinician Unavailable Alirio Levi Attending Clinician Zeny FIGUEREDO, Aurelia Browning Attending Clinician [phone] ROSARIO FRANCO Attending Clinician Unavailable Rosario Franco Attending Clinician Shira Arthur LVN Attending Clinician Unavailable Naima Simon RN Attending Clinician Unavailable Ale FIGUEREDO, Bijan Romo Attending Clinician Chidi BARR, Vidhi Attending Clinician Unavailable Britt Cadet Attending Clinician [phone] Filemon Jhaveri MD Attending Clinician Ingrid Valdivia Attending Clinician Tanisha FIGUEREDO, Blanca Attending Clinician Yan_W Attending Clinician Unavailable Alina BARR, Reynaldo Attending Clinician Unavailable Thea Manning Attending Clinician [phone] MARLYN PATEL Attending Clinician Unavailable ILDA WOODS Attending Clinician Unavailable keffer_a Attending Clinician Unavailable Physician, No Primary or Family Admitting Clinician UnavailOlivier Barney Admitting Clinician Unavailable KEFFER_A Admitting Clinician Unavailable ROSARIO FRANCO Admitting Clinician Unavailable Rosario Franco Admitting Clinician Yan_W Admitting Clinician Unavailable keffer_a Admitting Clinician Unavailable Payers Payer Name Policy Type Policy Number Effective Date Expiration Date S ource MEDICARE [place]: [id number] 2006 [facility] 00:00:00 SOLUTIONS MEDICARE NOVITAS MB [id number] [facility] [id number] [facility] MEDICARE [facility] [id number] [facility] Problems Condition Condition Condition Status Onset Resolution Last Treating Co mments Source Name Details Category Date Date Treatment Clinician Date Chronic Chronic Disease Active 2021-09 [facility] bronchitis bronchitis 10-10 , , 00:00: Hospita mucopurule mucopurule 00 l nt nt Other Other Disease Active 2021-09 [facility] insomnia insomnia 10-10 00:00: Hospita 00 l SOB SOB Diagnosis Active 2021-092022-08-09 Mem oria Active 10-06 18:47:00 l 08/05/2022 00:00: Malcolm guzman 00 [facility] TRAUMATIC TRAUMATIC Diagnosis Active 2021-092022-07-24 Memoria NOSE BLEED NOSE BLEED 09-22 04:25:00 l Active 00:00: Kulwant 07/23/2022 00 [facility] CONSTIPATI CONSTIPAT Diagnosis Active 2021-092022-07-24 Memoria ON ION Active 09-22 04:26:00 l 07/23/2022 00:00: Malcolm guzman [address] EPISTAXIS/ EPISTAXIS Diagnosis Active 2021-092022-08-01 Memoria SYMPTOMATI /SYMPTOMAT 09-22 21:52:00 l C ANEMIA IC ANEMIA 00:00: Erica nn Active 00 07/23/2022 [facility] Acute Acute Problem Active [place] pharyngiti Pharyngiti 8-11 [facility] m[facility] s s 00:00: ty 00 [facility] PROBLEMS PROBLEMS Diagnosis Active 2022-04-01 Memoria PEE PEE Active 04-01 08:48:00 l 04/01/2022 00:00: Malcolm guzman 00 [facility] Screening Screening Problem Active Swe rupesh for for 5-26 Communi malignant Malignant 00:00: ty neoplasm Neoplasm 00 [facility] l prostate Prostate Clinic s Impacted Impacted Problem Active [place] cerumen of Cerumen of 5-26 Co mmuni bilateral Bilateral 00:00: ty ears Ears 00 Hospita Clinics Hemoptysis Hemoptysis Problem Active 2020-09 S weeny 1-16 Communi 00:00: ty 00 [facility]ospita l Clinics 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 6-03 Communi 00:00: ty 00 Hospita l Clinics Chest pain Chest Pain Problem Active S weeny 2-11 Communi 00:00: ty 00 [facility]ospita Clinics At risk At Risk Problem Active [place] for falls for Falls 2-11 Comm uni 00:00: ty 00 [facility]ospita l Clinics Prostate Prostate Problem Active [place] nodule Nodule 6-23 Communi 00:00: ty 00 [facility]ita [facility] Clin[facility] Nausea Nausea Problem Active 2019-0 [place] 6-11 Communi 00:00: ty 00 [facility] Abdominal Abdominal Problem Active 2019- Swe rupesh pain Pain 6-11 Communi 00:00: ty 00 [facility] Clin[facility] Insomnia Insomnia Problem Active 2019-0 [facility] 2-25 Communi 00:00: ty 00 [facility] l Clin[facility] Bradycardi Bradycardi Problem Active 2018-09 S weeny a a 1-21 Communi 00:00: ty 00 [facility] Abnormal Abnormal Problem Active [place] weight Weight 9-19 Communi loss Loss 00:00: ty 00 [facility] Folliculit Folliculit Problem Active Prem banda is is 7-11 Communi 00:00: ty 00 [facility] Cough Cough Problem Active [place] 6-19 Communi 00:00: ty 00 [facility] Chronic Chronic Problem Active [place] constipati Constipati 4-22 Co mmuni on on 00:00: ty 00 [facility] Pain of Pain of Problem Active [place] left ankle Left Ankle 1-08 [facility] joint Joint 00:00: ty 00 [facility] Type 2 Type 2 Problem Active [place] diabetes Diabetes 6-27 Commun i mellitus Mellitus 00:00: ty 00 [facility] Essential Essential Problem Active Swe rupesh hypertensi Hypertensi 6-27 Co mmuni on on 00:00: ty [facility] Benign Benign Problem Active [place] hypertensi Hypertensi 6-27 Co mmuni on on [...] Disease Active 2015-09 M ethodi tis tis 0-06 st 00:00: Hospita 00 l Dyspnea Dyspnea Disease Active 2015-09 Methodi 0-06 [facility] 00:00: Hospita 00 l Respirator Respirator Disease Active 2015-09 Overview : Methodi y y 0-[address] insufficie insufficie 00:00: g of this Hospita ncy ncy 00 note l might be different from the original. BIPAP - 05/2008 Chronic Chronic Problem Active 2022-07-24 M emoria constipati constipati - 18:30:36 l on on 00:00: Hessel (disorder) (disorder) 00 Active 12/29/2014 Problem 07/24/2022 Data migrated from [employer] on 03/10/15. [facility] Cough Cough Problem Active 2022-07-24 Memor ia (finding) (finding) 10-02 18:30:36 l Active 00:00: Kulwant 10/02/2013 00 Problem 07/24/2022 Data migrated from [employer] on 01/30/15. [facility] Acute Acute Problem Active 2012-092022-07-24 Memor ia osteomyeli osteomyeli - 18:30:36 l tis tis 00:00: Kulwant (disorder) (disorder) 00 Active 08/14/2013 Problem 07/24/2022 Data migrated from [employer] on 01/30/15. [facility] Intraspina Intraspin Problem Active 2012-092022-07-24 Memoria l abscess al abscess 2- 18:30:36 l (disorder) (disorder) 00:00: He rmann Active 00 08/14/2013 Problem 07/24/2022 Data migrated from [employer] on 01/30/15. [facility] Seasonal Seasonal Problem Active 2022-07-24 Memoria allergic allergic 01-29 18:30:36 l rhinitis rhinitis 00:00: Malcolm guzman (disorder) (disorder) 00 Active 01/29/2013 Problem 07/24/2022 Data migrated from [employer] on 01/30/15. [facility] Ankle pain Ankle Problem Active 2022-07-24 M emoria (finding) pain 01-07 18:30:36 l (finding) 00:00: Kulwant Active 00 01/07/2013 Problem 07/24/2022 Data migrated from [employer] on 01/30/15. 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 00:00: ty 00 Hospita l Clinics Acute Acute Problem Active [place] sinusitis Sinusitis [...] [facility] Gout Gout Problem Resolve 2022-07-24 Luis juan (disorder) (disorder) d 18:30:36 l Resolved Hessel Problem 07/24/2022 [facility] Hypertensi Hypertens Problem Resolve 2022-07-24 Memoria ve anival d 18:30:36 l disorder, disorder, Herm andrew systemic systemic arterial arterial (disorder) (disorder) Resolved Problem 07/24/2022 [facility] Stroke Stroke Problem Resolve 2022-07-24 Mem oria Resolved d 18:30:36 l Problem Kulwant 07/24/2022 [facility] Diabetes Diabetes Problem Active 2022-07-24 Memoria mellitus mellitus 18:30:36 l (disorder) (disorder) He rmann Active Problem 07/24/2022 Data migrated from [employer] on 01/30/15. [facility] Hyperkalem Hyperkale Problem Active 2022-07-24 Memoria ia allen 18:30:36 l (disorder) (disorder) He rmann Active Problem 07/24/2022 Data migrated from [employer] on 01/30/15. [facility] CONSTIPATI CONSTIPAT Diagnosis Active 2022-07-24 Memoria ON, ION, 04:26:00 l UNSPECIFIE UNSPECIFIE He rmann D D Active [facility] EPISTAXIS EPISTAXIS Diagnosis Active 2022-08-01 Memoria Active 21:52:00 l [facility] ANEMIA, ANEMIA, Diagnosis Active 2022-08-01 Memoria UNSPECIFIE UNSPECIFIE 21:52:00 l D D Active [facility] Stroke(Con Problem Resolve 2022-04-03 Memoria firmed) Stroke(Con d 21:41:31 l firmed) Hessel Resolved Problem 04/03/2022 [facility] Benign Benign Problem Active 2022-08-08 Luis juan prostatic prostatic 04:14:36 l hyperplasi hyperplasi He andrew a a (disorder) (disorder) Active Problem 08/08/2022 [facility] Hyperlipid Hyperlipi Problem Active 2022-08-08 Memoria emia demia 04:14:36 l (disorder) (disorder) He rmann Active Problem 08/08/2022 [facility] [id number] Bladder Problem Commo n tumor [facility] [id number] Incomplete Problem Co mmon emptying [facility] [id number] BPH loc w Problem Com mon urin Spirit obs/LUTS [facility] [id number] Lesion of Problem Com mon bladder [facility] [id number] Urinary Problem Commo n retention [facility] [id number] Gross Problem Common hematuria [facility] Mycosis Mycosis Problem Active [facility] Impacted Impacted Problem Active [place] [facility] Dyspnea Dyspnea Diagnosis 2021-092022-08-08 2022-08-08 Memoria (finding) (finding) 2-04 04:14:36 04:14:36 l 08/06/2022 02:44: Malcolm n Diagnosis 00 08/08/2022 [facility] History of Past Illness Condition Condition Condition Status Onset Resolution Last Treating Co mments Source Name Details Category Date Date Treatment Clinician Date Retention Problem 2022-04-03 2022-04-03 Memoria of urine, Retention 04-01 21:41:31 21:41:31 l unspecifie of urine, 13:46: Her ibanez d unspecifie 00 d 04/01/2022 04/03/2022 [facility] Allergies, Adverse Reactions, Alerts Allergy Allergy Status Severity Reaction(s) Onset Inactive Treating Comm ents Source Name Type Date Date Clinician diphenhy DA Active U UNKNOWN [facility] dramine 2-23 Clear 00:00: Flor 00 [facility] diphenhy DA Active U [facility] dramine 2-23 Clear 00:00: Flor 00 [facility] Breanne Propensi Active Methodi Inhibito ty to 6-07 st rs adverse 00:00: Hospita reaction 00 l s to drug Diphenhy Propensi Active Other (See 2015-09 Urinary M ethodi dramine ty to Comments) [address] Hcl adverse 00:00: Hospita reaction 00 l s to drug Benadryl Benadryl Active Lela Blum BREANNE Allergy Active [place] INHIBITO to Communi RS substanc ty e Hospita l Clinics Benadryl Allergy Active Severe Other [place] to Communi substanc ty e Hospita l Clinics Family History Family Member Diagnosis Comments Start Date Stop Date Source Natural brother Heart disease [facility] Other [facility] Other Hy[facility] Social History Social Habit Start Date Stop Date Quantity Comments Source [facility] of [facility] - Tobacco Use [facility] Tobacco use and 2022-08-09 2022-08-09 Smokeless tobacco [facility] exposure 00:00:00 00:00:00 [facility]user Hospital Alcohol intake 2022-08-09 2022-08-09 [facility] Social History 2022-08-06 2022-08-06 [facility] 03:36:22 03:36:22 Smoking Status Start Date Stop Date Source Tobacco smoking status [facility] Medications Ordered Filled Start Stop Current Ordering Indication Dosage Frequency Signature Comments Components Source Medication Medication Date Date Medication? Clinician (SIG) Name Name allopurinol 2021-09 Yes 1 TABLET Me th[facility] (ZYLOPRIM) 2-[address] 100 MG 10:49: Hospita tablet 24 l baclofen 2021-09 Yes 1 TABLET Metho di (LIORESAL) 2-[address] 10 MG 10:49: Hospita tablet 24 l codeine-gua 2021-09 Yes TK 2 TEA Me th[facility] ifenesin 2-07 PO Q [address] (GUAIFENESI 10:49: PRN Hospit a N AC) 24 l 10-100 mg/5 mL liquid cycloSPORIN 2021-09 Yes 1 DROP Meth sheree E 2-[address] (RESTASIS) 10:49: DAILY Hospit a 0.05 % 24 l ophthalmic emulsion lactulose 2021-09 Yes 4 ounces Meth sheree (CHRONULAC) 2-[address] 10 gram/15 10:49: days Hospita mL solution 24 l tamsulosin 2021-09 Yes 2 CAPSULES M ethodi (FLOMAX) 2-[address] 0.4 mg 10:49: Hospita capsule,ext 24 l ended release 24hr multivitami 2021-09 Yes 1{tbl} QD Take 1 Me thodi n 2-[address] (THERAGRAN) 10:49: mouth Hospi ta tablet 24 daily. l diltiazem 2021-09 Yes 240mg QD Take 240 Met hodi CD 2-[address] (CardIZEM 10:49: mouth Hospita CD) 240 MG 24 daily. l 24 hr capsule oxybutynin 2021-09 Yes 10mg QD Take 10 mg M ethodi XL 2-[address] (DITROPAN-X 10:49: nightly. Ho spita L) 10 MG 24 24 l hr tablet indomethaci 2021-09 Yes 100mg Take 100 M ethodi n (INDOCIN) 2-[address] 50 MG 10:49: mouth as Hospita capsule 24 needed. l cholecalcif 2021-09 Yes 2000U QD Take 2,000 Methodi pb, 2-[address] vitamin D3, 10:49: mouth Hospi ta (VITAMIN 24 every l D3) 2,000 morning. unit capsule capsule omega-3-dha 2021-09 Yes 1{tbl} QD Take 1 Me thodi -epa-dpa-fi 2-[address] sh oil 10:49: mouth Hospita 1,050-1,200 24 nightly. l mg capsule docusate 2021-09 Yes 100mg Take 100 Meth sheree sodium 2-[address] (COLACE) 10:49: mouth as Hospi ta 100 MG 24 needed. l capsule aspirin 2021-09 Yes 81mg QD Take 81 mg Meth sheree (ECOTRIN) 2-[address] 81 MG 10:49: daily. Hospita enteric 24 l coated tablet finasteride 2021-09 Yes 5mg QD Take 5 mg M ethodi (PROSCAR) 5 2-[address] mg tablet 10:49: daily. Hospit a 24 l multivitami 2021-09 Yes 15mL QD Take 15 mL Methodi ns & 2-[address] minerals-fe 10:49: daily. Hosp tanner rrous 24 l gluconate 9 mg iron/15 mL liquid montelukast 2021-09 Yes 10mg QD Take 1 Meth sheree (SINGULAIR) 2-07 tablet (10 st 10 mg 10:49: mg total) Hospita tablet 24 by mouth l nightly. lubiproston 2021-09 Yes 24ug Q.5D Take 24 Met hodi e (AMITIZA) 2-[address] 24 MCG 10:49: mouth 2 Hospita capsule 24 (two) l times a day with meals. senna 2021-09 Yes 1{tbl} QD Take 1 Methodi (SENOKOT) 2-[address] 8.6 mg 10:49: mouth Hospita tablet 24 daily. l ticagrelor 2021-09 Yes 90mg Q.5D Take 90 mg M ethodi (BRILINTA) 2-[address] 90 mg 10:49: (two) Hospita tablet 24 times a l day. 2 pills daily AM, PM FOR THE HEART atorvastati 2021-09 Yes 40mg QD Take 40 mg Methodi n (LIPITOR) 2-[address] 40 mg 10:49: daily. 1 Hospita tablet 24 PILL daily l PM for Cholestero l bedtime folic 2021-09 Yes Take by Methodi acid/multiv 2-[address] it-min/lute 10:49: pill daily Hospita in (CENTRUM 24 AM l SILVER ORAL) albuterol 2021-09 Yes Q4H every 4 Metho di sulfate 90 2-07 (four) st mcg/actuati 10:49: hours. Hosp tanner on aero 24 l powdr breath act w/sensor bisacodyL 2021-09 Yes Q24H daily. Method i (DULCOLAX) 2-07 st 10 mg 10:49: Hospita suppository 24 l carboxymeth 2021-09 Yes Q24H daily. Meth sheree ylce-glycer 2-07 st n-poly80 10:49: Hospita 0.5-1-0.5 % 24 l drops famotidine 2021-09 Yes famotidine M ethodi (PEPCID) 40 2-[address] MG tablet 10:49: tablet Hospit a 24 TAKE 1 l TABLET BY MOUTH ONCE DAILY FOR 30 DAYS metoprolol 2021-09 Yes Methodi succinate 2-07 st XL 10:49: Hospita (TOPROL-XL) 24 l 25 mg 24 hr tablet folic 2021-09 Yes Take by Methodi acid/multiv 2- mouth. 1 st it-min/lute 10:49: pill daily Hospita in (CENTRUM 24 AM l SILVER ORAL) albuterol 2021-09 Yes Q4H every 4 Metho di sulfate 90 2 (four) st mcg/actuati 10:49: hours. Hosp tanner on aero 24 l powdr breath act w/sensor bisacodyL 2021-09 Yes Q24H daily. Method i (DULCOLAX) 2- st 10 mg 10:49: Hospita suppository 24 l carboxymeth 2021-09 Yes Q24H daily. Meth sheree ylce-glycer 2-07 st n-poly80 10:49: Hospita 0.5-1-0.5 % 24 l drops famotidine 2021-09 Yes famotidine M ethodi (PEPCID) 40 2-[address] MG tablet 10:49: tablet Hospit a 24 TAKE 1 l TABLET BY MOUTH ONCE DAILY FOR 30 DAYS metoprolol 2021-09 Yes Methodi succinate 2-07 st XL 10:49: Hospita (TOPROL-XL) 24 l 25 mg 24 hr tablet allopurinol 2021-09 Yes 1 TABLET Me thodi (ZYLOPRIM) 2-[address] 100 MG 10:49: Hospita tablet 24 l baclofen 2021-09 Yes 1 TABLET Metho di (LIORESAL) 2-[address] 10 MG 10:49: Hospita tablet 24 l codeine-gua 2021-09 Yes TK 2 TEA Me thodi ifenesin 2-07 PO Q [address] (GUAIFENESI 10:49: PRN Hospit a N AC) 24 l 10-100 mg/5 mL liquid cycloSPORIN 2021-09 Yes 1 DROP Meth sheree E 2-[address] (RESTASIS) 10:49: DAILY Hospit a 0.05 % 24 l ophthalmic emulsion lactulose 2021-09 Yes 4 ounces Meth sheree (CHRONULAC) 2-[address] 10 gram/15 10:49: days Hospita mL solution 24 l tamsulosin 2021-09 Yes 2 CAPSULES M ethodi (FLOMAX) 2-[address] 0.4 mg 10:49: Hospita capsule,ext 24 l ended release 24hr multivitami 2021-09 Yes 1{tbl} QD Take 1 Me thodi n 2-[address] (THERAGRAN) 10:49: mouth Hospi ta tablet 24 daily. l diltiazem 2021-09 Yes 240mg QD Take 240 Met hodi CD 2-[address] (CardIZEM 10:49: mouth Hospita CD) 240 MG 24 daily. l 24 hr capsule oxybutynin 2021-09 Yes 10mg QD Take 10 mg M ethodi XL 2-[address] (DITROPAN-X 10:49: nightly. Ho spita L) 10 MG 24 24 l hr tablet indomethaci 2021-09 Yes 100mg Take 100 M ethodi n (INDOCIN) 2-[address] 50 MG 10:49: mouth as Hospita capsule 24 needed. l cholecalcif 2021-09 Yes 2000U QD Take 2,000 Methodi pb, 2-[address] vitamin D3, 10:49: mouth Hospi ta (VITAMIN 24 every l D3) 2,000 morning. unit capsule capsule omega-3-dha 2021-09 Yes 1{tbl} QD Take 1 Me thodi -epa-dpa-fi 2-[address] sh oil 10:49: mouth Hospita 1,050-1,200 24 nightly. l mg capsule docusate 2021-09 Yes 100mg Take 100 Meth sheree sodium 2-[address] (COLACE) 10:49: mouth as Hospi ta 100 MG 24 needed. l capsule aspirin 2021-09 Yes 81mg QD Take 81 mg Meth sheree (ECOTRIN) 2-[address] 81 MG 10:49: daily. Hospita enteric 24 l coated tablet finasteride 2021-09 Yes 5mg QD Take 5 mg M ethodi (PROSCAR) 5 2-[address] mg tablet 10:49: daily. Hospit a 24 l multivitami 2021-09 Yes 15mL QD Take 15 mL Methodi ns & 2-[address] minerals-fe 10:49: daily. Hosp tanner rrous 24 l gluconate 9 mg iron/15 mL liquid montelukast 2021-09 Yes 10mg QD Take 1 Meth sheree (SINGULAIR) 2-07 tablet (10 st 10 mg 10:49: mg total) Hospita tablet 24 by mouth l nightly. lubiproston 2021-09 Yes 24ug Q.5D Take 24 Met hodi e (AMITIZA) 2-[address] 24 MCG 10:49: mouth 2 Hospita capsule 24 (two) l times a day with meals. senna 2021-09 Yes 1{tbl} QD Take 1 Methodi (SENOKOT) 2-[address] 8.6 mg 10:49: mouth Hospita tablet 24 daily. l ticagrelor 2021-09 Yes 90mg Q.5D Take 90 mg M ethodi (BRILINTA) 2-[address] 90 mg 10:49: (two) Hospita tablet 24 times a l day. 2 pills daily AM, PM FOR THE HEART atorvastati 2021-09 Yes 40mg QD Take 40 mg Methodi n (LIPITOR) 2-[address] 40 mg 10:49: daily. 1 Hospita tablet 24 PILL daily l PM for Cholestero l bedtime ipratropium 2021-09 Yes [id number] 3mL Q12H Take 3 mL Methodi -albuteroL 2-[address] (DUO-NEB) 00:00: nebulizati Ho spita 0.5-2.5 00 on every l mg/3 mL 12 nebulizer (twelve) hours. ipratropium 2021-09 Yes [id number] 3mL Q12H Take 3 mL Methodi -albuteroL 2-[address] (DUO-NEB) 00:00: nebulizati Ho spita 0.5-2.5 00 on every l mg/3 mL 12 nebulizer (twelve) hours. 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 FARMER, Weight albuterol 2021-09 Yes 2.49 mg = Mem oria 0.083% 2-04 3 mL, l inhalation 02:44: INHALATION H ermann solution 00 , Q6H, PRN wheezing, coughing, or shortness of breath, # 240 ea, 0 Refill(s), Pharmacy: [facility], 170.18, cm, 08/05/22 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 InnoSpire 2021-09 Yes See Admin Met hodi Essence 2-[address] device 00:00: ns. Hospita 00 l albuterol 2021-09 Yes USE 1 VIAL Me thodi (ACCUNEB) 2-[address] 2.5 mg /3 00:00: NEBULIZER [facility] [place] mL (0.083 00 EVERY 6 l %) HOURS nebulizer NEEDED FOR solution WHEEZING AND FOR CHOLESTERO L AND FOR SHORTNESS OF BREATH levoFLOXaci 2021-09 Yes 750mg QD Take 1 Met hodi n 2-[address] (LEVAQUIN) 00:00: (750 mg Hosp tanner 750 MG 00 total) by l tablet mouth daily. InnoSpire 2021-09 Yes See Admin Met hodi Essence 2-[address] device 00:00: ns. Hospita 00 l traZODone 2021-09- Yes 50mg QD Take 1 Metho di (DESYREL) 10-05 tablet (50 st 50 MG 00:00: 05:59 mg total) Hospit a tablet 00 :00 by mouth l nightly for 30 days. traZODone 2021-09- No 50mg QD Take 1 Metho di (DESYREL) 10-05 tablet (50 st 50 MG 00:00: 05:59 mg total) Hospit a tablet 00 :00 by mouth l nightly for 30 days. Metoprolol 2021-09 Yes 100 mg = 1 M emoria Succinate 1-23 tab, PO, l ER 100 mg 18:08: Daily, 0 Herm andrew oral 00 Refill(s) tablet, extended release Metoprolol 2021-09 Yes 100 mg = 1 M emoria Succinate 1-23 tab, PO, l ER 100 mg 18:08: Daily, 0 Herm andrew oral 00 Refill(s) tablet, extended release Metoprolol 2021-09 Yes 100 mg = 1 M emoria Succinate 1-23 tab, PO, l ER 100 mg 18:08: Daily, 0 Herm andrew oral 00 Refill(s) tablet, extended release finasteride 2021-09 Yes 5 mg = 1 Me moria 5 mg oral 1-22 tab, PO, l tablet 16:16: Daily, 0 Kulwant 00 Refill(s) Vitamin D3 2021-09 Yes 10 Memoria oral tablet 1-22 microgram l 16:16: = 1 tab, Hessel 00 PO, Daily, # 30 tab, 0 Refill(s) finasteride 2021-09 Yes 5 mg = 1 Me moria 5 mg oral 1-22 tab, PO, l tablet 16:16: Daily, 0 Kulwant 00 Refill(s) oxybutynin 2021-09 Yes 10 mg = 1 Me moria 10 mg oral 1-22 tab, PO, l tablet, 16:16: Daily, 0 Malcolm n extended 00 Refill(s) release Vitamin D3 2021-09 Yes 10 Memoria oral tablet 1-22 microgram l 16:16: = 1 tab, Kulwant 00 PO, Daily, # 30 tab, 0 Refill(s) oxybutynin 2021-09 Yes 10 mg = 1 Me moria 10 mg oral 1-22 tab, PO, l tablet, 16:16: Daily, 0 Malcolm n extended 00 Refill(s) release glycopyrrol 2021-09 Yes 2 mg = 1 Me moria ate 2 mg 1-22 tab, PO, l oral tablet 16:16: BID, 0 Herm andrew 00 Refill(s) glycopyrrol 2021-09 Yes 2 mg = 1 Me moria ate 2 mg 1-22 tab, PO, l oral tablet 16:16: BID, 0 Herm andrew 00 Refill(s) finasteride 2021-09 Yes 5 mg = 1 Me moria 5 mg oral 1-22 tab, PO, l tablet 16:16: Daily, 0 Hessel 00 Refill(s) Vitamin D3 2021-09 Yes 10 Memoria oral tablet 1-22 microgram l 16:16: = 1 tab, Hessel 00 PO, Daily, # 30 tab, 0 Refill(s) oxybutynin 2021-09 Yes 10 mg = 1 Me moria 10 mg oral 1-22 tab, PO, l tablet, 16:16: Daily, 0 Malcolm n extended 00 Refill(s) release glycopyrrol 2021-09 Yes 2 mg = 1 Me moria ate 2 mg 1-22 tab, PO, l oral tablet 16:16: BID, 0 Herm andrew 00 Refill(s) baclofen 10 2021-09 Yes 10 mg = 1 M emoria mg oral 1-22 tab, PO, l tablet 16:15: BID, 0 Hessel 00 Refill(s) diltiazem 2021-09 Yes 240 mg = 1 Me moria 240 mg/24 1-22 cap, PO, l hours oral 16:15: Daily, 0 Her ibanez capsule, 00 Refill(s) extended release baclofen 10 2021-09 Yes 10 mg = 1 M emoria mg oral -22 tab, PO, l tablet 16:15: BID, 0 Kulwant 00 Refill(s) diltiazem 2021-09 Yes 240 mg = 1 Me moria 240 mg/24 -22 cap, PO, l hours oral 16:15: Daily, 0 Her ibanez capsule, 00 Refill(s) extended release baclofen 10 2021-09 Yes 10 mg = 1 M emoria mg oral -22 tab, PO, l tablet 16:15: BID, 0 Kulwant 00 Refill(s) diltiazem 2021-09 Yes 240 mg = 1 Me moria 240 mg/24 -22 cap, PO, l hours oral 16:15: Daily, 0 Her ibanez capsule, 00 Refill(s) extended release atorvastati 2021-09 Yes 40 mg = 1 M emoria n 40 mg -22 tab, PO, l oral tablet 16:14: Daily, 0 He rmann 00 Refill(s) Singulair 2021-09 Yes 10 mg = 1 Mem oria 10 mg oral -22 tab, PO, l tablet 16:14: Daily, 0 Hessel 00 Refill(s) senna 8.6 2021-09 Yes 34.4 mg = Mem oria mg oral 22 4 tab, PO, l tablet 16:14: QAM, 0 Kulwant 00 Refill(s) atorvastati 2021-09 Yes 40 mg = 1 M emoria n 40 mg -22 tab, PO, l oral tablet 16:14: Daily, 0 He rmann 00 Refill(s) Singulair 2021-09 Yes 10 mg = 1 Mem oria 10 mg oral -22 tab, PO, l tablet 16:14: Daily, 0 Kulwant 00 Refill(s) senna 8.6 2021-09 Yes 34.4 mg = Mem oria mg oral -22 4 tab, PO, l tablet 16:14: QAM, 0 Kulwant 00 Refill(s) atorvastati 2021-09 Yes 40 mg = 1 M emoria n 40 mg -22 tab, PO, l oral tablet 16:14: Daily, 0 He rmann 00 Refill(s) Singulair 2021-09 Yes 10 mg = 1 Mem oria 10 mg oral -22 tab, PO, l tablet 16:14: Daily, 0 Kulwant 00 Refill(s) senna 8.6 2021-09 Yes 34.4 mg = Mem oria mg oral -22 4 tab, PO, l tablet 16:14: QAM, 0 Kulwant 00 Refill(s) Brilinta 2021-09 Yes 90 mg = 1 Luis juan (ticagrelor -22 tab, PO, l ) 90 mg 16:13: BID, 0 Hessel oral tablet 00 Refill(s) tamsulosin 2021-09 Yes 0.8 mg = 2 M emoria 0.4 mg oral - cap, PO, l capsule 16:13: Daily, 0 Malcolm n 00 Refill(s) aspirin 81 2021-09 Yes 81 mg = 1 Me moria mg tablet, -22 tab, PO, l enteric 16:13: Daily, # Malcolm n coated 00 90 tab, 3 Refill(s) Brilinta 2021-09 Yes 90 mg = 1 Luis juan (ticagrelor -22 tab, PO, l ) 90 mg 16:13: BID, 0 Hessel oral tablet 00 Refill(s) tamsulosin 2021-09 Yes 0.8 mg = 2 M emoria 0.4 mg oral - cap, PO, l capsule 16:13: Daily, 0 Malcolm n 00 Refill(s) aspirin 81 2021-09 Yes 81 mg = 1 Me moria mg tablet, -22 tab, PO, l enteric 16:13: Daily, # Malcolm n coated 00 90 tab, 3 Refill(s) Brilinta 2021-09 Yes 90 mg = 1 Luis juan (ticagrelor -22 tab, PO, l ) 90 mg 16:13: BID, 0 Kulwant oral tablet 00 Refill(s) tamsulosin 2021-09 Yes 0.8 mg = 2 M emoria 0.4 mg oral -22 cap, PO, l capsule 16:13: Daily, 0 Malcolm n 00 Refill(s) aspirin 81 2021-09 Yes 81 mg = 1 Me moria mg tablet, -22 tab, PO, l enteric 16:13: Daily, # Malcolm n coated 00 90 tab, 3 Refill(s) allopurinol 2021-09 Yes 100 mg = 1 Memoria 100 mg oral 1-22 tab, PO, l tablet 16:12: Daily, # Kulwant 00 90 tab, 1 Refill(s) allopurinol 2021-09 Yes 100 mg = 1 Memoria 100 mg oral 1-22 tab, PO, l tablet 16:12: Daily, # Kulwant 00 90 tab, 1 Refill(s) allopurinol 2021-09 Yes 100 mg = 1 Memoria 100 mg oral 1-22 tab, PO, l tablet 16:12: Daily, # Kulwant 00 90 tab, 1 Refill(s) Lactated 2021-09 No 1,000 mL, Luis juan Ringers 1-21 1000 l (Bolus) IV 15:28: ml/hr, Erica nn 00 Infuse Over: 1 hr, Route: IV, 1,000, Drug form: INJ, ONCE, Priority: STAT, Dosing Weight 51.364 kg, Start date: 07/24/22 9:28:00 GINGER FARMER, Stop date: 07/24/22 9:28:00 GINGER FARMER, 0 Lactated 2021-09 No 1,000 mL, Luis juan Ringers 1-21 1000 l (Bolus) IV 15:28: ml/hr, Erica nn 00 Infuse Over: 1 hr, Route: IV, 1,000, Drug form: INJ, ONCE, Priority: STAT, Dosing Weight 51.364 kg, Start date: 07/24/22 9:28:00 GINGER FARMER, Stop date: 07/24/22 9:28:00 GINGER FARMER, 0 Lactated 2021-09 No 1,000 mL, Luis juan Ringers 1-21 1000 l (Bolus) IV 15:28: ml/hr, Erica nn 00 Infuse Over: 1 hr, Route: IV, 1,000, Drug form: INJ, ONCE, Priority: STAT, Dosing Weight 51.364 kg, Start date: 07/24/22 9:28:00 GINGER FARMER, Stop date: 07/24/22 9:28:00 GINGER FARMER, 0 Afrin 0.05% 2021-09 No 2 spray, Me moria nasal spray 09-23 Route: l 15:00: NASAL, Hessel 00 BID, Start date: 07/24/22 9:00:00 GINGER [employer]ER, Duration: 30 day, Stop date: 08/22/22 17:00:00 GINGER FARMER polyethylen 2021-09 Yes Notes: Luis juan e glycol 1-21 Dissolve l 3350 15:00: in 8 oz of Kulwant 00 water or juice. (Same as: Miralax) docusate-se 2021-09 Yes Notes: Luis juan nna 50 1-21 (Same as l mg-8.6 mg 15:00: Senokot-S) He rmann oral tablet 00 Equiv. to [place] e. allopurinol 2021-09 Yes Notes: Luis juan 1-21 (Same as: l 15:00: Zyloprim) Hessel amLODIPine 2021-09 Yes Notes: Memor ia 1-21 (Same as: l 15:00: Norvasc) Hessel 00 lactulose 2021-09 Yes Notes: Memori a 10 g/15 mL -21 (Same l oral syrup 15:00: as:Chronul H ermann ac) lisinopril 2021-09 Yes Notes: Memor ia 1-21 (Same as: l 15:00: Prinivil, Hessel Zestril) meloxicam 2021-09 Yes Notes: Memori a 1-21 (Same as: l 15:00: Mobic) Hessel 00 Augmentin 2021-09 Yes Notes: Memori a 875 mg oral 1-21 With food. l tablet 15:00: (Same as: Malcolm n Augmentin 875) Afrin 0.05% 2021-09 No 2 spray, Me moria nasal spray - Route: l 15:00: NASAL, Kulwant 00 BID, Start date: 07/24/22 9:00:00 GINGER F[employer]ER, Duration: 30 day, Stop date: 08/22/22 17:00:00 GINGER FARMER polyethylen 2021-09 Yes Notes: Luis juan e glycol 1-21 Dissolve l 3350 15:00: in 8 oz of Hessel 00 water or juice. (Same as: Miralax) docusate-se 2021-09 Yes Notes: Luis juan nna 50 1-21 (Same as l mg-8.6 mg 15:00: Senokot-S) He rmann oral tablet 00 Equiv. to [place] e. allopurinol 2021-09 Yes Notes: Luis juan 1-21 (Same as: l 15:00: Zyloprim) amLODIPine 2021-09 Yes Notes: Memor ia 1-21 (Same as: l 15:00: Norvasc) lactulose 2021-09 Yes Notes: Memori a 10 g/15 mL 1-21 (Same l oral syrup 15:00: as:Chronul H erm ac) lisinopril 2021-09 Yes Notes: Memor ia 1-21 (Same as: l 15:00: Prinivil, Zestril) meloxicam 2021-09 Yes Notes: Memori a 1-21 (Same as: l 15:00: Mobic) Augmentin 2021-09 Yes Notes: Memori a 875 mg oral -21 With food. l tablet 15:00: (Same as: Augmentin 875) Afrin 0.05% 2021-09 No 2 spray, Me moria nasal spray 09-23 Route: l 15:00: NASAL, BID, Start date: 07/24/22 9:00:00 GINGER F[employer]ER, Duration: 30 day, Stop date: 08/22/22 17:00:00 GINGER FARMER polyethylen 2021-09 Yes Notes: Luis juan e glycol 1-21 Dissolve l 3350 15:00: in 8 oz of water or juice. (Same as: Miralax) docusate-se 2021-09 Yes Notes: Luis juan nna 50 1-21 (Same as l mg-8.6 mg 15:00: Senokot-S) He rmann oral tablet 00 Equiv. to [place] e. allopurinol 2021-09 Yes Notes: Luis juan 1-21 (Same as: l 15:00: Zyloprim) amLODIPine 2021-09 Yes Notes: Memor ia 1-21 (Same as: l 15:00: Norvasc) lactulose 2021-09 Yes Notes: Memori a 10 g/15 mL 1-21 (Same l oral syrup 15:00: as:Chronul ac) lisinopril 2021-09 Yes Notes: Memor ia 1-21 (Same as: l 15:00: Prinivil, Kulwant 00 Zestril) meloxicam 2021-09 Yes Notes: Memori a -21 (Same as: l 15:00: Mobic) Kulwant 00 Augmentin 2021-09 Yes Notes: Memori a 875 mg oral -21 With food. l tablet 15:00: (Same as: Malcolm Augmentin 875) Dextrose 2021-09 Yes 12.5 gm, Memor ia 50% Syringe 1-21 25 mL, l (D50W) 11:15: Route: Hessel 00 IVP, Drug Form: INJ, Dosing Weight 51.364, kg, PRN, PRN Blood Glucose Results, Start date: 07/24/22 5:15:00 GINGER FARMER, Duration: 30 day, Stop date: 08/23/22 5:14:00 GINGER FARMER, 0 glucagon 2021-09 Yes 1 mg, Memoria 09-23 Route: IM, l 11:15: Drug form: Kulwant 00 PDR/INJ, PRN, Dosing Weight 51.364, kg, PRN Blood Glucose Results, Start date: 07/24/22 5:15:00 GINGER FARMER, Duration: 30 day, Stop date: 08/23/22 5:14:00 GINGER FARMER, 0 insulin 2021-09 Yes Notes: Memoria lispro 09-23 (Same as: l 11:15: Humalog) Roll in palms of hands gently; Do not shake vigorously . WASTE: F/P - Black; E - Municipal Trash Bin Stable for 28 days at room temperatur e. Expires in days from ____Date Dextrose 2021-09 Yes 12.5 gm, Memor ia 50% Syringe 1-21 25 mL, l (D50W) 11:15: Route: Kulwant 00 IVP, Drug Form: INJ, Dosing Weight 51.364, kg, PRN, PRN Blood Glucose Results, Start date: 07/24/22 5:15:00 GINGER FARMER, Duration: 30 day, Stop date: 08/23/22 5:14:00 GINGER FARMER, 0 glucagon 2021-09 Yes 1 mg, Memoria 1-21 Route: IM, l 11:15: Drug form: Kulwant 00 PDR/INJ, PRN, Dosing Weight 51.364, kg, PRN Blood Glucose Results, Start date: 07/24/22 5:15:00 GINGER FARMER, Duration: 30 day, Stop date: 08/23/22 5:14:00 GINGER FARMER, 0 insulin 2021-09 Yes Notes: Memoria lispro 1-21 (Same as: l 11:15: Humalog) Kulwant 00 Roll in palms of hands gently; Do not shake vigorously . WASTE: F/P - Black; E - Municipal Trash Bin Stable for 28 days at room temperatur e. Expires in days from ____Date Dextrose 2021-09 Yes 12.5 gm, Memor ia 50% Syringe 1- 25 mL, l (D50W) 11:15: Route: Kulwant 00 IVP, Drug Form: INJ, Dosing Weight 51.364, kg, PRN, PRN Blood Glucose Results, Start date: 07/24/22 5:15:00 GINGER FARMER, Duration: 30 day, Stop date: 08/23/22 5:14:00 GINGER FARMER, 0 glucagon 2021-09 Yes 1 mg, Memoria 1-21 Route: IM, l 11:15: Drug form: Kulwant 00 PDR/INJ, PRN, Dosing Weight 51.364, kg, PRN Blood Glucose Results, Start date: 07/24/22 5:15:00 GINGER FARMER, Duration: 30 day, Stop date: 08/23/22 5:14:00 GINGER FARMER, 0 insulin 2021-09 Yes Notes: Memoria lispro 1-21 (Same as: l 11:15: Humalog) Hessel 00 Roll in palms of hands gently; Do not shake vigorously . WASTE: F/P - Black; E - Municipal Trash Bin Stable for 28 days at room temperatur e. Expires in days from ____Date Dextrose 2021-09 Yes 12.5 gm, Memor ia 50% Syringe 1-21 25 mL, l (D50W) 10:50: Route: Hessel 00 IVP, Drug Form: INJ, Dosing Weight 51.364, kg, PRN, PRN Blood Glucose Results, Start date: 07/24/22 4:50:00 GINGER FARMER, Duration: 30 day, Stop date: 08/23/22 4:49:00 GINGER FARMER, 0 glucagon 2021-09 Yes 1 mg, Memoria 09-23 Route: IM, l 10:50: Drug form: Hessel PDR/INJ, PRN, Dosing Weight 51.364, kg, PRN Blood Glucose Results, Start date: 07/24/22 4:50:00 GINGER FARMER, Duration: 30 day, Stop date: 08/23/22 4:49:00 GINGER FARMER, 0 bisacodyl 2021-09 Yes Notes: Memori a - (Same As: l 10:50: Dulcolax, Kulwant Bisco-Lax) ondansetron 2021-09 Yes Notes: Luis juan 09-23 (Same as: l 10:50: Zofran) Kulwant MEDICATION WASTE Product Size: 4 mg Product Wasted: ___ mg melatonin 2021-09 Yes Notes: Memori a 09-23 (Same as: l 10:50: Melatonin) Kulwant Lubricant 2021-09 Yes Notes: Memori a Eye Drops 09-23 (Same as: l ophthalmic 10:50: Aquasite) rmann solution 00 Nasal 2021-09 Yes Notes: Memoria Saline 09-23 (Same as: l 0.65% 10:50: [place], Hessel solution 00 Deep Sea Nasal [place]). Tums 2021-09 Yes Notes: Memoria 09-23 (Same As: l 10:50: Tums) Hessel 00 Calcium Carbonate 500 mg = 200 mg elemental calcium Dose = mg calcium carbonate ( mg elemental calcium) Cepacol 2021-09 Yes Notes: Memoria Sore Throat 09-23 Cepacol l 15 mg-3.6 10:50: lozenges Herm andrew mg mucous 00 Dispense 1 membrane box = 16 lozenge lozenges (Same As: Cepacol Lozenges) Flonase 2021-09 Yes Notes: Memoria 0.05 mg/inh 09-23 (Same as: l nasal spray 10:50: Flonase) He rmann 00 Calmoseptin 2021-09 Yes Notes: Luis juan e topical 09-23 (Same as: l ointment 10:50: Calmosepti Her ibanez 00 ne) Blistex 2021-09 Yes Notes: Memoria topical 09-23 Same as: l ointment 10:50: Blistex Malcolm n 00 Aquaphor 2021-09 Yes 1 appl, Memori a 09-23 Route: l 10:50: TOP, Q4H, Kulwant 00 Drug form: OINT, PRN as needed for dry skin, Start date: 07/24/22 4:50:00 GINGER FARMER, Duration: 30 day, Stop date: 08/23/22 4:49:00 GINGER FARMER, 0 Dextrose 2021-09 Yes 12.5 gm, Memor ia 50% Syringe 09-23 25 mL, l (D50W) 10:50: Route: Kulwant 00 IVP, Drug Form: INJ, Dosing Weight 51.364, kg, PRN, PRN Blood Glucose Results, Start date: 07/24/22 4:50:00 GINGER FARMER, Duration: 30 day, Stop date: 08/23/22 4:49:00 GINGER FARMER, 0 glucagon 2021-09 Yes 1 mg, Memoria 09-23 Route: IM, l 10:50: Drug form: PDR/INJ, PRN, Dosing Weight 51.364, kg, PRN Blood Glucose Results, Start date: 07/24/22 4:50:00 GINGER FARMER, Duration: 30 day, Stop date: 08/23/22 4:49:00 GINGER FARMER, 0 bisacodyl 2021-09 Yes Notes: Memori a - (Same As: l 10:50: Dulcolax, Hessel Bisco-Lax) ondansetron 2021-09 Yes Notes: Luis juan - (Same as: l 10:50: Zofran) MEDICATION WASTE Product Size: 4 mg Product Wasted: ___ mg melatonin 2021-09 Yes Notes: Memori a - (Same as: l 10:50: Melatonin) Hessel Lubricant 2021-09 Yes Notes: Memori a Eye Drops 09-23 (Same as: l ophthalmic 10:50: Aquasite) rmann solution 00 Nasal 2021-09 Yes Notes: Memoria Saline 09-23 (Same as: l 0.65% 10:50: [place], Kulwant solution 00 Deep Sea Nasal [place]). Tums 2021-09 Yes Notes: Memoria 09-23 (Same As: l 10:50: Tums) Kulwant 00 Calcium Carbonate 500 mg = 200 mg elemental calcium Dose = mg calcium carbonate ( mg elemental calcium) Cepacol 2021-09 Yes Notes: Memoria Sore Throat 09-23 Cepacol l 15 mg-3.6 10:50: lozenges Herm andrew mg mucous 00 Dispense 1 membrane box = 16 lozenge lozenges (Same As: Cepacol Lozenges) Flonase 2021-09 Yes Notes: Memoria 0.05 mg/inh 09-23 (Same as: l nasal spray 10:50: Flonase) He rmann 00 Calmoseptin 2021-09 Yes Notes: Luis juan e topical 09-23 (Same as: l ointment 10:50: Calmosepti Her ibanez 00 ne) Blistex 2021-09 Yes Notes: Memoria topical 09-23 Same as: l ointment 10:50: Blistex Malcolm n 00 Aquaphor 2021-09 Yes 1 appl, Memori a 09-23 Route: l 10:50: TOP, Q4H, Kulwant 00 Drug form: OINT, PRN as needed for dry skin, Start date: 07/24/22 4:50:00 G[employer]ER F[employer]ER, Duration: 30 day, Stop date: 08/23/22 4:49:00 GINGER FARMER, 0 Dextrose 2021-09 Yes 12.5 gm, Memor ia 50% Syringe 09-23 25 mL, l (D50W) 10:50: Route: Hessel 00 IVP, Drug Form: INJ, Dosing Weight 51.364, kg, PRN, PRN Blood Glucose Results, Start date: 07/24/22 4:50:00 GINGER FARMER, Duration: 30 day, Stop date: 08/23/22 4:49:00 GINGER FARMER, 0 glucagon 2021-09 Yes 1 mg, Memoria 09-23 Route: IM, l 10:50: Drug form: Hessel 00 PDR/INJ, PRN, Dosing Weight 51.364, kg, PRN Blood Glucose Results, Start date: 07/24/22 4:50:00 GINGER FARMER, Duration: 30 day, Stop date: 08/23/22 4:49:00 GINGER FARMER, 0 bisacodyl 2021-09 Yes Notes: Memori a - (Same As: l 10:50: Dulcolax, Hessel 00 Bisco-Lax) ondansetron 2021-09 Yes Notes: Luis juan - (Same as: l 10:50: Zofran) Kulwant 00 MEDICATION WASTE Product Size: 4 mg Product Wasted: ___ mg melatonin 2021-09 Yes Notes: Memori a 09-23 (Same as: l 10:50: Melatonin) Kulwant 00 Lubricant 2021-09 Yes Notes: Memori a Eye Drops 09-23 (Same as: l ophthalmic 10:50: Aquasite) He rmann solution 00 Nasal 2021-09 Yes Notes: Memoria Saline 09-23 (Same as: l 0.65% 10:50: [place], Hessel solution 00 Deep Sea Nasal [place]). Tums 2021-09 Yes Notes: Memoria 09-23 (Same As: l 10:50: Tums) Hessel 00 Calcium Carbonate 500 mg = 200 mg elemental calcium Dose = mg calcium carbonate ( mg elemental calcium) Cepacol 2021-09 Yes Notes: Memoria Sore Throat 09-23 Cepacol l 15 mg-3.6 10:50: lozenges Herm andrew mg mucous 00 Dispense 1 membrane box = 16 lozenge lozenges (Same As: Cepacol Lozenges) Flonase 2021-09 Yes Notes: Memoria 0.05 mg/inh 09-23 (Same as: l nasal spray 10:50: Flonase) He rmann 00 Calmoseptin 2021-09 Yes Notes: Luis juan e topical 09-23 (Same as: l ointment 10:50: Calmosepti Her ibanez 00 ne) Blistex 2021-09 Yes Notes: Memoria topical 09-23 Same as: l ointment 10:50: Blistex Malcolm n 00 Aquaphor 2021-09 Yes 1 appl, Memori a 09-23 Route: l 10:50: TOP, Q4H, Hessel 00 Drug form: OINT, PRN as needed for dry skin, Start date: 07/24/22 4:50:00 G[employer]ER FARMER, Duration: 30 day, Stop date: 08/23/22 4:49:00 GINGER FARMER, 0 Isolyte S 2021-09 No Notes: Memori a PH-7.4 09-23 (Same as: l (Bolus) IV 07:39: Isolyte S He rmann 00 PH7.4, Normosol-R PH 7.4, Plasma-Lyt e A ) Isolyte S 2021-09 No Notes: Memori a PH-7.4 09-23 (Same as: l (Bolus) IV 07:39: Isolyte S He rmann 00 PH7.4, Normosol-R PH 7.4, Plasma-Lyt e A ) Isolyte S 2021-09 No Notes: Memori a PH-7.4 09-23 (Same as: l (Bolus) IV 07:39: Isolyte S He rmann 00 PH7.4, Normosol-R PH 7.4, Plasma-Lyt e A ) Metoprolol 2021-09 Yes Notes: Memor ia Succinate 1-21 (Same as: l ER 25 mg 03:29: Toprol XL) Her ibanez oral 00 Do Not tablet, Crush extended release Metoprolol 2021-09 Yes Notes: Memor ia Succinate 1-21 (Same as: l ER 25 mg 03:29: Toprol XL) Her ibanez oral 00 Do Not tablet, Crush extended release Metoprolol 2021-09 Yes Notes: Memor ia Succinate 1-21 (Same as: l ER 25 mg 03:29: Toprol XL) Her ibanez oral 00 Do Not tablet, Crush extended release Nasal 2021-09 Yes Notes: Memoria Saline 1-21 (Same as: l 0.65% 03:00: [place], Hessel solution 00 Deep Sea Nasal [place]). Nasal 2021-09 Yes Notes: Memoria Saline 1-21 (Same as: l 0.65% 03:00: [place], Kulwant solution 00 Deep Sea Nasal [place]). Nasal 2021-09 Yes Notes: Memoria Saline 1-21 (Same as: l 0.65% 03:00: [place], Hessel solution 00 Deep Sea Nasal [place]). lidocaine 2021-09 No Notes: Memori a topical 2% 1-21 (Same as: l gel with 00:13: Xylocaine Herm andrew applicator 00 Jelly, Anestacon) Afrin 0.05% 2021-09 Yes Notes: Luis juan nasal spray 1-21 (Same as: l 00:13: Afrin) lidocaine 2021-09 No Notes: Memori a topical 2% 1-21 (Same as: l gel with 00:13: Xylocaine Herm andrew applicator 00 Jelly, Anestacon) Afrin 0.05% 2021-09 Yes Notes: Luis juan nasal spray 1-21 (Same as: l 00:13: Afrin) lidocaine 2021-09 No Notes: Memori a topical 2% 1-21 (Same as: l gel with 00:13: Xylocaine Herm andrew applicator 00 Jelly, Anestacon) Afrin 0.05% 2021-09 Yes Notes: Luis juan nasal spray 1-21 (Same as: l 00:13: Afrin) lidocaine 2021-09 No 1 appl, Memor ia topical 2% 1-21 Route: l gel with 00:05: TOP, Drug Herm andrew applicator 00 Form: GEL, Dosing Weight 51.364, kg, ONCE, Start date: 07/23/22 18:05:00 GINGER F[employer]ER, Stop date: 07/23/22 18:05:00 GINGER FARMER lidocaine 2021-09 No 1 appl, Memor ia topical 2% 1-21 Route: l gel with 00:05: TOP, Drug Herm andrew applicator 00 Form: GEL, Dosing Weight 51.364, kg, ONCE, Start date: 07/23/22 18:05:00 GINGER FARMER, Stop date: 07/23/22 18:05:00 GINGER FARMER lidocaine 2021-09 No 1 appl, Memor ia topical 2% 1-21 Route: l gel with 00:05: TOP, Drug Herm andrew applicator 00 Form: GEL, Dosing Weight 51.364, kg, ONCE, Start date: 07/23/22 18:05:00 GINGER FARMER, Stop date: 07/23/22 18:05:00 GINGER FARMER amoxicillin 2021-09 Yes Notes: Meth sheree -pot 1-[address] clavulanate 00:00: (Same as: H ospita (AUGMENTIN) 00 Augmentin l 875-125 mg 875) per tablet benzocaine- 2021-09 Yes Notes: Meth sheree menthoL 1-[address] (CEPACOL 00:00: lozenges Hospi ta MAX) 15-3.6 00 Dispense 1 l mg lozenge box = 16 lozenges (Same As: Cepacol Lozenges) oxymetazoli 2021-09 Yes Notes: Meth sheree ne (AFRIN) 1-21 (Same as: st 0.05 % 00:00: Afrin) Hospita nasal spray 00 l sennosides- 2021-09 Yes Notes: Meth sheree docusate -21 (Same as st sodium 00:00: Senokot-S) Hospi ta (SENOKOT-S) 00 Equiv. to l 8.6-50 mg [place] per tablet e. amoxicillin 2021-09 Yes Notes: Meth sheree -pot - With food. st clavulanate 00:00: (Same as: H ospita (AUGMENTIN) 00 Augmentin l 875-125 mg 875) per tablet benzocaine- 2021-09 Yes Notes: Meth sheree menthoL -[address] (CEPACOL 00:00: lozenges Hospi ta MAX) 15-3.6 00 Dispense 1 l mg lozenge box = 16 lozenges (Same As: Cepacol Lozenges) oxymetazoli 2021-09 Yes Notes: Meth sheree ne (AFRIN) -21 (Same as: st 0.05 % 00:00: Afrin) Hospita nasal spray 00 l sennosides- 2021-09 Yes Notes: Meth sheree docusate -21 (Same as st sodium 00:00: Senokot-S) Hospi ta (SENOKOT-S) 00 Equiv. to l 8.6-50 mg [place] per tablet e. INSULIN 2021-09- Yes 3 unit, Method i LISPRO SUBQ [id number] 0.03 mL, st 00:00: 05:59 Route: Hospita 00 :00 SUB-Q, l Drug form: SOLN, TID-Before Meals, Dosing Weight 51.364, kg, PRN Blood Glucose Results, Start date: 07/24/22 5:15:00 GINGER FARMER, Duration: 30 day, Stop date: 08/23/22 5:14:00 GINGER FARMER, 0Notes: (Same as: Humalog) Roll in palms of hands gently; Do not shake vigorously . WASTE: F/P - Black; E - Municipal Trash BinStable for 28 days at room temperatur e.Expires in days from ____Date INSULIN 2021-09- No 3 unit, Method i LISPRO SUBQ 09-23 0.03 mL, st 00:00: 05:59 Route: Hospita 00 :00 SUB-Q, l Drug form: SOLN, TID-Before Meals, Dosing Weight 51.364, kg, PRN Blood Glucose Results, Start date: 07/24/22 5:15:00 GINGER FARMER, Duration: 30 day, Stop date: 08/23/22 5:14:00 GINGER FARMER, 0Notes: (Same as: Humalog) Roll in palms of hands gently; Do not shake vigorously . WASTE: F/P - Black; E - Municipal Trash BinStable for 28 days at room temperatur e.Expires in days from ____Date Omnipaque 2021-09 No 80 mL, Memori a 350 mg/mL 1-20 Route: l 23:49: IVP, Drug Kulwant 00 Form: SOLN, Dosing Weight 51.364, kg, ONCALL, STAT, Start date: 07/23/22 17:49:00 GINGER FARMER, Duration: 1 doses or times, Dose = 2.2ml/kg, Max dose = 100ml -- "To be infused by Radiology Staff ONLY" Omnipaque 2021-09 No 80 mL, Memori a 350 mg/mL 1-20 Route: l 23:49: IVP, Drug Kulwant Form: SOLN, Dosing Weight 51.364, kg, ONCALL, STAT, Start date: 07/23/22 17:49:00 GINGER FARMER, Duration: 1 doses or times, Dose = 2.2ml/kg, Max dose = 100ml -- "To be infused by Radiology Staff ONLY" Omnipaque 2021-09 No 80 mL, Memori a 350 mg/mL 1-20 Route: l 23:49: IVP, Drug Form: SOLN, Dosing Weight 51.364, kg, ONCALL, STAT, Start date: 07/23/22 17:49:00 GINGER FARMER, Duration: 1 doses or times, Dose = 2.2ml/kg, Max dose = 100ml -- "To be infused by Radiology Staff ONLY" Saline 2021-09 Yes Notes: Memoria Flush 0.9% 1-20 (Same as: l 23:16: BD Hessel 00 Posiflush) Saline 2021-09 Yes Notes: Memoria Flush 0.9% 1-20 (Same as: l 23:16: BD Hessel 00 Posiflush) Saline 2021-09 Yes Notes: Memoria Flush 0.9% 1-20 (Same as: l 23:16: BD Kulwant 00 Posiflush) polyethylen 2021-09 Yes MIX 1 Metho di e glycol 0-[address] (MIRALAX) 00:00: WATER & Hospi ta 17 gram 00 DRINK BY l packet MOUTH ONCE DAILY polyethylen 2021-09 Yes MIX 1 Metho di e glycol 0-[address] ([facility]AX) 00:00: WATER & Hospi ta 17 gram 00 DRINK BY l packet MOUTH ONCE DAILY allopurinol 2021-09 Yes 1 TABLET Me thodi [...] MG 07:36: Hospita tablet 18 l codeine-gua 2022-1 Yes TK 2 TEA [facility] ifenesin [...] 1 Me thodi -epa-dpa-fi 0-07 tablet by [facility] oil 07:36: mouth Hospita 1,050-1,200 18 nightly. [...] (CENTRUM 18 AM l SILVER ORAL) melatonin 2021-09 Yes Take by [facility] mg capsule 0-[address] 07:36: Hospita 18 l metoprolol 2021-09 Yes Take .5 Meth [facility] tartrate 0-[address] (LOPRESSOR) 07:36: every day H [facility]spita 100 mg 18 by oral l tablet route for 90 days. UNABLE TO 2021-09 Yes 1{tbl} QD Take 1 Meth sheree FIND 0-[address] 07:36: mouth [facility]osp[facility] 18 every l morning. Med Name: PHYTOSTEM melatonin 2021-09 Yes Take by [facility] mg capsule 0-[address] 07:36: Hospita 18 l melatonin 5 2021-09 Yes Take by [facility] mg capsule 0-[address] 07:36: [facility]ospita 18 l metoprolol 2021-09 Yes Take .5 Meth [facility] tartrate 0-[address] (LOPRESSOR) 07:36: every day [facility] 100 mg 18 by oral l tablet route for 90 days. UNABLE TO 2021-09 Yes 1{tbl} QD Take 1 Meth [facility] FIND 0-[address] 07:36: mouth [facility] 18 every l morning. Med Name: PHYTOSTEM Brilinta 90 Brilinta 90 No 1 BID [facility] [place] mg tablet mg tablet 8-11 90 mg Comm uni Take 1 Take 1 00:00: tablet ty tablet tablet 00 Take 1 Hospita twice a day twice a day tablet l by oral by oral twice a Clinic s route. route. day by oral route. Brilinta 90 Brilinta 90 No 1 BID [facility] [place] mg tablet mg tablet 8-11 90 mg Comm uni Take 1 Take 1 00:00: tablet ty tablet tablet 00 Take 1 Hospita twice a day twice a day tablet l by oral by oral twice a Clinic s route. route. day by oral route. Brilinta 90 Brilinta 90 No 1 BID [facility] [place] mg tablet mg tablet 8-11 90 mg Comm uni Take 1 Take 1 00:00: tablet ty tablet tablet 00 Take 1 [facility]ospita twice a day twice a day tablet l by oral by oral twice a Clinic s route. route. day by oral route. Brilinta 90 Brilinta 90 No 1 BID [facility] [place] mg tablet mg tablet 8-11 90 mg [...] 1 tablet daily for 4 days. azithromyci Yes 250mg QD Take 1 [facility] n 8-[address] (Zithromax 00:00: (250 mg [facility]) 250 00 total) by l MG tablet mouth daily. Take 2 tablets the first day, then 1 tablet daily for 4 days. azithromyci 2022-0 Yes 250mg QD Take 1 [facility] (Zithromax 00:00: (250 mg [facility]) 250 00 total) by l MG tablet mouth daily. Take 2 tablets the first day, then 1 tablet daily for 4 days. azithromyci 2022-0 Yes 250mg QD Take 1 [facility] n 8-[address] (Zithromax 00:00: (250 mg [facility]) 250 00 total) by l MG tablet mouth daily. Take 2 tablets the first day, then 1 tablet daily for 4 days. azithromyci 2022-0 Yes 250mg QD Take 1 [facility] 8-[address] (Zithromax 00:00: (250 mg [facility]) 250 00 total) by l MG tablet mouth daily. Take 2 tablets the first day, then 1 tablet daily for 4 days. azithromyci 2022-0 Yes 250mg QD Take 1 [facility] n 8-[address] (Zithromax 00:00: (250 mg [facility]) 250 00 total) by l MG tablet mouth daily. Take 2 tablets the first day, then 1 tablet daily for 4 days. azithromyci 2022-0 Yes 250mg QD Take 1 [facility] 8-[address] (Zithromax 00:00: (250 mg [facility]) 250 00 total) by l MG tablet mouth daily. Take 2 tablets the first day, then 1 tablet daily for 4 days. azithromyci 2022-0 Yes 250mg QD Take 1 [facility] 8-[address] (Zithromax 00:00: (250 mg [facility]) 250 00 total) by l MG tablet mouth daily. Take 2 tablets the first day, then 1 tablet daily for 4 days. azithromyci 2022-0 Yes 250mg QD Take 1 [facility] 8-[address] (Zithromax 00:00: (250 mg [facility]) 250 00 total) by l MG tablet mouth daily. Take 2 tablets the first day, then 1 tablet daily for 4 days. azithromyci 2022-0 Yes 250mg QD Take 1 [facility] 8-[address] (Zithromax 00:00: (250 mg [facility]) 250 00 total) by l MG tablet mouth daily. Take 2 tablets the first day, then 1 tablet daily for 4 days. azithromyci 2022-0 Yes 250mg QD Take 1 [facility] 8-[address] (Zithromax 00:00: (250 mg [facility]) 250 00 total) by l MG tablet mouth daily. Take 2 tablets the first day, then 1 tablet daily for 4 days. azithromyci 2022-0 Yes 250mg QD Take 1 [facility] 8-[address] (Zithromax 00:00: (250 mg [facility]) 250 00 total) by l MG tablet mouth daily. Take 2 tablets the first day, then 1 tablet daily for 4 days. azithromyci 2022-0 Yes 250mg QD Take 1 [facility] 8-[address] (Zithromax 00:00: (250 mg [facility]) 250 00 total) by l MG tablet mouth daily. Take 2 tablets the first day, then 1 tablet daily for 4 days. azithromyci 2022-0 Yes 250mg QD Take 1 [facility] 8-[address] (Zithromax 00:00: (250 mg [facility]) 250 00 total) by l MG tablet mouth daily. Take 2 tablets the first day, then 1 tablet daily for 4 days. azithromyci 2022-0 Yes 250mg QD Take 1 [facility] 8[facility] (Zithromax 00:00: (250 mg [facility]) 250 00 total) by l MG tablet mouth daily. Take 2 tablets the first day, then 1 tablet daily for 4 days. famotidine 2021-2021- No 40mg QD Take 1 [facility] (Pepcid) 40 04-12 tablet (40 s t MG tablet 00:00: 04:59 mg total) [facility] 00 :00 by mouth l daily for 30 days. bisacodyL 2021-2021- No 10mg QD Insert 1 Met [facility] (Dulcolax, 8-10 09-[address] bisacodyl,) 00:00: 04:59 y (10 mg H [facility]spita 10 mg 00 :00 total) l suppository into the rectum daily for 30 days. docusate 2022-0 2022- No 100mg Q12H Take 1 Metho di sodium 8-10 09-[address] (COLACE) 00:00: 04:59 (100 mg Hospi ta 100 MG 00 :00 total) by l capsule mouth every 12 (twelve) hours for 30 days. famotidine 2022-0 2022- No 40mg QD Take 1 Meth sheree (Pepcid) 40 8-10 09-10 tablet (40 s t MG tablet 00:00: 04:59 mg total) [facility] 00 :00 by mouth l daily for 30 days. bisacodyL 2022-0 2022- No 10mg QD Insert 1 [facility] (Dulcolax, 8-10 09-[address] bisacodyl,) 00:00: 04:59 y (10 mg [facility] 10 mg 00 :00 total) l suppository into the rectum daily for 30 days. docusate 2022-0 2022- No 100mg Q12H Take 1 [facility] di sodium 8-10 09-[address] (COLACE) 00:00: 04:59 (100 mg Hos[facility] ta 100 MG 00 :00 total) by l capsule mouth every 12 (twelve) hours for 30 days. famotidine 2022-0 2022- No 40mg QD Take 1 Meth sheree (Pepcid) 40 8-10 09-10 tablet (40 s t MG tablet 00:00: 04:59 mg total) [facility] 00 :00 by mouth l daily for 30 days. bisacodyL 2022-0 2022- No 10mg QD Insert 1 [facility] (Dulcolax, 8-10 09-[address] bisacodyl,) 00:00: 04:59 y (10 mg [facility] 10 mg 00 :00 total) l suppository into the rectum daily for 30 days. docusate 2022-0 2022- No 100mg Q12H Take 1 Metho di sodium 8-10 09-[address] (COLACE) 00:00: 04:59 (100 mg Hos[facility] ta 100 MG 00 :00 total) by l capsule mouth every 12 (twelve) hours for 30 days. famotidine 2022-0 2022- No 40mg QD Take 1 [facility] (Pepcid) 40 8-10 09-10 tablet (40 s t MG tablet 00:00: 04:59 mg total) [facility] 00 :00 by mouth l daily for 30 days. bisacodyL 2022-0 2022- No 10mg QD Insert 1 [facility] (Dulcolax, 8-10 09-[address] bisacodyl,) 00:00: 04:59 y (10 mg [facility] 10 mg 00 :00 total) l suppository into the rectum daily for 30 days. docusate 2022-0 2022- No 100mg Q12H Take 1 Metho di sodium 8-10 09-[address] (COLACE) 00:00: 04:59 (100 mg [facility] 100 MG 00 :00 total) by l capsule mouth every 12 (twelve) hours for 30 days. famotidine 2022-0 2022- No 40mg QD Take 1 [facility] (Pepcid) 40 8-10 09-10 tablet (40 s t MG tablet 00:00: 04:59 mg total) [facility] 00 :00 by mouth l daily for 30 days. bisacodyL 2022-0 2022- No 10mg QD Insert 1 [facility] (Dulcolax, 8-10 09-[address] bisacodyl,) 00:00: 04:59 y (10 mg [facility] 10 mg 00 :00 total) l suppository into the rectum daily for 30 days. docusate 2022-0 2022- No 100mg Q12H Take 1 Metho di sodium 8-10 09-[address] (COLACE) 00:00: 04:59 (100 mg [facility] 100 MG 00 :00 total) by l capsule mouth every 12 (twelve) hours for 30 days. famotidine 2022-0 2022- No 40mg QD Take 1 [facility] (Pepcid) 40 8-10 09-10 tablet (40 s t MG tablet 00:00: 04:59 mg total) [facility] 00 :00 by mouth l daily for 30 days. bisacodyL 2022-0 2022- No 10mg QD Insert 1 [facility] (Dulcolax, 8-10 09-[address] bisacodyl,) 00:00: 04:59 y (10 mg [facility] 10 mg 00 :00 total) l suppository into the rectum daily for 30 days. docusate 2022-0 2022- No 100mg Q12H Take 1 Metho di sodium 8-10 09-[address] (COLACE) 00:00: 04:59 (100 mg [facility] 100 MG 00 :00 total) by l capsule mouth every 12 (twelve) hours for 30 days. famotidine 2022-0 2022- No 40mg QD Take 1 [facility] (Pepcid) 40 8-10 09-10 tablet (40 s t MG tablet 00:00: 04:59 mg total) [facility] 00 :00 by mouth l daily for 30 days. bisacodyL 2022-0 2022- No 10mg QD Insert 1 [facility] (Dulcolax, 8-10 09-[address] bisacodyl,) 00:00: 04:59 y (10 mg [facility] 10 mg 00 :00 total) l suppository into the rectum daily for 30 days. docusate 2022-0 2022- No 100mg Q12H Take 1 Metho di sodium 8-10 09-[address] (COLACE) 00:00: 04:59 (100 mg Hos[facility] ta 100 MG 00 :00 total) by l capsule mouth every 12 (twelve) hours for 30 days. famotidine 2022-0 2022- No 40mg QD Take 1 [facility] (Pepcid) 40 8-10 09-10 tablet (40 s t MG tablet 00:00: 04:59 mg total) [facility] 00 :00 by mouth l daily for 30 days. bisacodyL 2022-0 2022- No 10mg QD Insert 1 [facility] (Dulcolax, 8-10 09-[address] bisacodyl,) 00:00: 04:59 y (10 mg [facility] 10 mg 00 :00 total) l suppository into the rectum daily for 30 days. docusate 2022-0 2022- No 100mg Q12H Take 1 [facility]o di sodium 8-10 09-[address] (COLACE) 00:00: 04:59 (100 mg Hos[facility] 100 MG 00 :00 total) by l capsule mouth every 12 (twelve) hours for 30 days. famotidine 2022-0 2022- No 40mg QD Take 1 [facility] (Pepcid) 40 8-10 09-10 tablet (40 s t MG tablet 00:00: 04:59 mg total) [facility] 00 :00 by mouth l daily for 30 days. bisacodyL 2022-0 2022- No 10mg QD Insert 1 [facility] (Dulcolax, 8-10 09-[address] bisacodyl,) 00:00: 04:59 y (10 mg [facility] 10 mg 00 :00 total) l suppository into the rectum daily for 30 days. docusate 2022-0 2022- No 100mg Q12H Take 1 Metho di sodium 8-10 09-[address] (COLACE) 00:00: 04:59 (100 mg Hos[facility] 100 MG 00 :00 total) by l capsule mouth every 12 (twelve) hours for 30 days. famotidine 2-0 2022- No 40mg QD Take 1 [facility] (Pepcid) 40 8-10 09-10 tablet (40 s t MG tablet 00:00: 04:59 mg total) [facility] 00 :00 by mouth l daily for 30 days. bisacodyL 2022-0 2022- No 10mg QD Insert 1 [facility] (Dulcolax, 8-10 09-[address] bisacodyl,) 00:00: 04:59 y (10 mg [facility] 10 mg 00 :00 total) l suppository into the rectum daily for 30 days. docusate 2022-0 2022- No 100mg Q12H Take 1 [facility]o di sodium 8-10 09-[address] (COLACE) 00:00: 04:59 (100 mg [facility] 100 MG 00 :00 total) by l capsule mouth every 12 (twelve) hours for 30 days. famotidine 2022-0 2022- No 40mg QD Take 1 [facility] (Pepcid) 40 8-10 09-10 tablet (40 s t MG tablet 00:00: 04:59 mg total) [facility] 00 :00 by mouth l daily for 30 days. bisacodyL 2022-0 2022- No 10mg QD Insert 1 [facility] (Dulcolax, 8-10 09-[address] bisacodyl,) 00:00: 04:59 y (10 mg [facility] 10 mg 00 :00 total) l suppository into the rectum daily for 30 days. docusate 2022-0 2022- No 100mg Q12H Take 1 [facility]o di sodium 8-10 09-[address] (COLACE) 00:00: 04:59 (100 mg [facility] 100 MG 00 :00 total) by l capsule mouth every 12 (twelve) hours for 30 days. famotidine 2022-0 2022- No 40mg QD Take 1 [facility] (Pepcid) 40 8-10 09-10 tablet (40 s t MG tablet 00:00: 04:59 mg total) [facility] 00 :00 by mouth l daily for 30 days. bisacodyL 2022-0 2022- No 10mg QD Insert 1 [facility] (Dulcolax, 8-10 09-[address] bisacodyl,) 00:00: 04:59 y (10 mg [facility] 10 mg 00 :00 total) l suppository into the rectum daily for 30 days. docusate 2022-0 2022- No 100mg Q12H Take 1 [facility]o di sodium 8-10 09-[address] (COLACE) 00:00: 04:59 (100 mg Hos[facility] ta 100 MG 00 :00 total) by l capsule mouth every 12 (twelve) hours for 30 days. famotidine 2022-0 2022- No 40mg QD Take 1 [facility] (Pepcid) 40 8-10 09-10 tablet (40 s t MG tablet 00:00: 04:59 mg total) [facility] 00 :00 by mouth l daily for 30 days. bisacodyL 2022-0 2022- No 10mg QD Insert 1 [facility] (Dulcolax, 8-10 09-[address] bisacodyl,) 00:00: 04:59 y (10 mg [facility] 10 mg 00 :00 total) l suppository into the rectum daily for 30 days. docusate 2022-0 2022- No 100mg Q12H Take 1 [facility]o di sodium 8-10 09-[address] (COLACE) 00:00: 04:59 (100 mg Hospi ta 100 MG 00 :00 total) by l capsule mouth every 12 (twelve) hours for 30 days. famotidine 2022-0 2022- No 40mg QD Take 1 [facility] (Pepcid) 40 8-10 09-10 tablet (40 s t MG tablet 00:00: 04:59 mg total) [facility] 00 :00 by mouth l daily for 30 days. bisacodyL 2022-0 2022- No 10mg QD Insert 1 [facility] (Dulcolax, 8-10 09-[address] bisacodyl,) 00:00: 04:59 y (10 mg [facility] 10 mg 00 :00 total) l suppository into the rectum daily for 30 days. docusate 2022-0 2022- No 100mg Q12H Take 1 Metho di sodium 8-10 09-[address] (COLACE) 00:00: 04:59 (100 mg Hospi ta 100 MG 00 :00 total) by l capsule mouth every 12 (twelve) hours for 30 days. famotidine 2022-0 2022- No 40mg QD Take 1 [facility] (Pepcid) 40 8-10 09-10 tablet (40 s t MG tablet 00:00: 04:59 mg total) [facility] 00 :00 by mouth l daily for 30 days. bisacodyL 2022-0 2022- No 10mg QD Insert 1 [facility] (Dulcolax, 8-10 09-[address] bisacodyl,) 00:00: 04:59 y (10 mg [facility] 10 mg 00 :00 total) l suppository into the rectum daily for 30 days. docusate 2022-0 2022- No 100mg Q12H Take 1 [facility] di sodium 8-10 09-[address] (COLACE) 00:00: 04:59 (100 mg [...] (cough) for up to 10 days. albuterol 2021-0 2022- No 2{puff} Q4H Inhale 2 [facility] ([facility] 8-10 08-[address] HFA) 90 00:00: 04:59 every 4 Hospit a mcg/actuati 00 :00 (four) l on inhaler hours as needed (cough) for up to 10 days. albuterol 2021-0 2022- No 2{puff} Q4H Inhale 2 [facility] (PROAIR 8-10 08-[address] HFA) 90 00:00: 04:59 every 4 Hospit a mcg/actuati 00 :00 (four) l on inhaler hours as needed (cough) for up to 10 days. dexamethaso 2022-0 2022- No 6mg QD Take 1 [facility] ne 8-10 08-16 tablet (6 st (DECADRON) 00:00: 04:59 mg total) [facility] 6 MG tablet 00 :00 by mouth l daily with breakfast for 5 days. dexamethaso 2022-0 2022- No 6mg QD Take 1 [facility] ne 8-10 08-16 tablet (6 st (DECADRON) 00:00: 04:59 mg total) [facility] 6 MG tablet 00 :00 by mouth l daily with breakfast for 5 days. dexamethaso 2022-0 2022- No 6mg QD Take 1 [facility] ne 8-10 08-16 tablet (6 st (DECADRON) 00:00: 04:59 mg total) [facility] 6 MG tablet 00 :00 by mouth l daily with breakfast for 5 days. dexamethaso 2022-0 2022- No 6mg QD Take 1 [facility] ne 8-10 08-16 tablet (6 st (DECADRON) 00:00: 04:59 mg total) [facility] 6 MG tablet 00 :00 by mouth l daily with breakfast for 5 days. dexamethaso 2022-0 2022- No 6mg QD Take 1 [facility] ne 8-10 08-16 tablet (6 st (DECADRON) 00:00: 04:59 mg total) [facility] 6 MG tablet 00 :00 by mouth l daily with breakfast for 5 days. dexamethaso 2022-0 2022- No 6mg QD Take 1 [facility] ne 8-10 08-16 tablet (6 st (DECADRON) 00:00: 04:59 mg total) [facility] 6 MG tablet 00 :00 by mouth l daily with breakfast for 5 days. dexamethaso 2022-0 2022- No 6mg QD Take 1 [facility] ne 8-10 08-16 tablet (6 st (DECADRON) 00:00: 04:59 mg total) [facility] 6 MG tablet 00 :00 by mouth l daily with breakfast for 5 days. dexamethaso 2022-0 2022- No 6mg QD Take 1 [facility] ne 8-10 08-16 tablet (6 st (DECADRON) 00:00: 04:59 mg total) [facility] 6 MG tablet 00 :00 by mouth l daily with breakfast for 5 days. dexamethaso 2022-0 2022- No 6mg QD Take 1 [facility] ne 8-10 08-16 tablet (6 st (DECADRON) 00:00: 04:59 mg total) [facility] 6 MG tablet 00 :00 by mouth l daily with breakfast for 5 days. dexamethaso 2022-0 2022- No 6mg QD Take 1 [facility] ne 8-10 -16 tablet (6 st (DECADRON) 00:00: 04:59 mg total) [facility] 6 MG tablet 00 :00 by mouth l daily with breakfast for 5 days. dexamethaso 2022-0 2022- No 6mg QD Take 1 [facility] ne 8-10 08-16 tablet (6 st (DECADRON) 00:00: 04:59 mg total) [facility] 6 MG tablet 00 :00 by mouth l daily with breakfast for 5 days. dexamethaso 2022-0 2022- No 6mg QD Take 1 [facility] ne 8-10 08-16 tablet (6 st (DECADRON) 00:00: 04:59 mg total) [facility] 6 MG tablet 00 :00 by mouth l daily with breakfast for 5 days. dexamethaso 2022-0 2022- No 6mg QD Take 1 [facility] ne 8-10 08-16 tablet (6 st (DECADRON) 00:00: 04:59 mg total) [facility] 6 MG tablet 00 :00 by mouth l daily with breakfast for 5 days. dexamethaso 0 2021- No 6mg QD Take 1 Met phillip dean 04-12-16 tablet (6 st (DECADRON) 00:00: 04:59 mg total) [facility] 6 MG tablet 00 :00 by mouth l daily with breakfast for 5 days. dexamethaso 2021- No 6mg QD Take 1 Met phillip ne 04-12-16 tablet (6 st (DECADRON) 00:00: [...] 00 MIDDAY, 2 l TABLETS QHS glycopyrrol 2020- Yes 2 TABLETS M ethodi ate 0-01 [...] 00:00: TABLETS [facility] tablet 00 DAY, 2 l TABLETS QHS glycopyrrol 2020-09 Yes 2 TABLETS M ethodi ate 0-01 QAM, 2 st (ROBINUL) 2 00:00: TABLETS [facility] MG tablet 00 MID, 2 l TABLETS QHS glycopyrrol 2020-09 Yes 2 TABLETS M ethodi ate 0-01 QAM, 2 st (ROBINUL) 2 00:00: TABLETS [facility] MG tablet 00 MIDDAY, 2 l TABLETS QHS glycopyrrol 2020-09 Yes 2 TABLETS M ethodi ate 0-01 QAM, 2 st (ROBINUL) 2 00:00: TABLETS [facility] MG tablet 00 DAY, 2 l TABLETS QHS glycopyrrol 2020-09 Yes 2 TABLETS M sergioodi ate 0-01 QAM, 2 st (ROBINUL) 2 00:00: TABLETS [facility] MG tablet 00 MIDDAY, 2 l TABLETS QHS Cefdinir Cefdinir 2019-1 2020- No BID Cefdinir 300 MG 300 MG 09-14-19 300 MG 00:00: 00:00 00 :00 Flexeril Yes Shirin S 10 mg, PO, [facility] mg oral 6-26 Janice TID, PRN, l tablet 17:51: 30 tab, Hessel 45 Muscle Spasm, Substituti on Allowed Flexeril Yes Shirin S 10 mg, PO, [facility] mg oral 6-26 Janice TID, PRN, l tablet 17:51: 30 tab, Kulwant 45 Muscle Spasm, Substituti on Allowed Flexeril 10 Yes Shirin S 10 mg, PO, [facility] mg oral 6-26 Janice TID, PRN, l tablet 17:51: 30 tab, Kulwant 45 Muscle Spasm, Substituti on Allowed acetaminoph Yes Shirin S 1 -2 tab, [facility] en-hydrocod 6-26 Janice PO, Q6H, l one 500 17:51: PRN, 20 Kulwant mg-5 mg 42 tab, Pain, oral tablet Substituti on Allowed, Maintenanc e acetaminoph Yes Shirin S 1 -2 tab, [facility] en-hydrocod 6-26 Janice PO, Q6H, l one 500 17:51: PRN, 20 Kulwant mg-5 mg 42 tab, Pain, oral tablet Substituti on Allowed, Maintenanc e acetaminoph Yes Shirin S 1 -2 tab, [facility] en-hydrocod 6-26 Janice PO, Q6H, l one 500 17:51: PRN, 20 Hessel mg-5 mg 42 tab, Pain, oral tablet Substituti on Allowed, Maintenanc e morphine No Shirin S 4 mg, 2 Luis juan Sulfate 6-26 Janice mL, Route: l 16:01: IM, Drug Hessel 00 form: INJ, ONCE, Priority: STAT, Start date: 02/27/12 11:01:00, Stop date: 02/27/12 11:01:00 orphenadrin No Shirin S 60 mg, 2 Memoria e 6-26 Janice mL, Route: l 16:01: IM, Drug Kulwant 00 form: INJ, ONCE, Priority: STAT, Start date: 02/27/12 11:01:00, Stop date: 02/27/12 11:01:00 morphine 0 No Shirin S 4 mg, 2 Luis juan Sulfate 6-26 Janice mL, Route: l 16:01: IM, Drug Hessel 00 form: INJ, ONCE, Priority: STAT, Start date: 02/27/12 11:01:00, Stop date: 02/27/12 11:01:00 orphenadrin No Shirin S 60 mg, 2 Memoria e 6-26 Janice mL, Route: l 16:01: IM, Drug [facility] 00 form: INJ, ONCE, Priority: STAT, Start date: 02/27/12 11:01:00, Stop date: 02/27/12 11:01:00 morphine 2011-0 No Shirin S 4 mg, 2 Luis juan Sulfate 6-26 Janice mL, Route: l 16:01: IM, Drug [facility] 00 form: INJ, ONCE, Priority: STAT, Start date: 02/27/12 11:01:00, Stop date: 02/27/12 11:01:00 orphenadrin 2011- No Shirin S 60 mg, 2 Memoria e 6-26 Janice mL, Route: l 16:01: IM, Drug [facility] 00 form: INJ, ONCE, Priority: STAT, Start date: 02/27/12 11:01:00, Stop date: 02/27/12 11:01:00 lactulose Yes Substituti Me moria 6-26 on l 15:34: Allowed, Kulwant Maintenanc e lactulose Yes Substituti Me moria 6-26 on l 15:34: Allowed, Kulwant Maintenanc e lactulose Yes Substituti Me moria 6-26 on l 15:34: Allowed, Kulwant Maintenanc e VESIcare Yes Substituti Mem oria 6-26 on Allowed l 15:34: Kulwant VESIcare Yes Substituti Mem oria 6-26 on Allowed l 15:34: Kulwant VESIcare Yes Substituti Mem oria 6-26 on Allowed l 15:34: Kulwant tamsulosin Yes Substituti M emoria 6-26 on Allowed l 15:34: Kulwant tamsulosin Yes Substituti M emoria 6-26 on Allowed l 15:34: Kulwant tamsulosin Yes Substituti M emoria 6-26 on Allowed l 15:34: Kulwant meloxicam Yes Substituti Me moria 6-26 on Allowed l 15:34: Kulwant meloxicam 0 Yes Substituti Me moria 6-26 on Allowed l 15:34: Kulwant 00 meloxicam 2011-0 Yes Substituti Me moria 6-26 on Allowed l 15:34: Kulwant 00 allopurinol 2011-0 Yes Substituti Memoria 6-26 on Allowed l 15:33: Kulwant 53 allopurinol 2011-0 Yes Substituti Memoria 6-26 on Allowed l 15:33: Kulwant 53 allopurinol 2011-0 Yes Substituti Memoria 6-26 on Allowed l 15:33: Kulwant 53 baclofen 2011-0 Yes Substituti Mem oria 6-26 on Allowed l 15:33: Kulwant 48 baclofen 2011-0 Yes Substituti Mem oria 6-26 on Allowed l 15:33: Kulwant 48 baclofen 0 Yes Substituti Mem oria 6-26 on Allowed l 15:33: Kulwant 48 glimepiride 0 Yes Substituti [facility] 6-26 on Allowed l 15:33: Kulwant 40 glimepiride 2011-0 Yes Substituti [facility] 6-26 on Allowed l 15:33: Kulwant 40 glimepiride 0 Yes Substituti [facility]oria 6-26 on Allowed l 15:33: Kulwant 40 metFORmin 0 Yes Substituti Me moria 6-26 on Allowed l 15:33: Kulwant 30 metFORmin 0 Yes Substituti Me moria 6-26 on Allowed l 15:33: Kulwant 30 metFORmin 0 Yes Substituti Me moria 6-26 on Allowed l 15:33: Kulwant 30 guanfacine 0 Yes Substituti M emoria 1 mg oral 6-26 on Allowed l tablet 15:33: Kulwant guanfacine 0 Yes Substituti M emoria 1 mg oral 6-26 on Allowed l tablet 15:33: Kulwant guanfacine 0 Yes Substituti M emoria 1 mg oral 6-26 on Allowed l tablet 15:33: Kulwant amLODipine 0 Yes Substituti M emoria 10 mg oral 6-26 on Allowed l tablet 15:33: Kulwant amLODipine 0 Yes Substituti M emoria 10 mg oral 6-26 on Allowed l tablet 15:33: Kulwant 10 amLODipine 2012-0 Yes Substituti M emoria 10 mg oral 6-26 on Allowed l tablet 15:33: Kulwant 10 metoprolol Yes Substituti M [facility] 100 mg oral 6-26 on Allowed l tablet 15:32: Kulwant 59 metoprolol Yes Substituti M emoria 100 mg oral 6-26 on Allowed l tablet 15:32: Kulwant 59 metoprolol Yes Substituti M emoria 100 mg oral 6-26 on Allowed l tablet 15:32: Kulwant 59 lisinopril Yes Substituti M emoria 20 mg oral 6-26 on Allowed l tablet 15:32: Kulwant 49 lisinopril Yes Substituti M emoria 20 mg oral 6-26 on Allowed l tablet 15:32: Kulwant 49 lisinopril Yes Substituti M emoria 20 mg oral 6-26 on Allowed l tablet 15:32: Kulwant 49 baclofen 10 baclofen 10 No 1 BID baclofen [place] mg tablet mg tablet 10 mg Comm uni Take 1 Take 1 tablet ty tablet tablet Take 1 Hospita twice a day twice a day tablet l by oral by oral twice a Clinic s route. route. day by oral route. Brilinta 90 Brilinta 90 No 1 BID Brilinta [place] mg tablet mg tablet 90 mg Comm uni Take 1 Take 1 tablet ty tablet tablet Take 1 Hospita twice a day twice a day tablet l by oral by oral twice a Clinic s route. route. day by oral route. Centrum Centrum No Centrum [place] Silver Silver Silver [facility]ics Cipro 500 Cipro 500 No 1 Q12H Cipro 500 [place] mg tablet mg tablet mg tablet [facility] Take 1 Take 1 Take 1 ty tablet tablet tablet Hospita every 12 every 12 every 12 l hours by hours by hours by Cli nics oral route oral route oral route for 7 days. for 7 days. for 7 days. diltiazem diltiazem No 1capsul Q1D diltiazem [place] CD 240 mg CD 240 mg e(s) CD 240 mg Communi capsule,ext capsule,ext capsule,ex ty ended ended tended Hospita release 24 release 24 release 24 l hr Take 1 hr Take 1 hr Take 1 Clinics capsule capsule capsule every day every day every day by oral by oral by oral route. route. route. finasteride finasteride No finasterid [place] 5 mg tablet 5 mg tablet e 5 mg Communi TAKE 1 TAKE 1 tablet ty TABLET BY TABLET BY TAKE 1 [facility] MOUTH ONCE MOUTH ONCE TABLET BY l DAILY DAILY MOUTH ONCE Clinics DAILY glycopyrrol glycopyrrol No glycopyrro [place] ate 2 mg ate 2 mg late 2 mg Co m[facility]i tablet TAKE tablet TAKE tablet ty 2 TABLETS 2 TABLETS TAKE 2 [facility] BY MOUTH BY MOUTH TABLETS BY l THREE TIMES THREE TIMES MOUTH Clinics DAILY DAILY THREE TIMES DAILY indomethaci indomethaci No indomethac [place] n 50 mg n 50 mg in 50 mg Commu ni capsule capsule capsule ty TAKE 1 TAKE 1 TAKE 1 Hospita CAPSULE BY CAPSULE BY CAPSULE BY l MOUTH THREE MOUTH THREE MOUTH Clinics TIMES DAILY TIMES DAILY THREE WITH MEALS WITH MEALS TIMES NEEDED NEEDED DAILY WITH FOR GOUT FOR GOUT MEALS NEEDED FOR GOUT metoprolol metoprolol No metoprolol [place] succinate succinate succinate [facility] ER 25 mg ER 25 mg ER 25 mg ty tablet,exte tablet,exte tablet,ext Hospita nded nded ended l release 24 release 24 release 24 Clinics hr TAKE 1 hr TAKE 1 hr TAKE 1 TABLET BY TABLET BY TABLET BY MOUTH ONCE MOUTH ONCE MOUTH ONCE DAILY DAILY DAILY montelukast montelukast No 1 Q1D montelukas [place] 10 mg 10 mg t 10 mg Communi tablet Take tablet Take tablet ty 1 tablet 1 tablet Take 1 Hospi ta every day every day tablet l by oral by oral every day Clin ics route. route. by oral route. Hulbert 3 Hulbert 3 No Hulbert 3 [facility] oxybutynin oxybutynin No 1 Q1D oxybutynin [place] chloride ER chloride ER chloride [facility] 10 mg 10 mg ER 10 mg ty tablet,exte tablet,exte tablet,ext Hospita nded nded ended l release 24 release 24 release 24 Clinics hr Take 1 hr Take 1 hr Take 1 tablet tablet tablet every day every day every day by oral by oral by oral route. route. route. sennosides sennosides No 8 Q1D sennosides [place] 8.6 mg 8.6 mg 8.6 mg [facility] tablet Take tablet Take tablet ty 8 tablets 8 tablets Take 8 [facility] every day every day tablets l by oral by oral every day Clin ics route. route. by oral route. tamsulosin tamsulosin No 2capsul Q1D tamsulosin [place] 0.4 mg 0.4 mg e(s) 0.4 mg [facility] capsule capsule capsule ty Take 2 Take 2 Take 2 [facility]osp[facility] capsules capsules capsules l every day every day every day Clinics by oral by oral by oral route. route. route. allopurinol allopurinol No 1 Q1D allopurino [place] 100 mg 100 mg l 100 mg [facility] tablet Take tablet Take tablet ty 1 tablet 1 tablet Take 1 Hospi ta every day every day tablet l by oral by oral every day Clin ics route. route. by oral route. Asprin Ec Asprin Ec No 1 Q1D Asprin Ec [place] Low Dose 81 Low Dose 81 Low Dose [facility] mg mg 81 mg ty tablet,ioana tablet,ioana tablet,del [facility]osp[facility] yed release yed release ayed l Take 1 Take 1 release Clinics tablet tablet Take 1 every day every day tablet by oral by oral every day route. route. by oral route. atorvastati atorvastati No 1 Q1D atorvastat [place] n 40 mg n 40 mg in 40 mg Commu ni tablet Take tablet Take tablet ty 1 tablet 1 tablet Take 1 [facility] ta every day every day tablet l by oral by oral every day Clin ics route. route. by oral route. baclofen 10 baclofen 10 No 1 BID baclofen [place] mg tablet mg tablet 10 mg Comm [facility] Take 1 Take 1 tablet ty tablet tablet Take 1 [facility]osp[facility] twice a day twice a day tablet l by oral by oral twice a Clinic s route. route. day by oral route. Brilinta 90 Brilinta 90 No 1 BID Brilinta [place] mg tablet mg tablet 90 mg Comm uni Take 1 Take 1 tablet ty tablet tablet Take 1 [facility] twice a day twice a day tablet l by oral by oral twice a Clinic s route. route. day by oral route. Centrum Centrum No Centrum [place] Silver Silver [facility] diltiazem diltiazem No 1capsul Q1D diltiazem [place] CD 240 mg CD 240 mg e(s) CD 240 mg Communi capsule,ext capsule,ext capsule,ex ty ended ended tended [facility]osp[facility] release 24 release 24 release 24 l hr Take 1 hr Take 1 hr Take 1 Clinics capsule capsule capsule every day every day every day by oral by oral by oral route. route. route. finasteride finasteride No finasterid [place] 5 mg tablet 5 mg tablet e 5 mg Communi TAKE 1 TAKE 1 tablet ty TABLET BY TABLET BY TAKE 1 [facility] MOUTH ONCE MOUTH ONCE TABLET BY l DAILY DAILY MOUTH ONCE Clinics DAILY glycopyrrol glycopyrrol No glycopyrro [place] ate 2 mg ate 2 mg late 2 mg [facility] tablet TAKE tablet TAKE tablet ty 2 TABLETS 2 TABLETS TAKE 2 [facility] BY MOUTH BY MOUTH TABLETS BY l THREE TIMES THREE TIMES MOUTH Clinics DAILY DAILY THREE TIMES DAILY indomethaci indomethaci No indomethac [place] n 50 mg n 50 mg in 50 mg Com[facility] ni capsule capsule capsule ty TAKE 1 TAKE 1 TAKE 1 [facility] CAPSULE BY CAPSULE BY CAPSULE BY l MOUTH THREE MOUTH THREE MOUTH Clinics TIMES DAILY TIMES DAILY THREE WITH MEALS WITH MEALS TIMES NEEDED NEEDED DAILY WITH FOR GOUT FOR GOUT MEALS NEEDED FOR GOUT metoprolol metoprolol No metoprolol [place] succinate succinate succinate [facility] ER 25 mg ER 25 mg ER 25 mg ty tablet,exte tablet,exte tablet,ext [facility]ospita nded nded ended l release 24 release 24 release 24 Clinics hr TAKE 1 hr TAKE 1 hr TAKE 1 TABLET BY TABLET BY TABLET BY MOUTH ONCE MOUTH ONCE MOUTH ONCE DAILY DAILY DAILY montelukast montelukast No 1 Q1D montelukas [place] 10 mg 10 mg t 10 mg [facility] tablet Take tablet Take tablet ty 1 tablet 1 tablet Take 1 [facility] every day every day tablet l by oral by oral every day Clin ics route. route. by oral route. [facility]ul[facility] 3 H[facility]bert 3 No [facility] 3 [place] [facility] oxybutynin oxybutynin No 1 Q1D oxybutynin [place] chloride ER chloride ER chloride [facility] 10 mg 10 mg ER 10 mg ty tablet,exte tablet,exte tablet,ext [facility]osp[facility] nded nded ended l release 24 release 24 release 24 Clinics hr Take 1 hr Take 1 hr Take 1 tablet tablet tablet every day every day every day by oral by oral by oral route. route. route. sennosides sennosides No 8 Q1D sennosides [place] 8.6 mg 8.6 mg 8.6 mg [facility]i tablet Take tablet Take tablet ty 8 tablets 8 tablets Take 8 [facility] every day every day tablets l by oral by oral every day Clin ics route. route. by oral route. tamsulosin tamsulosin No 2capsul Q1D tamsulosin [place] 0.4 mg 0.4 mg e(s) 0.4 mg [facility] capsule capsule capsule ty Take 2 Take 2 Take 2 [facility]ospita capsules capsules capsules l every day every day every day Clinics by oral by oral by oral route. route. route. allopurinol allopurinol No 1 Q1D allopurino [place] 100 mg 100 mg l 100 mg [facility] tablet Take tablet Take tablet ty 1 tablet 1 tablet Take 1 [facility] every day every day tablet l by oral by oral every day Clin ics route. route. by oral route. Asprin Ec Asprin Ec No 1 Q1D Asprin Ec [place] Low Dose 81 Low Dose 81 Low Dose [facility] mg mg 81 mg ty tablet,ioana tablet,ioana tablet,del [facility]osp[facility] yed release yed release ayed l Take 1 Take 1 release Clinics tablet tablet Take 1 every day every day tablet by oral by oral every day route. route. by oral route. atorvastati atorvastati No 1 Q1D atorvastat [place] n 40 mg n 40 mg in 40 mg Com[facility] ni tablet Take tablet Take tablet ty 1 tablet 1 tablet Take 1 [facility] every day every day tablet l by oral by oral every day Clin ics route. route. by oral route. baclofen 10 baclofen 10 No 1 BID baclofen [place] mg tablet mg tablet 10 mg [facility] Take 1 Take 1 tablet ty tablet tablet Take 1 [facility] twice a day twice a day tablet l by oral by oral twice a Clinic s route. route. day by oral route. benzonatate benzonatate No 1capsul TID benzonatat [place] 100 mg 100 mg e(s) e 100 mg [facility] capsule capsule capsule ty Take 1 Take 1 Take 1 [facility]osp[facility] capsule 3 capsule 3 capsule 3 l times a day times a day times a Clinics by oral by oral day by route as route as oral route needed. needed. as needed. Brilinta 90 Brilinta 90 No 1 BID Brilinta [place] mg tablet mg tablet 90 mg Comm [facility] Take 1 Take 1 tablet ty tablet tablet Take 1 [facility]osp[facility] twice a day twice a day tablet l by oral by oral twice a Clinic s route. route. day by oral route. Centrum Centrum No Centrum [place] Silver Silver Silver [facility] diltiazem diltiazem No 1capsul Q1D diltiazem [place] CD 240 mg CD 240 mg e(s) CD 240 mg Commun[facility] capsule,ext capsule,ext capsule,ex ty ended ended tended [facility]osp[facility] release 24 release 24 release 24 l hr Take 1 hr Take 1 hr Take 1 Clinics capsule capsule capsule every day every day every day by oral by oral by oral route. route. route. finasteride finasteride No finasterid [place] 5 mg tablet 5 mg tablet e 5 mg [facility]i TAKE 1 TAKE 1 tablet ty TABLET BY TABLET BY TAKE 1 [facility] MOUTH ONCE MOUTH ONCE TABLET BY l DAILY DAILY MOUTH ONCE Clinics DAILY glycopyrrol glycopyrrol No glycopyrro [place] ate 2 mg ate 2 mg late 2 mg [facility] tablet TAKE tablet TAKE tablet ty 2 TABLETS 2 TABLETS TAKE 2 [facility] BY MOUTH BY MOUTH TABLETS BY l THREE TIMES THREE TIMES MOUTH Clinics DAILY DAILY THREE TIMES DAILY indomethaci indomethaci No indomethac [place] n 50 mg n 50 mg in [...] 290 Linzess 290 No 1capsul Q1D Linzess [place] mcg capsule mcg capsule e(s) 290 mcg Communi Take 1 Take 1 capsule ty capsule capsule Take 1 [facility]ospita every day every day capsule l by oral by oral every day Clin ics route for route for by oral 30 days. 30 days. route for 30 days. metoclopram metoclopram No metoclopra [place] anurag 10 mg anurag 10 mg mide 10 mg [facility] tablet TAKE tablet TAKE tablet ty 4 TABLETS 4 TABLETS TAKE 4 [facility] BY MOUTH BY MOUTH TABLETS BY l DIRECTED DIRECTED MOUTH Cli nics PER YOUR PER YOUR DIRECTED COLONOSCOPY COLONOSCOPY PER YOUR PREP PACKET PREP PACKET COLONOSCOP Y PREP PACKET metoprolol metoprolol No metoprolol [place] succinate succinate succinate [facility] ER 25 mg ER 25 mg ER 25 mg ty tablet,exte tablet,exte tablet,ext [facility]osp[facility] nded nded ended l release 24 release 24 release 24 Clinics hr TAKE 1 hr TAKE 1 hr TAKE 1 TABLET BY TABLET BY TABLET BY MOUTH ONCE MOUTH ONCE MOUTH ONCE DAILY DAILY DAILY montelukast montelukast No 1 Q1D montelukas [place] 10 mg 10 mg t 10 mg [facility] tablet Take tablet Take tablet ty 1 tablet 1 tablet Take 1 [facility] every day every day tablet l by oral by oral every day Clin ics route. route. by oral route. [facility] 3 [facility] 3 No [facility] 3 [place] oxybutynin oxybutynin No oxybutynin [place] chloride ER chloride ER chloride Communi 10 [...] days. sennosides sennosides No 8 Q1D sennosides [place] 8.6 mg 8.6 mg 8.6 mg Communi tablet Take tablet Take tablet ty 8 tablets 8 tablets Take 8 [facility] every day every day tablets l by oral by oral every day Clin ics route. route. by oral route. tamsulosin tamsulosin No 2capsul Q1D tamsulosin [place] 0.4 mg 0.4 mg e(s) 0.4 mg Commun[facility] capsule capsule capsule ty Take 2 Take 2 Take 2 [facility]ospita capsules capsules capsules l every day every day every day Clinics by oral by oral by oral route. route. route. albuterol albuterol No 2puff(s Q4H albuterol [place] sulf 90 sulf 90 ) sulf 90 [...] route. allopurinol allopurinol No 1 Q1D allopurino [place] 100 mg 100 mg l 100 mg [facility] tablet Take tablet Take tablet ty 1 tablet 1 tablet Take 1 [facility] every day every day tablet l by oral by oral every day Clin ics route. route. by oral route. Asprin Ec Asprin Ec No 1 Q1D Asprin Ec [place] Low Dose 81 Low Dose 81 Low Dose [facility] mg mg 81 mg ty tablet,ioana tablet,ioana tablet,del [facility] yed release yed release ayed l Take 1 Take 1 release Clinics tablet tablet Take 1 every day every day tablet by oral by oral every day route. route. by oral route. atorvastati atorvastati No 1 Q1D atorvastat [place] n 40 mg n 40 mg in 40 mg Com[facility] ni tablet Take tablet Take tablet ty 1 tablet 1 tablet Take 1 [facility] every day every day tablet l by oral by oral every day Clin ics route. route. by oral route. azithromyci azithromyci No azithromyc [place] n 250 mg n 250 mg in [...] 10 baclofen 10 No 1 BID baclofen [place] mg tablet mg tablet 10 mg Comm [facility] Take 1 Take 1 tablet ty tablet tablet Take 1 [facility]osp[facility] twice a day twice a day tablet l by oral by oral twice a Clinic s route. route. day by oral route. benzonatate benzonatate No 1capsul TID benzonatat [place] 100 mg 100 mg e(s) e 100 mg [facility] capsule capsule capsule ty Take 1 Take 1 Take 1 [facility]osp[facility] capsule 3 capsule 3 capsule 3 l times a day times a day times a Clinics by oral by oral day by route as route as oral route needed. needed. as needed. bisacodyl bisacodyl No 1suppos Q1D bisacodyl [place] 10 mg 10 mg itor(y/ 10 mg Communi rectal rectal ies) rectal ty suppository suppository suppositor [facility] Insert 1 Insert 1 y Insert 1 l suppository suppository suppositor Clinics every day every day y every by rectal by rectal day by route for route for rectal 30 days. 30 days. route for 30 days. Centrum Centrum No Centrum [place] Silver Silver Silver [facility] dexamethaso dexamethaso No 1 Q1D dexamethas [place] ne 6 mg ne 6 mg one [...] days. diltiazem diltiazem No 1capsul Q1D diltiazem [place] CD 240 mg CD 240 mg e(s) CD 240 mg Communi capsule,ext capsule,ext capsule,ex ty ended ended tended [facility]osp[facility] release 24 release 24 release 24 l hr Take 1 hr Take 1 hr Take 1 Clinics capsule capsule capsule every day every day every day by oral by oral by oral route. route. route. finasteride finasteride No finasterid [place] 5 mg tablet 5 mg tablet e 5 mg [facility] TAKE 1 TAKE 1 tablet ty TABLET BY TABLET BY TAKE 1 [facility] MOUTH ONCE MOUTH ONCE TABLET BY l DAILY DAILY MOUTH ONCE Clinics DAILY glycopyrrol glycopyrrol No glycopyrro [place] ate 2 mg ate 2 mg late 2 mg [facility] tablet TAKE tablet TAKE tablet ty 2 TABLETS 2 TABLETS TAKE 2 [facility] BY MOUTH BY MOUTH TABLETS BY l THREE TIMES THREE TIMES MOUTH Clinics DAILY DAILY THREE TIMES DAILY indomethaci indomethaci No indomethac [place] n 50 mg n 50 mg in 50 mg [facility] ni capsule capsule capsule ty TAKE 1 TAKE 1 TAKE 1 [facility] CAPSULE BY CAPSULE BY CAPSULE BY l MOUTH THREE MOUTH THREE MOUTH Clinics TIMES DAILY TIMES DAILY THREE WITH MEALS WITH MEALS TIMES NEEDED NEEDED DAILY WITH FOR GOUT FOR GOUT MEALS NEEDED FOR GOUT lactulose lactulose No 15mL Q1D lactulose [place] 10 gram/15 10 gram/15 10 gram/15 [facility] mL (15 mL) mL (15 mL) mL (15 mL) ty oral oral oral [facility]osp[facility] solution solution solution l Take 15 mL Take 15 mL Take 15 mL Clinics every day every day every day by oral by oral by oral route. route. route. Linzess 290 Linzess 290 No 1capsul Q1D Linzess [place] mcg capsule mcg capsule e(s) 290 mcg [facility] Take 1 Take 1 capsule ty capsule capsule Take 1 [facility]osp[facility] every day every day capsule l by oral by oral every day Clin ics route for route for by oral 30 days. 30 days. route for 30 days. lubiproston lubiproston No 1capsul BID lubiprosto [place] e 24 mcg e 24 mcg e(s) ne 24 mcg [facility] capsule capsule capsule ty Take 1 Take 1 Take 1 [facility]osp[facility] capsule capsule capsule l twice a day twice a day twice a Clinics by oral by oral day by route. route. oral route. melatonin melatonin No melatonin [place] [facility] metoclopram metoclopram No metoclopra [place] anurag 10 mg anurag 10 mg mide 10 mg [facility] tablet TAKE tablet TAKE tablet ty 4 TABLETS 4 TABLETS TAKE 4 [facility] BY MOUTH BY MOUTH TABLETS BY l DIRECTED DIRECTED MOUTH Cli nics PER YOUR PER YOUR DIRECTED COLONOSCOPY COLONOSCOPY PER YOUR PREP PACKET PREP PACKET COLONOSCOP Y PREP PACKET metoprolol metoprolol No 1 Q1D metoprolol [place] tartrate tartrate tartrate Com [facility] 100 mg 100 mg 100 mg ty tablet Take tablet Take tablet [facility]osp[facility] 1 tablet 1 tablet Take 1 l every day every day tablet Cli nics by oral by oral every day route. route. by oral route. montelukast montelukast No 1 Q1D montelukas [place] 10 mg 10 mg t 10 mg [facility] tablet Take tablet Take tablet ty 1 tablet 1 tablet Take 1 [facility] ta every day every day tablet l by oral by oral every day Clin ics route. route. by oral route. [facility] 3 [facility] 3 No [facility] 3 [place] [facility] oxybutynin oxybutynin No oxybutynin [place] chloride ER chloride ER chloride Communi 10 [...] senna 8.6 No 2 Q1D senna 8.6 [place] mg tablet mg tablet mg tablet Communi Take 2 Take 2 Take 2 ty tablets tablets tablets Hospit a every day every day every day l by oral by oral by oral Clinic s route. route. route. tamsulosin tamsulosin No 2capsul Q1D tamsulosin [place] 0.4 mg 0.4 mg e(s) 0.4 mg Commun[facility] capsule capsule capsule ty Take 2 Take 2 Take 2 [facility]ospita capsules capsules capsules l every day every day every day Clinics by oral by oral by oral route. route. route. albuterol albuterol No 2puff(s Q4H albuterol [place] sulf 90 sulf 90 ) sulf 90 Commun i mcg/actuati mcg/actuati mcg/actuat ty on breath on breath ion breath [facility]ospita activated activated activated l powder powder powder [facility] inhaler,sen inhaler,sen inhaler,se sor Inhale sor Inhale nsor 2 puffs 2 puffs Inhale 2 every 4 every 4 puffs hours by hours by every 4 inhalation inhalation hours by route. route. inhalation route. albuterol albuterol No albuterol [place] sulfate HFA sulfate HFA sulfate Communi 90 [...] DAYS allopurinol allopurinol No 1 Q1D allopurino [place] 100 mg 100 mg l 100 mg [facility] tablet Take tablet Take tablet ty 1 tablet 1 tablet Take 1 [facility] ta every day every day tablet l by oral by oral every day Clin ics route. route. by oral route. Asprin Ec Asprin Ec No 1 Q1D Asprin Ec [place] Low Dose 81 Low Dose 81 Low Dose [facility] mg mg 81 mg ty tablet,ioana tablet,ioana tablet,del [facility]osp[facility] yed release yed release ayed l Take 1 Take 1 release Clinics tablet tablet Take 1 every day every day tablet by oral by oral every day route. route. by oral route. atorvastati atorvastati No 1 Q1D atorvastat [place] n 40 mg n 40 mg in 40 mg Commu ni tablet Take tablet Take tablet ty 1 tablet 1 tablet Take 1 [facility] ta every day every day tablet l by oral by oral every day Clin ics route. route. by oral route. baclofen 10 baclofen 10 No 1 BID baclofen [place] mg tablet mg tablet 10 mg Comm uni Take 1 Take 1 tablet ty tablet tablet Take 1 [facility]ospita twice a day twice a day tablet l by oral by oral twice a Clinic s route. route. day by oral route. bisacodyl bisacodyl No 1suppos Q1D bisacodyl [place] 10 mg 10 mg itor(y/ 10 mg Communi rectal rectal ies) rectal ty suppository suppository suppositor [facility] Insert 1 Insert 1 y Insert 1 l suppository suppository suppositor Clinics every day every day y every by rectal by rectal day by route for route for rectal 30 days. 30 days. route for 30 days. Centrum Centrum No Centrum [place] Silver Silver Silver [facility] diltiazem diltiazem No 1capsul Q1D diltiazem [place] CD 240 mg CD 240 mg e(s) CD 240 mg Communi capsule,ext capsule,ext capsule,ex ty ended ended tended [facility]osp[facility] release 24 release 24 release 24 l hr Take 1 hr Take 1 hr Take 1 Clinics capsule capsule capsule every day every day every day by oral by oral by oral route. route. route. famotidine famotidine No famotidine [place] 40 mg 40 mg 40 mg [facility] tablet TAKE tablet TAKE tablet ty 1 TABLET BY 1 TABLET BY TAKE 1 [facility] MOUTH ONCE MOUTH ONCE TABLET BY l DAILY FOR DAILY FOR MOUTH ONCE Clinics 30 DAYS 30 DAYS DAILY FOR 30 DAYS finasteride finasteride No finasterid [place] 5 mg tablet 5 mg tablet e 5 mg Communi TAKE 1 TAKE 1 tablet ty TABLET BY TABLET BY TAKE 1 [facility] MOUTH ONCE MOUTH ONCE TABLET BY l DAILY DAILY MOUTH ONCE Clinics DAILY glycopyrrol glycopyrrol No glycopyrro [place] ate 2 mg ate 2 mg late 2 mg [facility] tablet TAKE tablet TAKE tablet ty 2 TABLETS 2 TABLETS TAKE 2 [facility] BY MOUTH BY MOUTH TABLETS BY l THREE TIMES THREE TIMES MOUTH Clinics DAILY DAILY THREE TIMES DAILY indomethaci indomethaci No indomethac [place] n 50 mg n 50 mg in 50 mg Com[facility] ni capsule capsule capsule ty TAKE 1 TAKE 1 TAKE 1 [facility] CAPSULE BY CAPSULE BY CAPSULE BY l MOUTH THREE MOUTH THREE MOUTH Clinics TIMES DAILY TIMES DAILY THREE WITH MEALS WITH MEALS TIMES NEEDED NEEDED DAILY WITH FOR GOUT FOR GOUT MEALS NEEDED FOR GOUT lactulose lactulose No 15mL Q1D lactulose [place] 10 gram/15 10 gram/15 10 gram/15 [facility] mL (15 mL) mL (15 mL) mL (15 mL) ty oral oral oral [facility]osp[facility] solution solution solution l Take 15 mL Take 15 mL Take 15 mL Clinics every day every day every day by oral by oral by oral route. route. route. Linzess 290 Linzess 290 No 1capsul Q1D Linzess [place] mcg capsule mcg capsule e(s) 290 mcg Communi Take 1 Take 1 capsule ty capsule capsule Take 1 [facility]ospita every day every day capsule l by oral by oral every day Clin ics route for route for by oral 30 days. 30 days. route for 30 days. lubiproston lubiproston No 1capsul BID lubiprosto [place] e 24 mcg e 24 mcg e(s) ne 24 mcg [facility] capsule capsule capsule ty Take 1 Take 1 Take 1 [facility]osp[facility] capsule capsule capsule l twice a day twice a day twice a Clinics by oral by oral day by route. route. oral route. melatonin melatonin No melatonin [place] [facility] metoprolol metoprolol No 1 Q1D metoprolol [place] tartrate tartrate tartrate Com dieudonne 100 mg 100 mg 100 mg ty tablet Take tablet Take tablet [facility]osp[facility] 1 tablet 1 tablet Take 1 l every day every day tablet Cli nics by oral by oral every day route. route. by oral route. montelukast montelukast No 1 Q1D montelukas [place] 10 mg 10 mg t 10 mg Communi tablet Take tablet Take tablet ty 1 tablet 1 tablet Take 1 [facility] ta every day every day tablet l by oral by oral every day Clin ics route. route. by oral route. [facility] 3 [facility] 3 No [facility] 3 [place] [facility] oxybutynin oxybutynin No oxybutynin [place] chloride ER chloride ER chloride Communi 10 [...] senna 8.6 No 2 Q1D senna 8.6 [place] mg tablet mg tablet mg tablet Communi Take 2 Take 2 Take 2 ty tablets tablets tablets Hospit a every day every day every day l by oral by oral by oral Clinic s route. route. route. tamsulosin tamsulosin No 2capsul Q1D tamsulosin [place] 0.4 mg 0.4 mg e(s) 0.4 mg Communi capsule capsule capsule ty Take 2 Take 2 Take 2 [facility]ospita capsules capsules capsules l every day every day every day Clinics by oral by oral by oral route. route. route. albuterol albuterol No 2puff(s Q4H albuterol [place] sulf 90 sulf 90 ) sulf 90 [...] route. inhalation route. albuterol albuterol No albuterol [place] sulfate HFA sulfate HFA sulfate Communi 90 [...] DAYS allopurinol allopurinol No 1 Q1D allopurino [place] 100 mg 100 mg l 100 mg Communi tablet Take tablet Take tablet ty 1 tablet 1 tablet Take 1 Hos[facility] ta every day every day tablet l by oral by oral every day Clin ics route. route. by oral route. Asprin Ec Asprin Ec No 1 Q1D Asprin Ec [place] Low Dose 81 Low Dose 81 Low Dose [facility] mg mg 81 mg ty tablet,ioana tablet,ioana tablet,del [facility]osp[facility] yed release yed release ayed l Take 1 Take 1 release Clinics tablet tablet Take 1 every day every day tablet by oral by oral every day route. route. by oral route. atorvastati atorvastati No 1 Q1D atorvastat [place] n 40 mg n 40 mg in 40 mg Commu ni tablet Take tablet Take tablet ty 1 tablet 1 tablet Take 1 [facility] ta every day every day tablet l by oral by oral every day Clin ics route. route. by oral route. baclofen 10 baclofen 10 No 1 BID baclofen [place] mg tablet mg tablet 10 mg Comm uni Take 1 Take 1 tablet ty tablet tablet Take 1 [facility]osp[facility] twice a day twice a day tablet l by oral by oral twice a Clinic s route. route. day by oral route. bisacodyl bisacodyl No 1suppos Q1D bisacodyl [place] 10 mg 10 mg itor(y/ 10 mg Communi rectal rectal ies) rectal ty suppository suppository suppositor [facility] Insert 1 Insert 1 y Insert 1 l suppository suppository suppositor Clinics every day every day y every by rectal by rectal day by route for route for rectal 30 days. 30 days. route for 30 days. Centrum Centrum No Centrum [place] Silver Silver Silver [facility] l Clinics diltiazem diltiazem No 1capsul Q1D diltiazem [place] CD 240 mg CD 240 mg e(s) CD 240 mg Communi capsule,ext capsule,ext capsule,ex ty ended ended tended [facility]osp[facility] release 24 release 24 release 24 l hr Take 1 hr Take 1 hr Take 1 Clinics capsule capsule capsule every day every day every day by oral by oral by oral route. route. route. famotidine famotidine No famotidine [place] 40 mg 40 mg 40 mg Communi tablet TAKE tablet TAKE tablet ty 1 TABLET BY 1 TABLET BY TAKE 1 [facility]osp[facility] MOUTH ONCE MOUTH ONCE TABLET BY l DAILY FOR DAILY FOR MOUTH ONCE Clinics 30 DAYS 30 DAYS DAILY FOR 30 DAYS finasteride finasteride No finasterid [place] 5 mg tablet 5 mg tablet e 5 mg Communi TAKE 1 TAKE 1 tablet ty TABLET BY TABLET BY TAKE 1 [facility] MOUTH ONCE MOUTH ONCE TABLET BY l DAILY DAILY MOUTH ONCE Clinics DAILY glycopyrrol glycopyrrol No glycopyrro [place] ate 2 mg ate 2 mg late 2 mg [facility] tablet TAKE tablet TAKE tablet ty 2 TABLETS 2 TABLETS TAKE 2 [facility] BY MOUTH BY MOUTH TABLETS BY l THREE TIMES THREE TIMES MOUTH Clinics DAILY DAILY THREE TIMES DAILY indomethaci indomethaci No indomethac [place] n 50 mg n 50 mg in 50 mg Commu ni capsule capsule capsule ty TAKE 1 TAKE 1 TAKE 1 [facility] CAPSULE BY CAPSULE BY CAPSULE BY l MOUTH THREE MOUTH THREE MOUTH Clinics TIMES DAILY TIMES DAILY THREE WITH MEALS WITH MEALS TIMES NEEDED NEEDED DAILY WITH FOR GOUT FOR GOUT MEALS NEEDED FOR GOUT lactulose lactulose No 15mL Q1D lactulose [place] 10 gram/15 10 gram/15 10 gram/15 [facility]i mL (15 mL) mL (15 mL) mL (15 mL) ty oral oral oral [facility]osp[facility] solution solution solution l Take 15 mL Take 15 mL Take 15 mL Clinics every day every day every day by oral by oral by oral route. route. route. Linzess 290 Linzess 290 No 1capsul Q1D Linzess [place] mcg capsule mcg capsule e(s) 290 mcg Communi Take 1 Take 1 capsule ty capsule capsule Take 1 [facility]ospita every day every day capsule l by oral by oral every day Clin ics route for route for by oral 30 days. 30 days. route for 30 days. lubiproston lubiproston No 1capsul BID lubiprosto [place] e 24 mcg e 24 mcg e(s) ne 24 mcg [facility] capsule capsule capsule ty Take 1 Take 1 Take 1 [facility]ospita capsule capsule capsule l twice a day twice a day twice a Clinics by oral by oral day by route. route. oral route. melatonin melatonin No melatonin [place] Communi ty [facility] metoprolol metoprolol No 1 Q1D metoprolol [place] tartrate tartrate tartrate Com dieudonne 100 mg 100 mg 100 mg ty tablet Take tablet Take tablet [facility]osp[facility] 1 tablet 1 tablet Take 1 l every day every day tablet Cli nics by oral by oral every day route. route. by oral route. Miralax Miralax No Miralax [place] Communi ty [facility] montelukast montelukast No 1 Q1D montelukas [place] 10 mg 10 mg t 10 mg Communi tablet Take tablet Take tablet ty 1 tablet 1 tablet Take 1 Hospi ta every day every day tablet l by oral by oral every day Clin ics route. route. by oral route. [facility] 3 [facility] 3 No [place]ul[facility] 3 [place] [facility] Clin[facility] oxybutynin oxybutynin No oxybutynin [place] chloride ER chloride ER chloride Communi 10 [...] for 30 days. 30 days. 30 days. polyethylen polyethylen No polyethyle [place] e glycol e glycol ne glycol [facility] [id number] 17 ty gram oral gram oral gram oral [facility]ospita powder powder powder l packet MIX packet MIX packet MIX Clinics 1 PACKET IN 1 PACKET IN 1 PACKET WATER & WATER & IN WATER & DRINK BY DRINK BY DRINK BY MOUTH ONCE MOUTH ONCE MOUTH ONCE DAILY DAILY DAILY senna 8.6 senna 8.6 No 2 Q1D senna 8.6 [place] mg tablet mg tablet mg tablet [facility]i Take 2 Take 2 Take 2 ty tablets tablets tablets Hospit a every day every day every day l by oral by oral by oral Clinic s route. route. route. tamsulosin tamsulosin No 2capsul Q1D tamsulosin [place] 0.4 mg 0.4 mg e(s) 0.4 mg [facility] capsule capsule capsule ty Take 2 Take 2 Take 2 [facility]ospita capsules capsules capsules l every day every day every day Clinics by oral by oral by oral route. route. route. albuterol albuterol No 2puff(s Q4H albuterol [place] sulf 90 sulf 90 ) sulf 90 [...] route. inhalation route. albuterol albuterol No albuterol [place] sulfate 2.5 sulfate 2.5 sulfate [facility] mg/3 mL mg/3 mL 2.5 mg/3 ty (0.083 %) (0.083 %) mL (0.083 Hospita solution solution %) l for for solution Clinics nebulizatio nebulizatio for n USE 1 n USE 1 nebulizati VIAL IN VIAL IN on USE 1 NEBULIZER NEBULIZER VIAL IN EVERY 6 EVERY 6 NEBULIZER HOURS HOURS EVERY 6 NEEDED FOR NEEDED FOR HOURS WHEEZING WHEEZING NEEDED FOR AND FOR AND FOR WHEEZING CHOLESTEROL CHOLESTEROL AND FOR AND FOR AND FOR CHOLESTERO SHORTNESS SHORTNESS L AND FOR OF BREATH OF BREATH SHORTNESS OF BREATH albuterol albuterol No albuterol [place] sulfate HFA sulfate HFA sulfate Communi 90 [...] DAYS allopurinol allopurinol No 1 Q1D allopurino [place] 100 mg 100 mg l 100 mg [facility] tablet Take tablet Take tablet ty 1 tablet 1 tablet Take 1 Hospi ta every day every day tablet l by oral by oral every day Clin ics route. route. by oral route. Asprin Ec Asprin Ec No 1 Q1D Asprin Ec [place] Low Dose 81 Low Dose 81 Low Dose [facility] mg mg 81 mg ty tablet,ioana tablet,ioana tablet,del [facility]ospita yed release yed release ayed l Take 1 Take 1 release Clinics tablet tablet Take 1 every day every day tablet by oral by oral every day route. route. by oral route. atorvastati atorvastati No 1 Q1D atorvastat [place] n 40 mg n 40 mg in 40 mg Commu ni tablet Take tablet Take tablet ty 1 tablet 1 tablet Take 1 Hospi ta every day every day tablet l by oral by oral every day Clin ics route. route. by oral route. baclofen 10 baclofen 10 No 1 BID baclofen [place] mg tablet mg tablet 10 mg Comm uni Take 1 Take 1 tablet ty tablet tablet Take 1 Hospita twice a day twice a day tablet l by oral by oral twice a Clinic s route. route. day by oral route. bisacodyl bisacodyl No 1suppos Q1D bisacodyl [place] 10 mg 10 mg itor(y/ 10 mg Communi rectal rectal ies) rectal ty suppository suppository suppositor [facility]osp[facility] Insert 1 Insert 1 y Insert 1 l suppository suppository suppositor Clinics every day every day y every by rectal by rectal day by route for route for rectal 30 days. 30 days. route for 30 days. Centrum Centrum No Centrum [place] Silver Silver Silver Communi ty [facility] l Clinics diltiazem diltiazem No 1capsul Q1D diltiazem [place] CD 240 mg CD 240 mg e(s) CD 240 mg Communi capsule,ext capsule,ext capsule,ex ty ended ended tended [facility]osp[facility] release 24 release 24 release 24 l hr Take 1 hr Take 1 hr Take 1 Clinics capsule capsule capsule every day every day every day by oral by oral by oral route. route. route. famotidine famotidine No famotidine [place] 40 mg 40 mg 40 mg [facility] tablet TAKE tablet TAKE tablet ty 1 TABLET BY 1 TABLET BY TAKE 1 [facility]ospita MOUTH ONCE MOUTH ONCE TABLET BY l DAILY FOR DAILY FOR MOUTH ONCE Clinics 30 DAYS 30 DAYS DAILY FOR 30 DAYS finasteride finasteride No finasterid [place] 5 mg tablet 5 mg tablet e 5 mg Communi TAKE 1 TAKE 1 tablet ty TABLET BY TABLET BY TAKE 1 [facility] MOUTH ONCE MOUTH ONCE TABLET BY l DAILY DAILY MOUTH ONCE Clinics DAILY glycopyrrol glycopyrrol No glycopyrro [place] ate 2 mg ate 2 mg late 2 mg [facility] tablet TAKE tablet TAKE tablet ty 2 TABLETS 2 TABLETS TAKE 2 [facility] BY MOUTH BY MOUTH TABLETS BY l THREE TIMES THREE TIMES MOUTH Clinics DAILY DAILY THREE TIMES DAILY indomethaci indomethaci No indomethac [place] n 50 mg n 50 mg in 50 mg Commu ni capsule capsule capsule ty TAKE 1 TAKE 1 TAKE 1 [facility]ospita CAPSULE BY CAPSULE BY CAPSULE BY l MOUTH THREE MOUTH THREE MOUTH Clinics TIMES DAILY TIMES DAILY THREE WITH MEALS WITH MEALS TIMES NEEDED NEEDED DAILY WITH FOR GOUT FOR GOUT MEALS NEEDED FOR GOUT InnoSpire InnoSpire No InnoSpire [place] Essence Essence Essence Commun i device USE device USE device USE ty DIRECTED DIRECTED H [facility]spita DIRECTED l Clinics ipratropium ipratropium No ipratropiu [place] 0.5 0.5 m 0.5 [facility]i mg-albutero mg-albutero mg-albuter ty l 3 mg (2.5 l 3 mg (2.5 ol 3 mg [facility]ospita mg base)/3 mg base)/3 (2.5 mg l mL mL base)/3 mL Clinics nebulizatio nebulizatio nebulizati n soln USE n soln USE on soln 1 AMPULE IN 1 AMPULE IN USE 1 NEBULIZER NEBULIZER AMPULE IN EVERY 12 EVERY 12 NEBULIZER HOURS HOURS EVERY 12 HOURS lactulose lactulose No 15mL Q1D lactulose [place] 10 gram/15 10 gram/15 10 gram/15 [facility] mL (15 mL) mL (15 mL) mL (15 mL) ty oral oral oral [facility]ospita solution solution solution l Take 15 mL Take 15 mL Take 15 mL Clinics every day every day every day by oral by oral by oral route. route. route. levofloxaci levofloxaci No levofloxac [place] n 750 mg n 750 mg in 750 mg [facility] tablet TAKE tablet TAKE tablet ty 1 TABLET BY 1 TABLET BY TAKE 1 [facility]ospita MOUTH ONCE MOUTH ONCE TABLET BY l DAILY FOR DAILY FOR MOUTH ONCE Clinics 10 DAYS 10 DAYS DAILY FOR 10 DAYS Linzess 290 Linzess 290 No 1capsul Q1D Linzess [place] mcg capsule mcg capsule e(s) 290 mcg Communi Take 1 Take 1 capsule ty capsule capsule Take 1 Hospita every day every day capsule l by oral by oral every day Clin ics route for route for by oral 30 days. 30 days. route for 30 days. lubiproston lubiproston No 1capsul BID lubiprosto [place] e 24 mcg e 24 mcg e(s) ne 24 mcg [facility] capsule capsule capsule ty Take 1 Take 1 Take 1 [facility]ospita capsule capsule capsule l twice a day twice a day twice a Clinics by oral by oral day by route. route. oral route. melatonin melatonin No melatonin [place] [facility] metoprolol metoprolol No 1 Q1D metoprolol [place] tartrate tartrate tartrate Com [facility] 100 mg 100 mg 100 mg ty tablet Take tablet Take tablet [facility]ospita 1 tablet 1 tablet Take 1 l every day every day tablet Cli nics by oral by oral every day route. route. by oral route. Miralax Miralax No Miralax [place] [facility] ty [facility] l Clinics montelukast montelukast No 1 Q1D montelukas [place] 10 mg 10 mg t 10 mg Communi tablet Take tablet Take tablet ty 1 tablet 1 tablet Take 1 Hospi ta every day every day tablet l by oral by oral every day Clin ics route. route. by oral route. Hulbert 3 Hulbert 3 No Hulbert 3 [place] [facility] Clin[facility] oxybutynin oxybutynin No oxybutynin [place] chloride ER chloride ER chloride Communi 10 [...] for 30 days. 30 days. 30 days. polyethylen polyethylen No polyethyle [place] e glycol e glycol ne glycol [facility] 3350 17 3350 17 3350 17 ty gram oral gram oral gram oral [facility] powder powder powder l packet MIX packet MIX packet MIX Clinics 1 PACKET IN 1 PACKET IN 1 PACKET WATER & WATER & IN WATER & DRINK BY DRINK BY DRINK BY MOUTH ONCE MOUTH ONCE MOUTH ONCE DAILY DAILY DAILY promethazin promethazin No 5mL Q4H promethazi [place] e-DM 6.25 e-DM 6.25 ne-DM 6.25 Communi mg-15 mg/5 mg-15 mg/5 mg-15 mg/5 ty mL oral mL oral mL oral Hospit a syrup Take syrup Take syrup Take l 5 mL every 5 mL every 5 mL every Clinics 4 hours by 4 hours by 4 hours by oral route oral route oral route as needed. as needed. as needed. senna 8.6 senna 8.6 No 2 Q1D senna 8.6 [place] mg tablet mg tablet mg tablet [facility] Take 2 Take 2 Take 2 ty tablets tablets tablets Hospit a every day every day every day l by oral by oral by oral Clinic s route. route. route. tamsulosin tamsulosin No 2capsul Q1D tamsulosin [place] 0.4 mg 0.4 mg e(s) 0.4 mg [facility] capsule capsule capsule ty Take 2 Take 2 Take 2 Hospita capsules capsules capsules l every day every day every day Clinics by oral by oral by oral route. route. route. trazodone trazodone No trazodone [place] 50 mg 50 mg 50 mg [facility] tablet TAKE tablet TAKE tablet ty 1 TABLET BY 1 TABLET BY TAKE 1 [facility]ospita MOUTH MOUTH TABLET BY l NIGHTLY FOR NIGHTLY FOR MOUTH Clinics 30 DAYS 30 DAYS NIGHTLY FOR 30 DAYS zaleplon 5 zaleplon 5 No zaleplon 5 [place] mg capsule mg capsule mg capsule Communi TAKE 1 TAKE 1 TAKE 1 ty CAPSULE BY CAPSULE BY CAPSULE BY [facility]ospita MOUTH AT MOUTH AT MOUTH AT l BEDTIME BEDTIME BEDTIME Clinic s allopurinol allopurinol No 1 Q1D allopurino [place] 100 mg 100 mg l 100 mg [facility] tablet Take tablet Take tablet ty 1 tablet 1 tablet Take 1 Hospi ta every day every day tablet l by oral by oral every day Clin ics route. route. by oral route. Asprin Ec Asprin Ec No 1 Q1D Asprin Ec [place] Low Dose 81 Low Dose 81 Low Dose [facility] mg mg 81 mg ty tablet,ioana tablet,ioana tablet,del [facility]osp[facility] yed release yed release ayed l Take 1 Take 1 release Clinics tablet tablet Take 1 every day every day tablet by oral by oral every day route. route. by oral route. baclofen 10 baclofen 10 No 1 BID baclofen [place] mg tablet mg tablet 10 mg Comm uni Take 1 Take 1 tablet ty tablet tablet Take 1 [facility]ospita twice a day twice a day tablet l by oral by oral twice a Clinic s route. route. day by oral route. carboxymeth carboxymeth No 1drop(s Q1D carboxymet [place] yl 0.5 yl 0.5 ) hyl 0.5 [...] Cartia XT Cartia XT No Cartia XT [place] 300 mg 300 mg 300 mg [facility] capsule,ext capsule,ext capsule,ex ty ended ended tended [facility]osp[facility] release release release l TAKE 1 TAKE 1 TAKE 1 Clinics CAPSULE BY CAPSULE BY CAPSULE BY MOUTH ONCE MOUTH ONCE MOUTH ONCE DAILY DAILY DAILY cholecalcif cholecalcif No 1capsul Q1D cholecalci [place] pb pb e(s) ferol Communi (vitamin (vitamin [...] Hospita l Clinics finasteride finasteride No finasterid [place] 5 mg tablet 5 mg tablet e 5 mg Communi TAKE 1 TAKE 1 tablet ty TABLET BY TABLET BY TAKE 1 [facility] MOUTH ONCE MOUTH ONCE TABLET BY l DAILY DAILY MOUTH ONCE Clinics DAILY glycopyrrol glycopyrrol No glycopyrro [place] ate 2 mg ate 2 mg late 2 mg [facility] tablet TAKE tablet TAKE tablet ty 2 TABLETS 2 TABLETS TAKE 2 [facility] BY MOUTH BY MOUTH TABLETS BY l THREE TIMES THREE TIMES MOUTH Clinics DAILY DAILY THREE TIMES DAILY hydrocodone hydrocodone No hydrocodon [place] 10 10 e 10 Communi mg-chlorphe mg-chlorphe [...] EVERY 12 HOURS indomethaci indomethaci No indomethac [place] n 50 mg n 50 mg in 50 mg Commu ni capsule capsule capsule ty TAKE 1 TAKE 1 TAKE 1 [facility]osp[facility] CAPSULE BY CAPSULE BY CAPSULE BY l MOUTH THREE MOUTH THREE MOUTH Clinics TIMES DAILY TIMES DAILY THREE TIMES DAILY lactulose lactulose No lactulose [place] [facility] ty [facility] l Clinics levofloxaci levofloxaci No levofloxac [place] n 750 mg n 750 mg in 750 mg [facility] tablet TAKE tablet TAKE tablet ty 1 TABLET BY 1 TABLET BY TAKE 1 [facility]ospita MOUTH ONCE MOUTH ONCE TABLET BY l DAILY FOR DAILY FOR MOUTH ONCE Clinics 10 DAYS 10 DAYS DAILY FOR 10 DAYS lubiproston lubiproston No 1capsul BID lubiprosto [place] e 24 mcg e 24 mcg e(s) ne 24 mcg [facility] capsule capsule capsule ty Take 1 Take 1 Take 1 [facility]ospita capsule capsule capsule l twice a day twice a day twice a Clinics by oral by oral day by route. route. oral route. metoprolol metoprolol No 1 BID metoprolol [place] tartrate 25 tartrate 25 tartrate [facility] mg tablet mg tablet 25 mg ty Take 1 Take 1 tablet [facility]osp[facility] tablet tablet Take 1 l twice a day twice a day tablet Clinics by oral by oral twice a route. route. day by oral route. montelukast montelukast No 1 Q1D montelukas [place] 10 mg 10 mg t 10 mg Communi tablet Take tablet Take tablet ty 1 tablet 1 tablet Take 1 Hospi ta every day every day tablet l by oral by oral every day Clin ics route. route. by oral route. polyethylen polyethylen No polyethyle [place] e glycol e glycol ne glycol [facility] 3350 8.5 3350 8.5 3350 8.5 ty gram oral gram oral gram oral [facility]ospita powder powder powder l packet packet packet [facility] Dissolve in Dissolve in Dissolve liquid mix [...] EVERY 12 HOURS sodium sodium No sodium [place] citrate citrate citrate Commun i ty Hospita l Clinics Centrum - Centrum - No Centrum - Oxybutynin Oxybutynin No 1{table BID Oxybutynin Chloride 5 Chloride 5 t} Chloride 5 MG MG MG Centrum - Centrum - No Centrum - Metoprolol Metoprolol No 1{capsu QD Metoprolol Succinate Succinate le} Succinate 100 MG 100 MG 100 MG Finasteride Finasteride No 1{table QD Finasterid 5 MG 5 MG t} e 5 MG Glycopyrrol Glycopyrrol No 1{table QD Glycopyrro ate 2 MG ate 2 MG t} late 2 MG baclofen baclofen No baclofen Montelukast Montelukast No 1{table QD Montelukas Sodium 10 Sodium 10 t} t Sodium MG MG 10 MG baclofen baclofen No baclofen Cartia XT Cartia XT No 1{capsu QD Cartia XT 300 MG 300 MG le} 300 MG Aspirin 81 Aspirin 81 No 1{table QD Aspirin 81 81 MG 81 MG t} 81 MG Vitamin D3 Vitamin D3 No Vitamin D3 [id number] [id number] UNIT/GM UNIT/GM UNIT/GM Lactulose Lactulose No 1{packe QD Lactulose 10 GM 10 GM t} 10 GM Tamsulosin Tamsulosin No 1{capsu QD Tamsulosin HCl 0.4 MG HCl 0.4 MG le} HCl 0.4 MG Sennosides Sennosides No 2{table QD Sennosides 8.6 MG 8.6 MG ts_at_b 8.6 MG edtime_ as_need ed} Lubiproston Lubiproston No BID Lubiprosto e 24 MCG e 24 MCG ne 24 MCG Oxybutynin Oxybutynin No 1{table BID Oxybutynin Chloride 5 Chloride 5 t} Chloride 5 MG MG MG Allopurinol Allopurinol No 1{table QD Allopurino 100 MG 100 MG t} l 100 MG Montelukast Montelukast No 1{table QD Montelukas Sodium 10 Sodium 10 t} t Sodium MG MG 10 MG Centrum - Centrum - No Centrum - Vitamin D3 Vitamin D3 No Vitamin D3 [id number] UNIT/GM UNIT/GM UNIT/GM Metoprolol Metoprolol No 1{capsu QD Metoprolol Succinate Succinate le} Succinate 100 MG 100 MG 100 MG Finasteride Finasteride No 1{table QD Finasterid 5 MG 5 MG t} e 5 MG Glycopyrrol Glycopyrrol No 1{table QD Glycopyrro ate 2 MG ate 2 MG t} late 2 MG baclofen baclofen No baclofen Montelukast Montelukast No 1{table QD Montelukas Sodium 10 Sodium 10 t} t Sodium MG MG 10 MG Cartia XT Cartia XT No 1{capsu QD Cartia XT 300 MG 300 MG le} 300 MG Aspirin 81 Aspirin 81 No 1{table QD Aspirin 81 81 MG 81 MG t} 81 MG Vitamin D3 Vitamin D3 No Vitamin D3 [id number] UNIT/GM UNIT/GM UNIT/GM Lactulose Lactulose No 1{packe QD Lactulose 10 GM 10 GM t} 10 GM Tamsulosin Tamsulosin No 1{capsu QD Tamsulosin HCl 0.4 MG HCl 0.4 MG le} HCl 0.4 MG Glycopyrrol Glycopyrrol No 1{table QD Glycopyrro ate 2 MG ate 2 MG t} late 2 MG Sennosides Sennosides No 2{table QD Sennosides 8.6 MG 8.6 MG ts_at_b 8.6 MG edtime_ as_need ed} Lubiproston Lubiproston No BID Lubiprosto e 24 MCG e 24 MCG ne 24 MCG Oxybutynin Oxybutynin No 1{table BID Oxybutynin Chloride 5 Chloride 5 t} Chloride 5 MG MG MG Allopurinol Allopurinol No 1{table QD Allopurino 100 MG 100 MG t} l 100 MG Centrum - Centrum - No Centrum - Metoprolol Metoprolol No 1{capsu QD Metoprolol Succinate Succinate le} Succinate 100 MG 100 MG 100 MG Finasteride Finasteride No 1{table QD Finasterid 5 MG 5 MG t} e 5 MG Glycopyrrol Glycopyrrol No 1{table QD Glycopyrro ate 2 MG ate 2 MG t} late 2 MG Cartia XT Cartia XT No 1{capsu QD Cartia XT 300 MG 300 MG le} 300 MG baclofen baclofen No baclofen Montelukast Montelukast No 1{table QD Montelukas Sodium 10 Sodium 10 t} t Sodium MG MG 10 MG Cartia XT Cartia XT No 1{capsu QD Cartia XT 300 MG 300 MG le} 300 MG Aspirin 81 Aspirin 81 No 1{table QD Aspirin 81 81 MG 81 MG t} 81 MG Vitamin D3 Vitamin D3 No Vitamin D3 [id number] UNIT/GM UNIT/GM UNIT/GM Lactulose Lactulose No 1{packe QD Lactulose 10 GM 10 GM t} 10 GM Tamsulosin Tamsulosin No 1{capsu QD Tamsulosin HCl 0.4 MG HCl 0.4 MG le} HCl 0.4 MG Sennosides Sennosides No 2{table QD Sennosides 8.6 MG 8.6 MG ts_at_b 8.6 MG edtime_ as_need ed} Lubiproston Lubiproston No BID Lubiprosto e 24 MCG e 24 MCG ne 24 MCG Oxybutynin Oxybutynin No 1{table BID Oxybutynin Chloride 5 Chloride 5 t} Chloride 5 MG MG MG Sennosides Sennosides No 2{table QD Sennosides 8.6 MG 8.6 MG ts_at_b 8.6 MG edtime_ as_need ed} Allopurinol Allopurinol No 1{table QD Allopurino 100 MG 100 MG t} l 100 MG Aspirin 81 Aspirin 81 No 1{table [...] Vitamin D3 Vitamin D3 No Vitamin D3 [id number] UNIT/GM UNIT/GM UNIT/GM Glycopyrrol Glycopyrrol No 1{table [...] Vitamin D3 Vitamin D3 No Vitamin D3 [id number] UNIT/GM UNIT/GM UNIT/GM Finasteride Finasteride No 1{table QD Finasterid 5 MG 5 MG t} e 5 MG Centrum - Centrum - No Centrum - Allopurinol Allopurinol No 1{table QD Allopurino 100 MG 100 MG t} l 100 MG Aspirin 81 Aspirin 81 No 1{table QD Aspirin 81 81 MG 81 MG t} 81 MG Vitamin D3 Vitamin D3 No Vitamin D3 [id number] UNIT/GM UNIT/GM UNIT/GM Glycopyrrol Glycopyrrol No 1{table QD Glycopyrro ate 2 MG ate 2 MG t} late 2 MG Montelukast Montelukast No 1{table QD Montelukas Sodium 10 Sodium 10 t} t Sodium MG MG 10 MG Centrum - Centrum - No Centrum - Tamsulosin Tamsulosin No 1{capsu QD Tamsulosin HCl 0.4 MG HCl 0.4 MG le} HCl 0.4 MG Cartia XT Cartia XT No 1{capsu QD Cartia XT 300 MG 300 MG le} 300 MG Oxybutynin Oxybutynin No 1{table BID Oxybutynin Chloride 5 Chloride 5 t} Chloride 5 MG MG MG Lactulose Lactulose No 1{packe QD Lactulose 10 GM 10 GM t} 10 GM Finasteride Finasteride No 1{table QD Finasterid 5 MG 5 MG t} e 5 MG Metoprolol Metoprolol No 1{capsu QD Metoprolol Succinate Succinate le} Succinate 100 MG 100 MG 100 MG Lubiproston Lubiproston No BID Lubiprosto e 24 MCG e 24 MCG ne 24 MCG baclofen baclofen No baclofen Sennosides Sennosides No 2{table QD Sennosides 8.6 MG 8.6 MG ts_at_b 8.6 MG edtime_ as_need ed} allopurinol allopurinol No allopurino [place] 100 mg 100 mg l 100 mg da tablet Take tablet Take tablet Medical 1 tablet by 1 tablet by Take 1 Group mouth mouth every tablet by every day day in the mouth in the morning every day morning in the morning baclofen 10 baclofen 10 [...] days. allopurinol allopurinol No 1 Q1D allopurino [place] 100 mg 100 mg l 100 mg Communi tablet Take tablet Take tablet ty 1 tablet 1 tablet Take 1 Hospi ta every day every day tablet l by oral by oral every day Clin ics route. route. by oral route. Asprin Ec Asprin Ec No 1 Q1D Asprin Ec [place] Low Dose 81 Low Dose 81 Low Dose Communi mg mg 81 mg ty tablet,ioana tablet,ioana tablet,del Hospita yed release yed release ayed l Take 1 Take 1 release Clinics tablet tablet Take 1 every day every day tablet by oral by oral every day route. route. by oral route. baclofen 10 baclofen 10 No 1 BID baclofen [place] mg tablet mg tablet 10 mg Comm uni Take 1 Take 1 tablet ty tablet tablet Take 1 Hospita twice a day twice a day tablet l by oral by oral twice a Clinic s route. route. day by oral route. carboxymeth carboxymeth No 1drop(s Q1D carboxymet [place] yl 0.5 yl 0.5 ) hyl 0.5 [...] Cartia XT Cartia XT No Cartia XT [place] 300 mg 300 mg 300 mg Communi capsule,ext capsule,ext capsule,ex ty ended ended tended Hospita release release release l TAKE 1 TAKE 1 TAKE 1 Clinics CAPSULE BY CAPSULE BY CAPSULE BY MOUTH ONCE MOUTH ONCE MOUTH ONCE DAILY DAILY DAILY cholecalcif cholecalcif No 1capsul Q1D cholecalci [place] pb pb e(s) ferol Communi (vitamin (vitamin [...] ) 90 mg ty liquid liquid liquid [facility] Clinics finasteride finasteride No finasterid [place] 5 mg tablet 5 mg tablet e 5 mg Communi TAKE 1 TAKE 1 tablet ty TABLET BY TABLET BY TAKE 1 [facility] MOUTH ONCE MOUTH ONCE TABLET BY l DAILY DAILY MOUTH ONCE Clinics DAILY glycopyrrol glycopyrrol No glycopyrro [place] ate 2 mg ate 2 mg late 2 mg [facility] tablet TAKE tablet TAKE tablet ty 2 TABLETS 2 TABLETS TAKE 2 [facility] BY MOUTH BY MOUTH TABLETS BY l THREE TIMES THREE TIMES MOUTH Clinics DAILY DAILY THREE TIMES DAILY hydrocodone hydrocodone No hydrocodon [place] 10 10 e 10 Communi mg-chlorphe mg-chlorphe [...] EVERY 12 HOURS indomethaci indomethaci No indomethac [place] n 50 mg n 50 mg in 50 mg Commu ni capsule capsule capsule ty TAKE 1 TAKE 1 TAKE 1 [facility]ospita CAPSULE BY CAPSULE BY CAPSULE BY l MOUTH THREE MOUTH THREE MOUTH Clinics TIMES DAILY TIMES DAILY THREE TIMES DAILY lactulose lactulose No lactulose [place] Communi ty [facility] levofloxaci levofloxaci No levofloxac [place] n 750 mg n 750 mg in 750 mg [facility] tablet TAKE tablet TAKE tablet ty 1 TABLET BY 1 TABLET BY TAKE 1 [facility]ospita MOUTH ONCE MOUTH ONCE TABLET BY l DAILY FOR DAILY FOR MOUTH ONCE Clinics 10 DAYS 10 DAYS DAILY FOR 10 DAYS lubiproston lubiproston No 1capsul BID lubiprosto [place] e 24 mcg e 24 mcg e(s) ne 24 mcg [facility] capsule capsule capsule ty Take 1 Take 1 Take 1 Hospita capsule capsule capsule l twice a day twice a day twice a Clinics by oral by oral day by route. route. oral route. metoprolol metoprolol No metoprolol [place] tartrate 25 tartrate 25 tartrate Communi mg tablet mg tablet 25 mg ty TAKE 1 TAKE 1 tablet [facility]ospita TABLET BY TABLET BY TAKE 1 l MOUTH TWICE MOUTH TWICE TABLET BY Clinics DAILY DAILY MOUTH TWICE DAILY montelukast montelukast No 1 Q1D montelukas [place] 10 mg 10 mg t 10 mg Communi tablet Take tablet Take tablet ty 1 tablet 1 tablet Take 1 Hospi ta every day every day tablet l by oral by oral every day Clin ics route. route. by oral route. polyethylen polyethylen No polyethyle [place] e glycol e glycol ne glycol [facility] 3350 8.5 3350 8.5 3350 8.5 ty gram oral gram oral gram oral Hospita powder powder powder l packet packet packet [facility] Dissolve in Dissolve in Dissolve liquid mix [...] EVERY 12 HOURS sodium sodium No sodium [place] citrate [facility]opurinol No 1 Q1D allopurino [place] 100 mg 100 mg l 100 mg Communi tablet Take tablet Take tablet ty 1 tablet 1 tablet Take 1 Hospi ta every day every day tablet l by oral by oral every day Clin ics route. route. by oral route. Asprin Ec Asprin Ec No 1 Q1D Asprin Ec [place] Low Dose 81 Low Dose 81 Low Dose [facility]i mg mg 81 mg ty tablet,ioana tablet,ioana tablet,del Hospita yed release yed release ayed l Take 1 Take 1 release Clinics tablet tablet Take 1 every day every day tablet by oral by oral every day route. route. by oral route. atorvastati atorvastati No 1 Q1D atorvastat [place] n 40 mg n 40 mg in 40 mg Commu ni tablet Take tablet Take tablet ty 1 tablet 1 tablet Take 1 Hospi ta every day every day tablet l by oral by oral every day Clin ics route. route. by oral route. baclofen 10 baclofen 10 No 1 BID baclofen [place] mg tablet mg tablet 10 mg Comm uni Take 1 Take 1 tablet ty tablet tablet Take 1 Hospita twice a day twice a day tablet l by oral by oral twice a Clinic s route. route. day by oral route. Brilinta 90 Brilinta 90 No 1 BID Brilinta [place] mg tablet mg tablet 90 mg Comm uni Take 1 Take 1 tablet ty tablet tablet Take 1 Hospita twice a day twice a day tablet l by oral by oral twice a Clinic s route. route. day by oral route. Centrum Centrum No Centrum [place] Silver Silver Silver Communi ty Hospita l Clinics diltiazem diltiazem No 1capsul Q1D diltiazem [place] CD 240 mg CD 240 mg e(s) CD 240 mg Communi capsule,ext capsule,ext capsule,ex ty ended ended tended Hospita release 24 release 24 release 24 l hr Take 1 hr Take 1 hr Take 1 Clinics capsule capsule capsule every day every day every day by oral by oral by oral route. route. route. finasteride finasteride No finasterid [place] 5 mg tablet 5 mg tablet e 5 mg Communi TAKE 1 TAKE 1 tablet ty TABLET BY TABLET BY TAKE 1 [facility] MOUTH ONCE MOUTH ONCE TABLET BY l DAILY DAILY MOUTH ONCE Clinics DAILY glycopyrrol glycopyrrol No glycopyrro [place] ate 2 mg ate 2 mg late 2 mg [facility] tablet TAKE tablet TAKE tablet ty 2 TABLETS 2 TABLETS TAKE 2 [facility] BY MOUTH BY MOUTH TABLETS BY l THREE TIMES THREE TIMES MOUTH Clinics DAILY DAILY THREE TIMES DAILY indomethaci indomethaci No indomethac [place] n 50 mg n 50 mg in [...] 145 Linzess 145 No 1capsul Q1D Lin[facility]ess [place] mcg capsule mcg capsule e(s) 145 mcg Communi Take 1 Take 1 capsule ty capsule capsule Take 1 Hospita every day every day capsule l by oral by oral every day Clin ics route. route. by oral route. metoprolol metoprolol No metoprolol [place] succinate succinate succinate Communi ER 25 mg ER 25 mg ER 25 mg ty tablet,exte tablet,exte tablet,ext Hospita nded nded ended l release 24 release 24 release 24 Clinics hr TAKE 1 hr TAKE 1 hr TAKE 1 TABLET BY TABLET BY TABLET BY MOUTH ONCE MOUTH ONCE MOUTH ONCE DAILY DAILY DAILY montelukast montelukast No 1 Q1D montelukas [place] 10 mg 10 mg t 10 mg Communi tablet Take tablet Take tablet ty 1 tablet 1 tablet Take 1 Hospi ta every day every day tablet l by oral by oral every day Clin ics route. route. by oral route. [facility] 3 Hulbert 3 No Hul[facility] 3 [place] [facility] ty [facility] l Clinics oxybutynin oxybutynin No 1 Q1D oxybutynin [place] chloride ER chloride ER chloride Communi 10 mg 10 mg ER 10 mg ty tablet,exte tablet,exte tablet,ext Hospita nded nded ended l release 24 release 24 release 24 Clinics hr Take 1 hr Take 1 hr Take 1 tablet tablet tablet every day every day every day by oral by oral by oral route. route. route. sennosides sennosides No 8 Q1D sennosides [place] 8.6 mg 8.6 mg 8.6 mg Communi tablet Take tablet Take tablet ty 8 tablets 8 tablets Take 8 [facility] every day every day tablets l by oral by oral every day Clin ics route. route. by oral route. tamsulosin tamsulosin No 2capsul Q1D tamsulosin [place] 0.4 mg 0.4 mg e(s) 0.4 mg Communi capsule capsule capsule ty Take 2 Take 2 Take 2 Hospita capsules capsules capsules l every day every day every day Clinics by oral by oral by oral route. route. route. allopurinol allopurinol No 1 Q1D allopurino [place] 100 mg 100 mg l 100 mg Communi tablet Take tablet Take tablet ty 1 tablet 1 tablet Take 1 Hospi ta every day every day tablet l by oral by oral every day Clin ics route. route. by oral route. Asprin Ec Asprin Ec No 1 Q1D Asprin Ec [place] Low Dose 81 Low Dose 81 Low Dose Commun[facility] mg mg 81 mg ty tablet,ioana tablet,ioana tablet,del Hospita yed release yed release ayed l Take 1 Take 1 release Clinics tablet tablet Take 1 every day every day tablet by oral by oral every day route. route. by oral route. atorvastati atorvastati No 1 Q1D atorvastat [place] n 40 mg n 40 mg in 40 mg Commu ni tablet Take tablet Take tablet ty 1 tablet 1 tablet Take 1 Hospi ta every day every day tablet l by oral by oral every day Clin ics route. route. by oral route. baclofen 10 baclofen 10 No 1 BID baclofen [place] mg tablet mg tablet 10 mg Comm uni Take 1 Take 1 tablet ty tablet tablet Take 1 Hospita twice a day twice a day tablet l by oral by oral twice a Clinic s route. route. day by oral route. Brilinta 90 Brilinta 90 No 1 BID Brilinta [place] mg tablet mg tablet 90 mg Comm uni Take 1 Take 1 tablet ty tablet tablet Take 1 Hospita twice a day twice a day tablet l by oral by oral twice a Clinic s route. route. day by oral route. Centrum Centrum No Centrum [place] Silver Silver Silver Communi ty Hospita l Clinics diltiazem diltiazem No 1capsul Q1D diltiazem [place] CD 240 mg CD 240 mg e(s) CD 240 mg Communi capsule,ext capsule,ext capsule,ex ty ended ended tended Hospita release 24 release 24 release 24 l hr Take 1 hr Take 1 hr Take 1 Clinics capsule capsule capsule every day every day every day by oral by oral by oral route. route. route. finasteride finasteride No finasterid [place] 5 mg tablet 5 mg tablet e 5 mg Communi TAKE 1 TAKE 1 tablet ty TABLET BY TABLET BY TAKE 1 [facility] MOUTH ONCE MOUTH ONCE TABLET BY l DAILY DAILY MOUTH ONCE Clinics DAILY glycopyrrol glycopyrrol No glycopyrro [place] ate 2 mg ate 2 mg late 2 mg Co [facility]i tablet TAKE tablet TAKE tablet ty 2 TABLETS 2 TABLETS TAKE 2 [facility] BY MOUTH BY MOUTH TABLETS BY l THREE TIMES THREE TIMES MOUTH Clinics DAILY DAILY THREE TIMES DAILY indomethaci indomethaci No indomethac [place] n 50 mg n 50 mg in 50 mg Commu ni capsule capsule capsule ty TAKE 1 TAKE 1 TAKE 1 Hospita CAPSULE BY CAPSULE BY CAPSULE BY l MOUTH THREE MOUTH THREE MOUTH Clinics TIMES DAILY TIMES DAILY THREE WITH MEALS WITH MEALS TIMES NEEDED NEEDED DAILY WITH FOR GOUT FOR GOUT MEALS NEEDED FOR GOUT metoprolol metoprolol No metoprolol [place] succinate succinate succinate Commun[facility] ER 25 mg ER 25 mg ER 25 mg ty tablet,exte tablet,exte tablet,ext Hospita nded nded ended l release 24 release 24 release 24 Clinics hr TAKE 1 hr TAKE 1 hr TAKE 1 TABLET BY TABLET BY TABLET BY MOUTH ONCE MOUTH ONCE MOUTH ONCE DAILY DAILY DAILY montelukast montelukast No 1 Q1D montelukas [place] 10 mg 10 mg t 10 mg [facility] tablet Take tablet Take tablet ty 1 tablet 1 tablet Take 1 Hospi ta every day every day tablet l by oral by oral every day Clin ics route. route. by oral route. [facility] 3 [facility] 3 No [facility] 3 [place] [facility] oxybutynin oxybutynin No 1 Q1D oxybutynin [place] chloride ER chloride ER chloride Communi 10 mg 10 mg ER 10 mg ty tablet,exte tablet,exte tablet,ext Hospita nded nded ended l release 24 release 24 release 24 Clinics hr Take 1 hr Take 1 hr Take 1 tablet tablet tablet every day every day every day by oral by oral by oral route. route. route. sennosides sennosides No 8 Q1D sennosides [place] 8.6 mg 8.6 mg 8.6 mg Communi tablet Take tablet Take tablet ty 8 tablets 8 tablets Take 8 [facility] every day every day tablets l by oral by oral every day Clin ics route. route. by oral route. tamsulosin tamsulosin No 2capsul Q1D tamsulosin [place] 0.4 mg 0.4 mg e(s) 0.4 mg Communi capsule capsule capsule ty Take 2 Take 2 Take 2 Hospita capsules capsules capsules l every day every day every day Clinics by oral by oral by oral route. route. route. allopurinol allopurinol No 1 Q1D allopurino [place] 100 mg 100 mg l 100 mg Communi tablet Take tablet Take tablet ty 1 tablet 1 tablet Take 1 Hospi ta every day every day tablet l by oral by oral every day Clin ics route. route. by oral route. Asprin Ec Asprin Ec No 1 Q1D Asprin Ec [place] Low Dose 81 Low Dose 81 Low Dose [facility] mg mg 81 mg ty tablet,ioana tablet,ioana tablet,del Hospita yed release yed release ayed l Take 1 Take 1 release Clinics tablet tablet Take 1 every day every day tablet by oral by oral every day route. route. by oral route. atorvastati atorvastati No 1 Q1D atorvastat [place] n 40 mg n 40 mg in 40 mg Commu ni tablet Take tablet Take tablet ty 1 tablet 1 tablet Take 1 Hospi ta every day every day tablet l by oral by oral every day Clin ics route. route. by oral route. Immunizations Ordered Immunization Filled Immunization [...] [facility] VACC[facility]ATION 00:00:00 [facility] COVID-19 MRNA 2021-06-06 Completed [facility] VACC[facility] 00:00:00 [facility] PFIZ[facility] COVID-19 MRNA 2021-06-06 Completed [facility] VACC[facility] 00:00:00 [facility] P[facility] COVID-19 MRNA 2021-06-06 Completed [facility] VACC[facility] 00:00:00 [facility] PFIZER COVID-19 MRNA 2021-06-06 Completed [facility] VACCINATION 00:00:00 [facility] PFIZER COVID-19 MRNA 2021-06-06 Completed [facility] VACCINATION 00:00:00 [facility] PFIZER COVID-19 MRNA 2021-06-06 Completed [facility] VACCINATION 00:00:00 [facility] PFIZER COVID-19 MRNA 2021-06-06 Completed [facility] VACCINATION 00:00:00 [facility] PFIZER COVID-19 MRNA 2021-06-06 Completed [facility] VACCINATION 00:00:00 [facility] PFIZER COVID-19 MRNA 2021-06-06 Completed [facility] VACCINATION 00:00:00 [facility] PFIZER COVID-19 MRNA 2021-06-06 Completed [facility] VACCINATION 00:00:00 [facility] PFIZER COVID-19 MRNA 2021-06-06 Completed [facility] VACCINATION 00:00:00 [facility] PFIZER COVID-19 MRNA 2021-06-06 Completed [facility] VACCINATION 00:00:00 [facility] PFIZER COVID-19 MRNA 2021-06-06 Completed [facility] VACCINATION 00:00:00 [facility] PFIZER COVID-19 MRNA 2021-06-06 Completed [facility] VACCINATION 00:00:00 [facility] PFIZER COVID-19 MRNA 2020-10-04 Completed [facility] VACCINATION 00:00:00 [facility] PFIZER COVID-19 MRNA 2020-10-04 Completed [facility] VACCINATION 00:00:00 [facility] PFIZER COVID-19 MRNA 2020-10-04 Completed [facility] VACCINATION 00:00:00 [facility] PFIZER COVID-19 MRNA 2020-10-04 Completed [facility] VACCINATION 00:00:00 [facility] PFIZER COVID-19 MRNA 2020-10-04 Completed [facility] VACCINATION 00:00:00 [facility] PFIZER COVID-19 MRNA 2020-10-04 Completed [facility] VACCINATION 00:00:00 [facility] PFIZER COVID-19 MRNA 2020-10-04 Completed [facility] VACCINATION 00:00:00 [facility] PFIZER COVID-19 MRNA 2020-10-04 Completed [facility] VACCINATION 00:00:00 [facility] PFIZER COVID-19 MRNA 2020-10-04 Completed [facility] VACCINATION 00:00:00 [facility] PFIZER COVID-19 MRNA 2020-10-04 Completed [facility] VACCINATION 00:00:00 [facility] PFIZER COVID-19 MRNA 2020-10-04 Completed [facility] VACCINATION 00:00:00 [facility] PFIZER COVID-19 MRNA 2020-10-04 Completed [facility] VACCINATION 00:00:00 [facility] PFIZER COVID-19 MRNA 2020-10-04 Completed [facility] VACCINATION 00:00:00 [facility] PFIZER COVID-19 MRNA 2020-10-04 Completed [facility] VACCINATION 00:00:00 [facility] PFIZER COVID-19 MRNA 2020-10-04 Completed [facility] VACCINATION 00:00:00 [facility] PFIZER COVID-19 MRNA 2020-09-16 Completed [facility] VACCINATION 00:00:00 [facility] PFIZER COVID-19 MRNA 2020-09-16 Completed [facility] VACCINATION 00:00:00 [facility] PFIZER COVID-19 MRNA 2020-09-16 Completed [facility] VACCINATION 00:00:00 [facility] PFIZER COVID-19 MRNA 2020-09-16 Completed [facility] VACCINATION 00:00:00 [facility] PFIZER COVID-19 MRNA 2020-09-16 Completed [facility] VACCINATION 00:00:00 [facility] PFIZER COVID-19 MRNA 2020-09-16 Completed [facility] VACCINATION 00:00:00 [facility] PFIZER COVID-19 MRNA 2020-09-16 Completed [facility] VACCINATION 00:00:00 [facility] PFIZER COVID-19 MRNA 2020-09-16 Completed [facility] VACCINATION 00:00:00 [facility] PFIZER COVID-19 MRNA 2020-09-16 Completed [facility] VACCINATION 00:00:00 [facility] PFIZER COVID-19 MRNA 2020-09-16 Completed [facility] VACCINATION 00:00:00 [facility] PFIZER COVID-19 MRNA 2020-09-16 Completed [facility] VACCINATION 00:00:00 [facility] PFIZER COVID-19 MRNA 2020-09-16 Completed [facility] VACCINATION 00:00:00 [facility] PFIZER COVID-19 MRNA 2020-09-16 Completed [facility] VACCINATION 00:00:00 [facility] PFIZER COVID-19 MRNA 2020-09-16 Completed [facility] VACCINATION 00:00:00 [facility] PFIZER COVID-19 MRNA 2020-09-16 Completed [facility] VACCINATION 00:00:00 Hospital Influenza, Influenza, 2020-06-03 Completed [place] injectable, MDCK, injectable, MDCK, 11:51:51 [facility] preservative free, preservative free, [facility] Influenza, Influenza, 2020-06-03 Completed [place] injectable, MDCK, injectable, MDCK, 11:51:51 [facility] preservative free, preservative free, [facility] Influenza, Influenza, 2020-06-03 Completed [place] injectable, MDCK, injectable, MDCK, 11:51:51 [facility] preservative free, preservative free, [facility] Influenza, Influenza, 2020-06-03 Completed [place] injectable, MDCK, injectable, MDCK, 11:51:51 [facility] preservative free, preservative free, [facility] Influenza, Influenza, 2020-06-03 Completed [place] injectable, MDCK, injectable, MDCK, 11:51:51 [facility] preservative free, preservative free, [facility] Influenza, Influenza, 2020-06-03 Completed [place] injectable, MDCK, injectable, MDCK, 11:51:51 [facility] preservative free, preservative free, [facility] Influenza, Influenza, 2020-06-03 Completed [place] injectable, MDCK, injectable, MDCK, 11:51:51 [facility] preservative free, preservative free, [facility] Influenza, Influenza, 2020-06-03 Completed [place] injectable, MDCK, injectable, MDCK, 11:51:51 [facility] preservative free, preservative free, [facility] Influenza, Influenza, 2020-06-03 Completed [place] injectable, MDCK, injectable, MDCK, 11:51:51 [facility] preservative free, preservative free, [facility] Influenza, Influenza, 2020-06-03 Completed [place] injectable, MDCK, injectable, MDCK, 11:51:51 [facility] preservative free, preservative free, [facility] Influenza, Influenza, 2020-06-03 Completed [place] injectable, MDCK, injectable, MDCK, 11:51:51 [facility] 2019-[facility]-26 Completed [place] injectable, injectable, 00:00:00 [facility] influenza, influenza, 2019-06-26 Completed [place] injectable, injectable, 00:00:00 [facility] influenza, influenza, 2019-06-26 Completed [place] injectable, injectable, 00:00:00 [facility] influenza, influenza, 2019-06-26 Completed [place] injectable, injectable, 00:00:00 [facility] influenza, influenza, 2019-06-26 Completed [place] injectable, injectable, 00:00:00 [facility] influenza, influenza, 2019-06-26 Completed [place] injectable, injectable, 00:00:00 [facility] influenza, influenza, 2019-06-26 Completed [place] injectable, injectable, 00:00:00 [facility] influenza, influenza, 2019-06-26 Completed [place] injectable, injectable, 00:00:00 [facility] influenza, influenza, 2019-06-26 Completed [place] injectable, injectable, 00:00:00 [facility] influenza, influenza, 2019-06-26 Completed [place] injectable, injectable, 00:00:00 [facility] influenza, influenza, 2019-06-26 Completed [place] injectable, injectable, 00:00:00 [facility] pneumococcal pneumococcal 2018-11-05 Completed [place] polysaccharide PPV23 polysaccharide PPV23 00:00:00 [facility] influenza, influenza, 2018-11-05 Completed [place] unspecified unspecified 00:00:00 [facility] pneumococcal pneumococcal 2018-11-05 Completed [place] polysaccharide PPV23 polysaccharide PPV23 00:00:00 [facility] influenza, influenza, 2018-11-05 Completed [place] unspecified unspecified 00:00:00 [facility] pneumococcal pneumococcal 2018-11-05 Completed [place] polysaccharide PPV23 polysaccharide PPV23 [facility], influenza, 2018-11-05 Completed [place] unspecified unspecified 00:00:00 [facility] pneumococcal pneumococcal 2018-11-05 Completed [place] polysaccharide PPV23 polysaccharide PPV23 00:00:00 [facility] influenza, influenza, 2018-11-05 Completed [place] unspecified unspecified 00:00:00 [facility] pneumococcal pneumococcal 2018-11-05 Completed [place] polysaccharide PPV23 polysaccharide PPV23 00:00:00 [facility] influenza, influenza, 2018-11-05 Completed [place] unspecified unspecified 00:00:00 [facility] pneumococcal pneumococcal 2018-11-05 Completed [place] polysaccharide PPV23 polysaccharide PPV23 00:00:00 [facility] influenza, influenza, 2018-11-05 Completed [place] unspecified unspecified 00:00:00 [facility] pneumococcal pneumococcal 2018-11-05 Completed [place] polysaccharide PPV23 polysaccharide PPV23 00:00:00 [facility] influenza, influenza, 2018-11-05 Completed [place] unspecified unspecified 00:00:00 [facility] pneumococcal pneumococcal 2018-11-05 Completed [place] polysaccharide PPV23 polysaccharide PPV23 00:00:00 [facility] influenza, influenza, 2018-11-05 Completed [place] unspecified unspecified 00:00:00 [facility] pneumococcal pneumococcal 2018-11-05 Completed [place] polysaccharide PPV23 polysaccharide PPV23 00:00:00 [facility] influenza, influenza, 2018-11-05 Completed [place] unspecified unspecified 00:00:00 [facility] pneumococcal pneumococcal 2018-11-05 Completed [place] polysaccharide PPV23 polysaccharide PPV23 00:00:00 [facility] influenza, influenza, 2018-11-05 Completed [place] unspecified unspecified 00:00:00 [facility] pneumococcal pneumococcal 2018-11-05 Completed [place] polysaccharide PPV23 polysaccharide PPV23 00:00:00 [facility] influenza, influenza, 2018-11-05 Completed [place] unspecified unspecified 00:00:00 [facility] pneumococcal pneumococcal 2017-06-11 Completed [place] polysaccharide PPV23 polysaccharide PPV23 16:16:02 [facility] influenza, high dose influenza, high dose 2017-06-11 Completed [place] seasonal seasonal 16:14:44 [facility] influenza, high dose influenza, high dose 2015-06-02 Completed [place] seasonal seasonal 14:40:46 [facility] influenza, influenza, 2014-06-03 Completed [place] injectable, injectable, 12:03:05 [facility] quadrivalent quadrivalent influenza virus 2013-06-09 [facility]pleted [facility] 03:06:00 [facility] influenza virus 2013-06-09 Completed [facility], inactivated 03:06:00 [facility] influenza virus 2013-06-09 Completed [facility] vaccine, inactivated 03:06:00 [facility] Vital Signs Vital Name Observation Time Observation Value Comments Source BP Diastolic 2022-07-20 00:00:00 80 mm[Hg] [facility] Height 2022-07-20 00:00:00 67 [in_i] [facility] s BMI (Body Mass 2022-07-20 00:00:00 17.7 kg/m2 Replaced By [facility] s BP Systolic 2022-07-20 00:00:00 118 mm[Hg] [facility] s Body Weight 2022-07-20 00:00:00 1811.2 [oz_av] [facility] s height 2022-07-05 13:30:00 67 [in_i] [facility] weight 2022-07-05 13:30:00 113 [lb_av] [facility] temperature 2022-07-05 13:30:00 98.1 [degF] [facility] bmi 2022-07-05 13:30:00 17.7 kg/m2 [facility] oximetry 2022-07-05 13:30:00 96 % [facility] respiratory rate 2022-07-05 13:30:00 16 /min Comm on [facility] blood pressure 2022-07-05 13:30:00 164 mm[Hg] [facility] - systolic [facility] blood pressure 2022-07-05 13:30:00 74 mm[Hg] [facility] temperature 2022-06-29 08:15:00 98.2 [degF] [facility] bmi 2022-06-29 08:15:00 17.79 kg/m2 [facility] oximetry 2022-06-29 08:15:00 95 % [facility] respiratory rate 2022-06-29 08:15:00 16 /min Comm [facility] blood pressure 2022-06-29 08:15:00 140 mm[Hg] [facility] - systolic [facility] blood pressure 2022-06-29 08:15:00 76 mm[Hg] [facility] - diastolic [facility] height 2022-06-29 08:15:00 67 [in_i] [facility] weight 2022-06-29 08:15:00 113.6 [lb_av] [facility] BP Diastolic 2022-05-09 00:00:00 80 mm[Hg] [facility] s Height 2022-05-09 00:00:00 67 [in_i] [facility] s BMI (Body Mass 2022-05-09 00:00:00 17.4 kg/m2 Replaced By [facility] s BP Systolic 2022-05-09 00:00:00 130 mm[Hg] [facility] Body Weight 2022-05-09 00:00:00 1776 [oz_av] [facility] s BP Diastolic 2022-04-13 00:00:00 70 mm[Hg] [facility] Height 2022-04-13 00:00:00 67 [in_i] [facility] s BMI (Body Mass 2022-04-13 00:00:00 17.6 kg/m2 [facility] s BP Systolic 2022-04-13 00:00:00 130 mm[Hg] [facility] s Body Weight 2022-04-13 00:00:00 1798.4 [oz_av] [facility] s BP Diastolic 2022-01-26 00:00:00 60 mm[Hg] [facility] Height 2022-01-26 00:00:00 67 [in_i] [facility] s BMI (Body Mass 2022-01-26 00:00:00 18 kg/m2 [facility] s BP Systolic 2022-01-26 00:00:00 110 mm[Hg] [facility] Body Weight 2022-01-26 00:00:00 1836.8 [oz_av] [facility] s BP Diastolic 2021-07-21 00:00:00 85 mm[Hg] [facility] Height 2021-07-21 00:00:00 64 [in_i] [facility] BMI (Body Mass 2021-07-21 00:00:00 20.8 kg/m2 [facility] Group BP Systolic 2021-07-21 00:00:00 141 mm[Hg] [facility] Body Weight 2021-07-21 00:00:00 121.2 [lb_av] [facility] BP Diastolic 2021-07-19 00:00:00 80 mm[Hg] [facility] s Height 2021-07-19 00:00:00 67 [in_i] [facility] s BMI (Body Mass 2021-07-19 00:00:00 18.8 kg/m2 [facility] s BP Systolic 2021-07-19 00:00:00 130 mm[Hg] [facility] Body Weight 2021-07-19 00:00:00 1923.2 [oz_av] [facility] s BP Diastolic 2021-04-20 00:00:00 76 mm[Hg] [facility] s Height 2021-04-20 00:00:00 67 [in_i] [facility] s BMI (Body Mass 2021-04-20 00:00:00 18.8 kg/m2 [facility] BP Systolic 2021-04-20 00:00:00 132 mm[Hg] [facility] s Body Weight 2021-04-20 00:00:00 1920 [oz_av] [facility] s BP Diastolic 2021-02-24 00:00:00 68 mm[Hg] [facility] s Height 2021-02-24 00:00:00 67 [in_i] [facility] s BMI (Body Mass 2021-02-24 00:00:00 18.6 kg/m2 [facility] s BP Systolic 2021-02-24 00:00:00 122 mm[Hg] [facility] Body Weight 2021-02-24 00:00:00 1904 [oz_av] [facility] s BP Diastolic 2021-02-03 00:00:00 68 mm[Hg] [facility] Height 2021-02-03 00:00:00 67 [in_i] [facility] BMI (Body Mass 2021-02-03 00:00:00 18.4 kg/m2 [facility] s BP Systolic 2021-02-03 00:00:00 120 mm[Hg] [facility] Body Weight 2021-02-03 00:00:00 1875.2 [oz_av] [facility] Height 2020-10-26 00:00:00 67 [in_i] [facility] s BP Diastolic 2020-10-14 00:00:00 100 mm[Hg] [facility] Height 2020-10-14 00:00:00 67 [in_i] [facility] s BMI (Body Mass 2020-10-14 00:00:00 18.8 kg/m2 [facility] s BP Systolic 2020-10-14 00:00:00 120 mm[Hg] [facility] Body Weight 2020-10-14 00:00:00 1920 [oz_av] [facility] s height 2020-09-09 13:30:00 67 [in_i] [facility] weight 2020-09-09 13:30:00 123.6 [lb_av] [facility] temperature 2020-09-09 13:30:00 98.2 [degF] [facility] bmi 2020-09-09 13:30:00 19.36 kg/m2 [facility] oximetry 2020-09-09 13:30:00 98 % [facility] blood pressure 2020-09-09 13:30:00 133 mm[Hg] [facility] blood pressure 2020-09-09 13:30:00 77 mm[Hg] [facility] height 2020-07-06 13:00:00 67 [in_i] [facility] weight 2020-07-06 13:00:00 121.4 [lb_av] Common [facility] temperature 2020-07-06 13:00:00 97.0 [degF] Common [facility] bmi 2020-07-06 13:00:00 19.01 kg/m2 [facility] oximetry 2020-07-06 13:00:00 97 % Common [facility] blood pressure 2020-07-06 13:00:00 127 mm[Hg] [facility] blood pressure 2020-07-06 13:00:00 66 mm[Hg] [facility] Systolic (mm Hg) 2022-08-06 03:13:00 Luis [facility] Diastolic (mm Hg) 2022-08-06 03:13:00 Mem orial [facility] Temperature Oral (F) 2022-08-06 03:13:00 98.3 F [facility] Height 2022-08-05 22:39:00 5 [ft_i] [facility] BMI Calculated 2022-08-05 22:39:00 [facility] Weight 2022-08-05 22:39:00 [facility] Heart Rate 2022-08-05 22:39:00 [facility] Systolic (mm Hg) 2022-07-26 20:00:00 Luis [facility] Diastolic (mm Hg) 2022-07-26 20:00:00 Mem [facility] Temperature Oral (F) 2022-07-26 20:00:00 98.8 F [facility] Respitory Rate 2022-07-24 16:10:00 [facility] Systolic (mm Hg) 2022-07-24 16:10:00 Luis [facility] Diastolic (mm Hg) 2022-07-24 16:10:00 Mem [facility] Respitory Rate 2022-07-24 15:14:00 [facility] Systolic (mm Hg) 2022-07-24 15:14:00 Luis [facility] Diastolic (mm Hg) 2022-07-24 15:14:00 [facility] Respitory Rate 2022-07-24 12:00:00 [facility] Systolic (mm Hg) 2022-07-24 12:00:00 Luis rial [facility] Diastolic (mm Hg) 2022-07-24 12:00:00 Mem [facility] Heart Rate 2022-07-24 01:09:00 [facility] Heart Rate 2022-07-24 00:05:00 [facility] Heart Rate 2022-07-23 23:50:00 [facility] Temperature Oral (F) 2022-07-23 23:19:00 97.8 F [facility] Height 2022-07-23 23:04:00 5 [ft_i] [facility] BMI Calculated 2022-07-23 23:04:00 [facility] Weight 2022-07-23 23:04:00 [facility] Temperature Oral (F) 2022-07-23 23:04:00 97.7 F [facility] Systolic blood 2022-06-09 12:34:00 152 mm[Hg] [facility] pressure Diastolic blood 2022-06-09 12:34:00 82 mm[Hg] [facility] pressure Heart rate 2022-06-09 12:34:00 66 /min [facility] Body temperature 2022-06-09 12:34:00 36.11 [facility] Body height 2022-06-09 12:34:00 170.2 cm [facility] Body weight 2022-06-09 12:34:00 51.529 kg [facility] BMI 2022-06-09 12:34:00 17.79 kg/m2 [facility] Respiratory rate 2022-04-12 16:08:58 18 /min [facility] Oxygen saturation in 2022-04-12 16:08:58 99 /min [facility] Arterial blood by Pulse oximetry Systolic (mm Hg) 2022-04-01 14:37:00 Luis rial [facility] Diastolic (mm Hg) 2022-04-01 14:37:00 Mem [facility] Respitory Rate 2022-04-01 14:37:00 [facility] Systolic (mm Hg) 2022-04-01 13:51:00 Luis rial [facility] Diastolic (mm Hg) 2022-04-01 13:51:00 Mem orial [facility] Respitory Rate 2022-04-01 13:51:00 [facility] Systolic (mm Hg) 2022-04-01 13:00:00 Luis [facility] Diastolic (mm Hg) 2022-04-01 13:00:00 Mem orial [facility] Respitory Rate 2022-04-01 13:00:00 [facility] Height 2022-04-01 11:43:00 170.18 cm [facility] BMI Calculated 2022-04-01 11:43:00 [facility] Weight 2022-04-01 11:43:00 [facility] Heart Rate 2022-04-01 11:43:00 [facility] Temperature Oral (F) 2022-04-01 11:43:00 97.2 F [facility] Weight 2012-02-27 15:29:00 [facility] Height 2012-02-27 15:29:00 167.64 cm [facility] Procedures Procedure Date / Time Performing Clinician Source Performed HEPATIC FUNCTION PANEL 2022-06-09 13:00:00 Bijan Gold [facility] RESPIRATORY PATHOGEN PANEL 2022-04-12 17:57:00 [facility] WITH COVID-19 RT-PCR XR CHEST 2 VW 2022-04-12 17:06:00 [facility] HEPATIC FUNCTION PANEL 2022-02-03 12:30:00 [facility] HEPATIC FUNCTION PANEL 2021-10-07 13:45:00 [facility] XR, chest, 2 view 2021-07-19 00:00:00 [facility] Cardiac Catheterization 2021-01-01 00:00:00 [facility] [id number] 2020-10-29 00:00:00 ALDMO [facility] [id number] 2020-10-29 00:00:00 CHEZU [facility] [id number] 2020-10-29 00:00:00 ALDMO [facility] [id number] 2020-10-29 00:00:00 ALDMO [facility] [id number] 2020-10-29 00:00:00 ALDMO [facility] [id number] 2020-10-29 00:00:00 ALDMO [facility] [id number] 2020-10-29 00:00:00 ALDMO [facility] [id number] 2020-10-29 00:00:00 CHEZU [facility] [id number] 2020-10-28 00:00:00 ARMRO.01 [facility] [id number] 2020-10-28 00:00:00 ARMRO.01 [facility] [id number] 2020-10-27 00:00:00 ARMRO.01 [facility] [id number] 2020-10-27 00:00:00 ARMRO.01 [facility] electrocardiogram 2020-10-14 00:00:00 [facility] XR, chest, 2 view 2020-10-14 00:00:00 [facility] Hernia Repair [facility] Other [facility] Hemorrhoidectomy [facility] Back Surgery [facility] Cervical Laminoplsty 2/> [facility] Placement of Stent in [facility] Cardiac Conduit [facility] Stent placement<sup>1</sup> Luis rial [facility] Neck procedure [facility] Hernia repair [facility] Plan of Care Planned Activity Planned Date Details Comments Source Future Scheduled 2022-08-30 [facility] Test 12:41:59 (procedure) [code = [id number]] Future Scheduled 2022-08-30 [facility]CRE[facility] Test 12:41:59 [code = COLONOSCOPY SCREENING] Future Scheduled 2022-08-30 SHINGLES VACCINES (1 Met [facility] Test 12:41:59 of 2) [code = SHINGLES VACCINES (1 of 2)] Future Scheduled 2022-08-30 65+ [facility]CCAL [facility] Test 12:41:59 VACCINE (2 - PCV) [code = 65+ PNEUMOCOCCAL VACCINE (2 - PCV)] Future Scheduled 2022-08-30 INFLUENZA VACCINE Method [facility] Test 12:41:59 [code = INFLUENZA VACCINE] Future Scheduled 2022-08-30 COVID-19 VACCINE (5 - [facility] Test 12:41:59 Booster for Pfizer series) [code = COVID-19 VACCINE (5 - Booster for Pfizer series)] Future Scheduled 2022-08-09 HEPATITIS B VACCINES Met [facility] Test 10:50:12 (1 of 3 - 3-dose series) [code = HEPATITIS B VACCINES (1 of 3 - 3-dose series)] Future Scheduled 2022-08-09 [facility] Test 10:50:12 (procedure) [code = [id number]] Future Scheduled 2022-08-09 [facility]CRE[facility] Test 10:50:12 [code = COLONOSCOPY SCREENING] Future Scheduled 2022-08-09 SHINGLES VACCINES (1 Met [facility] Test 10:50:12 of 2) [code = SHINGLES VACCINES (1 of 2)] Future Scheduled 2022-08-09 65+ [facility]CCAL [facility] Test 10:50:12 VACCINE (2 - PCV) [code = 65+ PNEUMOCOCCAL VACCINE (2 - PCV)] Future Scheduled 2022-08-09 INFLUENZA VACCINE Method [facility] Test 10:50:12 [code = INFLUENZA VACCINE] Future Scheduled 2022-08-09 COVID-19 VACCINE (5 - [facility] Hospital Test 10:50:12 Booster for Pfizer series) [code = COVID-19 VACCINE (5 - Booster for Pfizer series)] Future Scheduled 2022-08-03 HEPATITIS B VACCINES Met [facility] Hospital Test 08:08:54 (1 of 3 - 3-dose series) [code = HEPATITIS B VACCINES (1 of 3 - 3-dose series)] Future Scheduled 2022-08-03 Hepatitis C screening [facility] Test 08:08:54 (procedure) [code = [id number]] Future Scheduled 2022-08-03 [facility] Test 08:08:54 [code = COLONOSCOPY SCREENING] Future Scheduled 2022-08-03 SHINGLES VACCINES (1 Met [facility] Test 08:08:54 of 2) [code = SHINGLES VACCINES (1 of 2)] Future Scheduled 2022-08-03 65+ [facility] 08:08:54 VACCINE (2 - PCV) [code = 65+ PNEUMOCOCCAL VACCINE (2 - PCV)] Future Scheduled 2022-08-03 INFLUENZA VACCINE Method [facility] Test 08:08:54 [code = INFLUENZA VACCINE] Future Scheduled 2022-08-03 COVID-19 VACCINE (5 - Me [facility] Test 08:08:54 Booster for Pfizer series) [code = COVID-19 VACCINE (5 - Booster for Pfizer series)] Future Scheduled 2022-07-25 HEPATITIS B VACCINES Met [facility] Test 07:53:55 (1 of 3 - 3-dose series) [code = HEPATITIS B VACCINES (1 of 3 - 3-dose series)] Future Scheduled 2022-07-25 [facility] Test 07:53:55 (procedure) [code = [id number]] Future Scheduled 2022-07-25 [facility] 07:53:55 [code = COLONOSCOPY SCREENING] Future Scheduled 2022-07-25 SHINGLES VACCINES (1 Met [facility] Test 07:53:55 of 2) [code = SHINGLES VACCINES (1 of 2)] Future Scheduled 2022-07-25 65+ [facility]CCAL [facility] Test 07:53:55 VACCINE (2 - PCV) [code = 65+ PNEUMOCOCCAL VACCINE (2 - PCV)] Future Scheduled 2022-07-25 INFLUENZA VACCINE Method [facility] Test 07:53:55 [code = INFLUENZA VACCINE] Future Scheduled 2022-07-25 COVID-19 VACCINE (5 - Me [facility] Test 07:53:55 Booster for Pfizer series) [code = COVID-19 VACCINE (5 - Booster for Pfizer series)] Future Scheduled 2022-07-25 HEPATITIS B VACCINES Met [facility] Test 07:53:55 (1 of 3 - 3-dose series) [code = HEPATITIS B VACCINES (1 of 3 - 3-dose series)] Future Scheduled 2022-07-25 [facility] Test 07:53:55 (procedure) [code = [id number]] Future Scheduled 2022-07-25 [facility] 07:53:55 [code = COLONOSCOPY SCREENING] Future Scheduled 2022-07-25 SHINGLES VACCINES (1 Met [facility] Test 07:53:55 of 2) [code = SHINGLES VACCINES (1 of 2)] Future Scheduled 2022-07-25 65+ [facility]OCCAL [facility] Test 07:53:55 VACCINE (2 - PCV) [code = 65+ PNEUMOCOCCAL VACCINE (2 - PCV)] Future Scheduled 2022-07-25 INFLUENZA VACCINE Method [facility] Test 07:53:55 [code = INFLUENZA VACCINE] Future Scheduled 2022-07-25 COVID-19 VACCINE (5 - Me [facility] Test 07:53:55 Booster for Pfizer series) [code = COVID-19 VACCINE (5 - Booster for Pfizer series)] Future Scheduled 2022-07-25 HEPATITIS B VACCINES Met [facility] Test 07:53:55 (1 of 3 - 3-dose series) [code = HEPATITIS B VACCINES (1 of 3 - 3-dose series)] Future Scheduled 2022-07-25 [facility] Test 07:53:55 (procedure) [code = [id number]] Future Scheduled 2022-07-25 [facility]CRE[facility] Test 07:53:55 [code = COLONOSCOPY SCREENING] Future Scheduled 2022-07-25 SHINGLES VACCINES (1 Met [facility] Test 07:53:55 of 2) [code = SHINGLES VACCINES (1 of 2)] Future Scheduled 2022-07-25 65+ [facility]OCOCCAL [facility] Test 07:53:55 VACCINE (2 - PCV) [code = 65+ PNEUMOCOCCAL VACCINE (2 - PCV)] Future Scheduled 2022-07-25 INFLUENZA VACCINE Method [facility] Test 07:53:55 [code = INFLUENZA VACCINE] Future Scheduled 2022-07-25 COVID-19 VACCINE (5 - [facility] Test 07:53:55 Booster for Pfizer series) [code = COVID-19 VACCINE (5 - Booster for Pfizer series)] Future Scheduled 2022-07-21 HEPATITIS B VACCINES Met [facility] Test 13:58:25 (1 of 3 - 3-dose series) [code = HEPATITIS B VACCINES (1 of 3 - 3-dose series)] Future Scheduled 2022-07-21 [facility] Test 13:58:25 (procedure) [code = [id number]] Future Scheduled 2022-07-21 [facility]CRE[facility] 13:58:25 [code = COLONOSCOPY SCREENING] Future Scheduled 2022-07-21 SHINGLES VACCINES (1 Met [facility] Test 13:58:25 of 2) [code = SHINGLES VACCINES (1 of 2)] Future Scheduled 2022-07-21 65+ [facility] Test 13:58:25 VACCINE (2 - PCV) [code = 65+ PNEUMOCOCCAL VACCINE (2 - PCV)] Future Scheduled 2022-07-21 INFLUENZA VACCINE Method [facility] Test 13:58:25 [code = INFLUENZA VACCINE] Future Scheduled 2022-07-21 COVID-19 VACCINE (5 - [facility] Test 13:58:25 Booster for Pfizer series) [code = COVID-19 VACCINE (5 - Booster for Pfizer series)] Future Scheduled 2022-07-21 HEPATITIS B VACCINES Met [facility] Test 13:58:25 (1 of 3 - 3-dose series) [code = HEPATITIS B VACCINES (1 of 3 - 3-dose series)] Future Scheduled 2022-07-21 [facility] Test 13:58:25 (procedure) [code = [id number]] Future Scheduled 2022-07-21 [facility]CRE[facility]ING [facility] 13:58:25 [code = COLONOSCOPY SCREENING] Future Scheduled 2022-07-21 SHINGLES VACCINES (1 Met [facility] Test 13:58:25 of 2) [code = SHINGLES VACCINES (1 of 2)] Future Scheduled 2022-07-21 65+ [facility]OCCAL [facility] Test 13:58:25 VACCINE (2 - PCV) [code = 65+ PNEUMOCOCCAL VACCINE (2 - PCV)] Future Scheduled 2022-07-21 INFLUENZA VACCINE Method [facility] Test 13:58:25 [code = INFLUENZA VACCINE] Future Scheduled 2022-07-21 COVID-19 VACCINE (5 - Me [facility] Test 13:58:25 Booster for Pfizer series) [code = COVID-19 VACCINE (5 - Booster for Pfizer series)] Future Scheduled 2022-07-21 HEPATITIS B VACCINES Met [facility] Test 13:58:25 (1 of 3 - 3-dose series) [code = HEPATITIS B VACCINES (1 of 3 - 3-dose series)] Future Scheduled 2022-07-21 [facility] Test 13:58:25 (procedure) [code = [id number]] Future Scheduled 2022-07-21 [facility]CRE[facility]ING [facility] Test 13:58:25 [code = COLONOSCOPY SCREENING] Future Scheduled 2022-07-21 SHINGLES VACCINES (1 Met [facility] Test 13:58:25 of 2) [code = SHINGLES VACCINES (1 of 2)] Future Scheduled 2022-07-21 65+ [facility]AL [facility] Test 13:58:25 VACCINE (2 - PCV) [code = 65+ PNEUMOCOCCAL VACCINE (2 - PCV)] Future Scheduled 2022-07-21 INFLUENZA VACCINE Method [facility] Test 13:58:25 [code = INFLUENZA VACCINE] Future Scheduled 2022-07-21 COVID-19 VACCINE (5 - Me [facility] Test 13:58:25 Booster for Pfizer series) [code = COVID-19 VACCINE (5 - Booster for Pfizer series)] Future Scheduled 2022-07-21 HEPATITIS B VACCINES Met [facility] Test 13:58:25 (1 of 3 - 3-dose series) [code = HEPATITIS B VACCINES (1 of 3 - 3-dose series)] Future Scheduled 2022-07-21 [facility] Test 13:58:25 (procedure) [code = [id number]] Future Scheduled 2022-07-21 [facility]CRE[facility]ING [facility] Test 13:58:25 [code = COLONOSCOPY SCREENING] Future Scheduled 2022-07-21 SHINGLES VACCINES ([facility] 13:58:25 of 2) [code = SHINGLES VACCINES (1 of 2)] Future Scheduled 2022-07-21 65+ [facility]OCOCCAL [facility] Test 13:58:25 VACCINE (2 - PCV) [code = 65+ PNEUMOCOCCAL VACCINE (2 - PCV)] Future Scheduled 2022-07-21 INFLUENZA VACCINE Method [facility] Test 13:58:25 [code = INFLUENZA VACCINE] Future Scheduled 2022-07-21 COVID-19 VACCINE (5 - Me [facility] Test 13:58:25 Booster for Pfizer series) [code = COVID-19 VACCINE (5 - Booster for Pfizer series)] Future Scheduled 2022-07-21 HEPATITIS B VACCINES Met [facility] Test 13:58:25 (1 of 3 - 3-dose series) [code = HEPATITIS B VACCINES (1 of 3 - 3-dose series)] Future Scheduled 2022-07-21 [facility] Test 13:58:25 (procedure) [code = [id number]] Future Scheduled 2022-07-21 [facility]CRE[facility] Test 13:58:25 [code = COLONOSCOPY SCREENING] Future Scheduled 2022-07-21 SHINGLES VACCINES (1 Met [facility] Test 13:58:25 of 2) [code = SHINGLES VACCINES (1 of 2)] Future Scheduled 2022-07-21 65+ PNEUMOCOCCAL [facility] Test 13:58:25 VACCINE (2 - PCV) [code = 65+ PNEUMOCOCCAL VACCINE (2 - PCV)] Future Scheduled 2022-07-21 INFLUENZA VACCINE Method [facility] Test 13:58:25 [code = INFLUENZA VACCINE] Future Scheduled 2022-07-21 COVID-19 VACCINE (5 - Me [facility] Test 13:58:25 Booster for Pfizer series) [code = COVID-19 VACCINE (5 - Booster for Pfizer series)] Future Scheduled 2022-07-21 HEPATITIS B VACCINES Met [facility] Test 13:58:25 (1 of 3 - 3-dose series) [code = HEPATITIS B VACCINES (1 of 3 - 3-dose series)] Future Scheduled 2022-07-21 [facility] Test 13:58:25 (procedure) [code = [id number]] Future Scheduled 2022-07-21 [facility]CRE[facility]ING [facility] Test 13:58:25 [code = COLONOSCOPY SCREENING] Future Scheduled 2022-07-21 SHINGLES VACCINES (1 Met [facility] Test 13:58:25 of 2) [code = SHINGLES VACCINES (1 of 2)] Future Scheduled 2022-07-21 65+ [facility]OCOCCAL [facility] Test 13:58:25 VACCINE (2 - PCV) [code = 65+ PNEUMOCOCCAL VACCINE (2 - PCV)] Future Scheduled 2022-07-21 INFLUENZA VACCINE Method [facility] Test 13:58:25 [code = INFLUENZA VACCINE] Future Scheduled 2022-07-21 COVID-19 VACCINE (5 - Me [facility] Test 13:58:25 Booster for Pfizer series) [code = COVID-19 VACCINE (5 - Booster for Pfizer series)] Future Scheduled 2022-07-21 HEPATITIS B VACCINES Met [facility] Test 13:58:25 (1 of 3 - 3-dose series) [code = HEPATITIS B VACCINES (1 of 3 - 3-dose series)] Future Scheduled 2022-07-21 [facility] Test 13:58:25 (procedure) [code = [id number]] Future Scheduled 2022-07-21 [facility]CRE[facility] 13:58:25 [code = COLONOSCOPY SCREENING] Future Scheduled 2022-07-21 SHINGLES VACCINES (1 Met [facility] Test 13:58:25 of 2) [code = SHINGLES VACCINES (1 of 2)] Future Scheduled 2022-07-21 65+ [facility]OCOCCAL [facility] Test 13:58:25 VACCINE (2 - PCV) [code = 65+ PNEUMOCOCCAL VACCINE (2 - PCV)] Future Scheduled 2022-07-21 INFLUENZA VACCINE Method [facility] Test 13:58:25 [code = INFLUENZA VACCINE] Future Scheduled 2022-07-21 COVID-19 VACCINE (5 - Me [facility] Test 13:58:25 Booster for Pfizer series) [code = COVID-19 VACCINE (5 - Booster for Pfizer series)] Future Scheduled 2022-06-19 HEPATITIS B VACCINES Met [facility] Test 14:09:39 (1 of 3 - 3-dose series) [code = HEPATITIS B VACCINES (1 of 3 - 3-dose series)] Future Scheduled 2022-06-19 [facility] Test 14:09:39 (procedure) [code = 021546071] Future Scheduled 2022-06-19 [facility] 14:09:39 [code = COLONOSCOPY SCREENING] Future Scheduled 2022-06-19 SHINGLES VACCINES (1 Met [facility] Test 14:09:39 of 2) [code = SHINGLES VACCINES (1 of 2)] Future Scheduled 2022-06-19 65+ [facility]CCAL [facility] Test 14:09:39 VACCINE (2 - PCV) [code = 65+ PNEUMOCOCCAL VACCINE (2 - PCV)] Future Scheduled 2022-06-19 INFLUENZA VACCINE Method [facility] Test 14:09:39 [code = INFLUENZA VACCINE] Future Scheduled 2022-06-19 COVID-19 VACCINE (5 - Me [facility] Test 14:09:39 Booster for Pfizer series) [code = COVID-19 VACCINE (5 - Booster for Pfizer series)] Future Scheduled 2022-06-19 HEPATITIS B VACCINES Met [facility] Test 14:09:39 (1 of 3 - 3-dose series) [code = HEPATITIS B VACCINES (1 of 3 - 3-dose series)] Future Scheduled 2022-06-19 [facility] Test 14:09:39 (procedure) [code = [id number]] Future Scheduled 2022-06-19 [facility] 14:09:39 [code = COLONOSCOPY SCREENING] Future Scheduled 2022-06-19 SHINGLES VACCINES (1 Met [facility] Test 14:09:39 of 2) [code = SHINGLES VACCINES (1 of 2)] Future Scheduled 2022-06-19 65+ [facility]CCAL [facility] Test 14:09:39 VACCINE (2 - PCV) [code = 65+ PNEUMOCOCCAL VACCINE (2 - PCV)] Future Scheduled 2022-06-19 INFLUENZA VACCINE [facility] Test 14:09:39 [code = INFLUENZA VACCINE] Future Scheduled 2022-06-19 COVID-19 VACCINE (5 - Me [facility] Test 14:09:39 Booster for Pfizer series) [code = COVID-19 VACCINE (5 - Booster for Pfizer series)] Diagnostic Test 2022-05-09 HbA1c (hemoglobin [facility] P[facility] 00:[facility]:00 A1c), blood [code = Hospital Clinics HbA1c (hemoglobin A1c), blood] Diagnostic Test 2022-05-09 lipid panel, serum [facility] Pending 00:00:00 [code = lipid panel, [facility] serum] Diagnostic Test 2022-05-09 CMP, serum or plasma [facility] Pending 00:00:00 [code = CMP, serum or Hospit al [facility] plasma] Diagnostic Test 2022-05-09 CBC w/ auto diff [facility] Pending 00:00:00 [code = CBC w/ auto Hospital Clinics diff] Diagnostic Test 2022-05-09 TSH + T4, serum [code [facility] Pending 00:00:00 = TSH + T4, serum] Hospital Clinics Diagnostic Test 2022-05-09 vitamin D, [facility], [facility] Pending 00:00:00 25-hydroxy, total, [facility] serum [code = vitamin D, 25-hydroxy, total, serum] Diagnostic Test 2022-05-09 urinalysis complete, [facility] Pending 00:00:00 reflex culture [code [facility] = urinalysis complete, reflex culture] Diagnostic Test 2022-05-09 uric acid, serum or [facility] Pending 00:00:00 plasma [code = uric Hospital Clinics acid, serum or plasma] Diagnostic Test 2022-05-09 vitamin B12 + folate, [facility] Pending 00:00:00 serum or blood [code [facility] = vitamin B12 + folate, serum or blood] Diagnostic Test 2022-05-09 microalbumin, urine [facility] Pending 00:00:00 [code = [facility]albumin, [facility] urine] Diagnostic Test 2022-05-09 PSA, serum or plasma [facility] Pending 00:00:00 [code = PSA, serum or Hospit al [facility] plasma] Encounters Start End Encounter Admission Attending Care Care Encounter Source Date/Time Date/Time Type Type Clinicians Facility Department ID 2022-08-10 Outpatient [facility] [id number] Common 11:53:01 [id number] [facility] 2022-07-03 Outpatient [facility] [id number] Common 14:24:02 [facility] 2021-09-28 Outpatient [facility] [id number] Common 12:01:38 [id number] [facility] 2020-11-06 Inpatient Allan, HCACL [facility] [id number] [facility] 00:58:34 [place] 01 [facility] 2020-10-29 Inpatient KYLE Lala, HCAMN HCAMN [id number] [facility] 05:28:11 Oliveir 75 [facility] 2022-08-14 2022-08-14 Outpatient KEFFER_A [facility] [id number] [place] 00:00:00 00:00:00 [facility] 2022-08-09 2022-08-09 Telemedici Jovan, [id number] Methodi 10:40:00 11:08:13 [place] Bill [id number] [place] [id number] Hospit [id number] l .8 2022-08-09 2022-08-09 Telemedici Jovan, 1.2.840.1 [id number] Methodi 10:40:00 11:08:13 ne Bill 87531.1.[address] [place] 3.430.2.7 Hospit a .3.179633 l .8 2022-08-08 2022-08-08 Telephone Florencio, 1.2.840.1 [id number] 897 [id number] Methodi 00:00:00 00:00:[address] 3.430.2.7 Hospit a .3.885972 l .8 2022-08-08 2022-08-08 Telephone Florencio 1.2.840.1 [id number] [address] [id number] Methodi 00:00:00 00:00:[address] 3.430.2.7 Hospit a .3.970834 l .8 2022-08-05 2022-08-06 Emergency ANDRZEJ [facility] [id number] Memoria 22:38:00 03:15:[address] 2022-08-05 2022-08-05 Emergency BECKA BRANDON 7503 MHNE 16:38:00 21:15:00 ALIRIO 2022-08-05 2022-08-05 Outpatient Ricky [facility] [id number] 16:38:00 21:15:00 Alirio Maria Elena Rush 2022-08-04 2022-08-04 Telemedici Zeny, 1.2.840.1 [id number] 088 [id number] Methodi 08:30:00 09:04:19 ne Aurelia 90740.1.[address] [place] 3.430.2.7 Hospit a .3.675489 l .8 2022-08-04 2022-08-04 Telemedici Zeny, 1.2.840.1 [id number] 847 [id number] Methodi 08:30:00 09:04:19 [address] Aurelia [address]00.1.[address] [place] 3.430.2.7 Hospit a .3.497247 l .8 2022-08-02 2022-08-02 Travel 1.2.840.1 1.2.107.063 9953 290432 Methodi 00:00:00 00:00:[address] 3.430.2.7 0.2.7.3.698 Ho spita .3.869924 084.8 l .8 2022-08-02 2022-08-02 Travel 1.2.840.1 1.2.373.290 3361 202367 Methodi 00:00:00 00:00:[address] 3.430.2.7 0.2.7.3.698 Ho spita .3.751164 084.8 l .8 2022-08-01 2022-08-01 (TEL) STLMLC STLMLC [id number] Co mmon 00:00:00 00:00:00 [facility] 2022-07-23 2022-07-26 Inpatient [facility] [id number] [place]oria 23:04:00 21:45:[address] 2022-07-23 2022-07-26 Inpatient [facility] [id number] Memoria 23:04:00 21:45:00 Hessel 24 l [facility] 2022-07-24 2022-07-26 Inpatient E ROSARIO FRANCO [facility] 2324 [facility] 10:38:00 15:45:00 2022-07-23 2022-07-26 Outpatient Rosario Franco [facility] [id number] 17:04:00 15:45:00 Hussein 24 2022-07-23 2022-07-23 Outpatient Rosario Franco [facility] [id number] 16:54:00 16:54:00 Hussein 24 2022-07-20 2022-07-20 Outpatient LAURA [facility] [id number] 0221 [place] 00:00:00 00:00:00 117 [facility] 2022-07-20 2022-07-20 Telephone Arthur, 1.2.840.1 [id number] 2100 [id number] Methodi 00:00:00 00:00:[address] 3.430.2.7 Hospit a .3.989257 l .8 2022-07-20 2022-07-20 (TEL) STLMLC STLMLC [id number] Co mmon 00:00:00 00:00:00 [facility] 2022-07-20 2022-07-20 Telephone Arthur, 1.2.840.1 [id number] 2100 278019 Methodi 00:00:00 00:00:[address] 3.430.2.7 Hospit a .3.054136 l .8 2022-07-20 2022-07-20 Britt Aj [facility] [place] 117 [place] 00:00:00 00:00:00 Elvis Cadet MD: [address] [facility] [address] [address], [facility] [place], [address] SANDRA , Ph. 2022-07-05 2022-07-05 OFFICE STLMLC STLMLC [id number] Co mmon 00:00:00 00:00:00 VISIT EST Spir it PT LEVEL 3 - [facility] 2022-06-29 2022-06-29 [facility]ICE [facility] [id number] Co mmon 00:00:00 00:00:00 VISIT NEW Spir it PT LEVEL 3 - [facility] 2022-06-13 2022-06-13 Outpatient KEFFER_A [facility] [id number] 0221 [place] 00:00:00 00:00:00 011 [facility] 2022-06-09 2022-06-09 Aurelia Schroeder 1.2.840. 1 [id number] Methodi 07:00:00 14:53:[address]61.[address] Visit 3.430.2.7 Hospit a .3.069784 l .8 2022-06-09 2022-06-09 Aurelia Schroeder 1.2.840. 1 [id number] Methodi 07:00:00 14:53:[address] Visit 3.430.2.7 Hospit a .3.851489 l .8 2022-06-09 2022-06-09 Lab Ale, 1.2.840.1 [id number] 9937 Methodi 07:15:00 07:20:[address] [facility] 3.430.2.7 Hospit a .3.704182 l .8 2022-06-09 2022-06-09 Lab Ale, 1.2.840.1 [id number] 967603 4279 Methodi 07:15:00 07:20:[address] [facility] 3.430.2.7 Hospit a .3.151250 l .8 2022-06-09 2022-06-09 Travel 1.2.840.1 1.2.108.175 0757 935187 Methodi 00:00:00 00:00:[address] 3.430.2.7 0.2.7.3.698 Ho spita .3.858562 084.8 l .8 2022-06-09 2022-06-09 Travel 1.2.840.1 1.2.481.630 4124 796319 Methodi 00:00:00 00:00:[address] 3.430.2.7 0.2.7.3.698 Ho spita .3.288716 084.8 l .8 2022-06-02 2022-06-02 Travel 1.2.840.1 1.2.325.852 8527 651635 Methodi 00:00:00 00:00:[address] 3.430.2.7 0.2.7.3.698 Ho spita .3.809880 084.8 l .8 2022-06-02 2022-06-02 Travel 1.2.840.1 1.2.700.551 2578 873159 Methodi 00:00:00 00:00:[address] 3.430.2.7 0.2.7.3.698 Ho spita .3.946417 084.8 l .8 2022-06-01 2022-06-01 Shahzad Murillo, 1.2.840.1 [id number] 905973 0194 Methodi 00:00:00 00:00:00 Only Vidhi 18191.1.[address] 3.430.2.7 Hospit a .3.628843 l .8 2022-06-01 2022-06-01 Orders Chidi, 1.2.840.1 697607157 855912 8716 Methodi 00:00:00 00:00:00 Only Vidhi 22389.1.[address] 3.430.2.7 Hospit a .3.219889 l .8 2022-06-01 2022-06-01 Orders Chidi, 1.2.840.1 929264245 963475 5170 Methodi 00:00:00 00:00:00 Only Vidhi 88851.1.[address] 3.430.2.7 Hospit a .3.266203 l .8 2022-06-01 2022-06-01 Shahzad Murillo, 1.2.840.1 [id number] 298928 9604 Methodi 00:00:00 00:00:00 Only Vidhi 24285.1.[address] 3.430.2.7 Hospit a .3.968807 l .8 2022-05-09 2022-05-09 Outpatient SANDRA_Cherelle [facility] 5586-2 0220 [place] 00:00:00 00:00:00 906 [facility] i ty [facility] Clinics 2022-05-09 2022-05-09 Britt Aj [facility] [place] [address] 906 [place] 00:00:00 00:00:00 Elvis Cadet MD: [address] [facility] Hospit a [address], COMMUNITY l [address], HOSPITAL [facility], [address] SANDRA , Ph. 2022-05-09 2022-05-09 Outpatient Britt Cadet [facility] 7a4 [id number] 00:00:00 00:00:00 Madai [id number] [id number] 2022-04-13 2022-04-13 Outpatient SANDRA_Cherelle [facility] [id number] 0220 [place] 00:00:00 00:00:00 811 Commun i ty Hospita l [facility] 2022-04-13 2022-04-13 Britt Aj [facility] [place] 811 [place] 00:00:00 00:00:00 Elvis Cadet MD: [address] [facility] Hospit a [address], COMMUNITY l [address], [facility], [address] SANDRA , Ph. 2022-04-13 2022-04-13 Outpatient Sandra Britt [facility] 293 [id number] 00:00:00 00:00:00 Madai [id number] 2022-04-12 2022-04-12 Emergency [facility], 1.2.840.1 [id number] 21 [id number] Methodi 11:05:00 13:04:[address] 3.430.2.7 Hospit a .3.213252 l .8 2022-04-12 2022-04-12 Emergency [facility], 1.2.840.1 [id number] 21 [id number] Methodi 11:05:00 13:04:[address] 3.430.2.7 Hospit a .3.395801 l .8 2022-04-12 2022-04-12 Travel 1.2.840.1 1.2.655.203 4067 428686 Methodi 00:00:00 00:00:[address] 3.430.2.7 0.2.7.3.698 Ho spita .3.698076 084.8 l .8 2022-04-12 2022-04-12 Travel 1.2.840.1 1.2.701.158 6117 942510 Methodi 00:00:00 00:00:[address] 3.430.2.7 0.2.7.3.698 Ho spita .3.786665 084.8 l .8 2022-04-01 2022-04-01 Emergency [facility] 09183 31627 Memoria 11:35:39 14:52:00 r Kulwant 02 l [facility] 2022-04-01 2022-04-01 Emergency [facility] 44624 88146 Memoria 11:35:39 14:52:00 harish Bonilla l [facility] 2022-04-01 2022-04-01 Outpatient Shea [facility] [id number] 06:35:39 09:52:00 Ingrid R 02 2022-04-01 2022-04-01 Outpatient KEFFER_A [facility] [id number] 0220 [place] 00:00:00 00:00:00 730 [facility] 2022-02-03 2022-02-03 Multidisci AleBijan coyne 1.2.840.1 [id number] Methodi 07:00:00 16:02:42 plinary ToeNaima rossi 76438.1.[address] Visit 3.430.2.7 Hospit a .3.572974 l .8 2022-02-03 2022-02-03 Multidisci AleBijan coyne 1.2.840.1 [id number] Methodi 07:00:00 16:02:42 plinary Naima Simon 80464.1.[address] Visit 3.430.2.7 Hospit a .3.095311 l .8 2022-02-03 2022-02-03 Lab Ale, 1.2.840.1 794478080 835725 4620 Methodi 06:15:00 06:20:[address] Demetrius 3.430.2.7 Hospit a .3.419486 l .8 2022-02-03 2022-02-03 Lab Ale, 1.2.840.1 266275176 159799 2975 Methodi 06:15:00 06:20:[address] [facility] 3.430.2.7 Hospit a .3.589500 l .8 2022-02-03 2022-02-03 Travel 1.2.840.1 1.2.669.683 1332 149044 Methodi 00:00:00 00:00:[address] 3.430.2.7 0.2.7.3.698 Ho spita .3.040167 084.8 l .8 2022-02-03 2022-02-03 Travel 1.2.840.1 1.2.435.622 6050 036002 Methodi 00:00:00 00:00:[address] 3.430.2.7 0.2.7.3.698 Ho spita .3.707279 084.8 l .8 2022-01-31 2022-01-31 Travel 1.2.840.1 1.2.699.502 8938 538651 Methodi 00:00:00 00:00:[address] 3.430.2.7 0.2.7.3.698 Ho spita .3.410427 084.8 l .8 2022-01-31 2022-01-31 Travel 1.2.840.1 1.2.647.854 1467 173509 Methodi 00:00:00 00:00:[address] 3.430.2.7 0.2.7.3.698 Ho spita .3.053425 084.8 l .8 2022-01-27 2022-01-27 Orders Chidi, 1.2.840.1 551351987 559206 8124 Methodi 00:00:00 00:00:00 Only Vidhi 19790.1.[address] 3.430.2.7 Hospit a .3.447127 l .8 2022-01-27 2022-01-27 Orders Chidi, 1.2.840.1 266483879 485226 4905 Methodi 00:00:00 00:00:00 Only Vidhi 13053.1.[address] 3.430.2.7 Hospit a .3.946559 l .8 2022-01-26 2022-01-26 Outpatient SANDRA_Cherelle [facility] [id number] 0220 [place] 03:12:00 03:12:00 526 [facility] Clinics 2022-01-26 2022-01-26 Britt Aj [facility] [place] 526 [place] 00:00:00 00:00:00 Elvis Cadet MD: [address] [facility] - [facility] [place] [facility] a [address], COMMUNITY l [address], HOSP[place], [place], [address] SANDRA , Ph. 2022-01-26 2022-01-26 Outpatient Britt Cadet [facility] bba [id number] 00:00:00 00:00:00 Madai [id number] 2021-10-07 2021-10-07 Multidisci Tanisha, Blanca 1.2.840.1 11215 5005 [id number] Methodi 07:00:00 13:00:17 plinary Aurelia Moura [place] [address]72.1.[address] Visit Naima Simon 3.430.2.7 Hospita .3.275002 l .8 2021-10-07 2021-10-07 Multidisci Tanisha, Blanca 1.2.840.1 00106 5005 [id number] Methodi 07:00:00 13:00:17 plAure[address] Arceley [address]8632.1.[address] Visit ToeNaima rossi 3.430.2.7 Hospita .3.960373 l .8 2021-10-07 2021-10-07 Lab Ale, 1.2.840.1 [id number] 871448 7649 Methodi 08:50:00 08:55:[address] Demetrius 3.430.2.7 Hospit a .3.154192 l .8 2021-10-07 2021-10-07 Lab Ale, 1.2.840.1 [id number] 190760 2185 Methodi 08:50:00 08:55:[address] Demetrius 3.430.2.7 Hospit a .3.709906 l .8 2021-10-07 2021-10-07 Travel 1.2.840.1 1.2.943.636 2244 930709 Methodi 00:00:00 00:00:[address] 3.430.2.7 0.2.7.3.698 Ho spita .3.116445 084.8 l .8 2021-10-07 2021-10-07 Travel 1.2.840.1 1.2.416.361 7694 316943 Methodi 00:00:00 00:00:[address] 3.430.2.7 0.2.7.3.698 Ho spita .3.093055 084.8 l .8 2021-09-30 2021-09-30 Travel 1.2.840.1 1.2.292.374 9731 695032 Methodi 00:00:00 00:00:[address] 3.430.2.7 0.2.7.3.698 Ho spita .3.768842 084.8 l .8 2021-09-30 2021-09-30 Travel 1.2.840.1 1.2.514.245 2586 163123 Methodi 00:00:00 00:00:[address] 3.430.2.7 0.2.7.3.698 Ho spita .3.927093 084.8 l .8 2021-09-29 2021-09-29 Orders Chidi, 1.2.840.1 349438754 497804 0709 Methodi 00:00:00 00:00:00 Only Vidhi 31426.1.[address] 3.430.2.7 Hospit a .3.207449 l .8 2021-09-29 2021-09-29 Orders Chidi, 1.2.840.1 [id number] 653585 8670 Methodi 00:00:00 00:00:00 Only Vidhi 12766.1.[address] 3.430.2.7 Hospit a .3.516999 l .8 2021-09-29 2021-09-29 Orders Chidi, 1.2.840.1 575732435 984518 1168 Methodi 00:00:00 00:00:00 Only Vidhi 28699.1.[address] 3.430.2.7 Hospit a .3.797330 l .8 2021-09-29 2021-09-29 Shahzad Murillo, 1.2.840.1 [id number] 833811 2444 Methodi 00:00:00 00:00:00 Only Vidhi 66957.1.[address] 3.430.2.7 Hospit a .3.655772 l .8 2021-08-13 2021-08-13 Outpatient KELILIANE_A [facility] 5586-2 0211 [place] 04:11:00 04:11:00 211 [facility] i [facility] Clinics 2021-08-11 2021-08-11 Outpatient Yan_W [facility] [id number] 021 [place] 01:02:00 01:02:00 1209 Medical Group 2021-07-21 2021-07-21 Outpatient Yan_W [facility] [id number] 021 [place] 12:22:00 12:22:00 1118 Medical Group 2021-07-21 2021-07-21 Hi Castle [facility] [place] - [id number] [place] 00:00:00 00:00:00 : Andrew Urena [facility], [facility] [address], [facility], [facility] [address] , Ph. 2021-07-20 2021-07-20 Outpatient Yan_W [facility] [id number] 021 [place] 03:46:00 03:46:00 1117 Medical Group 2021-07-19 2021-07-19 Outpatient SANDRA_A [facility] 5586-2 1 [place] 02:45:00 02:45:00 116 Commun i ty Hospita [facility] Clinics 2021-07-19 2021-07-19 Britt Aj [facility] [place] 116 [place] 00:00:00 00:00:00 Elvis Cadet MD: [address] [facility] [place] [facility] a [address], [facility] l [address], [facility] [place], [address] SANDRA , Ph. 2021-07-19 2021-07-19 Outpatient Britt Cadet [facility] 736 aea-4 00:00:00 00:00:00 Madai [id number] 491518 4842-11-01 2021-07-04 Telephone Alina, 1.2.840.1 [id number] [address] [id number] Methodi 00:00:00 00:00:[address] 3.430.2.7 Hospit a .3.905676 l .8 2021-06-30 2021-06-30 Telephone Ariadnagene, 1.2.840.1 [id number] 524 9517130 Methodi 00:00:00 00:00:[address] 3.430.2.7 Hospit a .3.699878 l .8 2021-06-03 2021-06-03 Outpatient MOURA, [facility] [id number] [place] 00:00:00 00:00:00 AURELIA [address] 2021-06-03 2021-06-03 Outpatient ALE, [facility] [id number] 568 [place] 00:00:00 00:00:00 BIJAN [address] 2021-05-28 2021-05-28 Outpatient SANDRA_A [facility] [id number] 0210 [place] 03:01:00 03:01:00 925 [facility] i ty [facility] Clinics 2021-04-20 2021-04-20 Outpatient SANDRA_A [facility] 5586-2 0210 [place] 03:07:00 03:07:00 818 Commun i ty Hospita [facility] Clinics 2021-04-20 2021-04-20 Outpatient Nigel [facility] [id number] 00:00:00 00:00:00 Thea [id number] [id number] 2021-04-20 2021-04-20 [facility] [place] 00:00:00 00:00:00 Elvis Manning MSN, LEARNING OPERATIONS SPECIALIST, [facility] RELAY ASSEMBLER-C: [address] [place] [facility], Clinic s [address], [facility] [address], [place], [place] MSN, [facility]-C [address] , Ph. 2021-04-12 2021-04-12 Outpatient SANDYFFER_A [facility] [id number] 0210 [place] 12:57:00 12:57:00 810 Commun i ty Hospita [facility] Clinics 2021-03-08 2021-03-08 Outpatient KEFFER_A [facility] 5586-2 0210 [place] 12:34:00 12:34:00 706 Commun i ty Hospita [facility] Clinics 2021-02-24 2021-02-24 Outpatient SANDRA_A [facility] 5586-2 0210 [place] 03:03:00 03:03:00 624 Commun i ty Hospita [facility] Clinics 2021-02-24 2021-02-24 Britt Aj [facility] [place] 624 [place] 00:00:00 00:00:00 Elvis Cad[facility] MD: [address] [address], [facility] [address], HOSPITAL Clinic s [place], [place], [address] SANDRA , Ph. 2021-02-24 2021-02-24 Outpatient Britt Cadet [facility] 253 [id number] 00:00:00 00:00:00 Madai [id number] 2021-02-04 2021-02-04 [facility] [id number] [place] 00:00:00 00:00:00 BIJAN [address] 2021-02-04 2021-02-04 Outpatient ALE, [facility] [id number] [place] 00:00:00 00:00:[address] BIJAN [address] 2021-02-03 2021-02-03 Outpatient KEFFER_A [facility] [id number] 0210 [place] 03:28:00 03:28:00 603 Commun i ty Hospita [facility] Clinics 2021-02-03 2021-02-03 Britt Aj [facility] [place] 603 [place] 00:00:00 00:00:00 Elvis Cadet MD: [address] [facility] Hospit a [address], COMMUNITY l [address], H[place], [address] SANDRA , Ph. 2021-02-03 2021-02-03 Outpatient Britt Cadet [facility] [id number] 00:00:00 00:00:00 Madai [id number] 2020-11-14 2020-11-14 Outpatient SANDRA_A [facility] [id number] 0210 [place] 01:03:00 01:03:00 314 Commun i ty Hospita [facility] Clinics 2020-10-26 2020-10-26 Outpatient SANDYFFER_A [facility] [id number] 0210 [place] 04:27:00 04:27:00 223 Commun i ty Hospita [facility] Clinics 2020-10-26 2020-10-26 Britt Aj [facility] [place] 223 [place] 00:00:00 00:00:00 Elvis Cadet MD: [address] [facility] Hospit a [address], COMMUNITY l [address], H[place], [address] SANDRA , Ph. 2020-10-26 2020-10-26 Outpatient Britt Cadet [facility] 0d4 [id number] 00:00:00 00:00:00 Madai [id number] 2020-10-14 2020-10-14 Outpatient SANDRA_A [facility] [id number] 0210 [place] 03:42:00 03:42:00 211 Commun i ty Hospita [facility] Clinics 2020-10-14 2020-10-14 Outpatient Britt Cadet [facility] [id number] [id number] 00:00:00 00:00:00 Madai [id number] 2020-10-14 2020-10-14 Britt Aj [facility] [place] 00:00:00 00:00:00 Elvis Cadet MD: [address] [facility] Hospit a [address], [facility] l [address], HOSPITAL Clinic [place], [place] CLINIC, [address] SANDRA , Ph. 2020-10-08 2020-10-08 Outpatient AEL, [facility] [id number] [place] 00:00:00 00:00:00 BIJAN [address] 2020-10-08 2020-10-08 Outpatient MOURA, [facility] [id number] [place] 00:00:00 00:00:00 AURELIA [address] 2020-10-04 2020-10-04 Outpatient [facility] [id number] [place] 00:00:00 00:00:[address] 2020-09-16 2020-09-16 Outpatient PATEL, [facility] [id number] [place] 00:00:00 00:00:00 MARLYN [address] 2020-09-09 2020-09-09 OFFICE STLMLC STLMLC [id number] Co mmon 00:00:00 00:00:00 VISIT Spirit ESTAB PT - CHI LEVEL 2 [facility] 2020-07-15 2020-07-15 (TEL) STLMLC STLMLC [id number] Co mmon 00:00:00 00:00:00 Spirit - CHI [facility] 2020-07-06 2020-07-06 OFFICE STLMLC STLMLC [id number] Co mmon 00:00:00 00:00:00 VISIT NEW Spir it PT LEVEL 4 - CHI [facility] 2020-06-04 2020-06-04 Outpatient ALE, [facility] [id number] [facility] 00:00:00 00:00:00 BIJAN [address] 2020-06-04 2020-06-04 Outpatient TANISHA, [facility] [id number] [facility] 00:00:00 00:00:00 BLANCA [address] [facility] 2019-06-02 2019-06-02 Outpatient COLOMER, [facility] [id number] 00:00:00 00:00:00 ILDA [address] [facility] 2018-06-04 2018-06-04 Outpatient keffer_a [facility] 2019 [place] 09:30:00 09:30:00 [facility] 2012-02-27 2012-02-27 Emergency nullFlavo [id number] [facility] 10:09:00 13:25:00 r [place] 00 l Kulwant 2012-02-27 2012-02-27 Emergency nullFlavo [id number] [facility] 10:09:00 13:25:00 r [place] 00 l Hessel Results Test Description Test Time Test Comments Results Result Comments Source CHEMISTRY 2022-08-06 00:43:00 Test Item Value Reference Range Interpretation Comme nts HS Troponin I 1 Hr (test code = HS Troponin I 1 Hr) 20 [facility]cbmxaeLKVXOFNPJ4167-44-01 00:43:00 Test Item Value Reference Range Interpretation Comments HS Troponin I 0 to 1 Hour Delta (test 0 1 code = HS Troponin I 0 to 1 Hour Delta) [facility]iorilfJQQGAJ3095-70-18 23:31:31 Test Item Value Reference Range Interpretation Comments RADRPT (test code PROCEDURE INFORMATION: = RADRPT) Exam: XR Chest Exam date and time: 08/05/2022 4:47 PM Age: 72 years old Clinical indication: Shortness of breath; Additional info: /hx of als, cad with acute onset dyspnea TECHNIQUE: Imaging protocol: Radiologic exam of the chest. Views: 1 view. COMPARISON: CR CHEST 1VIEW DX 07/24/2022 8:30 AM FINDINGS: Lungs: Low lung volumes. Nonspecific bibasilar opacities. The upper and mid lung jaime are clear. Pleural spaces: Calcified pleural plaques. Heart/Mediastinum: No cardiomegaly. Vasculature: Atherosclerotic calcifications. Bones/joints: No acute fracture. Gastrointestinal tract: Air-filled stomach and colon. The air underneath the right hemidiaphragm is thought to be within the colon. If there is concern for free air, consider CT. IMPRESSION: Low lung volumes. Mild bibasilar opacities which may represent atelectasis or infiltrate. Rell Pritchett MD On 08/05/2022 17:30:40; [id number] [facility]PnzrbqmUNLGMBAHB9003-21-79 23:10:00 Test Item Value Reference Range Interpretation Comments Glucose Lvl (test code = Glucose Lvl) 135 70-99 [place] 468462-12-03 23:10:00 Test Item Value Reference Range Interpretation Comments BUN (test code = BUN) 14 7-22 [place] 468462-12-03 23:10:00 Test Item Value Reference Range Interpretation Comments Creatinine Lvl (test code = Creatinine 0.96 0.50-1.40 Lvl) [facility]wayFdlpdexPYEGXDKCU3916-58-05 23:10:00 Test Item Value Reference Range Interpretation Comments Sodium Lvl (test code = Sodium Lvl) 140 135-145 [facility] ParkwayEvwbnleULZIEJDWR4921-33-51 23:10:00 Test Item Value Reference Range Interpretation Comments Potassium Lvl (test code = Potassium 4.7 3.5-5.1 Lvl) [facility] ParkwayUkvisotSRZDSRYUG9729-73-49 23:10:00 Test Item Value Reference Range Interpretation Comments Chloride Lvl (test code = Chloride Lvl) 105 95-109 [facility] ParkwayRgkjtsaJQTZMNWAR7794-27-81 23:10:00 Test Item Value Reference Range Interpretation Comments CO2 (test code = CO2) 33 24-32 [facility] ParkwayGtqhmbbGENKQNFAK2994-51-96 23:10:00 Test Item Value Reference Range Interpretation Comments Calcium Lvl (test code = Calcium Lvl) 9.2 8.5-10.5 [facility] ParkwayQalljslSBZJTEUAQ1114-28-33 23:10:00 Test Item Value Reference Range Interpretation Comments Total Protein (test code = Total 7.7 6.4-8.4 Protein) [place] 468462-12-03 23:10:00 Test Item Value Reference Range Interpretation Comments Albumin Lvl (test code = Albumin Lvl) 3.4 3.5-5.0 [place] 468462-12-03 23:10:00 Test Item Value Reference Range Interpretation Comments ALT (test code = ALT) 35 See_Comment [Auto mated message] The system which ge nerated this result transmit aria reference range : <=65. The reference range was not used to interpr et this result as rocio l/abnormal. [facility] ParkwayIflpvjuMHLTPWMBN9873-09-23 23:10:00 Test Item Value Reference Range Interpretation Comments AST (test code = AST) 28 See_Comment [Auto mated message] The system which ge nerated this result transmit aria reference range : <=37. The reference range was not used to interpr et this result as rocio l/abnormal. [facility]AmwvgvnLDPDHISRX0018-96-57 23:10:00 Test Item Value Reference Range Interpretation Comments Alk Phos (test code = Alk Phos) 108 39-136 [facility]entonXdqntcpDBUDYXNSW7578-56-41 23:10:00 Test Item Value Reference Range Interpretation Comments Bili Total (test code = Bili Total) 0.3 0.2-1.3 [facility]entonKtptajgFJXMOYOJN3076-56-45 23:10:00 Test Item Value Reference Range Interpretation Comments AGAP (test code = AGAP) 6.7 10.0-20.0 [facility] DentonGweahjyFBFNSVDHC7444-17-07 23:10:00 Test Item Value Reference Range Interpretation Comments B/C Ratio (test code = B/C Ratio) 15 1 6-25 [facility]entonFwhmevbIUPDEWXBI8855-16-03 23:10:00 Test Item Value Reference Range Interpretation Comments Globulin (test code = Globulin) 4.3 2.7-4.2 [facility]entonGjqrlgfQXALIKXTL1545-69-32 23:10:00 Test Item Value Reference Range Interpretation Comments A/G Ratio (test code = A/G Ratio) 0.8 1 0.7-1.6 [facility]entonJfohzunPFXSLSALZ3646-76-13 23:10:00 Test Item Value Reference Range Interpretation Comments eGFR (test code = eGFR) 84 [facility]wayDpszilbSHVCDCWYA8680-17-50 23:10:00 Test Item Value Reference Range Interpretation Comments pH Sander (test code = pH Sander) 7.47 1 7.28-7.42 [facility]entonQbzjirfNHSVSLJBZ7408-08-96 23:10:00 Test Item Value Reference Range Interpretation Comments pCO2 Sander (test code = pCO2 Sander) 47 38-52 [facility] DentonNgqwrfwBUSBUAIOW6346-18-94 23:10:00 Test Item Value Reference Range Interpretation Comments pO2 Sander (test code = pO2 Sander) 123 20-49 [facility] DentonLqbpfngPIGLKJKBL9592-29-68 23:10:00 Test Item Value Reference Range Interpretation Comments HCO3 Sander (test code = HCO3 Sander) 34 22-26 [place] 468462-12-03 23:10:00 Test Item Value Reference Range Interpretation Comments BE Sander (test code = BE Sander) 9 -2-2 [place] 468462-12-03 23:10:00 Test Item Value Reference Range Interpretation Comments O2 Sat Sander (calc) (test code = O2 Sat 99.0 40.0-70.0 Sander (calc)) [place] 468462-12-03 23:10:00 Test Item Value Reference Range Interpretation Comments Temp Sander (test code = Temp Sander) 37.0 [place] 468462-12-03 23:10:00 Test Item Value Reference Range Interpretation Comments HS Troponin I Baseline (test code = HS 20 Troponin I Baseline) [place] 468462-12-03 23:10:00 Test Item Value Reference Range Interpretation Comments Total CK (test code = Total CK) 199 12-191 [place] 108672-12-03 23:10:00 Test Item Value Reference Range Interpretation Comments WBC (test code = WBC) 8.3 3.7-10.4 [place] 108672-12-03 23:10:00 Test Item Value Reference Range Interpretation Comments RBC (test code = RBC) 3.00 4.70-6.10 [place] 108672-12-03 23:10:00 Test Item Value Reference Range Interpretation Comments Hgb (test code = Hgb) 9.5 14.0-18.0 [place] 108672-12-03 23:10:00 Test Item Value Reference Range Interpretation Comments Hct (test code = Hct) 30.1 42.0-54.0 [place] 108672-12-03 23:10:00 Test Item Value Reference Range Interpretation Comments MCV (test code = MCV) 100.1 80.0-94.0 [place] [address]-12-03 23:10:00 Test Item Value Reference Range Interpretation Comments MCH (test code = MCH) 31.8 pg 27.0-31.0 [place] [address]-12-03 23:10:00 Test Item Value Reference Range Interpretation Comments MCHC (test code = MCHC) 31.7 32.0-36.0 [place] 108672-12-03 23:10:00 Test Item Value Reference Range Interpretation Comments RDW (test code = RDW) 15.6 11.5-14.[address]12-03 23:10:00 Test Item Value Reference Range Interpretation Comments Platelet (test code = Platelet) 409 133-450 [place] [address]-12-03 23:10:00 Test Item Value Reference Range Interpretation Comments MPV (test code = MPV) 8.2 7.4-10.[address]12-03 23:10:00 Test Item Value Reference Range Interpretation Comments PTT (test code = PTT) 29.2 s 22.9-35.[address]12-03 23:10:00 Test Item Value Reference Range Interpretation Comments PT (test code = PT) 12.9 s 12.0-14.[address]12-03 23:10:00 Test Item Value Reference Range Interpretation Comments INR (test code = INR) 0.98 1 0.85-1.[address]12-03 23:10:00 Test Item Value Reference Range Interpretation Comments D-Dimer (test code = D-Dimer) 0.[address]12-03 23:10:00 Test Item Value Reference Range Interpretation Comments Segs (test code = Segs) 70.5 45.0-75.[address]12-03 23:10:00 Test Item Value Reference Range Interpretation Comments Lymphocytes (test code = Lymphocytes) 16.4 20.0-40.0 [place] [address]-12-03 23:10:00 Test Item Value Reference Range Interpretation Comments Monocytes (test code = Monocytes) 11.2 2.0-12.[address]12-03 23:10:00 Test Item Value Reference Range Interpretation Comments Eosinophils (test code = 1.3 See_Comment [A utomated message] The Eosinophils) system which ge nerated this result tra nsmitted reference range : <=4.0. The reference r fabian was not used to int erpret this result as normal/abnormal . [place] [address]-12-03 23:10:00 Test Item Value Reference Range Interpretation Comments Basophils (test code = 0.6 See_Comment [Aut omated message] The Basophils) system which ge nerated this result tra nsmitted reference range : <=1.0. The reference r fabian was not used to int erpret this result as normal/abnormal . [facility]anoFuwwrxuIXXFLVBILI3777-18-42 23:10:00 Test Item Value Reference Range Interpretation Comments Neutrophils # (test code = Neutrophils 5.8 1.5-8.1 #) [facility]anoVxctymkQXVDPGSABY8363-01-03 23:10:00 Test Item Value Reference Range Interpretation Comments Lymphocytes # (test code = Lymphocytes 1.4 1.0-5.5 #) [place] 108672-12-03 23:10:00 Test Item Value Reference Range Interpretation Comments Monocytes # (test code 0.9 See_Comment [Aut omated message] The = Monocytes #) system which generated this result tra nsmitted reference range : <=0.8. The reference r fabian was not used to int erpret this result as normal/abnormal . [facility] PlanoNxiirbhZELQRFQGDC1457-78-46 23:10:00 Test Item Value Reference Range Interpretation Comments Eosinophils # (test code 0.1 See_Comment [A utomated message] The = Eosinophils #) system whic h generated this result tra nsmitted reference range : <=0.5. The reference r fabian was not used to int erpret this result as normal/abnormal . [facility] PlanoVgwylsoPMKSEGATPQ6331-60-55 23:10:00 Test Item Value Reference Range Interpretation Comments Basophils # (test code 0.1 See_Comment [Aut omated message] The = Basophils #) system which generated this result tra nsmitted reference range : <=0.2. The reference r fabian was not used to int erpret this result as normal/abnormal . [facility] PlanoJdfwldpDJCMICADHT0750-14-15 23:10:00 Test Item Value Reference Range Interpretation Comments Macrocyte (test code = 1+ *ABN*(08/05/22 Macrocyte) 5:10 PM) [facility] ParkwayGvdwobfCCFHMXBAL5453-09-94 11:31:00 Test Item Value Reference Range Interpretation Comments Glucose Lvl (test code = Glucose Lvl) 101 70-99 [facility] ParkwayZdgtztyAEYUFMFAF2485-38-02 11:31:00 Test Item Value Reference Range Interpretation Comments BUN (test code = BUN) 16 7-22 [place] 468462-11-23 11:31:00 Test Item Value Reference Range Interpretation Comments Creatinine Lvl (test code = Creatinine 0.66 0.50-1.40 Lvl) [facility] ParkwayTsrshexQLHOCKIIT6636-58-30 11:31:00 Test Item Value Reference Range Interpretation Comments Sodium Lvl (test code = Sodium Lvl) 138 135-145 [facility] ParkwayWslwmxyOIDTGCEGQ8804-77-23 11:31:00 Test Item Value Reference Range Interpretation Comments Potassium Lvl (test code = Potassium 4.2 3.5-5.1 Lvl) [facility] ParkwaySdqjklkISPEQGWIW0778-62-45 11:31:00 Test Item Value Reference Range Interpretation Comments Chloride Lvl (test code = Chloride Lvl) 107 95-109 [facility] ParkwayMhngdesWEGIUAYMQ0473-62-22 11:31:00 Test Item Value Reference Range Interpretation Comments CO2 (test code = CO2) 27 24-32 [facility] ParkwayUkifosjETECGXDBI4872-64-24 11:31:00 Test Item Value Reference Range Interpretation Comments Calcium Lvl (test code = Calcium Lvl) 8.5 8.5-10.5 [facility] ParkwayUvthnchBZHYNKEHA9106-42-96 11:31:00 Test Item Value Reference Range Interpretation Comments AGAP (test code = AGAP) 8.2 10.0-20.0 [facility] ParkwayWykhdtyIQHJCSSDE1750-04-28 11:31:00 Test Item Value Reference Range Interpretation Comments eGFR (test code = eGFR) 100 [facility] ParkwayWoqbkpcKSBVNNKIN7045-58-23 11:31:00 Test Item Value Reference Range Interpretation Comments HS Troponin I (test code = HS Troponin 42 I) [facility]anoAkrcxmrQQHBCYKGLU2569-95-46 11:31:00 Test Item Value Reference Range Interpretation Comments WBC (test code = WBC) 11.3 3.7-10.4 [facility] PlanoSmundxjUMIVVJRNEN0733-26-02 11:31:00 Test Item Value Reference Range Interpretation Comments RBC (test code = RBC) 2.37 4.70-6.10 [facility] PlanoEixmazdVAVCVGYIAQ9616-09-06 11:31:00 Test Item Value Reference Range Interpretation Comments Hgb (test code = Hgb) 7.6 14.0-18.0 [place] 108672-11-23 11:31:00 Test Item Value Reference Range Interpretation Comments Hct (test code = Hct) 23.5 42.0-54.0 [place] 108672-11-23 11:31:00 Test Item Value Reference Range Interpretation Comments MCV (test code = MCV) 99.0 80.0-94.0 [place] 108672-11-23 11:31:00 Test Item Value Reference Range Interpretation Comments MCH (test code = MCH) 32.2 pg 27.0-31.0 [place] 108672-11-23 11:31:00 Test Item Value Reference Range Interpretation Comments MCHC (test code = MCHC) 32.5 32.0-36.0 [place] 108672-11-23 11:31:00 Test Item Value Reference Range Interpretation Comments RDW (test code = RDW) 13.5 11.5-14.5 [place] 108672-11-23 11:31:00 Test Item Value Reference Range Interpretation Comments Platelet (test code = Platelet) 161 133-450 [facility] PlanoGcghrylUUMBLFFOCK3196-89-38 11:31:00 Test Item Value Reference Range Interpretation Comments MPV (test code = MPV) 9.0 7.4-10.4 [place] 108672-11-23 11:31:00 Test Item Value Reference Range Interpretation Comments Segs (test code = Segs) 79.5 45.0-75.0 [place] 108672-11-23 11:31:00 Test Item Value Reference Range Interpretation Comments Lymphocytes (test code = Lymphocytes) 9.9 20.0-40.0 [place] 108672-11-23 11:31:00 Test Item Value Reference Range Interpretation Comments Monocytes (test code = Monocytes) 8.5 2.0-12.0 [place] [address]-11-23 11:31:00 Test Item Value Reference Range Interpretation Comments Eosinophils (test code = 1.3 See_Comment [A utomated message] The Eosinophils) system which ge nerated this result tra nsmitted reference range : <=4.0. The reference r fabian was not used to int erpret this result as normal/abnormal . [place] 108672-11-23 11:31:00 Test Item Value Reference Range Interpretation Comments Basophils (test code = 0.8 See_Comment [Aut omated message] The Basophils) system which ge nerated this result tra nsmitted reference range : <=1.0. The reference r fabian was not used to int erpret this result as normal/abnormal . [place] 108672-11-23 11:31:00 Test Item Value Reference Range Interpretation Comments Neutrophils # (test code = Neutrophils 9.0 1.5-8.1 #) [facility]anoPjruwlhUXOQTZIWMP5207-78-81 11:31:00 Test Item Value Reference Range Interpretation Comments Lymphocytes # (test code = Lymphocytes 1.1 1.0-5.5 #) [facility] PlanoRppqexfQNXCPAESKB2585-38-23 11:31:00 Test Item Value Reference Range Interpretation Comments Monocytes # (test code 1.0 See_Comment [Aut omated message] The = Monocytes #) system which generated this result tra nsmitted reference range : <=0.8. The reference r fabian was not used to int erpret this result as normal/abnormal . [place] 108672-11-23 11:31:00 Test Item Value Reference Range Interpretation Comments Eosinophils # (test code 0.1 See_Comment [A utomated message] The = Eosinophils #) system whic h generated this result tra nsmitted reference range : <=0.5. The reference r fabian was not used to int erpret this result as normal/abnormal . [facility] PlanoBvnwvnjENQHEPGKOF0209-30-10 11:31:00 Test Item Value Reference Range Interpretation Comments Basophils # (test code 0.1 See_Comment [Aut omated message] The = Basophils #) system which generated this result tra nsmitted reference range : <=0.2. The reference r fabian was not used to int erpret this result as normal/abnormal . [facility] ParkwayAkcwudnVNRYHRNVW3077-52-05 11:31:00 Test Item Value Reference Range Interpretation Comments Creatinine Lvl (test code = Creatinine 0.66 0.50-1.40 Lvl) [facility] ParkwaySvxpyrsRNEWNOJWD5993-42-30 11:31:00 Test Item Value Reference Range Interpretation Comments Sodium Lvl (test code = Sodium Lvl) 138 135-145 [place] 468462-11-23 11:31:00 Test Item Value Reference Range Interpretation Comments Potassium Lvl (test code = Potassium 4.2 3.5-5.1 Lvl) [facility] ParkwayCspgctjVCXFLSOLI0235-61-92 11:31:00 Test Item Value Reference Range Interpretation Comments Chloride Lvl (test code = Chloride Lvl) 107 95-109 [facility] ParkwayZpudcttKYEJYKMRC4650-09-90 11:31:00 Test Item Value Reference Range Interpretation Comments CO2 (test code = CO2) 27 24-32 [facility] ParkwayOkhtzoeIPGNFOJAO2013-21-16 11:31:00 Test Item Value Reference Range Interpretation Comments Calcium Lvl (test code = Calcium Lvl) 8.5 8.5-10.5 [facility] ParkwayKazayjsXBCSJAMVG2309-55-81 11:31:00 Test Item Value Reference Range Interpretation Comments AGAP (test code = AGAP) 8.2 10.0-20.0 [facility] ParkwayGlamgojWJVBBOYSC4949-48-01 11:31:00 Test Item Value Reference Range Interpretation Comments eGFR (test code = eGFR) 100 [facility] ParkwayCjgmkzuKAUTPLZDB6756-64-95 11:31:00 Test Item Value Reference Range Interpretation Comments HS Troponin I (test code = HS Troponin 42 I) [facility]anoGzrlmlnKOIJNQPHPD7992-62-45 11:31:00 Test Item Value Reference Range Interpretation Comments WBC (test code = WBC) 11.3 3.7-10.4 [facility] PlanoEwoefdoPLVALNIQZG4973-71-15 11:31:00 Test Item Value Reference Range Interpretation Comments RBC (test code = RBC) 2.37 4.70-6.10 [facility] PlanoLovgsxyUDULNEZHTL9123-00-42 11:31:00 Test Item Value Reference Range Interpretation Comments Hgb (test code = Hgb) 7.6 14.0-18.0 [facility]MlzkxupBPZFFJLFZN0301-61-40 11:31:00 Test Item Value Reference Range Interpretation Comments Hct (test code = Hct) 23.5 42.0-54.0 [facility] PlanoKpotnwfRTKEGKBEBW2960-15-52 11:31:00 Test Item Value Reference Range Interpretation Comments MCV (test code = MCV) 99.0 80.0-94.0 [facility] CenterFiiiclsMEKSBRKCVN5781-11-93 11:31:00 Test Item Value Reference Range Interpretation Comments MCH (test code = MCH) 32.2 pg 27.0-31.0 [facility] CenterHyvlolgWBXOCNHBAA0840-15-04 11:31:00 Test Item Value Reference Range Interpretation Comments MCHC (test code = MCHC) 32.5 32.0-36.0 [place] 108672-11-23 11:31:00 Test Item Value Reference Range Interpretation Comments RDW (test code = RDW) 13.5 11.5-14.5 [place] 108672-11-23 11:31:00 Test Item Value Reference Range Interpretation Comments Platelet (test code = Platelet) 161 133-450 [place] 108672-11-23 11:31:00 Test Item Value Reference Range Interpretation Comments MPV (test code = MPV) 9.0 7.4-10.4 [place] 108672-11-23 11:31:00 Test Item Value Reference Range Interpretation Comments Segs (test code = Segs) 79.5 45.0-75.0 [place] [address]-11-23 11:31:00 Test Item Value Reference Range Interpretation Comments Lymphocytes (test code = Lymphocytes) 9.9 20.0-40.0 [place] 108672-11-23 11:31:00 Test Item Value Reference Range Interpretation Comments Monocytes (test code = Monocytes) 8.5 2.0-12.0 [place] 108672-11-23 11:31:00 Test Item Value Reference Range Interpretation Comments Eosinophils (test code = 1.3 See_Comment [A utomated message] The Eosinophils) system which ge nerated this result tra nsmitted reference range : <=4.0. The reference r fabian was not used to int erpret this result as normal/abnormal . [place] 108672-11-23 11:31:00 Test Item Value Reference Range Interpretation Comments Basophils (test code = 0.8 See_Comment [Aut omated message] The Basophils) system which ge nerated this result tra nsmitted reference range : <=1.0. The reference r fabian was not used to int erpret this result as normal/abnormal . [place] 108672-11-23 11:31:00 Test Item Value Reference Range Interpretation Comments Neutrophils # (test code = Neutrophils 9.0 1.5-8.1 #) [place] 108672-11-23 11:31:00 Test Item Value Reference Range Interpretation Comments Lymphocytes # (test code = Lymphocytes 1.1 1.0-5.5 #) [place] 108672-11-23 11:31:00 Test Item Value Reference Range Interpretation Comments Monocytes # (test code 1.0 See_Comment [Aut omated message] The = Monocytes #) system which generated this result tra nsmitted reference range : <=0.8. The reference r fabian was not used to int erpret this result as normal/abnormal . [facility] PlanoIrdspazOXZOSLPSWC4603-86-79 11:31:00 Test Item Value Reference Range Interpretation Comments Eosinophils # (test code 0.1 See_Comment [A utomated message] The = Eosinophils #) system whic h generated this result tra nsmitted reference range : <=0.5. The reference r fabian was not used to int erpret this result as normal/abnormal . [facility] PlanoFmtkdroXBYXLDIQPQ2668-40-51 11:31:00 Test Item Value Reference Range Interpretation Comments Basophils # (test code 0.1 See_Comment [Aut omated message] The = Basophils #) system which generated this result tra nsmitted reference range : <=0.2. The reference r fabian was not used to int erpret this result as normal/abnormal . [facility] ParkwayKkbmrdbOWTFMRCDG7001-62-67 11:31:00 Test Item Value Reference Range Interpretation Comments Glucose Lvl (test code = Glucose Lvl) 101 70-99 [facility] ParkwayFsdqvnuMUSGUWTCG6804-11-69 11:31:00 Test Item Value Reference Range Interpretation Comments BUN (test code = BUN) 16 7-22 [place] 468462-11-23 11:31:00 Test Item Value Reference Range Interpretation Comments Creatinine Lvl (test code = Creatinine 0.66 0.50-1.40 Lvl) [facility] ParkwayMrbdbhpBDXTGDSZW1037-53-51 11:31:00 Test Item Value Reference Range Interpretation Comments Sodium Lvl (test code = Sodium Lvl) 138 135-145 [facility] ParkwayEdxpvhmHZNLQYIQI2994-12-82 11:31:00 Test Item Value Reference Range Interpretation Comments Potassium Lvl (test code = Potassium 4.2 3.5-5.1 Lvl) [facility] ParkwayTuagxcoYVPKGGKPI8596-43-13 11:31:00 Test Item Value Reference Range Interpretation Comments Chloride Lvl (test code = Chloride Lvl) 107 95-109 [facility] ParkwayMsbzhuyJPTYSITFV7624-69-30 11:31:00 Test Item Value Reference Range Interpretation Comments CO2 (test code = CO2) 27 24-32 [facility] ParkwayGuiawlcPRBOQOJBN0803-41-05 11:31:00 Test Item Value Reference Range Interpretation Comments Calcium Lvl (test code = Calcium Lvl) 8.5 8.5-10.5 [facility] ParkwayMpknfurRXHBWOTMT9901-95-03 11:31:00 Test Item Value Reference Range Interpretation Comments AGAP (test code = AGAP) 8.2 10.0-20.0 [place] 468462-11-23 11:31:00 Test Item Value Reference Range Interpretation Comments eGFR (test code = eGFR) 100 [facility] ParkwayZmxpjotGMYKBOIIS8163-05-87 11:31:00 Test Item Value Reference Range Interpretation Comments HS Troponin I (test code = HS Troponin 42 I) [facility]anoKbqznbpYRHBJZQNOK8315-75-64 11:31:00 Test Item Value Reference Range Interpretation Comments WBC (test code = WBC) 11.3 3.7-10.4 [facility] PlanoAnawegyGRDNPZOACV5521-91-85 11:31:00 Test Item Value Reference Range Interpretation Comments RBC (test code = RBC) 2.37 4.70-6.10 [facility] PlanoNqucpapNQKPCBZADV5646-66-76 11:31:00 Test Item Value Reference Range Interpretation Comments Hgb (test code = Hgb) 7.6 14.0-18.0 [facility] PlanoHqsflafGRUSUSNREP8702-17-96 11:31:00 Test Item Value Reference Range Interpretation Comments Hct (test code = Hct) 23.5 42.0-54.0 [facility] PlanoYfmogafEJXBNOIHIV2058-80-02 11:31:00 Test Item Value Reference Range Interpretation Comments MCV (test code = MCV) 99.0 80.0-94.0 [place] 108672-11-23 11:31:00 Test Item Value Reference Range Interpretation Comments MCH (test code = MCH) 32.2 pg 27.0-31.0 [facility] PlanoGtihczoXHVJJPQOOY8383-21-61 11:31:00 Test Item Value Reference Range Interpretation Comments MCHC (test code = MCHC) 32.5 32.0-36.0 [facility] PlanoFqgjnkgKQEZEPUJKL8918-25-28 11:31:00 Test Item Value Reference Range Interpretation Comments RDW (test code = RDW) 13.5 11.5-14.5 [facility] PlanoPstcxuxNGNDWUVDXM9516-68-46 11:31:00 Test Item Value Reference Range Interpretation Comments Platelet (test code = Platelet) 161 133-450 [facility] PlanoCxrwyfhNMSCWFJVUV5975-83-30 11:31:00 Test Item Value Reference Range Interpretation Comments MPV (test code = MPV) 9.0 7.4-10.4 [place] 108672-11-23 11:31:00 Test Item Value Reference Range Interpretation Comments Segs (test code = Segs) 79.5 45.0-75.0 [facility] PlanoLqpuaszRHIZETZHCU5472-58-88 11:31:00 Test Item Value Reference Range Interpretation Comments Lymphocytes (test code = Lymphocytes) 9.9 20.0-40.0 [place] 108672-11-23 11:31:00 Test Item Value Reference Range Interpretation Comments Monocytes (test code = Monocytes) 8.5 2.0-12.0 [facility] PlanoHywbgqrFEBMTXLTEO4046-85-36 11:31:00 Test Item Value Reference Range Interpretation Comments Eosinophils (test code = 1.3 See_Comment [A utomated message] The Eosinophils) system which ge nerated this result tra nsmitted reference range : <=4.0. The reference r fabian was not used to int erpret this result as normal/abnormal . [facility] PlanoUksmxheSVTOCLLQIW1525-13-78 11:31:00 Test Item Value Reference Range Interpretation Comments Basophils (test code = 0.8 See_Comment [Aut omated message] The Basophils) system which ge nerated this result tra nsmitted reference range : <=1.0. The reference r fabian was not used to int erpret this result as normal/abnormal . [facility] PlanoWgqvuphOKFIWCPXLJ7300-74-95 11:31:00 Test Item Value Reference Range Interpretation Comments Neutrophils # (test code = Neutrophils 9.0 1.5-8.1 #) [place] 108672-11-23 11:31:00 Test Item Value Reference Range Interpretation Comments Lymphocytes # (test code = Lymphocytes 1.1 1.0-5.5 #) [place] 108672-11-23 11:31:00 Test Item Value Reference Range Interpretation Comments Monocytes # (test code 1.0 See_Comment [Aut omated message] The = Monocytes #) system which generated this result tra nsmitted reference range : <=0.8. The reference r fabian was not used to int erpret this result as normal/abnormal . [facility] PlanoYighoreASLRVWJJMD1511-07-62 11:31:00 Test Item Value Reference Range Interpretation Comments Eosinophils # (test code 0.1 See_Comment [A utomated message] The = Eosinophils #) system whic h generated this result tra nsmitted reference range : <=0.5. The reference r fabian was not used to int erpret this result as normal/abnormal . [facility] PlanoCxrbzhiDKEWODHEFZ4886-52-56 11:31:00 Test Item Value Reference Range Interpretation Comments Basophils # (test code 0.1 See_Comment [Aut omated message] The = Basophils #) system which generated this result tra nsmitted reference range : <=0.2. The reference r fabian was not used to int erpret this result as normal/abnormal . [place] 468462-11-23 11:31:00 Test Item Value Reference Range Interpretation Comments Glucose Lvl (test code = Glucose Lvl) 101 70- [place] 468462-11-23 11:31:00 Test Item Value Reference Range Interpretation Comments BUN (test code = BUN) 16 03-24 [place] 404562-11-23 02:47:00 Test Item Value Reference Range Interpretation Comments Glucose POC (test code = Glucose POC) 111 [place] 404562-11-23 02:47:00 Test Item Value Reference Range Interpretation Comments Gluc POC Comment 1 (test code Notified RN/MD = Gluc POC Comment 1) [place] 404562-11-23 02:47:00 Test Item Value Reference Range Interpretation Comments Glucose POC (test code = Glucose POC) 111 [place] 404562-11-23 02:47:00 Test Item Value Reference Range Interpretation Comments Gluc POC Comment 1 (test code Notified RN/MD = Gluc POC Comment 1) [place] 404562-11-23 02:47:00 Test Item Value Reference Range Interpretation Comments Glucose POC (test code = Glucose POC) 111 [place] 404562-11-23 02:47:00 Test Item Value Reference Range Interpretation Comments Gluc POC Comment 1 (test code Notified RN/MD = Gluc POC Comment 1) [place] [address]-11-21 21:00:00 Test Item Value Reference Range Interpretation Comments Magnesium Lvl (test code = Magnesium 2.4 1.8-2.4 Lvl) [facility]BdwrnwiFLOPESDZI4766-20-15 21:00:00 Test Item Value Reference Range Interpretation Comments Phosphorus (test code = Phosphorus) 2.1 2.5-4.5 [facility]wayOwdqtnqFPGEYGCKL4711-71-20 21:00:00 Test Item Value Reference Range Interpretation Comments Magnesium Lvl (test code = Magnesium 2.4 1.8-2.4 Lvl) [facility]wayIneovbuUMTVSQOSW3559-94-59 21:00:00 Test Item Value Reference Range Interpretation Comments Phosphorus (test code = Phosphorus) 2.1 2.5-4.5 [facility] ParkwayWawcisxJPKAFVVVB0235-80-56 21:00:00 Test Item Value Reference Range Interpretation Comments Magnesium Lvl (test code = Magnesium 2.4 1.8-2.4 Lvl) [facility] ParkwayAdqastiEYHOVDCBE7182-46-25 21:00:00 Test Item Value Reference Range Interpretation Comments Phosphorus (test code = Phosphorus) 2.1 2.5-4.5 [facility]XcxqncaMEYBCBTLMS1512-02-16 18:05:00 Test Item Value Reference Range Interpretation Comments WBC X 10x3 (test code = WBC X 10x3) 11.7 3.7-10.4 [facility]anoPitlizkCCYLUEWNDI7989-57-24 18:05:00 Test Item Value Reference Range Interpretation Comments RBC X 10x6 (test code = RBC X 10x6) 2.74 4.70-6.10 [facility]anoHqxhtsmHRSFXHYMXG1253-70-27 18:05:00 Test Item Value Reference Range Interpretation Comments Hgb (test code = Hgb) 8.8 14.0-18.0 [facility]anoBaeuwliWSFASHIJSH5806-57-76 18:05:00 Test Item Value Reference Range Interpretation Comments Hct (test code = Hct) 26.7 42.0-54.0 [facility]anoHavaczxGKZVLEKAUL7103-38-04 18:05:00 Test Item Value Reference Range Interpretation Comments MCV (test code = MCV) 97.6 80.0-94.0 [facility]anoPjuxztuYXZDARDLCI3470-74-11 18:05:00 Test Item Value Reference Range Interpretation Comments MCH (test code = MCH) 32.1 pg 27.0-31.0 [facility] PlanoYuqxkphBHMKIYWZTI3794-12-01 18:05:00 Test Item Value Reference Range Interpretation Comments MCHC (test code = MCHC) 32.9 32.0-36.0 [facility]anoHebhkpbUMOLVIDANK4829-26-29 18:05:00 Test Item Value Reference Range Interpretation Comments RDW (test code = RDW) 13.7 11.5-14.5 [facility]anoQxizpvoFJPPZZEDWI5615-83-48 18:05:00 Test Item Value Reference Range Interpretation Comments Platelet (test code = Platelet) 195 133-450 [facility]anoYbohrhdGUKCPKKKPU1670-51-25 18:05:00 Test Item Value Reference Range Interpretation Comments MPV (test code = MPV) 9.0 7.4-10.4 [facility]anoYfbqefrLXBDVXUMPL1882-66-65 18:05:00 Test Item Value Reference Range Interpretation Comments Segs (test code = Segs) 82.0 45.0-75.0 [facility]anoNvosqfaLAYHPCJGBB1473-26-22 18:05:00 Test Item Value Reference Range Interpretation Comments Lymphocytes (test code = Lymphocytes) 8.7 20.0-40.0 [place] 108672-11-21 18:05:00 Test Item Value Reference Range Interpretation Comments Monocytes (test code = Monocytes) 8.7 2.0-12.0 [facility]anoVoxbxnqMAKUCNKIDP2428-16-46 18:05:00 Test Item Value Reference Range Interpretation Comments Basophils (test code = 0.6 See_Comment [Aut omated message] The Basophils) system which ge nerated this result tra nsmitted reference range : <=1.0. The reference r fabian was not used to int erpret this result as normal/abnormal . [facility] PlanoLcyfmjmRBEHBFPVMI6667-39-76 18:05:00 Test Item Value Reference Range Interpretation Comments Neutrophils # (test code = Neutrophils 9.6 1.5-8.1 #) [place] 108672-11-21 18:05:00 Test Item Value Reference Range Interpretation Comments Lymphocytes # (test code = Lymphocytes 1.0 1.0-5.5 #) [place] 108672-11-21 18:05:00 Test Item Value Reference Range Interpretation Comments Monocytes # (test code 1.0 See_Comment [Aut omated message] The = Monocytes #) system which generated this result tra nsmitted reference range : <=0.8. The reference r fabian was not used to int erpret this result as normal/abnormal . [facility] PlanoFpvqpkuTSKEMGKXUO3767-57-47 18:05:00 Test Item Value Reference Range Interpretation Comments Basophils # (test code 0.1 See_Comment [Aut omated message] The = Basophils #) system which generated this result tra nsmitted reference range : <=0.2. The reference r fabian was not used to int erpret this result as normal/abnormal . [facility] PlanoMwvimckHGEUSBZHZQ7259-39-12 18:05:00 Test Item Value Reference Range Interpretation Comments WBC X 10x3 (test code = WBC X 10x3) 11.7 3.7-10.4 [facility]anoPidzjdhNJJQLLPHRL3228-26-98 18:05:00 Test Item Value Reference Range Interpretation Comments RBC X 10x6 (test code = RBC X 10x6) 2.74 4.70-6.10 [facility] PlanoIfvxjwiFHRGUUKDAQ2546-05-60 18:05:00 Test Item Value Reference Range Interpretation Comments Hgb (test code = Hgb) 8.8 14.0-18.0 [facility] PlanoLtzmiuzVLDNBUSEUR3011-99-62 18:05:00 Test Item Value Reference Range Interpretation Comments Hct (test code = Hct) 26.7 42.0-54.0 [facility] PlanoZiivsbcSUWSXGZIBX1399-37-53 18:05:00 Test Item Value Reference Range Interpretation Comments MCV (test code = MCV) 97.6 80.0-94.0 [facility] PlanoZrupipaNVMTNWZPPA9521-18-36 18:05:00 Test Item Value Reference Range Interpretation Comments MCH (test code = MCH) 32.1 pg 27.0-31.0 [facility] PlanoLiwphcmZQDWVXDODD8644-62-62 18:05:00 Test Item Value Reference Range Interpretation Comments MCHC (test code = MCHC) 32.9 32.0-36.0 [facility] PlanoVphhazuYTIUXBEFYR4444-08-38 18:05:00 Test Item Value Reference Range Interpretation Comments RDW (test code = RDW) 13.7 11.5-14.5 [facility]anoMxbwbskDGEPVNZLQI9457-17-86 18:05:00 Test Item Value Reference Range Interpretation Comments Platelet (test code = Platelet) 195 133-450 [facility]anoXsbvoudOJPQPBHQOJ4371-80-18 18:05:00 Test Item Value Reference Range Interpretation Comments MPV (test code = MPV) 9.0 7.4-10.4 [place] 108672-11-21 18:05:00 Test Item Value Reference Range Interpretation Comments Segs (test code = Segs) 82.0 45.0-75.0 [place] 108672-11-21 18:05:00 Test Item Value Reference Range Interpretation Comments Lymphocytes (test code = Lymphocytes) 8.7 20.0-40.0 [place] 108672-11-21 18:05:00 Test Item Value Reference Range Interpretation Comments Monocytes (test code = Monocytes) 8.7 2.0-12.0 [place] 108672-11-21 18:05:00 Test Item Value Reference Range Interpretation Comments Basophils (test code = 0.6 See_Comment [Aut omated message] The Basophils) system which ge nerated this result tra nsmitted reference range : <=1.0. The reference r fabian was not used to int erpret this result as normal/abnormal . [place] 108672-11-21 18:05:00 Test Item Value Reference Range Interpretation Comments Neutrophils # (test code = Neutrophils 9.6 1.5-8.1 #) [place] 108672-11-21 18:05:00 Test Item Value Reference Range Interpretation Comments Lymphocytes # (test code = Lymphocytes 1.0 1.0-5.5 #) [place] 108672-11-21 18:05:00 Test Item Value Reference Range Interpretation Comments Monocytes # (test code 1.0 See_Comment [Aut omated message] The = Monocytes #) system which generated this result tra nsmitted reference range : <=0.8. The reference r fabian was not used to int erpret this result as normal/abnormal . [place] [address]-11-21 18:05:00 Test Item Value Reference Range Interpretation Comments Basophils # (test code 0.1 See_Comment [Aut omated message] The = Basophils #) system which generated this result tra nsmitted reference range : <=0.2. The reference r fabian was not used to int erpret this result as normal/abnormal . [place] 108672-11-21 18:05:00 Test Item Value Reference Range Interpretation Comments WBC X 10x3 (test code = WBC X 10x3) 11.7 3.7-10.4 [facility]anoGrraqkyZJBQNEZAVM0420-20-13 18:05:00 Test Item Value Reference Range Interpretation Comments RBC X 10x6 (test code = RBC X 10x6) 2.74 4.70-6.10 [facility] PlanoFmpsxgoBKJBQHKHFH9881-99-36 18:05:00 Test Item Value Reference Range Interpretation Comments Hgb (test code = Hgb) 8.8 14.0-18.0 [facility]anoMbxepjtQFUAOQSVTT7253-38-43 18:05:00 Test Item Value Reference Range Interpretation Comments Hct (test code = Hct) 26.7 42.0-54.0 [facility] PlanoSifdisqTRPDIBMVCK7030-97-97 18:05:00 Test Item Value Reference Range Interpretation Comments MCV (test code = MCV) 97.6 80.0-94.0 [facility] PlanoRjussjsFGWEZDAENO2682-85-90 18:05:00 Test Item Value Reference Range Interpretation Comments MCH (test code = MCH) 32.1 pg 27.0-31.0 [facility]anoXkgsqdjCWDMGTHHDA8681-26-42 18:05:00 Test Item Value Reference Range Interpretation Comments MCHC (test code = MCHC) 32.9 32.0-36.0 [facility] PlanoEuosefgHWVWCRUWWE7740-27-89 18:05:00 Test Item Value Reference Range Interpretation Comments RDW (test code = RDW) 13.7 11.5-14.5 [facility] PlanoYvpwfaeZNNBDOUKGX6853-77-22 18:05:00 Test Item Value Reference Range Interpretation Comments Platelet (test code = Platelet) 195 133-450 [facility] PlanoOvgqswuTFPZETJMCG7493-14-92 18:05:00 Test Item Value Reference Range Interpretation Comments MPV (test code = MPV) 9.0 7.4-10.4 [facility] PlanoDilcfmkLUGNLMMQQL0129-15-35 18:05:00 Test Item Value Reference Range Interpretation Comments Segs (test code = Segs) 82.0 45.0-75.0 [facility] PlanoHwrxvqiTEYFNCUHEQ1641-23-37 18:05:00 Test Item Value Reference Range Interpretation Comments Lymphocytes (test code = Lymphocytes) 8.7 20.0-40.0 [facility] PlanoTnloscxFIIZKNHUIN8949-86-63 18:05:00 Test Item Value Reference Range Interpretation Comments Monocytes (test code = Monocytes) 8.7 2.0-12.0 [place] 108672-11-21 18:05:00 Test Item Value Reference Range Interpretation Comments Basophils (test code = 0.6 See_Comment [Aut omated message] The Basophils) system which ge nerated this result tra nsmitted reference range : <=1.0. The reference r fabian was not used to int erpret this result as normal/abnormal . [facility] PlanoMhuidorPHCAPHBCVY6984-74-31 18:05:00 Test Item Value Reference Range Interpretation Comments Neutrophils # (test code = Neutrophils 9.6 1.5-8.1 #) [facility] PlanoDeiuayzFRDEKNEWRD3423-89-72 18:05:00 Test Item Value Reference Range Interpretation Comments Lymphocytes # (test code = Lymphocytes 1.0 1.0-5.5 #) [facility] PlanoXzslyycYYKBWPGEQU7451-71-25 18:05:00 Test Item Value Reference Range Interpretation Comments Monocytes # (test code 1.0 See_Comment [Aut omated message] The = Monocytes #) system which generated this result tra nsmitted reference range : <=0.8. The reference r fabian was not used to int erpret this result as normal/abnormal . [facility] PlanoQlyauemAFIZEXIWOP6737-08-06 18:05:00 Test Item Value Reference Range Interpretation Comments Basophils # (test code 0.1 See_Comment [Aut omated message] The = Basophils #) system which generated this result tra nsmitted reference range : <=0.2. The reference r fabian was not used to int erpret this result as normal/abnormal . [facility] NMTGUYE3330-09-27 15:45:32 Test Item Value Reference Range Interpretation Comments HS Troponin I (test code = HS Troponin 84 I) [facility] FMJFHXM2313-58-29 15:45:32 Test Item Value Reference Range Interpretation Comments HS Troponin I (test code = HS Troponin 84 I) [facility] APNTUYD1499-77-60 15:45:32 Test Item Value Reference Range Interpretation Comments HS Troponin I (test code = HS Troponin 84 I) [facility]OSFL[facility]63[facility]46 14:45:09 Test Item Value Reference Range Interpretation Comments RADRPT (test code EXAM: XR CHEST 1 VIEWDATE: = RADRPT) 07/24/2022 8:16 INDICATION: - chest painCOMPARISON: Chest radiograph 07/23/2022, 06/13/2013.TECHNIQUE: AP chest.FINDINGS:Lines, tubes and hardware: External EKG leads.Lungs and pleura: No pneumothorax detected on this semierect study.Low volume of the right lung with mild bibasilar subsegmental atelectasis.Redemonstration of right hemidiaphragm elevation.Multiple scattered calcified pleural plaques present bilaterally.Heart and mediastinum:The cardiomediastinal silhouette is within normal limits.Atherosclerotic ossification seen in the aortic arch.Elevation the right hemidiaphragm noted.Bones and soft tissues: No acute abnormality.Diffuse osteopenia present. 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 [facility] HospitalCtwadmnITORIS5265-88-57 14:45:09 Test Item Value Reference Range Interpretation Comments RADRPT (test code EXAM: XR CHEST 1 VIEWDATE: = RADRPT) 07/24/2022 8:16 INDICATION: - chest painCOMPARISON: Chest radiograph 07/23/2022, 06/13/2013.TECHNIQUE: AP chest.FINDINGS:Lines, tubes and hardware: External EKG leads.Lungs and pleura: No pneumothorax detected on this semierect study.Low volume of the right lung with mild bibasilar subsegmental atelectasis.Redemonstration of right hemidiaphragm elevation.Multiple scattered calcified pleural plaques present bilaterally.Heart and mediastinum:The cardiomediastinal silhouette is within normal limits.Atherosclerotic ossification seen in the aortic arch.Elevation the right hemidiaphragm noted.Bones and soft tissues: No acute abnormality.Diffuse osteopenia present. 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 [facility] HospitalWmgsrjlEIASEW5015-99-70 14:45:09 Test Item Value Reference Range Interpretation Comments RADRPT (test code EXAM: XR CHEST 1 VIEWDATE: = RADRPT) 07/24/2022 8:16 INDICATION: - chest painCOMPARISON: Chest radiograph 07/23/2022, 06/13/2013.TECHNIQUE: AP chest.FINDINGS:Lines, tubes and hardware: External EKG leads.Lungs and pleura: No pneumothorax detected on this semierect study.Low volume of the right lung with mild bibasilar subsegmental atelectasis.Redemonstration of right hemidiaphragm elevation.Multiple scattered calcified pleural plaques present bilaterally.Heart and mediastinum:The cardiomediastinal silhouette is within normal limits.Atherosclerotic ossification seen in the aortic arch.Elevation the right hemidiaphragm noted.Bones and soft tissues: No acute abnormality.Diffuse osteopenia present. 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 [facility]2022-11-21 13:01:00 Test Item Value Reference Range Interpretation Comments Lactic Acid Lvl (test code = Lactic 0.8 0.5-2.2 Acid Lvl) [place] 468462-11-21 13:01:00 Test Item Value Reference Range Interpretation Comments Lactic Acid Lvl (test code = Lactic 0.8 0.5-2.2 Acid Lvl) [place] [address]-11-21 13:01:00 Test Item Value Reference Range Interpretation Comments Hgb (test code = Hgb) 8.3 14.0-18.0 [place] [address]-11-21 13:01:00 Test Item Value Reference Range Interpretation Comments Hct (test code = Hct) 24.9 42.0-54.0 [facility]2022-11-21 13:01:00 Test Item Value Reference Range Interpretation Comments Lactic Acid Lvl (test code = Lactic 0.8 0.5-2.2 Acid Lvl) [place] [address]-11-21 13:01:00 Test Item Value Reference Range Interpretation Comments Lactic Acid Lvl (test code = Lactic 0.8 0.5-2.2 Acid Lvl) [place] [address]-11-21 13:01:00 Test Item Value Reference Range Interpretation Comments Hgb (test code = Hgb) 8.3 14.0-18.0 [place] [address]-11-21 13:01:00 Test Item Value Reference Range Interpretation Comments Hct (test code = Hct) 24.9 42.0-54.0 [facility] MAHAO6589-91-46 13:01:00 Test Item Value Reference Range Interpretation Comments Lactic Acid Lvl (test code = Lactic 0.8 0.5-2.2 Acid Lvl) [facility]wayDzqpeufPABMFYHOU5242-34-86 13:01:00 Test Item Value Reference Range Interpretation Comments Lactic Acid Lvl (test code = Lactic 0.8 0.5-2.2 Acid Lvl) [facility]anoPhjtoowRUFDEQVQLW9650-72-75 13:01:00 Test Item Value Reference Range Interpretation Comments Hgb (test code = Hgb) 8.3 14.0-18.0 [place] 108672-11-21 13:01:00 Test Item Value Reference Range Interpretation Comments Hct (test code = Hct) 24.9 42.0-54.0 [facility]AJKHFEA7908-00-99 08:20:00 Test Item Value Reference Range Interpretation Comments HS Troponin I (test code = HS Troponin 69 I) [facility] PlanoRzzhgecOGTCCOMZDB4933-73-66 08:20:00 Test Item Value Reference Range Interpretation Comments WBC X 10x3 (test code = WBC X 10x3) 10.1 3.7-10.4 [place] 108672-11-21 08:20:00 Test Item Value Reference Range Interpretation Comments RBC X 10x6 (test code = RBC X 10x6) 2.71 4.70-6.10 [facility] PlanoJgeifntPUIYGLRBSO1897-14-61 08:20:00 Test Item Value Reference Range Interpretation Comments Hgb (test code = Hgb) 8.7 14.0-18.0 [facility] PlanoCyconruBVNMOGWAYY4600-41-26 08:20:00 Test Item Value Reference Range Interpretation Comments Hct (test code = Hct) 26.7 42.0-54.0 [place] 108672-11-21 08:20:00 Test Item Value Reference Range Interpretation Comments MCV (test code = MCV) 98.3 80.0-94.0 [place] 108672-11-21 08:20:00 Test Item Value Reference Range Interpretation Comments MCH (test code = MCH) 32.2 pg 27.0-31.0 [facility] PlanoFwixowcSLGQWDTRWI9506-58-28 08:20:00 Test Item Value Reference Range Interpretation Comments MCHC (test code = MCHC) 32.7 32.0-36.0 [place] 108672-11-21 08:20:00 Test Item Value Reference Range Interpretation Comments RDW (test code = RDW) 14.1 11.5-14.5 [place] 108672-11-21 08:20:00 Test Item Value Reference Range Interpretation Comments Platelet (test code = Platelet) 189 133-450 [place] 108672-11-21 08:20:00 Test Item Value Reference Range Interpretation Comments MPV (test code = MPV) 8.9 7.4-10.4 [place] [address]-11-21 08:20:00 Test Item Value Reference Range Interpretation Comments Segs (test code = Segs) 80.8 45.0-75.0 [place] 108672-11-21 08:20:00 Test Item Value Reference Range Interpretation Comments Lymphocytes (test code = Lymphocytes) 11.1 20.0-40.0 [place] 108672-11-21 08:20:00 Test Item Value Reference Range Interpretation Comments Monocytes (test code = Monocytes) 7.2 2.0-12.0 [place] 108672-11-21 08:20:00 Test Item Value Reference Range Interpretation Comments Eosinophils (test code = 0.1 See_Comment [A utomated message] The Eosinophils) system which ge nerated this result tra nsmitted reference range : <=4.0. The reference r fabian was not used to int erpret this result as normal/abnormal . [place] [address]-11-21 08:20:00 Test Item Value Reference Range Interpretation Comments Basophils (test code = 0.8 See_Comment [Aut omated message] The Basophils) system which ge nerated this result tra nsmitted reference range : <=1.0. The reference r fabian was not used to int erpret this result as normal/abnormal . [place] 108672-11-21 08:20:00 Test Item Value Reference Range Interpretation Comments Neutrophils # (test code = Neutrophils 8.2 1.5-8.1 #) [place] 108672-11-21 08:20:00 Test Item Value Reference Range Interpretation Comments Lymphocytes # (test code = Lymphocytes 1.1 1.0-5.5 #) [facility]anoGwlelcdXRPXTPKXZM6588-26-50 08:20:00 Test Item Value Reference Range Interpretation Comments Monocytes # (test code 0.7 See_Comment [Aut omated message] The = Monocytes #) system which generated this result tra nsmitted reference range : <=0.8. The reference r fabian was not used to int erpret this result as normal/abnormal . [facility] PlanoBidwiruLDMRDLZDAR0933-95-34 08:20:00 Test Item Value Reference Range Interpretation Comments Basophils # (test code 0.1 See_Comment [Aut omated message] The = Basophils #) system which generated this result tra nsmitted reference range : <=0.2. The reference r fabian was not used to int erpret this result as normal/abnormal . [facility]2022-11-21 08:20:00 Test Item Value Reference Range Interpretation Comments HS Troponin I (test code = HS Troponin 69 I) [facility] PlanoBrxuapiTMKKRIKAYQ2369-74-53 08:20:00 Test Item Value Reference Range Interpretation Comments WBC X 10x3 (test code = WBC X 10x3) 10.1 3.7-10.4 [place] 108672-11-21 08:20:00 Test Item Value Reference Range Interpretation Comments RBC X 10x6 (test code = RBC X 10x6) 2.71 4.70-6.10 [facility] PlanoXsboxhkLLUIUAJAWO0515-80-19 08:20:00 Test Item Value Reference Range Interpretation Comments Hgb (test code = Hgb) 8.7 14.0-18.0 [place] 108672-11-21 08:20:00 Test Item Value Reference Range Interpretation Comments Hct (test code = Hct) 26.7 42.0-54.0 [place] 108672-11-21 08:20:00 Test Item Value Reference Range Interpretation Comments MCV (test code = MCV) 98.3 80.0-94.0 [place] 108672-11-21 08:20:00 Test Item Value Reference Range Interpretation Comments MCH (test code = MCH) 32.2 pg 27.0-31.0 [place] 108672-11-21 08:20:00 Test Item Value Reference Range Interpretation Comments MCHC (test code = MCHC) 32.7 32.0-36.0 [place] 108672-11-21 08:20:00 Test Item Value Reference Range Interpretation Comments RDW (test code = RDW) 14.1 11.5-14.5 [place] 108672-11-21 08:20:00 Test Item Value Reference Range Interpretation Comments Platelet (test code = Platelet) 189 133-450 [place] 108672-11-21 08:20:00 Test Item Value Reference Range Interpretation Comments MPV (test code = MPV) 8.9 7.4-10.4 [place] 108672-11-21 08:20:00 Test Item Value Reference Range Interpretation Comments Segs (test code = Segs) 80.8 45.0-75.0 [place] 108672-11-21 08:20:00 Test Item Value Reference Range Interpretation Comments Lymphocytes (test code = Lymphocytes) 11.1 20.0-40.0 [place] 108672-11-21 08:20:00 Test Item Value Reference Range Interpretation Comments Monocytes (test code = Monocytes) 7.2 2.0-12.0 [place] 108672-11-21 08:20:00 Test Item Value Reference Range Interpretation Comments Eosinophils (test code = 0.1 See_Comment [A utomated message] The Eosinophils) system which ge nerated this result tra nsmitted reference range : <=4.0. The reference r fabian was not used to int erpret this result as normal/abnormal . [place] 108672-11-21 08:20:00 Test Item Value Reference Range Interpretation Comments Basophils (test code = 0.8 See_Comment [Aut omated message] The Basophils) system which ge nerated this result tra nsmitted reference range : <=1.0. The reference r fabian was not used to int erpret this result as normal/abnormal . [place] 108672-11-21 08:20:00 Test Item Value Reference Range Interpretation Comments Neutrophils # (test code = Neutrophils 8.2 1.5-8.1 #) [place] 108672-11-21 08:20:00 Test Item Value Reference Range Interpretation Comments Lymphocytes # (test code = Lymphocytes 1.1 1.0-5.5 #) [facility]NwgsoqkWFZODBVXVL0660-13-35 08:20:00 Test Item Value Reference Range Interpretation Comments Monocytes # (test code 0.7 See_Comment [Aut omated message] The = Monocytes #) system which generated this result tra nsmitted reference range : <=0.8. The reference r fabian was not used to int erpret this result as normal/abnormal . [facility]anoKiyczddPTPYAQOEBC0959-23-88 08:20:00 Test Item Value Reference Range Interpretation Comments Basophils # (test code 0.1 See_Comment [Aut omated message] The = Basophils #) system which generated this result tra nsmitted reference range : <=0.2. The reference r fabian was not used to int erpret this result as normal/abnormal . [facility]2022-11-21 08:20:00 Test Item Value Reference Range Interpretation Comments HS Troponin I (test code = HS Troponin 69 I) [facility]anoRwkpmaqAVUDPZFGNQ5421-25-82 08:20:00 Test Item Value Reference Range Interpretation Comments WBC X 10x3 (test code = WBC X 10x3) 10.1 3.7-10.4 [facility]anoVuzqutnWDYJXZAGQI5937-16-53 08:20:00 Test Item Value Reference Range Interpretation Comments RBC X 10x6 (test code = RBC X 10x6) 2.71 4.70-6.10 [facility]anoQvzwpxjKVWUNZCTCF8982-84-56 08:20:00 Test Item Value Reference Range Interpretation Comments Hgb (test code = Hgb) 8.7 14.0-18.0 [facility]anoVoplxhgYOUFSFSRSO8448-53-50 08:20:00 Test Item Value Reference Range Interpretation Comments Hct (test code = Hct) 26.7 42.0-54.0 [facility]anoMjizvccVCZWQOOEBH1428-51-04 08:20:00 Test Item Value Reference Range Interpretation Comments MCV (test code = MCV) 98.3 80.0-94.0 [place] 108672-11-21 08:20:00 Test Item Value Reference Range Interpretation Comments MCH (test code = MCH) 32.2 pg 27.0-31.0 [facility]anoAmgnibpXYNLQUHARX2893-92-92 08:20:00 Test Item Value Reference Range Interpretation Comments MCHC (test code = MCHC) 32.7 32.0-36.0 [place] 108672-11-21 08:20:00 Test Item Value Reference Range Interpretation Comments RDW (test code = RDW) 14.1 11.5-14.5 [place] [address]-11-21 08:20:00 Test Item Value Reference Range Interpretation Comments Platelet (test code = Platelet) 189 133-450 [place] 108672-11-21 08:20:00 Test Item Value Reference Range Interpretation Comments MPV (test code = MPV) 8.9 7.4-10.4 [place] 108672-11-21 08:20:00 Test Item Value Reference Range Interpretation Comments Segs (test code = Segs) 80.8 45.0-75.0 [place] [address]-11-21 08:20:00 Test Item Value Reference Range Interpretation Comments Lymphocytes (test code = Lymphocytes) 11.1 20.0-40.0 [place] 108672-11-21 08:20:00 Test Item Value Reference Range Interpretation Comments Monocytes (test code = Monocytes) 7.2 2.0-12.0 [place] 108672-11-21 08:20:00 Test Item Value Reference Range Interpretation Comments Eosinophils (test code = 0.1 See_Comment [A utomated message] The Eosinophils) system which ge nerated this result tra nsmitted reference range : <=4.0. The reference r fabian was not used to int erpret this result as normal/abnormal . [place] 108672-11-21 08:20:00 Test Item Value Reference Range Interpretation Comments Basophils (test code = 0.8 See_Comment [Aut omated message] The Basophils) system which ge nerated this result tra nsmitted reference range : <=1.0. The reference r fabian was not used to int erpret this result as normal/abnormal . [place] 108672-11-21 08:20:00 Test Item Value Reference Range Interpretation Comments Neutrophils # (test code = Neutrophils 8.2 1.5-8.1 #) [place] [address]-11-21 08:20:00 Test Item Value Reference Range Interpretation Comments Lymphocytes # (test code = Lymphocytes 1.1 1.0-5.5 #) [place] 108672-11-21 08:20:00 Test Item Value Reference Range Interpretation Comments Monocytes # (test code 0.7 See_Comment [Aut omated message] The = Monocytes #) system which generated this result tra nsmitted reference range : <=0.8. The reference r fabian was not used to int erpret this result as normal/abnormal . [facility]anoXchtnyrLWIESKASXK4922-77-80 08:20:00 Test Item Value Reference Range Interpretation Comments Basophils # (test code 0.1 See_Comment [Aut omated message] The = Basophils #) system which generated this result tra nsmitted reference range : <=0.2. The reference r fabian was not used to int erpret this result as normal/abnormal . [facility]anoZwchxrbUVTJJSZVFD8077-61-49 06:24:00 Test Item Value Reference Range Interpretation Comments WBC X 10x3 (test code = WBC X 10x3) 9.7 3.7-10.4 [facility] PlanoLetvgfsRBBTRYJPIQ4996-36-76 06:24:00 Test Item Value Reference Range Interpretation Comments RBC X 10x6 (test code = RBC X 10x6) 2.73 4.70-6.10 [facility]anoWfttjozIKPFQKYJCO5310-42-40 06:24:00 Test Item Value Reference Range Interpretation Comments MCV (test code = MCV) 98.1 80.0-94.0 [facility] PlanoHkkihnsAURYAEXOSC8427-89-08 06:24:00 Test Item Value Reference Range Interpretation Comments MCH (test code = MCH) 32.5 pg 27.0-31.0 [facility]anoTlnrskpIQETMMDZUE0608-31-33 06:24:00 Test Item Value Reference Range Interpretation Comments MCHC (test code = MCHC) 33.2 32.0-36.0 [facility]anoDoeypooRQIXMLXQWJ8637-73-42 06:24:00 Test Item Value Reference Range Interpretation Comments RDW (test code = RDW) 14.0 11.5-14.5 [facility]anoSokiidzPQHYCWHWZL0465-22-73 06:24:00 Test Item Value Reference Range Interpretation Comments Platelet (test code = Platelet) 197 133-450 [facility] PlanoYorctxpWPJCZEWXUW5794-67-41 06:24:00 Test Item Value Reference Range Interpretation Comments MPV (test code = MPV) 8.9 7.4-10.4 [facility]anoMcrtcxkZUQHHFHFNM9886-69-51 06:24:00 Test Item Value Reference Range Interpretation Comments Segs (test code = Segs) 83.8 45.0-75.0 [place] 108672-11-21 06:24:00 Test Item Value Reference Range Interpretation Comments Lymphocytes (test code = Lymphocytes) 10.1 20.0-40.0 [place] 108672-11-21 06:24:00 Test Item Value Reference Range Interpretation Comments Monocytes (test code = Monocytes) 5.5 2.0-12.0 [place] 108672-11-21 06:24:00 Test Item Value Reference Range Interpretation Comments Basophils (test code = 0.6 See_Comment [Aut omated message] The Basophils) system which ge nerated this result tra nsmitted reference range : <=1.0. The reference r fabian was not used to int erpret this result as normal/abnormal . [place] [address]-11-21 06:24:00 Test Item Value Reference Range Interpretation Comments Neutrophils # (test code = Neutrophils 8.1 1.5-8.1 #) [place] 108672-11-21 06:24:00 Test Item Value Reference Range Interpretation Comments Lymphocytes # (test code = Lymphocytes 1.0 1.0-5.5 #) [place] 108672-11-21 06:24:00 Test Item Value Reference Range Interpretation Comments Monocytes # (test code 0.5 See_Comment [Aut omated message] The = Monocytes #) system which generated this result tra nsmitted reference range : <=0.8. The reference r fabian was not used to int erpret this result as normal/abnormal . [place] 108672-11-21 06:24:00 Test Item Value Reference Range Interpretation Comments Basophils # (test code 0.1 See_Comment [Aut omated message] The = Basophils #) system which generated this result tra nsmitted reference range : <=0.2. The reference r fabian was not used to int erpret this result as normal/abnormal . [place] 108672-11-21 06:24:00 Test Item Value Reference Range Interpretation Comments WBC X 10x3 (test code = WBC X 10x3) 9.7 3.7-10.4 [place] 108672-11-21 06:24:00 Test Item Value Reference Range Interpretation Comments RBC X 10x6 (test code = RBC X 10x6) 2.73 4.70-6.10 [place] 108672-11-21 06:24:00 Test Item Value Reference Range Interpretation Comments MCV (test code = MCV) 98.1 80.0-94.0 [place] 108672-11-21 06:24:00 Test Item Value Reference Range Interpretation Comments MCH (test code = MCH) 32.5 pg 27.0-31.0 [place] 108672-11-21 06:24:00 Test Item Value Reference Range Interpretation Comments MCHC (test code = MCHC) 33.2 32.0-36.0 [place] 108672-11-21 06:24:00 Test Item Value Reference Range Interpretation Comments RDW (test code = RDW) 14.0 11.5-14.5 [place] 108672-11-21 06:24:00 Test Item Value Reference Range Interpretation Comments Platelet (test code = Platelet) 197 133-450 [facility] PlanoJfnyuskIVZBIEZJUY6704-20-95 06:24:00 Test Item Value Reference Range Interpretation Comments MPV (test code = MPV) 8.9 7.4-10.4 [place] 108672-11-21 06:24:00 Test Item Value Reference Range Interpretation Comments Segs (test code = Segs) 83.8 45.0-75.0 [place] 108672-11-21 06:24:00 Test Item Value Reference Range Interpretation Comments Lymphocytes (test code = Lymphocytes) 10.1 20.0-40.0 [place] 108672-11-21 06:24:00 Test Item Value Reference Range Interpretation Comments Monocytes (test code = Monocytes) 5.5 2.0-12.0 [place] 108672-11-21 06:24:00 Test Item Value Reference Range Interpretation Comments Basophils (test code = 0.6 See_Comment [Aut omated message] The Basophils) system which ge nerated this result tra nsmitted reference range : <=1.0. The reference r fabian was not used to int erpret this result as normal/abnormal . [place] 108672-11-21 06:24:00 Test Item Value Reference Range Interpretation Comments Neutrophils # (test code = Neutrophils 8.1 1.5-8.1 #) [facility]anoWnjrtwdCWASJMSYSR4270-52-97 06:24:00 Test Item Value Reference Range Interpretation Comments Lymphocytes # (test code = Lymphocytes 1.0 1.0-5.5 #) [place] 108672-11-21 06:24:00 Test Item Value Reference Range Interpretation Comments Monocytes # (test code 0.5 See_Comment [Aut omated message] The = Monocytes #) system which generated this result tra nsmitted reference range : <=0.8. The reference r fabian was not used to int erpret this result as normal/abnormal . [place] 108672-11-21 06:24:00 Test Item Value Reference Range Interpretation Comments Basophils # (test code 0.1 See_Comment [Aut omated message] The = Basophils #) system which generated this result tra nsmitted reference range : <=0.2. The reference r fabian was not used to int erpret this result as normal/abnormal . [facility] PlanoDotehioFTEZZEHNVU4995-60-31 06:24:00 Test Item Value Reference Range Interpretation Comments WBC X 10x3 (test code = WBC X 10x3) 9.7 3.7-10.4 [facility] PlanoSjpqvioCGTQDNOSBR2487-15-21 06:24:00 Test Item Value Reference Range Interpretation Comments RBC X 10x6 (test code = RBC X 10x6) 2.73 4.70-6.10 [place] 108672-11-21 06:24:00 Test Item Value Reference Range Interpretation Comments MCV (test code = MCV) 98.1 80.0-94.0 [place] 108672-11-21 06:24:00 Test Item Value Reference Range Interpretation Comments MCH (test code = MCH) 32.5 pg 27.0-31.0 [place] 108672-11-21 06:24:00 Test Item Value Reference Range Interpretation Comments MCHC (test code = MCHC) 33.2 32.0-36.0 [place] 108672-11-21 06:24:00 Test Item Value Reference Range Interpretation Comments RDW (test code = RDW) 14.0 11.5-14.5 [place] 108672-11-21 06:24:00 Test Item Value Reference Range Interpretation Comments Platelet (test code = Platelet) 197 133-450 [facility] PlanoDhqzfbiJJPTPBSOLI6971-60-45 06:24:00 Test Item Value Reference Range Interpretation Comments MPV (test code = MPV) 8.9 7.4-10.4 [facility] PlanoXreermaXRRCHZAEHB6320-26-09 06:24:00 Test Item Value Reference Range Interpretation Comments Segs (test code = Segs) 83.8 45.0-75.0 [facility] PlanoWnhcgqvCMOLIVWXFJ3253-17-24 06:24:00 Test Item Value Reference Range Interpretation Comments Lymphocytes (test code = Lymphocytes) 10.1 20.0-40.0 [facility] PlanoQkdzqsjUFJSLBGXJE4519-76-28 06:24:00 Test Item Value Reference Range Interpretation Comments Monocytes (test code = Monocytes) 5.5 2.0-12.0 [facility] PlanoOkfswffHERUNOUYDJ8971-49-31 06:24:00 Test Item Value Reference Range Interpretation Comments Basophils (test code = 0.6 See_Comment [Aut omated message] The Basophils) system which ge nerated this result tra nsmitted reference range : <=1.0. The reference r fabian was not used to int erpret this result as normal/abnormal . [facility] PlanoVxwmjfoYHZMZJRLTH7803-32-73 06:24:00 Test Item Value Reference Range Interpretation Comments Neutrophils # (test code = Neutrophils 8.1 1.5-8.1 #) [facility] PlanoIrdvkgmMOJOTUIVCX5485-56-78 06:24:00 Test Item Value Reference Range Interpretation Comments Lymphocytes # (test code = Lymphocytes 1.0 1.0-5.5 #) [facility] PlanoLempxccOGHCBMIQKH7435-47-09 06:24:00 Test Item Value Reference Range Interpretation Comments Monocytes # (test code 0.5 See_Comment [Aut omated message] The = Monocytes #) system which generated this result tra nsmitted reference range : <=0.8. The reference r fabian was not used to int erpret this result as normal/abnormal . [facility] PlanoXtsesmkIGQXTZVFQF7518-08-78 06:24:00 Test Item Value Reference Range Interpretation Comments Basophils # (test code 0.1 See_Comment [Aut omated message] The = Basophils #) system which generated this result tra nsmitted reference range : <=0.2. The reference r fabian was not used to int erpret this result as normal/abnormal . [facility] [id number] 02:53:00 Test Item Value Reference Range Interpretation Comments RBC product (test code Product available = RBC product) (07/23/22 8:53 PM) [facility] [id number] 02:53:00 Test Item Value Reference Range Interpretation Comments RBC product (test code Product available = RBC product) (07/23/22 8:53 PM) [facility] [id number] 02:53:00 Test Item Value Reference Range Interpretation Comments RBC product (test code Product available = RBC product) (07/23/22 8:53 PM) [facility]anoCjzkyxcXQXVFEONWM8215-88-45 02:05:00 Test Item Value Reference Range Interpretation Comments Elliptocyte (test code = Elliptocyte) few [facility] PlanoKmoaxllHFUVPLVZAM5447-24-74 02:05:00 Test Item Value Reference Range Interpretation Comments Toxic Gran (test code = Toxic Gran) slight [facility] PlanoPobcixnITOXVBVDDE7657-24-50 02:05:00 Test Item Value Reference Range Interpretation Comments Plt Morph (test code = Normal (07/23/22 8:05 Plt Morph) PM) [facility] PlanoMzgafezWCCVVGJFDW8080-37-02 02:05:00 Test Item Value Reference Range Interpretation Comments Anisocyte (test code = 1+ *ABN*(07/23/22 Anisocyte) 8:05 PM) [facility] PlanoOxghapdDEHNPZOROQ7626-50-93 02:05:00 Test Item Value Reference Range Interpretation Comments Hypochrom (test code = 1+ (07/23/22 8:05 Hypochrom) PM) [facility] PlanoUrvshpuXQSBGUMWPX0601-79-35 02:05:00 Test Item Value Reference Range Interpretation Comments Elliptocyte (test code = Elliptocyte) few [facility] PlanoVzohkuyHKUEOINCTT2033-04-92 02:05:00 Test Item Value Reference Range Interpretation Comments Toxic Gran (test code = Toxic Gran) slight [facility] PlanoLjqyklqNIDXILHAAX7099-77-37 02:05:00 Test Item Value Reference Range Interpretation Comments Plt Morph (test code = Normal (07/23/22 8:05 Plt Morph) PM) [facility] PlanoZjpvwrzLKNPPTESQK2211-59-28 02:05:00 Test Item Value Reference Range Interpretation Comments Anisocyte (test code = 1+ *ABN*(07/23/22 Anisocyte) 8:05 PM) [facility]anoMqpzhzeZLHQSGXYFM3003-06-72 02:05:00 Test Item Value Reference Range Interpretation Comments Hypochrom (test code = 1+ (07/23/22 8:05 Hypochrom) PM) [facility]anoKmkyjodKMTYVYGXAP3246-15-06 02:05:00 Test Item Value Reference Range Interpretation Comments Elliptocyte (test code = Elliptocyte) few [facility] PlanoRllmynaSTVLGHJCKI1045-13-36 02:05:00 Test Item Value Reference Range Interpretation Comments Toxic Gran (test code = Toxic Gran) slight [facility] PlanoTeicuniCPYIREDWLN0798-13-94 02:05:00 Test Item Value Reference Range Interpretation Comments Plt Morph (test code = Normal (07/23/22 8:05 Plt Morph) PM) [facility] PlanoFogrnmcZVQBXLLJNZ0823-70-45 02:05:00 Test Item Value Reference Range Interpretation Comments Anisocyte (test code = 1+ *ABN*(07/23/22 Anisocyte) 8:05 PM) [facility] PlanoGnddrejVSNYMSPCQK7861-95-41 02:05:00 Test Item Value Reference Range Interpretation Comments Hypochrom (test code = 1+ (07/23/22 8:05 Hypochrom) PM) [facility]NzcgiesMXAEHGULY5320-26-45 00:51:00 Test Item Value Reference Range Interpretation Comments U Amph Scr (test code Negative *NA*(07/23/22 = U Amph Scr) 6:51 PM) [facility] ParkwayQquvvngPLATQEGGV1160-60-58 00:51:00 Test Item Value Reference Range Interpretation Comments U Maddie Scr (test code Negative *NA*(07/23/22 = U Maddie Scr) 6:51 PM) [facility]wayOihfcqjQZMYQKLNB0341-54-61 00:51:00 Test Item Value Reference Range Interpretation Comments U Benzodiaz Scr (test Negative *NA*(07/23/22 code = U Benzodiaz Scr) 6:51 PM) [facility] ParkwaySxbtsqoRWDERZXOA5439-26-00 00:51:00 Test Item Value Reference Range Interpretation Comments U Cocaine Scr (test Negative *NA*(07/23/22 code = U Cocaine Scr) 6:51 PM) [facility]wayBjqvisuFZRSWHVWX0724-21-94 00:51:00 Test Item Value Reference Range Interpretation Comments U Cannab Scr (test Negative *NA*(07/23/22 code = U Cannab Scr) 6:51 PM) [facility] XybasdcLXRTMMXUU0452-16-67 00:51:00 Test Item Value Reference Range Interpretation Comments U Opiate Scr (test Negative *NA*(07/23/22 code = U Opiate Scr) 6:51 PM) [facility] AtocqmjQULMVCPTX5697-05-96 00:51:00 Test Item Value Reference Range Interpretation Comments U Phencyclidine Scr (test Negative code = U Phencyclidine *NA*(07/23/22 6:51 Scr) PM) [facility]XjeppxuPJIMCCXQL6632-63-63 00:51:00 Test Item Value Reference Range Interpretation Comments UDS Note (test code = See Note *NA*(07/23/22 UDS Note) 6:51 PM) [facility]annDR[facility] [id number] 00:51:00 Test Item Value Reference Range Interpretation Comments U Amph Scr (test code Negative *NA*(07/23/22 = U Amph Scr) 6:51 PM) [facility] [id number] 00:51:00 Test Item Value Reference Range Interpretation Comments U Maddie Scr (test code Negative *NA*(07/23/22 = U Maddie Scr) 6:51 PM) [facility]annDR[facility] RUVDZI2609-12-07 00:51:00 Test Item Value Reference Range Interpretation Comments U Benzodiaz Scr (test Negative *NA*(07/23/22 code = U Benzodiaz Scr) 6:51 PM) [facility]DR[facility] [id number] 00:51:00 Test Item Value Reference Range Interpretation Comments U Cocaine Scr (test Negative *NA*(07/23/22 code = U Cocaine Scr) 6:51 PM) [facility]annDR[facility] [id number] 00:51:00 Test Item Value Reference Range Interpretation Comments U Cannab Scr (test Negative *NA*(07/23/22 code = U Cannab Scr) 6:51 PM) [facility] [id number] 00:51:00 Test Item Value Reference Range Interpretation Comments U Opiate Scr (test Negative *NA*(07/23/22 code = U Opiate Scr) 6:51 PM) [facility]DR[facility] [id number] 00:51:00 Test Item Value Reference Range Interpretation Comments U Phencyclidine Scr (test Negative code = U Phencyclidine *NA*(07/23/22 6:51 Scr) PM) [facility] [id number] 00:51:00 Test Item Value Reference Range Interpretation Comments UDS Note (test code = See Note *NA*(07/23/22 UDS Note) 6:51 PM) [facility] [id number] 00:51:00 Test Item Value Reference Range Interpretation Comments UA Color (test code = Light Yellow UA Color) *NA*(07/23/22 6:51 PM) [facility] [id number] 00:51:00 Test Item Value Reference Range Interpretation Comments UA Turbidity (test code = Clear (07/23/22 6:51 UA Turbidity) PM) [facility] [id number] 00:51:00 Test Item Value Reference Range Interpretation Comments UA Spec Grav (test code = UA Spec 1.026 1 Grav) [facility] [id number] 00:51:00 Test Item Value Reference Range Interpretation Comments UA pH (test code = UA pH) 6.0 1 5.0-8.0 [facility] [id number] 00:51:00 Test Item Value Reference Range Interpretation Comments UA Protein (test code = UA Negative mg/dL Protein) [facility] [id number] 00:51:00 Test Item Value Reference Range Interpretation Comments UA Glucose (test code = UA Negative mg/dL Glucose) [facility] [id number] 00:51:00 Test Item Value Reference Range Interpretation Comments UA Ketones (test code = UA Trace mg/dL Ketones) [facility] [id number] 00:51:00 Test Item Value Reference Range Interpretation Comments UA Bili (test code = Negative *NA*(07/23/22 UA Bili) 6:51 PM) [facility] [id number] 00:51:00 Test Item Value Reference Range Interpretation Comments UA Blood (test code = Large *ABN*(07/23/22 UA Blood) 6:51 PM) [facility] [id number] 00:51:00 Test Item Value Reference Range Interpretation Comments UA Urobilinogen (test code = UA no gt 0.1-1.0 Urobilinogen) [facility] [id number] 00:51:00 Test Item Value Reference Range Interpretation Comments UA Nitrite (test code Negative (07/23/22 6:51 = UA Nitrite) PM) [facility] [id number] 00:51:00 Test Item Value Reference Range Interpretation Comments UA Leuk Est (test code Trace *ABN*(07/23/22 = UA Leuk Est) 6:51 PM) [facility] AND [id number] 00:51:00 Test Item Value Reference Range Interpretation Comments UA WBC (test code = 6 See_Comment [Automa aria message] The UA WBC) system which ge nerated this result transmit aria reference range : <=5. The reference range was not used to interpr et this result as rocio l/abnormal. [facility] [id number] 00:51:00 Test Item Value Reference Range Interpretation Comments UA RBC (test code = 42 See_Comment [Automa aria message] The UA RBC) system which ge nerated this result transmit aria reference range : <=2. The reference range was not used to interpr et this result as rocio l/abnormal. [facility] [id number] 00:51:00 Test Item Value Reference Range Interpretation Comments UA Mucus (test code = UA Mucus) Few /LPF [facility] [id number] 00:51:00 Test Item Value Reference Range Interpretation Comments UA Amorph Siena (test code = Occasional /HPF UA Amorph Siena) [facility] AND [id number] 00:51:00 Test Item Value Reference Range Interpretation Comments UA Sq Epi (test code = UA Sq Epi) None [facility]en [id number] 00:51:00 Test Item Value Reference Range Interpretation Comments U Amph Scr (test code Negative *NA*(07/23/22 = U Amph Scr) 6:51 PM) [facility]EutiwisAQZWKYPKB2600-00-14 00:51:00 Test Item Value Reference Range Interpretation Comments U Maddie Scr (test code Negative *NA*(07/23/22 = U Maddie Scr) 6:51 PM) [facility] P[id number] 00:51:00 Test Item Value Reference Range Interpretation Comments U Benzodiaz Scr (test Negative *NA*(07/23/22 code = U Benzodiaz Scr) 6:51 PM) [facility] [id number] 00:51:00 Test Item Value Reference Range Interpretation Comments U Cocaine Scr (test Negative *NA*(07/23/22 code = U Cocaine Scr) 6:51 PM) [id number] 00:51:00 Test Item Value Reference Range Interpretation Comments U Cannab Scr (test Negative *NA*(07/23/22 code = U Cannab Scr) 6:51 PM) [facility] [id number] 00:51:00 Test Item Value Reference Range Interpretation Comments U Opiate Scr (test Negative *NA*(07/23/22 code = U Opiate Scr) 6:51 PM) [id number] 00:51:00 Test Item Value Reference Range Interpretation Comments U Phencyclidine Scr (test Negative code = U Phencyclidine *NA*(07/23/22 6:51 Scr) PM) [facility] [id number] 00:51:00 Test Item Value Reference Range Interpretation Comments UDS Note (test code = See Note *NA*(07/23/22 UDS Note) 6:51 PM) [facility]DR[facility] [id number] 00:51:00 Test Item Value Reference Range Interpretation Comments U Amph Scr (test code Negative *NA*(07/23/22 = U Amph Scr) 6:51 PM) [facility] [id number] 00:51:00 Test Item Value Reference Range Interpretation Comments U Maddie Scr (test code Negative *NA*(07/23/22 = U Maddie Scr) 6:51 PM) [facility]DR[facility] [id number] 00:51:00 Test Item Value Reference Range Interpretation Comments U Benzodiaz Scr (test Negative *NA*(07/23/22 code = U Benzodiaz Scr) 6:51 PM) [facility]DR[facility] [id number] 00:51:00 Test Item Value Reference Range Interpretation Comments U Cocaine Scr (test Negative *NA*(07/23/22 code = U Cocaine Scr) 6:51 PM) [facility]DR[facility] [id number] 00:51:00 Test Item Value Reference Range Interpretation Comments U Cannab Scr (test Negative *NA*(07/23/22 code = U Cannab Scr) 6:51 PM) [facility] [id number] 00:51:00 Test Item Value Reference Range Interpretation Comments U Opiate Scr (test Negative *NA*(07/23/22 code = U Opiate Scr) 6:51 PM) [facility] [id number] 00:51:00 Test Item Value Reference Range Interpretation Comments U Phencyclidine Scr (test Negative code = U Phencyclidine *NA*(07/23/22 6:51 Scr) PM) [facility] [id number] 00:51:00 Test Item Value Reference Range Interpretation Comments UDS Note (test code = See Note *NA*(07/23/22 UDS Note) 6:51 PM) [facility] [id number] 00:51:00 Test Item Value Reference Range Interpretation Comments UA Color (test code = Light Yellow UA Color) *NA*(07/23/22 6:51 PM) [facility] [id number] 00:51:00 Test Item Value Reference Range Interpretation Comments UA Turbidity (test code = Clear (07/23/22 6:51 UA Turbidity) PM) [facility] [id number] 00:51:00 Test Item Value Reference Range Interpretation Comments UA Spec Grav (test code = UA Spec 1.026 1 Grav) [facility] [id number] 00:51:00 Test Item Value Reference Range Interpretation Comments UA pH (test code = UA pH) 6.0 1 5.0-8.0 [facility] [id number] 00:51:00 Test Item Value Reference Range Interpretation Comments UA Protein (test code = UA Negative mg/dL Protein) [facility] [id number] 00:51:00 Test Item Value Reference Range Interpretation Comments UA Glucose (test code = UA Negative mg/dL Glucose) [facility] [id number] 00:51:00 Test Item Value Reference Range Interpretation Comments UA Ketones (test code = UA Trace mg/dL Ketones) [facility] [id number] 00:51:00 Test Item Value Reference Range Interpretation Comments UA Bili (test code = Negative *NA*(07/23/22 UA Bili) 6:51 PM) [facility] [id number] 00:51:00 Test Item Value Reference Range Interpretation Comments UA Blood (test code = Large *ABN*(07/23/22 UA Blood) 6:51 PM) [facility] [id number] 00:51:00 Test Item Value Reference Range Interpretation Comments UA Urobilinogen (test code = UA no gt 0.1-1.0 Urobilinogen) [facility] [id number] 00:51:00 Test Item Value Reference Range Interpretation Comments UA Nitrite (test code Negative (07/23/22 6:51 = UA Nitrite) PM) [facility] [id number] 00:51:00 Test Item Value Reference Range Interpretation Comments UA Leuk Est (test code Trace *ABN*(07/23/22 = UA Leuk Est) 6:51 PM) [facility] [id number] 00:51:00 Test Item Value Reference Range Interpretation Comments UA WBC (test code = 6 See_Comment [Automa aria message] The UA WBC) system which ge nerated this result transmit aria reference range : <=5. The reference range was not used to interpr et this result as rocio l/abnormal. [facility] [id number] 00:51:00 Test Item Value Reference Range Interpretation Comments UA RBC (test code = 42 See_Comment [Automa aria message] The UA RBC) system which ge nerated this result transmit aria reference range : <=2. The reference range was not used to interpr et this result as rocio l/abnormal. [facility] [id number] 00:51:00 Test Item Value Reference Range Interpretation Comments UA Mucus (test code = UA Mucus) Few /LPF [facility] [id number] 00:51:00 Test Item Value Reference Range Interpretation Comments UA Amorph Siena (test code = Occasional /HPF UA Amorph Siena) [facility] [id number] 00:51:00 Test Item Value Reference Range Interpretation Comments UA Sq Epi (test code = UA Sq Epi) None Seen [facility] [id number] 00:51:00 Test Item Value Reference Range Interpretation Comments U Amph Scr (test code Negative *NA*(07/23/22 = U Amph Scr) 6:51 PM) [id number] 00:51:00 Test Item Value Reference Range Interpretation Comments U Maddie Scr (test code Negative *NA*(07/23/22 = U Maddie Scr) 6:51 PM) [facility] [id number] 00:51:00 Test Item Value Reference Range Interpretation Comments U Benzodiaz Scr (test Negative *NA*(07/23/22 code = U Benzodiaz Scr) 6:51 PM) [facility] [id number] 00:51:00 Test Item Value Reference Range Interpretation Comments U Cocaine Scr (test Negative *NA*(07/23/22 code = U Cocaine Scr) 6:51 PM) [facility] Park[id number] 00:51:00 Test Item Value Reference Range Interpretation Comments U Cannab Scr (test Negative *NA*(07/23/22 code = U Cannab Scr) 6:51 PM) [facility] Park[id number] 00:51:00 Test Item Value Reference Range Interpretation Comments U Opiate Scr (test Negative *NA*(07/23/22 code = U Opiate Scr) 6:51 PM) [facility] [id number] 00:51:00 Test Item Value Reference Range Interpretation Comments U Phencyclidine Scr (test Negative code = U Phencyclidine *NA*(07/23/22 6:51 Scr) PM) [facility] [id number] 00:51:00 Test Item Value Reference Range Interpretation Comments UDS Note (test code = See Note *NA*(07/23/22 UDS Note) 6:51 PM) [facility] [id number] 00:51:00 Test Item Value Reference Range Interpretation Comments U Amph Scr (test code Negative *NA*(07/23/22 = U Amph Scr) 6:51 PM) [facility] [id number] 00:51:00 Test Item Value Reference Range Interpretation Comments U Maddie Scr (test code Negative *NA*(07/23/22 = U Maddie Scr) 6:51 PM) [facility] [id number] 00:51:00 Test Item Value Reference Range Interpretation Comments U Benzodiaz Scr (test Negative *NA*(07/23/22 code = U Benzodiaz Scr) 6:51 PM) [facility] [id number] 00:51:00 Test Item Value Reference Range Interpretation Comments U Cocaine Scr (test Negative *NA*(07/23/22 code = U Cocaine Scr) 6:51 PM) [facility] [id number] 00:51:00 Test Item Value Reference Range Interpretation Comments U Cannab Scr (test Negative *NA*(07/23/22 code = U Cannab Scr) 6:51 PM) [facility] [id number] 00:51:00 Test Item Value Reference Range Interpretation Comments U Opiate Scr (test Negative *NA*(07/23/22 code = U Opiate Scr) 6:51 PM) [facility] [id number] 00:51:00 Test Item Value Reference Range Interpretation Comments U Phencyclidine Scr (test Negative code = U Phencyclidine *NA*(07/23/22 6:51 Scr) PM) [facility] [id number] 00:51:00 Test Item Value Reference Range Interpretation Comments UDS Note (test code = See Note *NA*(07/23/22 UDS Note) 6:51 PM) [facility] [id number] 00:51:00 Test Item Value Reference Range Interpretation Comments UA Color (test code = Light Yellow UA Color) *NA*(07/23/22 6:51 PM) [facility] [id number] 00:51:00 Test Item Value Reference Range Interpretation Comments UA Turbidity (test code = Clear (07/23/22 6:51 UA Turbidity) PM) [facility] [id number] 00:51:00 Test Item Value Reference Range Interpretation Comments UA Spec Grav (test code = UA Spec 1.026 1 Grav) [facility] [id number] 00:51:00 Test Item Value Reference Range Interpretation Comments UA pH (test code = UA pH) 6.0 1 5.0-8.0 [facility] [id number] 00:51:00 Test Item Value Reference Range Interpretation Comments UA Protein (test code = UA Negative mg/dL Protein) [facility] [id number] 00:51:00 Test Item Value Reference Range Interpretation Comments UA Glucose (test code = UA Negative mg/dL Glucose) [facility] [id number] 00:51:00 Test Item Value Reference Range Interpretation Comments UA Ketones (test code = UA Trace mg/dL Ketones) [facility] [id number] 00:51:00 Test Item Value Reference Range Interpretation Comments UA Bili (test code = Negative *NA*(07/23/22 UA Bili) 6:51 PM) [facility] [id number] 00:51:00 Test Item Value Reference Range Interpretation Comments UA Blood (test code = Large *ABN*(07/23/22 UA Blood) 6:51 PM) [facility] AND [id number] 00:51:00 Test Item Value Reference Range Interpretation Comments UA Urobilinogen (test code = UA no gt 0.1-1.0 Urobilinogen) [facility] AND [id number] 00:51:00 Test Item Value Reference Range Interpretation Comments UA Nitrite (test code Negative (07/23/22 6:51 = UA Nitrite) PM) [facility] [id number] 00:51:00 Test Item Value Reference Range Interpretation Comments UA Leuk Est (test code Trace *ABN*(07/23/22 = UA Leuk Est) 6:51 PM) [facility] AND [id number] 00:51:00 Test Item Value Reference Range Interpretation Comments UA WBC (test code = 6 See_Comment [Automa aria message] The UA WBC) system which ge nerated this result transmit aria reference range : <=5. The reference range was not used to interpr et this result as rocio l/abnormal. [facility] AND [id number] 00:51:00 Test Item Value Reference Range Interpretation Comments UA RBC (test code = 42 See_Comment [Automa aria message] The UA RBC) system which ge nerated this result transmit aria reference range : <=2. The reference range was not used to interpr et this result as rocio l/abnormal. [facility] [id number] 00:51:00 Test Item Value Reference Range Interpretation Comments UA Mucus (test code = UA Mucus) Few /LPF [facility] AND [id number] 00:51:00 Test Item Value Reference Range Interpretation Comments UA Amorph Siena (test code = Occasional /HPF UA Amorph Siena) [facility] Mo AND [id number] 00:51:00 Test Item Value Reference Range Interpretation Comments UA Sq Epi (test code = UA Sq Epi) None Seen [place] [id number] 00:48:09 Test Item Value Reference Range Interpretation Comments RADRPT (test code EXAM: CT FACIAL BONES = RADRPT) WITHOUT CONTRASTDATE: 07/23/2022 17:26INDICATION: - acute pain due to trauma / fallCOMPARISON: CT brain 07/23/2022TECHNIQUE: Volumetric CT of the facial bones is acquired without contrast. Axial, coronal and sagittal images are provided. IV contrast: None.DLP: Refer to CT protocol formUT SECTION: ERFINDINGS: Leather Currier: Noncontributory.Bones: No fracture or other acute bony abnormality is identified. The mandible is intact, and the temporomandibular joints are well-aligned. Scattered partial opacification throughout the nasal cavities, ethmoid air cells, and sphenoid/maxillary sinuses. Frontal sinus hypoplasia. The mastoid air cells are clear.Soft tissues: Soft tissue swelling along the nasal bridge. No globe contour abnormality is seen. There is no intraconal hematoma. No radiopaque foreign body is identified.IMPRESSION: Scattered hemosinus without identified underlying facial bone fracture. [place] [id number] 00:48:09 Test Item Value Reference Range Interpretation Comments RADRPT (test code EXAM: CT FACIAL BONES = RADRPT) WITHOUT CONTRASTDATE: 07/23/2022 17:26INDICATION: - acute pain due to trauma / fallCOMPARISON: CT brain 07/23/2022TECHNIQUE: Volumetric CT of the facial bones is acquired without contrast. Axial, coronal and sagittal images are provided. IV contrast: None.DLP: Refer to CT protocol formUT SECTION: ERFINDINGS: Leather Currier: Noncontributory.Bones: No fracture or other acute bony abnormality is identified. The mandible is intact, and the temporomandibular joints are well-aligned. Scattered partial opacification throughout the nasal cavities, ethmoid air cells, and sphenoid/maxillary sinuses. Frontal sinus hypoplasia. The mastoid air cells are clear.Soft tissues: Soft tissue swelling along the nasal bridge. No globe contour abnormality is seen. There is no intraconal hematoma. No radiopaque foreign body is identified.IMPRESSION: Scattered hemosinus without identified underlying facial bone fracture. [facility]ervilleIiqqatpAWPLUM1108-27-00 00:48:09 Test Item Value Reference Range Interpretation Comments RADRPT (test code EXAM: CT FACIAL BONES = RADRPT) WITHOUT CONTRASTDATE: 07/23/2022 17:26INDICATION: - acute pain due to trauma / fallCOMPARISON: CT brain 07/23/2022TECHNIQUE: Volumetric CT of the facial bones is acquired without contrast. Axial, coronal and sagittal images are provided. IV contrast: None.DLP: Refer to CT protocol formUT SECTION: ERFINDINGS: Leather Currier: Noncontributory.Bones: No fracture or other acute bony abnormality is identified. The mandible is intact, and the temporomandibular joints are well-aligned. Scattered partial opacification throughout the nasal cavities, ethmoid air cells, and sphenoid/maxillary sinuses. Frontal sinus hypoplasia. The mastoid air cells are clear.Soft tissues: Soft tissue swelling along the nasal bridge. No globe contour abnormality is seen. There is no intraconal hematoma. No radiopaque foreign body is identified.IMPRESSION: Scattered hemosinus without identified underlying facial bone fracture. [id number] 00:31:33 Test Item Value Reference Range Interpretation Comments RADRPT (test code EXAM: CT CHEST WITH = RADRPT) CONTRASTEXAM: CT ABDOMEN AND PELVIS WITH CONTRASTDATE: 07/23/2022 17:26 INDICATION: - acute pain due to trauma / fall COMPARISON: Chest radiograph 07/23/2022TECHNIQUE: Volumetric CT of the chest, abdomen and pelvis is acquired following intravenous administration of contrast. Axial, coronal and sagittal images are provided.IV contrast: Refer to MAR/technologist documentationOral contrast: None.DLP: Refer to CT protocol formUT SECTION: ERFINDINGS: Leather Currier: Noncontributory.Lines and tubes: Vargas catheter in the urinary bladder.Lower Neck: Supraclavicular soft tissues are unremarkable. Thyroid gland is unremarkable.Thoracic Aorta and Mediastinum: No mediastinal hematoma or thoracic aortic injury. Normal heart and pericardium. Left coronary artery stent. Lungs, Pleura, Diaphragm: No pulmonary contusions. Bibasilar bronchiectasis and subpleural reticulations suggestive of chronic aspiration. Otherwise, no focal airspace disease. Scattered pleural calcifications. No pleural effusion or pneumothorax. No diaphragmatic injury.Liver and biliary tree: Normal. No injury. No biliary abnormality. Gallbladder: Normal. No CT evidence of gallstones. No injury.Pancreas: Normal. No injury.Spleen: Normal. No injury.Adrenals: Normal. No injury.Kidneys and ureters: 3.5 cm left renal cyst. Mild right pelviectasis. No injury.Bladder: Normal. No injury.Reproductive organs: No injury.Gastrointestinal tract: Markedly rectal stool present measuring up to 7.5 cm in diameter. No bowel injury.Peritoneum and retroperitoneum: No fluid collections or free air.Lymph nodes: Normal.Vasculature: No vascular injury. Scattered atherosclerosis of the aorta and its branches.Spine/ Bones: No acute abnormality. Chronic anterior right first rib fracture. Degenerative changes throughout the osseous structures.Soft tissues: Scattered mild subcutaneous edema.IMPRESSION: 1. No acute traumatic abnormality.2. Additional chronic and incidental findings as above including bibasilar bronchiectasis, pleural calcifications, marked rectal stool burden, and osseous degenerative changes. [id number] 00:31:33 Test Item Value Reference Range Interpretation Comments RADRPT (test code EXAM: CT CHEST WITH = RADRPT) CONTRASTEXAM: CT ABDOMEN AND PELVIS WITH CONTRASTDATE: 07/23/2022 17:26 INDICATION: - acute pain due to trauma / fall COMPARISON: Chest radiograph 07/23/2022TECHNIQUE: Volumetric CT of the chest, abdomen and pelvis is acquired following intravenous administration of contrast. Axial, coronal and sagittal images are provided.IV contrast: Refer to MAR/technologist documentationOral contrast: None.DLP: Refer to CT protocol formUT SECTION: ERFINDINGS: Leather Currier: Noncontributory.Lines and tubes: Vargas catheter in the urinary bladder.Lower Neck: Supraclavicular soft tissues are unremarkable. Thyroid gland is unremarkable.Thoracic Aorta and Mediastinum: No mediastinal hematoma or thoracic aortic injury. Normal heart and pericardium. Left coronary artery stent. Lungs, Pleura, Diaphragm: No pulmonary contusions. Bibasilar bronchiectasis and subpleural reticulations suggestive of chronic aspiration. Otherwise, no focal airspace disease. Scattered pleural calcifications. No pleural effusion or pneumothorax. No diaphragmatic injury.Liver and biliary tree: Normal. No injury. No biliary abnormality. Gallbladder: Normal. No CT evidence of gallstones. No injury.Pancreas: Normal. No injury.Spleen: Normal. No injury.Adrenals: Normal. No injury.Kidneys and ureters: 3.5 cm left renal cyst. Mild right pelviectasis. No injury.Bladder: Normal. No injury.Reproductive organs: No injury.Gastrointestinal tract: Markedly rectal stool present measuring up to 7.5 cm in diameter. No bowel injury.Peritoneum and retroperitoneum: No fluid collections or free air.Lymph nodes: Normal.Vasculature: No vascular injury. Scattered atherosclerosis of the aorta and its branches.Spine/ Bones: No acute abnormality. Chronic anterior right first rib fracture. Degenerative changes throughout the osseous structures.Soft tissues: Scattered mild subcutaneous edema.IMPRESSION: 1. No acute traumatic abnormality.2. Additional chronic and incidental findings as above including bibasilar bronchiectasis, pleural calcifications, marked rectal stool burden, and osseous degenerative changes. [id number] 00:31:33 Test Item Value Reference Range Interpretation Comments RADRPT (test code EXAM: CT CHEST WITH = RADRPT) CONTRASTEXAM: CT ABDOMEN AND PELVIS WITH CONTRASTDATE: 07/23/2022 17:26 INDICATION: - acute pain due to trauma / fall COMPARISON: Chest radiograph 07/23/2022TECHNIQUE: Volumetric CT of the chest, abdomen and pelvis is acquired following intravenous administration of contrast. Axial, coronal and sagittal images are provided.IV contrast: Refer to MAR/technologist documentationOral contrast: None.DLP: Refer to CT protocol formUT SECTION: ERFINDINGS: Leather Currier: Noncontributory.Lines and tubes: Vargas catheter in the urinary bladder.Lower Neck: Supraclavicular soft tissues are unremarkable. Thyroid gland is unremarkable.Thoracic Aorta and Mediastinum: No mediastinal hematoma or thoracic aortic injury. Normal heart and pericardium. Left coronary artery stent. Lungs, Pleura, Diaphragm: No pulmonary contusions. Bibasilar bronchiectasis and subpleural reticulations suggestive of chronic aspiration. Otherwise, no focal airspace disease. Scattered pleural calcifications. No pleural effusion or pneumothorax. No diaphragmatic injury.Liver and biliary tree: Normal. No injury. No biliary abnormality. Gallbladder: Normal. No CT evidence of gallstones. No injury.Pancreas: Normal. No injury.Spleen: Normal. No injury.Adrenals: Normal. No injury.Kidneys and ureters: 3.5 cm left renal cyst. Mild right pelviectasis. No injury.Bladder: Normal. No injury.Reproductive organs: No injury.Gastrointestinal tract: Markedly rectal stool present measuring up to 7.5 cm in diameter. No bowel injury.Peritoneum and retroperitoneum: No fluid collections or free air.Lymph nodes: Normal.Vasculature: No vascular injury. Scattered atherosclerosis of the aorta and its branches.Spine/ Bones: No acute abnormality. Chronic anterior right first rib fracture. Degenerative changes throughout the osseous structures.Soft tissues: Scattered mild subcutaneous edema.IMPRESSION: 1. No acute traumatic abnormality.2. Additional chronic and incidental findings as above including bibasilar bronchiectasis, pleural calcifications, marked rectal stool burden, and osseous degenerative changes. [facility]RcypaxjGUAUZS5582-[facility] 00:28:02 Test Item Value Reference Range Interpretation Comments RADRPT (test code = EXAM: CT CERVICAL SPINE RADRPT) WITHOUT CONTRASTDATE: 07/23/2022 17:26INDICATION: - acute pain due to trauma / fallCOMPARISON: Cervical spine MRI 06/10/2013TECHNIQUE: Volumetric CT of the cervical spine is acquired without contrast. Axial, coronal and sagittal images are provided. IV contrast: None.DLP: Refer to CT protocol formUT SECTION: ERFINDINGS: The spine is imaged from the skull base to the level of T2.Leather Currier: Noncontributory.Bones: No acute fracture or malalignment is identified. Postoperative changes of C4-C6 laminectomy. Severe degenerative changes from C5 through C6 with intervertebral disc height loss and bulky posterior osteophytes.Soft tissues: Frothy filling of the nasopharynx and oropharynx.IMPRESSION: 1. No acute fracture or malalignment of cervical spine. 2. Chronic degenerative and postsurgical changes.3. Frothy filling of the naso and oropharynx consistent with recent nosebleed. This patient may be at increased risk for aspiration. [facility] HospitalPkrkffeAWWNYP7477-29-80 00:28:02 Test Item Value Reference Range Interpretation Comments RADRPT (test code = EXAM: CT CERVICAL SPINE RADRPT) WITHOUT CONTRASTDATE: 07/23/2022 17:26INDICATION: - acute pain due to trauma / fallCOMPARISON: Cervical spine MRI 06/10/2013TECHNIQUE: Volumetric CT of the cervical spine is acquired without contrast. Axial, coronal and sagittal images are provided. IV contrast: None.DLP: Refer to CT protocol formUT SECTION: ERFINDINGS: The spine is imaged from the skull base to the level of T2.Leather Currier: Noncontributory.Bones: No acute fracture or malalignment is identified. Postoperative changes of C4-C6 laminectomy. Severe degenerative changes from C5 through C6 with intervertebral disc height loss and bulky posterior osteophytes.Soft tissues: Frothy filling of the nasopharynx and oropharynx.IMPRESSION: 1. No acute fracture or malalignment of cervical spine. 2. Chronic degenerative and postsurgical changes.3. Frothy filling of the naso and oropharynx consistent with recent nosebleed. This patient may be at increased risk for aspiration. [facility] HospitalKdulpvrPEGVEV9175-48-61 00:28:02 Test Item Value Reference Range Interpretation Comments RADRPT (test code = EXAM: CT CERVICAL SPINE RADRPT) WITHOUT CONTRASTDATE: 07/23/2022 17:26INDICATION: - acute pain due to trauma / fallCOMPARISON: Cervical spine MRI 06/10/2013TECHNIQUE: Volumetric CT of the cervical spine is acquired without contrast. Axial, coronal and sagittal images are provided. IV contrast: None.DLP: Refer to CT protocol formUT SECTION: ERFINDINGS: The spine is imaged from the skull base to the level of T2.Leather Currier: Noncontributory.Bones: No acute fracture or malalignment is identified. Postoperative changes of C4-C6 laminectomy. Severe degenerative changes from C5 through C6 with intervertebral disc height loss and bulky posterior osteophytes.Soft tissues: Frothy filling of the nasopharynx and oropharynx.IMPRESSION: 1. No acute fracture or malalignment of cervical spine. 2. Chronic degenerative and postsurgical changes.3. Frothy filling of the naso and oropharynx consistent with recent nosebleed. This patient may be at increased risk for aspiration. [facility]EVLJT7553[facility]:27[facility]45 Test Item Value Reference Range Interpretation Comments RADRPT (test code = EXAM: XR CHEST 1 VIEWDATE: RADRPT) 07/23/2022 17:22 INDICATION: - acute pain due to trauma / fallCOMPARISON: Chest radiograph 06/13/2013TECHNIQUE: AP chest.FINDINGS:Lines, tubes and hardware: None.Lungs and pleura: Pulmonary vascularity is normal. Low lung volumes are present, with bibasilar subsegmental atelectasis. The costophrenic sulci are sharp without effusion. Scattered pleural calcifications. No pneumothorax is identified on this semiupright radiograph.Heart and mediastinum: The heart size is normal. Vascular calcifications are present at the aortic arch. Bones and soft tissues: No acute abnormality.IMPRESSION: 1. No acute abnormality. [facility] HospitalTlljlmeFXGDLX5967-93-64 00:27:45 Test Item Value Reference Range Interpretation Comments RADRPT (test code = EXAM: XR CHEST 1 VIEWDATE: RADRPT) 07/23/2022 17:22 INDICATION: - acute pain due to trauma / fallCOMPARISON: Chest radiograph 06/13/2013TECHNIQUE: AP chest.FINDINGS:Lines, tubes and hardware: None.Lungs and pleura: Pulmonary vascularity is normal. Low lung volumes are present, with bibasilar subsegmental atelectasis. The costophrenic sulci are sharp without effusion. Scattered pleural calcifications. No pneumothorax is identified on this semiupright radiograph.Heart and mediastinum: The heart size is normal. Vascular calcifications are present at the aortic arch. Bones and soft tissues: No acute abnormality.IMPRESSION: 1. No acute abnormality. [facility] HospitalFxjvcwvXGBXYZ2742-28-51 00:27:45 Test Item Value Reference Range Interpretation Comments RADRPT (test code = EXAM: XR CHEST 1 VIEWDATE: RADRPT) 07/23/2022 17:22 INDICATION: - acute pain due to trauma / fallCOMPARISON: Chest radiograph 06/13/2013TECHNIQUE: AP chest.FINDINGS:Lines, tubes and hardware: None.Lungs and pleura: Pulmonary vascularity is normal. Low lung volumes are present, with bibasilar subsegmental atelectasis. The costophrenic sulci are sharp without effusion. Scattered pleural calcifications. No pneumothorax is identified on this semiupright radiograph.Heart and mediastinum: The heart size is normal. Vascular calcifications are present at the aortic arch. Bones and soft tissues: No acute abnormality.IMPRESSION: 1. No acute abnormality. [facility]JjlzqxmXBOFNT8943-26-12 00:12:00 Test Item Value Reference Range Interpretation Comments RADRPT (test code EXAM: CT BRAIN WITHOUT = RADRPT) CONTRASTDATE: 07/23/2022INDICATION: - acute pain due to trauma / fall. Traumatic nosebleed after fall today, hit face on a desk.COMPARISON: None.TECHNIQUE: Axial CT images of the brain were obtained. Sagittal and coronal reformats.IV contrast: NoneDLP: Refer to CT protocol formFINDINGS: There is no edema, hemorrhage, mass lesion or other acute intracranial abnormality. Moderate global cerebral volume loss with white matter hypodensities consistent with chronic microvascular ischemic changes.The skull base, calvarium, and included facial bones are unremarkable. Patchy filling of the ethmoid air cells, trace layering fluid within the right maxillary sinus and sphenoid sinus.Bubbly filling of the nasopharynx consistent with recent nosebleedStranding of the right frontal scalp subcutaneous fat.IMPRESSION:1. No acute intracranial abnormality.2. Right frontal scalp contusion.3. Patchy filling of the paranasal sinuses and nasopharynx consistent with hemorrhage/trauma. No fracture visualized. Further evaluation will be performed on CT facial bones.UT SECTION: Neuro [facility]ervilleDuynfnsMBWLVP1880-62-64 00:12:00 Test Item Value Reference Range Interpretation Comments RADRPT (test code EXAM: CT BRAIN WITHOUT = RADRPT) CONTRASTDATE: 07/23/2022INDICATION: - acute pain due to trauma / fall. Traumatic nosebleed after fall today, hit face on a desk.COMPARISON: None.TECHNIQUE: Axial CT images of the brain were obtained. Sagittal and coronal reformats.IV contrast: NoneDLP: Refer to CT protocol formFINDINGS: There is no edema, hemorrhage, mass lesion or other acute intracranial abnormality. Moderate global cerebral volume loss with white matter hypodensities consistent with chronic microvascular ischemic changes.The skull base, calvarium, and included facial bones are unremarkable. Patchy filling of the ethmoid air cells, trace layering fluid within the right maxillary sinus and sphenoid sinus.Bubbly filling of the nasopharynx consistent with recent nosebleedStranding of the right frontal scalp subcutaneous fat.IMPRESSION:1. No acute intracranial abnormality.2. Right frontal scalp contusion.3. Patchy filling of the paranasal sinuses and nasopharynx consistent with hemorrhage/trauma. No fracture visualized. Further evaluation will be performed on CT facial bones.UT SECTION: [facility]ervilleFaosvjiTVLCXU0095-51-81 00:12:00 Test Item Value Reference Range Interpretation Comments RADRPT (test code EXAM: CT BRAIN WITHOUT = RADRPT) CONTRASTDATE: 07/23/2022INDICATION: - acute pain due to trauma / fall. Traumatic nosebleed after fall today, hit face on a desk.COMPARISON: None.TECHNIQUE: Axial CT images of the brain were obtained. Sagittal and coronal reformats.IV contrast: NoneDLP: Refer to CT protocol formFINDINGS: There is no edema, hemorrhage, mass lesion or other acute intracranial abnormality. Moderate global cerebral volume loss with white matter hypodensities consistent with chronic microvascular ischemic changes.The skull base, calvarium, and included facial bones are unremarkable. Patchy filling of the ethmoid air cells, trace layering fluid within the right maxillary sinus and sphenoid sinus.Bubbly filling of the nasopharynx consistent with recent nosebleedStranding of the right frontal scalp subcutaneous fat.IMPRESSION:1. No acute intracranial abnormality.2. Right frontal scalp contusion.3. Patchy filling of the paranasal sinuses and nasopharynx consistent with hemorrhage/trauma. No fracture visualized. Further evaluation will be performed on CT facial bones.UT SECTION: Neuro [facility]2022-11-20 23:21:00 Test Item Value Reference Range Interpretation Comments Glucose Lvl (test code = Glucose Lvl) 160 70-99 [facility]2022-11-20 23:21:00 Test Item Value Reference Range Interpretation Comments BUN (test code = BUN) 31 7-22 [facility]2022-11-20 23:21:00 Test Item Value Reference Range Interpretation Comments Creatinine Lvl (test code = Creatinine 0.70 0.50-1.40 Lvl) [facility]2022-11-20 23:21:00 Test Item Value Reference Range Interpretation Comments Sodium Lvl (test code = Sodium Lvl) 143 135-145 [facility]2022-11-20 23:21:00 Test Item Value Reference Range Interpretation Comments Potassium Lvl (test code = Potassium 4.8 3.5-5.1 Lvl) [place] 456962-11-20 23:21:00 Test Item Value Reference Range Interpretation Comments Chloride Lvl (test code = Chloride Lvl) 113 95-109 [place] 456962-11-20 23:21:00 Test Item Value Reference Range Interpretation Comments CO2 (test code = CO2) 24 24-32 [place] 456962-11-20 23:21:00 Test Item Value Reference Range Interpretation Comments Calcium Lvl (test code = Calcium Lvl) 8.5 8.5-10.5 [place] 456962-11-20 23:21:00 Test Item Value Reference Range Interpretation Comments AGAP (test code = AGAP) 10.8 10.0-20.0 [place] 456962-11-20 23:21:00 Test Item Value Reference Range Interpretation Comments eGFR (test code = eGFR) 98 [facility]2022-11-20 23:21:00 Test Item Value Reference Range Interpretation Comments Lactic Acid Lvl (test code = Lactic 1.9 0.5-2.2 Acid Lvl) [place] 468462-11-20 23:21:00 Test Item Value Reference Range Interpretation Comments Ethanol Lvl (test code = Ethanol Lvl) no gt [facility]wayOkglzxdEZAFCHAVM8485-01-52 23:21:00 Test Item Value Reference Range Interpretation Comments Etoh (%) (test code = Etoh (%)) no gt [place] 468462-11-20 23:21:00 Test Item Value Reference Range Interpretation Comments pH Sander (test code = pH Sander) 7.39 1 7.28-7.42 [place] 468462-11-20 23:21:00 Test Item Value Reference Range Interpretation Comments pCO2 Sander (test code = pCO2 Sander) 38 38-52 [place] 468462-11-20 23:21:00 Test Item Value Reference Range Interpretation Comments pO2 Sander (test code = pO2 Sander) 49 20-49 [place] 468462-11-20 23:21:00 Test Item Value Reference Range Interpretation Comments HCO3 Sander (test code = HCO3 Sander) 23 22-26 [place] 468462-11-20 23:21:00 Test Item Value Reference Range Interpretation Comments BE Sander (test code = BE Sander) -2 -2-2 [facility] ParkwayRpdhlvzXUFHFHUUY6383-38-23 23:21:00 Test Item Value Reference Range Interpretation Comments O2 Sat Sander (calc) (test code = O2 Sat 83.8 40.0-70.0 Sander (calc)) [facility] ParkwayRmmoreyDCSAIONFU0203-48-36 23:21:00 Test Item Value Reference Range Interpretation Comments Temp Sander (test code = Temp Sander) 37.0 [facility]anoRjlsifiMTBMVAOBBI1878-54-49 23:21:00 Test Item Value Reference Range Interpretation Comments ACT (TEG) Rapid (test code = ACT (TEG) 105 s 86-118 Rapid) [facility]anoWhfiptqGGMATQBXIM9915-09-41 23:21:00 Test Item Value Reference Range Interpretation Comments Split Point Rapid (test code = Split 0.5 min Point Rapid) [facility]anoDuufbfpPWTJTJWVMI8613-96-55 23:21:00 Test Item Value Reference Range Interpretation Comments R-time Rapid (test code = R-time 0.6 min 0.4-0.7 Rapid) [facility] PlanoUscbikfRPOCOELNBW7660-25-56 23:21:00 Test Item Value Reference Range Interpretation Comments K-time Rapid (test code = K-time 1.3 min 0.6-2.3 Rapid) [facility] PlanoUaooczlHEMYMJLQUM3816-77-12 23:21:00 Test Item Value Reference Range Interpretation Comments Angle Rapid (test code = Angle 75 degrees 64-80 Rapid) [facility] PlanoGxgrfjoQZNUBGBPHX0918-55-65 23:21:00 Test Item Value Reference Range Interpretation Comments Max Amplitude Rapid (test code = Max 63 mm 52-71 Amplitude Rapid) [facility] PlanoNgppccnNBEGZYCBME1820-72-67 23:21:00 Test Item Value Reference Range Interpretation Comments G-value Rapid (test code = G-value 8.5 5.0-11.6 Rapid) [facility] PlanoJjyvxhlAFGJSRHOWS0282-93-91 23:21:00 Test Item Value Reference Range Interpretation Comments Estimated % Lysis Rapid 1.1 See_Comment [Au tomated message] The (test code = Estimated syste m which generated % Lysis Rapid) this result t ransmitted reference range : <=7.5. The reference r fabian was not used to int erpret this result as normal/abnormal . [place] 108672-11-20 23:21:00 Test Item Value Reference Range Interpretation Comments Eosinophils (test code = 0.2 See_Comment [A utomated message] The Eosinophils) system which ge nerated this result tra nsmitted reference range : <=4.0. The reference r fabian was not used to int erpret this result as normal/abnormal . [facility] PlanoSiuskgbGHGBBEVXEF3378-45-00 23:21:00 Test Item Value Reference Range Interpretation Comments Macrocyte (test code = 1+ *ABN*(07/23/22 Macrocyte) 5:21 PM) [facility]ervilleChbnbklQSHXBLNVIW4224-67-42 23:21:00 Test Item Value Reference Range Interpretation Comments Coronavirus (COVID-19) Not Detected SIL (test code = (07/23/22 5:21 PM) Coronavirus (COVID-19) SIL) [facility] CenterKovduhsTSDVQOBQLI3138-65-37 23:21:00 Test Item Value Reference Range Interpretation Comments Ethanol Lvl (test code = Ethanol Lvl) no gt [place] 77945022-11-20 23:21:00 Test Item Value Reference Range Interpretation Comments Etoh (%) (test code = Etoh (%)) no gt [facility]ervilleX[facility] OXVJS0387-86-12 23:21:00 Test Item Value Reference Range Interpretation Comments Glucose Lvl (test code = Glucose Lvl) 160 70-99 [facility] [id number] 23:21:00 Test Item Value Reference Range Interpretation Comments BUN (test code = BUN) 31 7-22 [facility]2022-11-20 23:21:00 Test Item Value Reference Range Interpretation Comments Creatinine Lvl (test code = Creatinine 0.70 0.50-1.40 Lvl) [facility]2022-11-20 23:21:00 Test Item Value Reference Range Interpretation Comments Sodium Lvl (test code = Sodium Lvl) 143 135-145 [facility] DCYCX0924-13-26 23:21:00 Test Item Value Reference Range Interpretation Comments Potassium Lvl (test code = Potassium 4.8 3.5-5.1 Lvl) [facility] [id number] 23:21:00 Test Item Value Reference Range Interpretation Comments Chloride Lvl (test code = Chloride Lvl) 113 95-109 [place] 456962-11-20 23:21:00 Test Item Value Reference Range Interpretation Comments CO2 (test code = CO2) 24 24-32 [place] 456962-11-20 23:21:00 Test Item Value Reference Range Interpretation Comments Calcium Lvl (test code = Calcium Lvl) 8.5 8.5-10.5 [place] 456962-11-20 23:21:00 Test Item Value Reference Range Interpretation Comments AGAP (test code = AGAP) 10.8 10.0-20.0 [place] 456962-11-20 23:21:00 Test Item Value Reference Range Interpretation Comments eGFR (test code = eGFR) 98 [facility]2022-11-20 23:21:00 Test Item Value Reference Range Interpretation Comments Lactic Acid Lvl (test code = Lactic 1.9 0.5-2.2 Acid Lvl) [place] 468462-11-20 23:21:00 Test Item Value Reference Range Interpretation Comments Ethanol Lvl (test code = Ethanol Lvl) no gt [facility] ParkwayNfggwveUOVPAFFKS1589-95-55 23:21:00 Test Item Value Reference Range Interpretation Comments Etoh (%) (test code = Etoh (%)) no gt [facility] ParkwayFnweuyxNQKDMZOWG9421-33-39 23:21:00 Test Item Value Reference Range Interpretation Comments pH Sander (test code = pH Sander) 7.39 1 7.28-7.42 [place] 468462-11-20 23:21:00 Test Item Value Reference Range Interpretation Comments pCO2 Sander (test code = pCO2 Sander) 38 38-52 [place] 468462-11-20 23:21:00 Test Item Value Reference Range Interpretation Comments pO2 Sander (test code = pO2 Sander) 49 20-49 [place] 468462-11-20 23:21:00 Test Item Value Reference Range Interpretation Comments HCO3 Sander (test code = HCO3 Sander) 23 22-26 [place] 468462-11-20 23:21:00 Test Item Value Reference Range Interpretation Comments BE Sander (test code = BE Sander) -2 -2-2 [place] 468462-11-20 23:21:00 Test Item Value Reference Range Interpretation Comments O2 Sat Sander (calc) (test code = O2 Sat 83.8 40.0-70.0 Sander (calc)) [facility] ParkwayIbfhugeCHPHXDLIX3924-47-31 23:21:00 Test Item Value Reference Range Interpretation Comments Temp Sander (test code = Temp Sander) 37.0 [place] 108672-11-20 23:21:00 Test Item Value Reference Range Interpretation Comments ACT (TEG) Rapid (test code = ACT (TEG) 105 s 86-118 Rapid) [place] 108672-11-20 23:21:00 Test Item Value Reference Range Interpretation Comments Split Point Rapid (test code = Split 0.5 min Point Rapid) [address]11-20 23:21:00 Test Item Value Reference Range Interpretation Comments R-time Rapid (test code = R-time 0.6 min 0.4-0.7 Rapid) [address]11-20 23:21:00 Test Item Value Reference Range Interpretation Comments K-time Rapid (test code = K-time 1.3 min 0.6-2.3 Rapid) [address]11-20 23:21:00 Test Item Value Reference Range Interpretation Comments Angle Rapid (test code = Angle 75 degrees 64-80 Rapid) [place] [address]-11-20 23:21:00 Test Item Value Reference Range Interpretation Comments Max Amplitude Rapid (test code = Max 63 mm 52-71 Amplitude Rapid) [place] [address]-11-20 23:21:00 Test Item Value Reference Range Interpretation Comments G-value Rapid (test code = G-value 8.5 5.0-11.6 Rapid) [address]11-20 23:21:00 Test Item Value Reference Range Interpretation Comments Estimated % Lysis Rapid 1.1 See_Comment [Au tomated message] The (test code = Estimated syste m which generated % Lysis Rapid) this result t ransmitted reference range : <=7.5. The reference r fabian was not used to int erpret this result as normal/abnormal . [place] [address]-11-20 23:21:00 Test Item Value Reference Range Interpretation Comments Eosinophils (test code = 0.2 See_Comment [A utomated message] The Eosinophils) system which ge nerated this result tra nsmitted reference range : <=4.0. The reference r fabian was not used to int erpret this result as normal/abnormal . [facility]ervilleHpgurivYOYMYSFLDL8171-48-62 23:21:00 Test Item Value Reference Range Interpretation Comments Macrocyte (test code = 1+ *ABN*(07/23/22 Macrocyte) 5:21 PM) [facility]ervilleFfufcppKGZUFEIJIU9107-37-93 23:21:00 Test Item Value Reference Range Interpretation Comments Coronavirus (COVID-19) Not Detected SIL (test code = (07/23/22 5:21 PM) Coronavirus (COVID-19) SIL) [facility] FallsGlbuownQDFNFXXYGH1029-46-23 23:21:00 Test Item Value Reference Range Interpretation Comments Ethanol Lvl (test code = Ethanol Lvl) no gt [place] 77945022-11-20 23:21:00 Test Item Value Reference Range Interpretation Comments Etoh (%) (test code = Etoh (%)) no gt [facility]2022-11-20 23:21:00 Test Item Value Reference Range Interpretation Comments Glucose Lvl (test code = Glucose Lvl) 160 70-99 [facility]2022-11-20 23:21:00 Test Item Value Reference Range Interpretation Comments BUN (test code = BUN) 31 7-22 [facility]2022-11-20 23:21:00 Test Item Value Reference Range Interpretation Comments Creatinine Lvl (test code = Creatinine 0.70 0.50-1.40 Lvl) [facility]2022-11-20 23:21:00 Test Item Value Reference Range Interpretation Comments Sodium Lvl (test code = Sodium Lvl) 143 135-145 [facility]2022-11-20 23:21:00 Test Item Value Reference Range Interpretation Comments Potassium Lvl (test code = Potassium 4.8 3.5-5.1 Lvl) [facility]2022-11-20 23:21:00 Test Item Value Reference Range Interpretation Comments Chloride Lvl (test code = Chloride Lvl) 113 95-109 [facility]2022-11-20 23:21:00 Test Item Value Reference Range Interpretation Comments CO2 (test code = CO2) 24 24-32 [place] 456962-11-20 23:21:00 Test Item Value Reference Range Interpretation Comments Calcium Lvl (test code = Calcium Lvl) 8.5 8.5-10.5 [facility]2022-11-20 23:21:00 Test Item Value Reference Range Interpretation Comments AGAP (test code = AGAP) 10.8 10.0-20.0 [facility]2022-11-20 23:21:00 Test Item Value Reference Range Interpretation Comments eGFR (test code = eGFR) 98 [facility]2022-11-20 23:21:00 Test Item Value Reference Range Interpretation Comments Lactic Acid Lvl (test code = Lactic 1.9 0.5-2.2 Acid Lvl) [facility] ParkwayYbsmvbvUBSGLFRGB8772-93-30 23:21:00 Test Item Value Reference Range Interpretation Comments Ethanol Lvl (test code = Ethanol Lvl) no gt [facility] ParkwayVsshztgVKHYQJMCG3281-84-39 23:21:00 Test Item Value Reference Range Interpretation Comments Etoh (%) (test code = Etoh (%)) no gt [facility] ParkwayHpwqztwSTDGDUYFU6141-12-21 23:21:00 Test Item Value Reference Range Interpretation Comments pH Sander (test code = pH Sander) 7.39 1 7.28-7.42 [facility] ParkwayCixygbsYBRARCBVX7604-20-83 23:21:00 Test Item Value Reference Range Interpretation Comments pCO2 Sander (test code = pCO2 Sander) 38 38-52 [facility] ParkwayFxsbrafDVCVZMWFZ5173-39-87 23:21:00 Test Item Value Reference Range Interpretation Comments pO2 Sander (test code = pO2 Sander) 49 20-49 [place] 468462-11-20 23:21:00 Test Item Value Reference Range Interpretation Comments HCO3 Sander (test code = HCO3 Sander) 23 22-26 [facility] [id number] 23:21:00 Test Item Value Reference Range Interpretation Comments BE Sander (test code = BE Sander) -2 -2-2 [facility]wyjlbvZAXNXDGSJ3317-64-60 23:21:00 Test Item Value Reference Range Interpretation Comments O2 Sat Sander (calc) (test code = O2 Sat 83.8 40.0-70.0 Sander (calc)) [facility] ParkwayKdvctpyXWWJKUFIY3613-22-42 23:21:00 Test Item Value Reference Range Interpretation Comments Temp Sander (test code = Temp Sander) 37.0 [facility]vzdhmsXJXBQNUOWU1761-76-30 23:21:00 Test Item Value Reference Range Interpretation Comments ACT (TEG) Rapid (test code = ACT (TEG) 105 s 86-118 Rapid) [place] 108672-11-20 23:21:00 Test Item Value Reference Range Interpretation Comments Split Point Rapid (test code = Split 0.5 min Point Rapid) [place] [address]-11-20 23:21:00 Test Item Value Reference Range Interpretation Comments R-time Rapid (test code = R-time 0.6 min 0.4-0.7 Rapid) [place] 108672-11-20 23:21:00 Test Item Value Reference Range Interpretation Comments K-time Rapid (test code = K-time 1.3 min 0.6-2.3 Rapid) [place] [address]-11-20 23:21:00 Test Item Value Reference Range Interpretation Comments Angle Rapid (test code = Angle 75 degrees 64-80 Rapid) [place] 108672-11-20 23:21:00 Test Item Value Reference Range Interpretation Comments Max Amplitude Rapid (test code = Max 63 mm 52-71 Amplitude Rapid) [place] 108672-11-20 23:21:00 Test Item Value Reference Range Interpretation Comments G-value Rapid (test code = G-value 8.5 5.0-11.6 Rapid) [place] 108672-11-20 23:21:00 Test Item Value Reference Range Interpretation Comments Estimated % Lysis Rapid 1.1 See_Comment [Au tomated message] The (test code = Estimated syste m which generated % Lysis Rapid) this result t ransmitted reference range : <=7.5. The reference r fabian was not used to int erpret this result as normal/abnormal . [place] 108672-11-20 23:21:00 Test Item Value Reference Range Interpretation Comments Eosinophils (test code = 0.2 See_Comment [A utomated message] The Eosinophils) system which ge nerated this result tra nsmitted reference range : <=4.0. The reference r fabian was not used to int erpret this result as normal/abnormal . [place] 108672-11-20 23:21:00 Test Item Value Reference Range Interpretation Comments Macrocyte (test code = 1+ *ABN*(07/23/22 Macrocyte) 5:21 PM) [facility]qnZRPRTAZFXJ9732-60-15 23:21:00 Test Item Value Reference Range Interpretation Comments Coronavirus (COVID-19) Not Detected SIL (test code = (07/23/22 5:21 PM) Coronavirus (COVID-19) SIL) [facility]aafj[facility]DCTEDXKIJF1665-29-77 23:21:00 Test Item Value Reference Range Interpretation Comments Ethanol Lvl (test code = Ethanol Lvl) no gt [facility]XtmneklUPJKJQWEFA8285-75-40 23:21:00 Test Item Value Reference Range Interpretation Comments Etoh (%) (test code = Etoh (%)) no gt [facility] Hitch [id number] 23:17:00 Test Item Value Reference Range Interpretation Comments ABO/Rh (test code = ABO/Rh) O POS [facility] Hitch [id number] 23:17:00 Test Item Value Reference Range Interpretation Comments Antibody Scrn (test Negative (07/23/22 code = Antibody Scrn) 5:17 PM) [facility] Hitch [id number] 23:17:00 Test Item Value Reference Range Interpretation Comments ABO/Rh (test code = ABO/Rh) O POS [facility] Hitch [id number] 23:17:00 Test Item Value Reference Range Interpretation Comments Antibody Scrn (test Negative (07/23/22 code = Antibody Scrn) 5:17 PM) [facility] Hitch [id number] 23:17:00 Test Item Value Reference Range Interpretation Comments ABO/Rh (test code = ABO/Rh) O POS [facility] Hitch [id number] 23:17:00 Test Item Value Reference Range Interpretation Comments Antibody Scrn (test Negative (07/23/22 code = Antibody Scrn) 5:17 PM) [place] [id number] 13:14:00 Test Item Value Reference Range Interpretation Comments Glucose Lvl (test code = Glucose Lvl) 100 70-99 [facility] Leondra music2022-07-30 13:14:00 Test Item Value Reference Range Interpretation Comments BUN (test code = BUN) 15 7-22 PLAXD2022-07-30 13:14:00 Test Item Value Reference Range Interpretation Comments Creatinine Lvl (test code = Creatinine 0.83 0.50-1.40 Lvl) [place] 456962-07-30 13:14:00 Test Item Value Reference Range Interpretation Comments Sodium Lvl (test code = Sodium Lvl) 142 135-145 [place] 456962-07-30 13:14:00 Test Item Value Reference Range Interpretation Comments Potassium Lvl (test code = Potassium 4.5 3.5-5.1 Lvl) [place] 456962-07-30 13:14:00 Test Item Value Reference Range Interpretation Comments Chloride Lvl (test code = Chloride Lvl) 109 95-109 [place] 456962-07-30 13:14:00 Test Item Value Reference Range Interpretation Comments CO2 (test code = CO2) 31 24-32 [place] 456962-07-30 13:14:00 Test Item Value Reference Range Interpretation Comments Calcium Lvl (test code = Calcium Lvl) 9.7 8.5-10.5 [place] 456962-07-30 13:14:00 Test Item Value Reference Range Interpretation Comments AGAP (test code = AGAP) 6.5 10.0-20.0 [place] 456962-07-30 13:14:00 Test Item Value Reference Range Interpretation Comments eGFR (test code = eGFR) 93 [place] 108672-07-30 13:14:00 Test Item Value Reference Range Interpretation Comments WBC (test code = WBC) 5.2 3.7-10.4 [place] 108672-07-30 13:14:00 Test Item Value Reference Range Interpretation Comments RBC (test code = RBC) 4.33 4.70-6.10 [place] 108672-07-30 13:14:00 Test Item Value Reference Range Interpretation Comments Hgb (test code = Hgb) 14.1 14.0-18.0 [place] [address]-07-30 13:14:00 Test Item Value Reference Range Interpretation Comments Hct (test code = Hct) 43.4 42.0-54.0 [place] 108672-07-30 13:14:00 Test Item Value Reference Range Interpretation Comments MCV (test code = MCV) 100.1 80.0-94.0 [place] 108672-07-30 13:14:00 Test Item Value Reference Range Interpretation Comments MCH (test code = MCH) 32.5 pg 27.0-31.0 [facility]anoEmeoruhRRTEDVFJEE9161-03-67 13:14:00 Test Item Value Reference Range Interpretation Comments MCHC (test code = MCHC) 32.5 32.0-36.0 [facility]anoLwazrrlEJFBPSYSPC5371-11-57 13:14:00 Test Item Value Reference Range Interpretation Comments RDW (test code = RDW) 13.3 11.5-14.5 [facility]anoYbyhqpwNTWHVRPMPI7063-75-67 13:14:00 Test Item Value Reference Range Interpretation Comments Platelet (test code = Platelet) 194 133-450 [facility]anoVjlrfpdWCMDAEXMIJ3480-38-11 13:14:00 Test Item Value Reference Range Interpretation Comments MPV (test code = MPV) 9.3 7.4-10.4 [place] 108672-07-30 13:14:00 Test Item Value Reference Range Interpretation Comments Segs (test code = Segs) 60.0 45.0-75.0 [facility]anoHqtglpmISYCYXOBWU5139-78-06 13:14:00 Test Item Value Reference Range Interpretation Comments Lymphocytes (test code = Lymphocytes) 28.0 20.0-40.0 [facility] PlanoFporieuZIDQCXZVSP1727-05-56 13:14:00 Test Item Value Reference Range Interpretation Comments Monocytes (test code = Monocytes) 8.9 2.0-12.0 [place] 108672-07-30 13:14:00 Test Item Value Reference Range Interpretation Comments Eosinophils (test code = 1.7 See_Comment [A utomated message] The Eosinophils) system which ge nerated this result tra nsmitted reference range : <=4.0. The reference r fabian was not used to int erpret this result as normal/abnormal . [place] 108672-07-30 13:14:00 Test Item Value Reference Range Interpretation Comments Basophils (test code = 1.4 See_Comment [Aut omated message] The Basophils) system which ge nerated this result tra nsmitted reference range : <=1.0. The reference r fabian was not used to int erpret this result as normal/abnormal . [place] 108672-07-30 13:14:00 Test Item Value Reference Range Interpretation Comments Neutrophils # (test code = Neutrophils 3.1 1.5-8.1 #) [place] 108672-07-30 13:14:00 Test Item Value Reference Range Interpretation Comments Lymphocytes # (test code = Lymphocytes 1.5 1.0-5.5 #) [place] 108672-07-30 13:14:00 Test Item Value Reference Range Interpretation Comments Monocytes # (test code 0.5 See_Comment [Aut omated message] The = Monocytes #) system which generated this result tra nsmitted reference range : <=0.8. The reference r fabian was not used to int erpret this result as normal/abnormal . [place] 108672-07-30 13:14:00 Test Item Value Reference Range Interpretation Comments Eosinophils # (test code 0.1 See_Comment [A utomated message] The = Eosinophils #) system whic h generated this result tra nsmitted reference range : <=0.5. The reference r fabian was not used to int erpret this result as normal/abnormal . [place] 108672-07-30 13:14:00 Test Item Value Reference Range Interpretation Comments Basophils # (test code 0.1 See_Comment [Aut omated message] The = Basophils #) system which generated this result tra nsmitted reference range : <=0.2. The reference r fabian was not used to int erpret this result as normal/abnormal . [place] 108672-07-30 13:14:00 Test Item Value Reference Range Interpretation Comments Macrocyte (test code = 1+ *ABN*(04/01/22 Macrocyte) 8:14 AM) [place] 456962-07-30 13:14:00 Test Item Value Reference Range Interpretation Comments Glucose Lvl (test code = Glucose Lvl) 100 70-99 [place] 456962-07-30 13:14:00 Test Item Value Reference Range Interpretation Comments BUN (test code = BUN) 15 03-24 [place] 456962-07-30 13:14:00 Test Item Value Reference Range Interpretation Comments Creatinine Lvl (test code = Creatinine 0.83 0.50-1.40 Lvl) [place] 456962-07-30 13:14:00 Test Item Value Reference Range Interpretation Comments Sodium Lvl (test code = Sodium Lvl) 142 135-145 [place] 456962-07-30 13:14:00 Test Item Value Reference Range Interpretation Comments Potassium Lvl (test code = Potassium 4.5 3.5-5.1 Lvl) [place] 456962-07-30 13:14:00 Test Item Value Reference Range Interpretation Comments Chloride Lvl (test code = Chloride Lvl) 109 95-109 [place] 456962-07-30 13:14:00 Test Item Value Reference Range Interpretation Comments CO2 (test code = CO2) 31 24-32 [place] 456962-07-30 13:14:00 Test Item Value Reference Range Interpretation Comments Calcium Lvl (test code = Calcium Lvl) 9.7 8.5-10.5 [place] 456962-07-30 13:14:00 Test Item Value Reference Range Interpretation Comments AGAP (test code = AGAP) 6.5 10.0-20.0 [place] 456962-07-30 13:14:00 Test Item Value Reference Range Interpretation Comments eGFR (test code = eGFR) 93 [place] 108672-07-30 13:14:00 Test Item Value Reference Range Interpretation Comments WBC (test code = WBC) 5.2 3.7-10.4 [place] 108672-07-30 13:14:00 Test Item Value Reference Range Interpretation Comments RBC (test code = RBC) 4.33 4.70-6.10 [place] 108672-07-30 13:14:00 Test Item Value Reference Range Interpretation Comments Hgb (test code = Hgb) 14.1 14.0-18.0 [place] 108672-07-30 13:14:00 Test Item Value Reference Range Interpretation Comments Hct (test code = Hct) 43.4 42.0-54.0 [place] [address]-07-30 13:14:00 Test Item Value Reference Range Interpretation Comments MCV (test code = MCV) 100.1 80.0-94.0 [place] [address]-07-30 13:14:00 Test Item Value Reference Range Interpretation Comments MCH (test code = MCH) 32.5 pg 27.0-31.0 [place] 108672-07-30 13:14:00 Test Item Value Reference Range Interpretation Comments MCHC (test code = MCHC) 32.5 32.0-36.0 [place] 108672-07-30 13:14:00 Test Item Value Reference Range Interpretation Comments RDW (test code = RDW) 13.3 11.5-14.5 [place] 108672-07-30 13:14:00 Test Item Value Reference Range Interpretation Comments Platelet (test code = Platelet) 194 133-450 [place] 108672-07-30 13:14:00 Test Item Value Reference Range Interpretation Comments MPV (test code = MPV) 9.3 7.4-10.4 [place] 108672-07-30 13:14:00 Test Item Value Reference Range Interpretation Comments Segs (test code = Segs) 60.0 45.0-75.0 [place] 108672-07-30 13:14:00 Test Item Value Reference Range Interpretation Comments Lymphocytes (test code = Lymphocytes) 28.0 20.0-40.0 [place] 108672-07-30 13:14:00 Test Item Value Reference Range Interpretation Comments Monocytes (test code = Monocytes) 8.9 2.0-12.0 [place] 108672-07-30 13:14:00 Test Item Value Reference Range Interpretation Comments Eosinophils (test code = 1.7 See_Comment [A utomated message] The Eosinophils) system which ge nerated this result tra nsmitted reference range : <=4.0. The reference r fabian was not used to int erpret this result as normal/abnormal . [id number] 13:14:00 Test Item Value Reference Range Interpretation Comments Basophils (test code = 1.4 See_Comment [Aut omated message] The Basophils) system which ge nerated this result tra nsmitted reference range : <=1.0. The reference r fabian was not used to int erpret this result as normal/abnormal . [place] 108672-07-30 13:14:00 Test Item Value Reference Range Interpretation Comments Neutrophils # (test code = Neutrophils 3.1 1.5-8.1 #) [place] 108672-07-30 13:14:00 Test Item Value Reference Range Interpretation Comments Lymphocytes # (test code = Lymphocytes 1.5 1.0-5.5 #) [place] 108672-07-30 13:14:00 Test Item Value Reference Range Interpretation Comments Monocytes # (test code 0.5 See_Comment [Aut omated message] The = Monocytes #) system which generated this result tra nsmitted reference range : <=0.8. The reference r fabian was not used to int erpret this result as normal/abnormal . [place] 108672-07-30 13:14:00 Test Item Value Reference Range Interpretation Comments Eosinophils # (test code 0.1 See_Comment [A utomated message] The = Eosinophils #) system whic h generated this result tra nsmitted reference range : <=0.5. The reference r fabian was not used to int erpret this result as normal/abnormal . [place] 108672-07-30 13:14:00 Test Item Value Reference Range Interpretation Comments Basophils # (test code 0.1 See_Comment [Aut omated message] The = Basophils #) system which generated this result tra nsmitted reference range : <=0.2. The reference r fabian was not used to int erpret this result as normal/abnormal . [place] 108672-07-30 13:14:00 Test Item Value Reference Range Interpretation Comments Macrocyte (test code = 1+ *ABN*(04/01/22 Macrocyte) 8:14 AM) [place] 456962-07-30 13:14:00 Test Item Value Reference Range Interpretation Comments Glucose Lvl (test code = Glucose Lvl) 100 70-99 [place] 456962-07-30 13:14:00 Test Item Value Reference Range Interpretation Comments BUN (test code = BUN) 15 - [place] 456962-07-30 13:14:00 Test Item Value Reference Range Interpretation Comments Creatinine Lvl (test code = Creatinine 0.83 0.50-1.40 Lvl) [place] 456962-07-30 13:14:00 Test Item Value Reference Range Interpretation Comments Sodium Lvl (test code = Sodium Lvl) 142 135-145 [place] 456962-07-30 13:14:00 Test Item Value Reference Range Interpretation Comments Potassium Lvl (test code = Potassium 4.5 3.5-5.1 Lvl) [place] 456962-07-30 13:14:00 Test Item Value Reference Range Interpretation Comments Chloride Lvl (test code = Chloride Lvl) 109 95-109 [place] 456962-07-30 13:14:00 Test Item Value Reference Range Interpretation Comments CO2 (test code = CO2) 31 24-32 [place] 456962-07-30 13:14:00 Test Item Value Reference Range Interpretation Comments Calcium Lvl (test code = Calcium Lvl) 9.7 8.5-10.5 [place] 456962-07-30 13:14:00 Test Item Value Reference Range Interpretation Comments AGAP (test code = AGAP) 6.5 10.0-20.0 [place] 456962-07-30 13:14:00 Test Item Value Reference Range Interpretation Comments eGFR (test code = eGFR) 93 [place] 108672-07-30 13:14:00 Test Item Value Reference Range Interpretation Comments WBC (test code = WBC) 5.2 3.7-10.4 [place] 108672-07-30 13:14:00 Test Item Value Reference Range Interpretation Comments RBC (test code = RBC) 4.33 4.70-6.10 [place] 108672-07-30 13:14:00 Test Item Value Reference Range Interpretation Comments Hgb (test code = Hgb) 14.1 14.0-18.0 [place] 108672-07-30 13:14:00 Test Item Value Reference Range Interpretation Comments Hct (test code = Hct) 43.4 42.0-54.0 [place] 108672-07-30 13:14:00 Test Item Value Reference Range Interpretation Comments MCV (test code = MCV) 100.1 80.0-94.0 [place] [address]-07-30 13:14:00 Test Item Value Reference Range Interpretation Comments MCH (test code = MCH) 32.5 pg 27.0-31.0 [place] 108672-07-30 13:14:00 Test Item Value Reference Range Interpretation Comments MCHC (test code = MCHC) 32.5 32.0-36.0 [place] 108672-07-30 13:14:00 Test Item Value Reference Range Interpretation Comments RDW (test code = RDW) 13.3 11.5-14.5 [place] 108672-07-30 13:14:00 Test Item Value Reference Range Interpretation Comments Platelet (test code = Platelet) 194 133-450 [place] 108672-07-30 13:14:00 Test Item Value Reference Range Interpretation Comments MPV (test code = MPV) 9.3 7.4-10.4 [place] 108672-07-30 13:14:00 Test Item Value Reference Range Interpretation Comments Segs (test code = Segs) 60.0 45.0-75.0 [place] 108672-07-30 13:14:00 Test Item Value Reference Range Interpretation Comments Lymphocytes (test code = Lymphocytes) 28.0 20.0-40.0 [place] 108672-07-30 13:14:00 Test Item Value Reference Range Interpretation Comments Monocytes (test code = Monocytes) 8.9 2.0-12.0 [place] 108672-07-30 13:14:00 Test Item Value Reference Range Interpretation Comments Eosinophils (test code = 1.7 See_Comment [A utomated message] The Eosinophils) system which ge nerated this result tra nsmitted reference range : <=4.0. The reference r fabian was not used to int erpret this result as normal/abnormal . [place] 108672-07-30 13:14:00 Test Item Value Reference Range Interpretation Comments Basophils (test code = 1.4 See_Comment [Aut omated message] The Basophils) system which ge nerated this result tra nsmitted reference range : <=1.0. The reference r fabian was not used to int erpret this result as normal/abnormal . [place] 108672-07-30 13:14:00 Test Item Value Reference Range Interpretation Comments Neutrophils # (test code = Neutrophils 3.1 1.5-8.1 #) [place] 108672-07-30 13:14:00 Test Item Value Reference Range Interpretation Comments Lymphocytes # (test code = Lymphocytes 1.5 1.0-5.5 #) [place] 108672-07-30 13:14:00 Test Item Value Reference Range Interpretation Comments Monocytes # (test code 0.5 See_Comment [Aut omated message] The = Monocytes #) system which generated this result tra nsmitted reference range : <=0.8. The reference r fabian was not used to int erpret this result as normal/abnormal . [id number] 13:14:00 Test Item Value Reference Range Interpretation Comments Eosinophils # (test code 0.1 See_Comment [A utomated message] The = Eosinophils #) system whic h generated this result tra nsmitted reference range : <=0.5. The reference r fabian was not used to int erpret this result as normal/abnormal . [id number] 13:14:00 Test Item Value Reference Range Interpretation Comments Basophils # (test code 0.1 See_Comment [Aut omated message] The = Basophils #) system which generated this result tra nsmitted reference range : <=0.2. The reference r fabian was not used to int erpret this result as normal/abnormal . [id number] 13:14:00 Test Item Value Reference Range Interpretation Comments Macrocyte (test code = 1+ *ABN*(04/01/22 Macrocyte) 8:14 AM) [facility] [id number] 12:19:00 Test Item Value Reference Range Interpretation Comments UA Color (test code = Yellow *NA*(04/01/22 UA Color) 7:19 AM) [facility] [id number] 12:19:00 Test Item Value Reference Range Interpretation Comments UA Turbidity (test code = Clear (04/01/22 7:19 UA Turbidity) AM) [facility] [id number] 12:19:00 Test Item Value Reference Range Interpretation Comments UA Spec Grav (test code = UA Spec 1.010 1 Grav) [facility] [id number] 12:19:00 Test Item Value Reference Range Interpretation Comments UA pH (test code = UA pH) 7.0 1 5.0-8.0 [facility] [id number] 12:19:00 Test Item Value Reference Range Interpretation Comments UA Protein (test code Negative (04/01/22 7:19 = UA Protein) AM) [facility] [id number] 12:19:00 Test Item Value Reference Range Interpretation Comments UA Glucose (test code Negative (04/01/22 7:19 = UA Glucose) AM) [facility] [id number] 12:19:00 Test Item Value Reference Range Interpretation Comments UA Ketones (test code Negative *NA*(04/01/22 = UA Ketones) 7:19 AM) [facility] [id number] 12:19:00 Test Item Value Reference Range Interpretation Comments UA Bili (test code = Negative *NA*(04/01/22 UA Bili) 7:19 AM) [facility] [id number] 12:19:00 Test Item Value Reference Range Interpretation Comments UA Blood (test code = Negative (04/01/22 7:19 UA Blood) AM) [facility] [id number] 12:19:00 Test Item Value Reference Range Interpretation Comments UA Urobilinogen (test code = UA 0.2 0.1-1.0 Urobilinogen) [facility] [id number] 12:19:00 Test Item Value Reference Range Interpretation Comments UA Nitrite (test code Negative (04/01/22 7:19 = UA Nitrite) AM) [facility] [id number] 12:19:00 Test Item Value Reference Range Interpretation Comments UA Leuk Est (test Negative (04/01/22 7:19 code = UA Leuk Est) AM) [facility] [id number] 12:19:00 Test Item Value Reference Range Interpretation Comments UA Sq Epi (test code = UA Sq Occasional /LPF Epi) [facility] [id number] 12:19:00 Test Item Value Reference Range Interpretation Comments UA WBC (test code = no gt See_Comment [Automa aria message] The UA WBC) system which ge nerated this result transmit aria reference range : <=5. The reference range was not used to interpr et this result as rocio l/abnormal. [facility] [id number] 12:19:00 Test Item Value Reference Range Interpretation Comments UA RBC (test code = no gt See_Comment [Automa aria message] The UA RBC) system which ge nerated this result transmit aria reference range : <=2. The reference range was not used to interpr et this result as rocio l/abnormal. [facility] [id number] 12:19:00 Test Item Value Reference Range Interpretation Comments UA Mucus (test code = UA Mucus) Few /LPF [facility] [id number] 12:19:00 Test Item Value Reference Range Interpretation Comments UA Color (test code = Yellow *NA*(04/01/22 UA Color) 7:19 AM) [facility] [id number] 12:19:00 Test Item Value Reference Range Interpretation Comments UA Turbidity (test code = Clear (04/01/22 7:19 UA Turbidity) AM) [facility] [id number] 12:19:00 Test Item Value Reference Range Interpretation Comments UA Spec Grav (test code = UA Spec 1.010 1 Grav) [facility] [id number] 12:19:00 Test Item Value Reference Range Interpretation Comments UA pH (test code = UA pH) 7.0 1 5.0-8.0 [facility] [id number] 12:19:00 Test Item Value Reference Range Interpretation Comments UA Protein (test code Negative (04/01/22 7:19 = UA Protein) AM) [facility] [id number] 12:19:00 Test Item Value Reference Range Interpretation Comments UA Glucose (test code Negative (04/01/22 7:19 = UA Glucose) AM) [facility] [id number] 12:19:00 Test Item Value Reference Range Interpretation Comments UA Ketones (test code Negative *NA*(04/01/22 = UA Ketones) 7:19 AM) [facility] AND [id number] 12:19:00 Test Item Value Reference Range Interpretation Comments UA Bili (test code = Negative *NA*(04/01/22 UA Bili) 7:19 AM) [facility] AND [id number] 12:19:00 Test Item Value Reference Range Interpretation Comments UA Blood (test code = Negative (04/01/22 7:19 UA Blood) AM) [facility] AND [id number] 12:19:00 Test Item Value Reference Range Interpretation Comments UA Urobilinogen (test code = UA 0.2 0.1-1.0 Urobilinogen) [facility] AND [id number] 12:19:00 Test Item Value Reference Range Interpretation Comments UA Nitrite (test code Negative (04/01/22 7:19 = UA Nitrite) AM) [facility] AND [id number] 12:19:00 Test Item Value Reference Range Interpretation Comments UA Leuk Est (test Negative (04/01/22 7:19 code = UA Leuk Est) AM) [facility] AND [id number] 12:19:00 Test Item Value Reference Range Interpretation Comments UA Sq Epi (test code = UA Sq Occasional /LPF Epi) [facility] AND [id number] 12:19:00 Test Item Value Reference Range Interpretation Comments UA WBC (test code = no gt See_Comment [Automa aria message] The UA WBC) system which ge nerated this result transmit aria reference range : <=5. The reference range was not used to interpr et this result as rocio l/abnormal. [facility] AND [id number] 12:19:00 Test Item Value Reference Range Interpretation Comments UA RBC (test code = no gt See_Comment [Automa aria message] The UA RBC) system which ge nerated this result transmit aria reference range : <=2. The reference range was not used to interpr et this result as rocio l/abnormal. [facility] AND [id number] 12:19:00 Test Item Value Reference Range Interpretation Comments UA Mucus (test code = UA Mucus) Few /LPF [facility] AND [id number] 12:19:00 Test Item Value Reference Range Interpretation Comments UA Color (test code = Yellow *NA*(04/01/22 UA Color) 7:19 AM) [facility] AND [id number] 12:19:00 Test Item Value Reference Range Interpretation Comments UA Turbidity (test code = Clear (04/01/22 7:19 UA Turbidity) AM) [facility] AND [id number] 12:19:00 Test Item Value Reference Range Interpretation Comments UA Spec Grav (test code = UA Spec 1.010 1 Grav) [facility] AND [id number] 12:19:00 Test Item Value Reference Range Interpretation Comments UA pH (test code = UA pH) 7.0 1 5.0-8.0 [facility] AND [id number] 12:19:00 Test Item Value Reference Range Interpretation Comments UA Protein (test code Negative (04/01/22 7:19 = UA Protein) AM) [facility] AND [id number] 12:19:00 Test Item Value Reference Range Interpretation Comments UA Glucose (test code Negative (04/01/22 7:19 = UA Glucose) AM) [facility] AND [id number] 12:19:00 Test Item Value Reference Range Interpretation Comments UA Ketones (test code Negative *NA*(04/01/22 = UA Ketones) 7:19 AM) [facility] AND [id number] 12:19:00 Test Item Value Reference Range Interpretation Comments UA Bili (test code = Negative *NA*(04/01/22 UA Bili) 7:19 AM) [facility] AND [id number] 12:19:00 Test Item Value Reference Range Interpretation Comments UA Blood (test code = Negative (04/01/22 7:19 UA Blood) AM) [facility] AND [id number] 12:19:00 Test Item Value Reference Range Interpretation Comments UA Urobilinogen (test code = UA 0.2 0.1-1.0 Urobilinogen) [facility] AND [id number] 12:19:00 Test Item Value Reference Range Interpretation Comments UA Nitrite (test code Negative (04/01/22 7:19 = UA Nitrite) AM) [facility] AND [id number] 12:19:00 Test Item Value Reference Range Interpretation Comments UA Leuk Est (test Negative (04/01/22 7:19 code = UA Leuk Est) AM) [facility] AND [id number] 12:19:00 Test Item Value Reference Range Interpretation Comments UA Sq Epi (test code = UA Sq Occasional /LPF Epi) [facility] AND [id number] 12:19:00 Test Item Value Reference Range Interpretation Comments UA WBC (test code = no gt See_Comment [Automa aria message] The UA WBC) system which ge nerated this result transmit aria reference range : <=5. The reference range was not used to interpr et this result as rocio l/abnormal. [id number] 12:19:00 Test Item Value Reference Range Interpretation Comments UA RBC (test code = no gt See_Comment [Automa aria message] The UA RBC) system which ge nerated this result transmit aria reference range : <=2. The reference range was not used to interpr et this result as rocio l/abnormal. [facility]2022-07-30 12:19:00 Test Item Value Reference Range Interpretation Comments UA Mucus (test code = UA Mucus) Few /LPF [facility] METABOLIC [id number] 20:45:00 Test Item Value Reference Range Interpretation Comments SODIUM (test code = NA) 139 mEq/L 134-147 N POTASSIUM (test code = 4.2 mEq/L 3.4-5.0 N K) CHLORIDE (test code = 108 mEq/L 100-108 N CL) CARBON DIOXIDE (test 28 mEq/l 21-33 N code = CO2) ANION GAP (test code = 7 0-20 N GAP) GLUCOSE (test code = 151 mg/dL 70-110 H GLU) BLOOD UREA NITROGEN 15 mg/dL 7-18 N (test code = BUN) GLOMERULAR FILTRATION 115.6 70-80 H Units of measure = RATE (test code = GFR) ml/mi n/1.73 m2 CREATININE (test code = 0.8 mg/dL 0.6-1.3 N CREAT) CALCIUM (test code = 9.0 mg/dL 8.0-10.5 N CA) [id number] 20:45:00 Test Item Value Reference Range Interpretation Comments MAGNESIUM (test code = MAG) 2.20 mg/dL 1.80-2.40 N [id number] 20:26:00 Test Item Value Reference Range Interpretation Comments GLUBED (test code = 94 MG/DL 70-110 N Performe d by certified GLUBED) 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 [facility] [id number] 10:40:00 Test Item Value Reference Range Interpretation Comments MAGNESIUM (test code = MAG) 2.09 mg/dL 1.80-2.40 N BASIC METABOLIC [id number] 05:48:00 Test Item Value Reference Range Interpretation [...] 8.8 mg/dL 8.0-10.5 N CA) BASIC METABOLIC [id number] 05:17:00 Test Item Value Reference Range Interpretation [...] CHOLESTEROL/HDL 3.38 RATIO 3.43-4.97 L RISK ASSOCIA ARIA WITH RATIO (test code = CHOL/HDL RATIOS: [...] (test code = LDL) NEAR OPTIM AL/ABOVE [id number] HIGH>GL=480 JOZEF Y HIGH*Guidelines provided by the National [facility] terol EducationProgra m Adult Treatment Panel III [id number] 05:17:00 Test Item Value Reference Range Interpretation Comments MAGNESIUM (test code = MAG) 1.90 mg/dL 1.80-2.40 N CBC W/AUTO [id number] 05:02:00 Test Item Value Reference Range Interpretation [...] (test code NO = MDIFF) CBC W/AUTO [id number] 05:01:00 Test Item Value Reference Range Interpretation [...] MANUAL DIFF REQUIRED (test code = MDIFF) [id number] 17:29:00 Test Item Value Reference Range Interpretation Comments ACT-ISTAT (test code 340 SEC 74-137 H Perform ed by certified = ACTI) 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 [facility] [id number] 17:10:00 Test Item Value Reference Range Interpretation Comments ACT-ISTAT (test code 279 SEC 74-137 H Perform ed by certified = ACTI) 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 [facility] [id number] 14:12:00 Test Item Value Reference Range Interpretation Comments GLUBED (test code = GLUBED) 105 mg/dL 70-110 N [id number] 14:11:00 Test Item Value Reference Range Interpretation Comments GLUBED (test code = GLUBED) 91 mg/dL 70-110 N [id number] 08:55:00 Test Item Value Reference Range Interpretation Comments GLUBED (test code = GLUBED) 102 mg/dL 70-110 N BASIC METABOLIC [id number] 07:25:00 Test Item Value Reference Range Interpretation [...] CA) 8.7 mg/dl 8.0-10.5 N THROMBOPLASTIN TIME [id number] 07:03:00 Test Item Value Reference Range Interpretation Comments THROMBOPLASTIN TIME 68.00 SECONDS 25.86-36.07 [facility] PARTIAL (test code = Therape utic Range - PTT) APTT of 55.8-85 .4 secondscorrelat es with plasma heparin concentration o f 0.2-0.4 u/mL Ne w range effective - Is patient on anticoagulants? YIf yes, please list anticoagulants: HEPARINIs patient on heparin protocol? YCBC W/AUTO [id number] 06:47:00 Test Item Value Reference Range Interpretation [...] Specimen comments: Daily while on HeparinTHROMBOPLASTIN TIME [id number] 20:35:00 Test Item Value Reference Range Interpretation Comments THROMBOPLASTIN TIME 61.00 SECONDS 25.86-36.07 [facility] PARTIAL (test code = Therape utic Range - PTT) APTT of 55.8-85 .4 secondscorrelat es with plasma heparin concentration o f 0.2-0.4 u/mL Ne w range effective - Is patient on anticoagulants? YIf yes, please list anticoagulants: HEPARINIs patient on heparin protocol? [id number] 14:10:00 Test Item Value Reference Range Interpretation Comments GLUBED (test code = GLUBED) 89 mg/dL 70-110 N THROMBOPLASTIN TIME [id number] 06:36:00 Test Item Value Reference Range Interpretation [...] N NRBC#) Specimen comments: Daily while on [id number] 00:21:00 Test Item Value Reference Range Interpretation [...] code = LDL) 94 mg/dl 70-130 N [id number] 17:14:00 Test Item Value Reference Range Interpretation Comments GLUBED (test code = GLUBED) 95 mg/dL 70-110 N PROTHROMBIN [id number] 16:19:00 Test Item Value Reference Range Interpretation Comments PROTHROMBIN TIME 13.5 SECONDS 9.9-12.8 H PATIENT (test code = PTP) INTERNATIONAL NORMAL 1.1 0.89-1.14 N THE INR IS TO BE USED RATIO (test code = ONLY FOR MONITORING INR) ORAL ANTICOAGULANTTH ERAPY. THE FOLLOWING A RE SUGGESTED RANGE S FROM [facility] LEGE OF CHEST PHYSICIANS:[place] C[place] INR VALUEPROPHY [...] ALREADY DONE WITHIN LAST 24 HOURSTHROMBOPLASTIN TIME [id number] 16:19:00 Test Item Value Reference Range Interpretation [...] IF NOT ALREADY DONE WITHIN LAST 24 [id number] 15:32:00 Test Item Value Reference Range Interpretation Comments HGBA1C% (test code = HGBA1C%) 5.4 %A1C 4.8-6.0 N ESTIMATED AVERAGE GLUCOSE (test 108 MG/DL code = EAG) [id number] 08:10:00 Test Item Value Reference Range Interpretation Comments TROPONIN-I (test 2.80 NG/ML 0.00-0.06 HH REFERENCE R FABIAN TROPONIN code = TROPI) I HEALTHY WATSON VIDUALS: <0.06 ng/mL R/O ISCHEMIA: 0.07 - 0.60 ng/mL CUT-OFF R FABIAN FOR AMI: 0.60 - 1.5 ng/mL [id number] 04:08:00 Test Item Value Reference Range Interpretation Comments TROPONIN-I (test 2.71 NG/ML 0.00-0.06 HH REFERENCE R FABIAN TROPONIN code = TROPI) I HEALTHY W[place]SON VIDUALS: <0.06 ng/mL R/O ISCHEMIA: 0.07 - 0.60 ng/mL CUT-OFF R FABIAN FOR AMI: 0.60 - 1.5 ng/mL BASIC METABOLIC [id number] 22:26:00 Test Item Value Reference Range Interpretation [...] code = CA) 8.9 mg/dl 8.0-10.5 N [id number] 22:26:00 Test Item Value Reference Range Interpretation Comments TROPONIN-I (test 3.74 NG/ML 0.00-0.06 HH REFERENCE R FABIAN TROPONIN code = TROPI) I HEALTHY W[place] VIDUALS: <0.06 ng/mL R/O ISCHEMIA: 0.07 - 0.60 ng/mL CUT-OFF R FABIAN FOR AMI: 0.60 - 1.5 ng/mL CBC W/AUTO [id number] 22:19:00 Test Item Value Reference Range Interpretation [...] 0.00 X10 3uL 0.00-0.01 N NRBC#) - CHEST 1 [id number] 22:03:00 [facility] 1950 Sex: M FAX: Wayne Emerson DO [phone] [place]: St: PRE Name: VLADIMIR GARRETT [facility] : 1950 Age/S: 70/M [address] [facility] Unit #: [id number] Loc: E.ERS2 [place], [place] Phys: [place] [id number] Acct: [id number] Dis Date: Status: PRE ER PHONE #: [phone] Exam Date: 10/26/20202200 FAX #: [phone] Reason: SOB EXAMS: CPT CODE: [id number] XR CHEST 1 V 03962 EXAM: - XR CHEST 1 V COMPARISON: [...] Martin MD CC: Wayne Emerson DO Technologist: ERIKA Rockwell Date/Time/By: 10/26/2020 (2202) : By: [email or web address] PAGE 1 Signed Report FAX: Wayne Emerson DO [phone] [place]: St: PRE Name: VLADIMIR GARRETT [facility] : 1950 Age/S: 70/M [address] [facility] Unit #: [id number] Loc: [address] Phys: [place] [id number] Acct: [id number] Dis Date: Status: PRE ER PHONE #: [phone] Exam Date: 10/26/20202200 FAX #: [phone] Reason: SOB EXAMS: CPT CODE: [id number] XR CHEST 1 V 43157 (Continued) Orig Print D/T: S: 10/26/2020 (2205) PAGE 2 Signed Report
[2022-09-04 15:45] LABS: Urine Blood 3+ (Negative); Urine Glucose Negative (Negative); Urine Protein 3+ (Negative)
--- NOTE | 2022-09-04 16:10 | RAD REPORT ---
EXAM DESCRIPTION: Awilda Single View09/04/2022 3:44 pm CLINICAL HISTORY: Hematuria COMPARISON: 2014 FINDINGS: Bowel elevate the right hemidiaphragm mildly. Calcified lung granulomas. The lungs appear clear of acute infiltrate. The heart is normal size IMPRESSION: No acute abnormalities displayed
[2022-09-04 16:21] LABS: Urine Bacteria None Seen /HPF (<20); Urine Crystals Unidentified Many /HPF (None Seen); Urine RBC >50 /HPF (None Seen)
[2022-09-04 17:14] LABS: Absolute Lymphocytes (CBC) 1.5 K/uL (0.7-4.9); Hematocrit 32.4 % (39.6-49.0); Lymphocytes % 20.7 % (15.3-44.8); MCV 97.3 fL (80-100); MPV 8.7 fL (7.6-11.3); RBC Red Blood Cell Count 3.33 M/uL (4.33-5.43)
[2022-09-04 17:24] LABS: Protime INR 1.11
[2022-09-04 17:37] LABS: Magnesium 2.4 mg/dL (1.6-2.4); Potassium 4.1 mmol/L (3.5-5.1)
--- NOTE | 2022-09-04 18:27 | ER ---
Nurse's Notes [facility] Name: Felipe Garrett Age: 72 yrs Sex: Male : 1950 Arrival Date: 09/04/2022 Time: 12:37 Bed 17 Private MD: Diagnosis: UTI/ Urinary tract infection, site not specified Presentation: 09/04 14:43 Chief complaint: Patient states: Vargas changed by Dr. Giraldo on 08/29/22 after ss performing bladder biopsy. Pt reports that he began noticing blood in urine yesterday. Pt feels like his bladder is emptying. Coronavirus screen: Client denies travel out of the [place] in the last 14 days. Ebola Screen: Patient denies exposure to infectious person. Patient denies travel to an Ebola-affected area in the 21 days before illness onset. Initial Sepsis Screen: Does the patient meet any 2 criteria? No. Patient's initial sepsis screen is negative. Does the patient have a suspected source of infection? No. Patient's initial sepsis screen is negative. Risk Assessment: Do you want to hurt yourself or someone else? Patient reports no desire to harm self or others. Onset of symptoms was September 03, 2022. 14:43 Method Of Arrival: Ambulatory ss 14:43 Acuity: MARINO 3 ss Historical: - Allergies: 14:45 Benadryl; ss - PMHx: 14:45 ALS; Diabetes - NIDDM; Hypertension; urinary retention; ss - Immunization history:: Client reports receiving the 2nd dose of the Covid vaccine. - Social history:: Smoking status: Patient denies any tobacco usage or history of. Screenin:27 [facility] ED Fall Risk Assessment (Adult) Score/Fall Risk Level 0 - 2 = Low Risk. Abuse as6 screen: Denies threats or abuse. Denies injuries from another. Nutritional screening: No deficits noted. Tuberculosis screening: No symptoms or risk factors identified. Assessment: 19:29 General: this RN saw pt at discharge . as6 Vital Signs: 14:43 BP 151 / 99; Pulse 73; Resp 16; Temp 99.1(O); Pulse Ox 98% on R/A; Weight 52.62 kg; ss Height 5 ft. 7 in. (170.18 cm); Pain 0/10; 19:29 BP 147 / 81; Pulse 91; Resp 15 S; Temp 97.8(O); Pulse Ox 100% on R/A; as6 14:43 Body Mass Index 18.17 (52.62 kg, 170.18 cm) ED Course: 12:37 Patient arrived in ED. am2 13:10 Cira Paris MD is Attending Physician. sd2 14:45 Triage completed. ss 14:45 Arm band placed on left wrist. ss 14:49 Mehran Murray PA is PHCP. cp 15:37 Bia Renee, RN is Primary Nurse. kr3 15:46 XRAY Chest (1 view) In Process Unspecified. EDMS 15:47 Urine Microscopic Only Sent. kr3 17:05 Inserted saline lock: 22 gauge in right wrist, using aseptic technique. Blood collected.db 18:26 Tereso Giraldo MD is Referral Physician. cp 19:26 Bed in low position. Call light in reach. Side rails up X2. as6 19:27 No provider procedures requiring assistance completed. IV discontinued, intact, as6 bleeding controlled, No redness/swelling at site. Pressure dressing applied. Administered Medications: 18:58 Drug: Rocephin (cefTRIAXone) 1 grams Route: IV; Rate: calculated rate; Site: right kr3 wrist; 19:26 Follow up: Response: No adverse reaction; IV Status: Completed infusion; IV Intake: 15otly1 18:58 Drug: Cipro (ciprofloxacin) 500 mg Route: PO; kr3 19:26 Follow up: Response: No adverse reaction as6 Medication: 19:27 VIS not applicable for this client. as6 Intake: 19:26 IV: 50ml; Total: 50ml. as6 Outcome: 18:27 Discharge ordered by . cp 19:28 Discharged to home ambulatory. 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 medication usage. 19:29 Patient left the ED. as6 Signatures: Dispatcher [employer] EDMS Ashlie Jacobsen RN CORTNEY Mehran Murray PA PA cp Laurie Benitez am2 Marek Padgett RN RN as6 Cira Paris MD MD tx2 Bia Renee, RN RN kr3 De Jesus, Natasha, RN RN db
--- NOTE | 2022-09-04 18:28 | EDPHYS ---
Physician Documentation [facility] Name: Felipe Garrett Age: 72 yrs Sex: Male : 1950 Arrival Date: 09/04/2022 Time: 12:37 Bed 17 Private MD: ED Physician Cira Paris HPI: 09/04 15:00 This 72 yrs old Black Male presents to ER via Ambulatory with complaints of blood in cp vadim lao/brenda 08/29. 15:00 The patient presents with urinary symptoms, hematuria. cp 15:00 Onset: The symptoms/episode began/occurred yesterday. Associated signs and symptoms: cp Pertinent positives: hematuria, Pertinent negatives: abdominal pain, fever, vomiting. Severity of symptoms: in the emergency department the symptoms are unchanged, despite home interventions. 15:00 Patient reports recent bladder biopsy on 08-29-[address] Giraldo. cp Historical: - Allergies: 14:45 Benadryl; ss - PMHx: 14:45 ALS; Diabetes - NIDDM; Hypertension; urinary retention; ss - Immunization history:: Client reports receiving the 2nd dose of the Covid vaccine. - Social history:: Smoking status: Patient denies any tobacco usage or history of. ROS: 15:05 Constitutional: Negative for body aches, chills, fever, poor PO intake. cp 15:05 Abdomen/GI: Negative for abdominal pain, vomiting, diarrhea, constipation. cp 15:05 : Positive for hematuria, Negative for flank pain. 15:05 Cardiovascular: Negative for chest pain, edema, palpitations. cp 15:05 Respiratory: Negative for cough, shortness of breath, wheezing. 15:05 Eyes: Negative for injury, pain, redness, and discharge. cp 15:05 ENT: Negative for drainage from ear(s), ear pain, sore throat, difficulty swallowing, difficulty handling secretions. 15:05 Neuro: Negative for altered mental status, dizziness, headache, syncope, weakness. 15:05 All other systems are negative. Exam: 15:10 Constitutional: The patient appears in no acute distress, alert, awake, cp non-diaphoretic, non-toxic, well developed, well nourished. 15:10 Head/Face: Normocephalic, atraumatic. cp 15:10 Eyes: Periorbital structures: appear normal, Conjunctiva: normal, no exudate, no injection, Sclera: no appreciated abnormality, Lids and lashes: appear normal, bilaterally. 15:10 ENT: External ear(s): are unremarkable, Nose: is normal, Mouth: Lips: moist, Oral mucosa: moist, Posterior pharynx: Airway: no evidence of obstruction, patent. 15:10 Chest/axilla: Inspection: normal. 15:10 Cardiovascular: Rate: normal, Rhythm: regular. 15:10 Respiratory: the patient does not display signs of respiratory distress, Respirations: normal, no use of accessory muscles, no retractions, labored breathing, is not present, Breath sounds: are clear throughout, no decreased breath sounds, no stridor, no wheezing. 15:10 Abdomen/GI: Inspection: abdomen appears normal, Palpation: abdomen is soft and non-tender, in all quadrants. 15:10 Back: CVA tenderness, is absent. 15:10 Neuro: Orientation: to person, place \T\ time. Mentation: is normal. 17:17 ECG was reviewed by the Attending Physician. Vital Signs: 14:43 BP 151 / 99; Pulse 73; Resp 16; Temp 99.1(O); Pulse Ox 98% on R/A; Weight 52.62 kg; ss Height 5 ft. 7 in. (170.18 cm); Pain 0/10; 19:29 BP 147 / 81; Pulse 91; Resp 15 S; Temp 97.8(O); Pulse Ox 100% on R/A; as6 14:43 Body Mass Index 18.17 (52.62 kg, 170.18 cm) MDM: 15:00 Differential diagnosis: UTI, Vargas catheter problem, prostatitis, sepsis. 15:30 Physician consultation: Tereso Giraldo MD in the emergency department to see patient at 15:20. 16:00 ED course: Patient evaluated by DR Giraldo in ED. Urine sample obtained and bladder cp irrigated with normal saline. Will check blood work and discharge to home with oral Cipro as requested by DR Giraldo if no contraindications. 18:27 Patient medically screened. 18:27 Data reviewed: vital signs, nurses notes, lab test result(s). 18:27 Counseling: I had a detailed discussion with the patient and/or guardian regarding: the historical points, exam findings, and any diagnostic results supporting the discharge/admit diagnosis, lab results, the need for outpatient follow up, a urologist, to return to the emergency department if symptoms worsen or persist or if there are any questions or concerns that arise at home. Response to treatment: the patient's symptoms have markedly improved after treatment, and as a result, I will discharge patient. 09/04 14:54 Order name: Basic Metabolic Panel; Complete Time: 18:13 09/04 18:13 Interpretation: Normal except: CL 109; GLUC 107. 09/04 14:54 Order name: CBC with Diff; Complete Time: 17:23 09/04 17:23 Interpretation: Normal except: RBC 3.33; HGB 10.5; HCT 32.4. 09/04 14:54 Order name: Magnesium; Complete Time: 18:13 09/04 14:54 Order name: PT-INR; Complete Time: 17:29 09/04 17:29 Interpretation: Reviewed. 09/04 14:54 Order name: Ptt, Activated; Complete Time: 17:29 09/04 17:29 Interpretation: Reviewed. 09/04 15:13 Order name: Urine Microscopic Only; Complete Time: 16:37 09/04 16:37 Interpretation: Normal except: UWBC >50; URBC >50; UNCX Many. 09/04 14:54 Order name: XRAY Chest (1 view); Complete Time: 16:12 09/04 16:22 Interpretation: Report review. 09/04 14:54 Order name: EKG; Complete Time: 14:55 09/04 14:54 Order name: Cardiac monitoring; Complete Time: 19:03 09/04 14:54 Order name: EKG - Nurse/Tech; Complete Time: 17:17 09/04 15:46 Order name: Urine Dipstick-Ancillary; Complete Time: 16:12 [facility] 09/04 16:12 Interpretation: Normal except: UKET Trace; UBLD 3+; UPROT 3+; UNIT Positive; UESTR 3+. 09/04 16:26 Order name: Urine Culture EDNM 09/04 14:54 Order name: IV Saline Lock; Complete Time: 19:03 09/04 14:54 Order name: Labs collected and sent; Complete Time: 18:01 01/02 14:54 Order name: O2 Per Protocol; Complete Time: 18:01 cp 09/04 14:54 Order name: O2 Sat Monitoring; Complete Time: 18:01 cp 09/04 15:13 Order name: Urine Dipstick-Ancillary (obtain specimen); Complete Time: 15:47 cp EC:17 Rate is 54 beats/min. Rhythm is regular. MS interval is normal. QRS interval is normal. cp QT interval is normal. T waves are Inverted in lead aVR. Interpreted by me. Reviewed by me. Administered Medications: 18:58 Drug: Rocephin (cefTRIAXone) 1 grams Route: IV; Rate: calculated rate; Site: right kr3 wrist; 19:26 Follow up: Response: No adverse reaction; IV Status: Completed infusion; IV Intake: 10zzfu8 18:58 Drug: Cipro (ciprofloxacin) 500 mg Route: PO; kr3 19:26 Follow up: Response: No adverse reaction as6 Disposition Summary: 09/04/22 18:27 Discharge Ordered Location: Home cp Problem: new cp Symptoms: have improved cp Condition: Stable cp Diagnosis - UTI/ Urinary tract infection, site not specified cp Followup: cp - With: Tereso Giraldo MD - When: 2 - 3 days - Reason: Recheck today's complaints Discharge Instructions: - Discharge Summary Sheet cp - Urinary Tract Infection, Adult cp Forms: - Medication Reconciliation Form cp - Thank You Letter cp - Antibiotic Education cp - Prescription Opioid Use cp Prescriptions: - Cipro 500 mg Oral Tablet - take 1 tablet by ORAL route every 12 hours for 10 days; 20 tablet; Refills: 0, cp Product Selection Permitted Signatures: Dispatcher [employer] EDAshlie Duffy RN RN ss Page, Corey, PA PA cp Bia Renee RN RN [id number] Marek Padgett RN as6
[2022-09-04] MEDS ORDERED: CIPROFLOXACIN HCL 500 MG TAB ONE (18:56)
[2022-09-04] MEDS ORDERED: CEFTRIAXONE 1000 MG/VIAL ONE (18:56)
[2022-09-04 19:54] VITALS: BP 147/81; TEMP 97.8; O2SAT 100
--- NOTE | 2022-09-04 21:11 | CON ---
Reason For Consultation: Gross hematuria. History Of Present Illness: Mr. Garrett is a 72-year-old gentleman with ALS and other medical comorbidities, on multiple anticoagulants, who underwent cystoscopy with bladder biopsies and fulguration on 08/29/2022. He resumed his anticoagulants the day following surgery and his urine remained clear until yesterday, 09/03/2022, when he developed some faint urine. He has had no fevers/chills, irritative urinary symptoms, or other bothersome signs or symptoms. He has been tolerating his diet and eating and drinking normally. He thus presented to the emergency department today apparently after being told that I was away for this weekend. The patient seen initially in the emergency department waiting room and then brought back into an examination room. He was comfortable and well-appearing and ambulating using a rolling walker per his routine. He was alert, awake, oriented x3, in no acute distress. There was no dyspnea or sign of respiratory distress. He was operating at his baseline. The urine draining from the catheter into the associated floor bag was dark tea colored/port wine colored, but translucent. Once he was transferred into room, I then did the following: I took a sample of urine from the catheter and sent it for culture. I then irrigated the catheter with approximately 400 cc of sterile saline using a catheter tip syringe. No clots were obtained, and the drainage of fluid did rapidly clear to light pink indicating a modest amount of fresh bleeding. As a result, the catheter was reconnected to its floor bag and I made the following recommendations. Assessment And Recommendations: This is a 72-year-old gentleman with ALS and multiple medical comorbidities, on several anti-platelet agents post cystoscopy with bladder biopsy and fulguration on 08/29/2022, now with occurrence of gross hematuria. Unfortunately, the advanced antiplatelet agents were not among his list of medications recorded preoperatively; so I was unable/unaware to be able to specifically have him to hold them for the requisite period post-operatively. So upon being made aware of the following, I now recommend he hold the Brilinta and Ticagrelor at this point, but continue to use the daily baby aspirin uninterrupted. CBC to assess for development of anemia, although I think this is unlikely. Send catheter urine taken for culture. Recommend ciprofloxacin oral antimicrobial therapy pending results of culture. He is scheduled for urodynamics evaluation on Sunday, but we will determine if the amount of hematuria is too significant for an adequate result from that study. As a result, I asked them to contact us on Sunday morning to discuss the degree of hematuria present. GUERO/AUDIE Voice ID: [id number] Report ID: [id number]
--- NOTE | 2022-09-05 14:33 | EKG ---
Test Date: 2022-09-04 Test Time: 17:13:31 Supervisor Weaving: KYE MEASUREMENT RESULTS: Intervals: Rate: 54 CO: 118 QRSD: 76 QT: 426 QTc: 403 [place]: P: 62 CO: 118 QRS: 71 T: 74 INTERPRETIVE STATEMENTS: Sinus bradycardia Otherwise normal ECG Compared to ECG 08/16/2022 10:45:57 Sinus rhythm no longer present Short CO interval no longer present Electronically Signed On 09-05-22 14:31:26 DIRECTOR OF UNDERGRADUATE ADMISSIONS by Veto Moyer
--- NOTE | 2022-09-06 16:06 | EKG ---
Test Date: 2022-09-04 Test Time: 17:11:41 Operations Research Manager: KYE MEASUREMENT RESULTS: Intervals: Rate: 57 [place]: 118 QRSD: 70 QT: 416 QTc: 404 [place]: P: 58 WY: 118 QRS: 67 T: 76 INTERPRETIVE STATEMENTS: Sinus bradycardia Otherwise normal ECG Compared to ECG 08/16/2022 10:45:57 Sinus rhythm no longer present Short [place] interval no longer present Electronically Signed On 09-06-22 16:04:41 PHY THERAPIST by Veto Moyer
== END 2022-09-04 19:29 | disposition home or self-care (01) ==
LOC: ER 12:33
DX: N39.0 Urinary tract infection, site not specified (principal); Z88.8 Allergy status to other drugs, medicaments and biological substances
CPT/HCPCS: 36415; 71045; 80048; 81003; 81015; 83735; 85025; 85610; 85730; 87086; 87088; 93005; 96365; 99284

== ENCOUNTER 2024-08-29 09:30 | Emergency (ER) | payer OTHER ==
[2024-08-29] MEDS ORDERED: NA CHLORIDE 0.9% 500 ML ONE (10:04)
[2024-08-29 10:25] LABS: Specific Gravity 1.019 (1.005-1.030); Sqamous Epithelial <5 /HPF (None Seen); Urine Bacteria None Seen /HPF (<20); Urine Bilirubin NEGATIVE (Negative); Urine Blood 3+ (OVER) (Negative); Urine Clarity Extremely Turbid (Clear); Urine Color Yellow (Yellow); Urine Culture Reflex Order REFLEXED; Urine Glucose NEGATIVE (Negative); Urine Ketones NEGATIVE (Negative); Urine Microscopic Reflex YN ORDER UMIC; Urine Mucus Slight /HPF (None Seen); Urine Nitrite NEGATIVE (Negative); Urine Protein 1+ (Negative); Urine RBC >50 /HPF (None Seen); Urine Urobilinogen 2+ (Normal); Urine WBC 20-50 /HPF (<5)
[2024-08-29 10:47] LABS: Absolute Basophils 0.1 K/uL (0-0.5); Absolute Eosinophils 0.1 K/uL (0-0.5); Absolute Lymphocytes (CBC) 1.7 K/uL (0.7-4.9); Absolute Monocytes 0.6 K/uL (0.1-1.3); Absolute Neutrophil 4.5 K/uL (1.8-8.0); Basophils % 0.7 % (0-1.3); Eosinophils % 1.2 % (0-4.4); Hematocrit 36.9 % (39.6-49.0); Hemoglobin 11.7 g/dL (13.6-17.9); Lymphocytes % 25.2 % (15.3-44.8); MCHC 31.8 g/dL (32.0-36.0); MCV 100.9 fL (80-100); MPV 9.2 fL (7.6-11.3); Monocytes % 8.1 % (3.3-12.3); Neutrophils % 64.8 % (41.7-73.7); Platelets 187 thou/uL (152-406); RBC Red Blood Cell Count 3.66 M/uL (4.33-5.43)
[2024-08-29] MEDS ORDERED: CEFTRIAXONE 1000 MG/VIAL ONE (10:50)
[2024-08-29 11:03] LABS: Albumin 3.6 g/dL (3.4-5.0); Albumin/Globulin Ratio 0.8 (1.1-1.8); Anion Gap 5.8 mEq/L (5.0-15.0); Bilirubin Total 0.9 mg/dL (0.2-1.0); Globulin 4.3 g/dL (2.3-3.5); Potassium 3.8 mEq/L (3.5-5.1); Protein, Total 7.9 g/dL (6.4-8.2)
[2024-08-29] MEDS ORDERED: CIPROFLOXACIN HCL 500 MG TAB ONE (11:20)
--- NOTE | 2024-08-29 11:22 | EDPHYS ---
Physician Documentation [facility] Name: Felipe Garrett Age: 74 yrs Sex: Male : 1950 Arrival Date: 08/29/2024 Time: 09:30 Bed 13 Private MD: ED Physician Mehran Soni HPI: 08/29 10:11 This 74 yrs old Black Male presents to ER via Ambulatory with complaints of Urinary matt Problem. 10:11 The patient presents with urinary symptoms, urinary retention. Onset: The matt symptoms/episode began/occurred last night. Modifying factors: The symptoms are alleviated by nothing, the symptoms are aggravated by nothing. Associated signs and symptoms: Pertinent positives: fierro not draining. Severity of symptoms: At their worst the symptoms were mild, moderate, in the emergency department the symptoms are unchanged. The patient is not sexually active. The patient has experienced similar episodes in the past, several times. Historical: - Allergies: 09:41 Benadryl; hb - PMHx: 09:41 ALS; Diabetes - NIDDM; Hypertension; urinary retention; hb - Immunization history:: Adult Immunizations up to date. - Infectious Disease History:: Denies. - Family history:: not pertinent. - Social history:: Smoking status: Patient denies any tobacco usage or history of. ROS: 10:11 Constitutional: Negative for fever, chills, and weight loss, Eyes: Negative for injury, matt pain, redness, and discharge, ENT: Negative for injury, pain, and discharge, Neck: Negative for injury, pain, and swelling, Cardiovascular: Negative for chest pain, palpitations, and edema, Respiratory: Negative for shortness of breath, cough, wheezing, and pleuritic chest pain, Abdomen/GI: Negative for abdominal pain, nausea, vomiting, diarrhea, and constipation, Back: Negative for injury and pain, MS/Extremity: Negative for injury and deformity, Skin: Negative for injury, rash, and discoloration, Neuro: Negative for headache, weakness, numbness, tingling, and seizure, Psych: Negative for depression, anxiety, suicide ideation, homicidal ideation, and hallucinations, Allergy/Immunology: Negative for hives, rash, and allergies, Endocrine: Negative for neck swelling, polydipsia, polyuria, polyphagia, and marked weight changes, Hematologic/Lymphatic: Negative for swollen nodes, abnormal bleeding, and unusual bruising, 10:11 : Positive for urinary symptoms, fierro not draining, Exam: 10:11 Constitutional: This is a well developed, well nourished patient who is awake, alert, matt and in no acute distress. Head/Face: Normocephalic, atraumatic. Eyes: Pupils equal round and reactive to light, extra-ocular motions intact. Lids and lashes normal. Conjunctiva and sclera are non-icteric and not injected. Cornea within normal limits. Periorbital areas with no swelling, redness, or edema. ENT: Nares patent. No nasal discharge, no septal abnormalities noted. Tympanic membranes are normal and external auditory canals are clear. Oropharynx with no redness, swelling, or masses, exudates, or evidence of obstruction, uvula midline. Mucous membranes moist. Neck: Trachea midline, no thyromegaly or masses palpated, and no cervical lymphadenopathy. Supple, full range of motion without nuchal rigidity, or vertebral point tenderness. No Meningismus. Chest/axilla: Normal chest wall appearance and motion. Nontender with no deformity. No lesions are appreciated. Cardiovascular: Regular rate and rhythm with a normal S1 and S2. No gallops, murmurs, or rubs. Normal PMI, no JVD. No pulse deficits. Respiratory: Lungs have equal breath sounds bilaterally, clear to auscultation and percussion. No rales, rhonchi or wheezes noted. No increased work of breathing, no retractions or nasal flaring. Abdomen/GI: Soft, non-tender, with normal bowel sounds. No distension or tympany. No guarding or rebound. No evidence of tenderness throughout. Back: No spinal tenderness. No costovertebral tenderness. Full range of motion. Skin: Warm, dry with normal turgor. Normal color with no rashes, no lesions, and no evidence of cellulitis. MS/ Extremity: Pulses equal, no cyanosis. Neurovascular intact. Full, normal range of motion., bilateral aka Neuro: Awake and alert, GCS 15, oriented to person, place, time, and situation. Cranial nerves II-XII grossly intact. Motor strength 5/5 in all extremities. Sensory grossly intact. Cerebellar exam normal. Normal gait. Psych: Awake, alert, with orientation to person, place and time. Behavior, mood, and affect are within normal limits. 10:11 : Male external genitalia: normal, Bladder: is normal, Sexual behavior: the patient is not sexually active, Vital Signs: 09:40 BP 156 / 78; Pulse 80; Resp 16; Temp 98; Pulse Ox 100% on R/A; Pain 0/10; hb 11:40 BP 145 / 77; Pulse 74; Resp 17; Pulse Ox 99% on R/A; rs5 09:40 Pain Scale: Adult hb MDM: 09:33 Medical Screening Exam initiated [facility] 10:15 Differential diagnosis: urinary tract infection. Data reviewed: vital signs, nurses [facility] notes, lab test result(s), urinalysis. Consideration of Admission/Observation Escalation of care including admission/observation considered. I considered the following discharge prescriptions or medication management in the emergency department Medications were administered in the Emergency Department. See MAR. Test considered but Not performed: CT: no ct needed. 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 Care significantly affected by the following chronic conditions: Diabetes, Hypertension, als, fierro. Counseling: I had a detailed discussion with the patient and/or guardian regarding the historical points, exam findings, and any diagnostic results supporting the discharge/admit diagnosis, lab results, radiology results, the need for outpatient follow up, for definitive care, a family practitioner, a urologist. 08/29 09:44 Order name: CBC with Diff; Complete Time: 11:02 [facility] 08/29 09:44 Order name: Comprehensive Metabolic Panel; Complete Time: 11:20 [facility] 08/29 09:44 Order name: Urinalysis w/ reflexes; Complete Time: 10:44 [facility] 08/29 10:30 Order name: Urine Culture [facility] 08/29 09:44 Order name: Fierro; Complete Time: 10:18 [facility] 08/29 11:03 Order name: PO challenge; Complete Time: 11:25 [facility] Administered Medications: 10:50 Drug: NS 0.9% IV 500 ml 500 ml IV at 1 bolus once; to be given as a bolus over 30 rs5 minutes Volume: 500 ml; Route: IV; Rate: 1 bolus; Site: right upper arm; 11:40 Follow up: Response: No adverse reaction; IV Status: Completed infusion; IV Intake: rs5 500ml 10:50 Drug: Ciprofloxacin PO 250 mg PO once Route: PO; rs5 11:40 Follow up: Response: No adverse reaction rs5 11:10 Drug: Rocephin IV 1 grams IV at per protocol once; Given slow IV push per pharmacy rs5 instructions Route: IV; Rate: per protocol; Site: right upper arm; 11:30 Follow up: Response: No adverse reaction; IV Status: Completed infusion; IV Intake: [id number] Disposition Summary: 08/29/24 11:21 Discharge Ordered Notes: Location: Home matt Problem: new matt Symptoms: have improved matt Condition: Stable matt Diagnosis - Mechanical complication of urinary (indwelling) catheter matt - Other mechanical complication of urinary (indwelling) catheter matt - UTI/ Urinary tract infection, site not specified matt Followup: matt - With: Private Physician - When: 1 - 2 days - Reason: Recheck today's complaints, Continuance of care, Re-evaluation by your physician Discharge Instructions: - Discharge Summary Sheet matt - Indwelling Urinary Catheter Care, Adult matt - Urinary Tract Infection, Adult matt - Urinary Tract Infection, Adult, [id number] matt - Indwelling Urinary Catheter Care, Adult, [id number] matt Forms: - Medication Reconciliation Form matt - Antibiotic Education matt - Prescription Opioid Use matt - Patient Portal Instructions matt - Leadership Thank You Letter [facility] Prescriptions: - Cipro 250 mg Oral tablet - take 1 tablet ORAL route every 12 hours; 10 tablet; Refills: 0, Product matt Selection Permitted Signatures: Dispatcher [employer] Mehran Ramos MD MD cha Baxter, Heather, CORTNEY RN Alec Tello RN RN rs5 Corrections: (The following items were deleted from the chart) 09:45 09:45 CBC+H.LAB.BRZ ordered. EDMS EDMS 09:45 09:45 COMPREHENSIVE METABOLIC PANEL+C.LAB.BRZ ordered. EDMS EDMS 09:45 09:45 Urinalysis+U.LAB.BRZ ordered. EDMS EDMS
--- NOTE | 2024-08-29 11:22 | ER ---
Nurse's Notes [facility] Name: Felipe Garrett Age: 74 yrs Sex: Male : 1950 Arrival Date: 08/29/2024 Time: 09:30 Bed 13 Private MD: Diagnosis: Mechanical complication of urinary (indwelling) catheter;Other mechanical complication of urinary (indwelling) catheter;UTI/ Urinary tract infection, site not specified Presentation: 08/29 09:40 Chief complaint: Daughter concerned about decreased urine in fierro collection bag, hb requesting catheter replacement. Coronavirus screen: At this time, the client does not indicate any symptoms associated with coronavirus-19. Ebola Screen: No symptoms or risks identified at this time. Initial Sepsis Screen: Does the patient meet any 2 criteria? No. Patient's initial sepsis screen is negative. Does the patient have a suspected source of infection? No. Patient's initial sepsis screen is negative. Risk Assessment: Do you want to hurt yourself or someone else? Patient reports no desire to harm self or others. Onset of symptoms was August 29, 2024. 09:40 Method Of Arrival: Ambulatory hb 09:40 Acuity: MARINO 4 hb Triage Assessment: 09:40 General: Appears in no apparent distress. uncomfortable, Behavior is calm, cooperative. rs5 Historical: - Allergies: 09:41 Benadryl; hb - PMHx: 09:41 ALS; Diabetes - NIDDM; Hypertension; urinary retention; hb - Immunization history:: Adult Immunizations up to date. - Infectious Disease History:: Denies. - Family history:: not pertinent. - Social history:: Smoking status: Patient denies any tobacco usage or history of. Screenin:44 [facility] ED Fall Risk Assessment (Adult) History of falling in the last 3 months, rs5 including since admission No falls in past 3 months (0 pts) Confusion or Disorientation No (0 pts) Intoxicated or Sedated No (0 pts) Impaired Gait Yes (1 pt) Mobility Assist Device Used Yes (1 pt) Altered Elimination No (0 pt) Score/Fall Risk Level 0 - 2 = Low Risk Oriented to surroundings, Maintained a safe environment. Abuse screen: Denies threats or abuse. Nutritional screening: No deficits noted. Tuberculosis screening: No symptoms or risk factors identified. Assessment: 09:40 Pain: Denies pain. Neuro: Level of Consciousness is awake, alert, obeys commands, rs5 Oriented to person, place, time, situation. Cardiovascular: Patient's skin is warm and dry. Respiratory: Airway is patent Respiratory effort is even, unlabored, Respiratory pattern is regular, symmetrical. GI: Abdomen is round non-distended, Abd is soft and non tender X 4 quads. : Fierro in place to gravity drainage 300 cc cloudy kavita urine noted in urine bag, provider notified. pt reports " my fierro sometimes doesn't drain, I think it's clotted". EENT: No signs and/or symptoms were reported regarding the EENT system. Derm: Skin is intact, Skin is pink, warm \\T\\ dry. Musculoskeletal: Range of motion: intact in all extremities. 09:41 General: Appears in no apparent distress. Behavior is calm, cooperative. rs5 10:00 Reassessment: to bedside for Fierro removal and insertion per MD orders. 16 ff Fierro, rs5 balloon dis inflated, Fierro removed. New Fierro inserted by me and tech at bedside using aseptic technique. Pt tolerated procedure well . 10:55 Reassessment: Patient and/or family updated on plan of care and expected duration. Pain rs5 level reassessed. Patient is alert, oriented x 3, equal unlabored respirations, skin warm/dry/pink. 11:45 Reassessment: Patient and/or family updated on plan of care and expected duration. Pain rs5 level reassessed. Patient is alert, oriented x 3, equal unlabored respirations, skin warm/dry/pink. Vital Signs: 09:40 BP 156 / 78; Pulse 80; Resp 16; Temp 98; Pulse Ox 100% on R/A; Pain 0/10; hb 11:40 BP 145 / 77; Pulse 74; Resp 17; Pulse Ox 99% on R/A; rs5 09:40 Pain Scale: Adult hb ED Course: 09:32 Patient arrived in ED. al6 09:33 Mehran Soni MD is Attending Physician. matt 09:41 Triage completed. hb 09:41 Arm band placed on. hb 09:42 Alec Tello, RN is Primary Nurse. rs5 09:44 Patient has correct armband on for positive identification. Placed in gown. Bed in low rs5 position. Call light in reach. Side rails up X2. 09:58 Fierro cath removed intact, balloon deflated. rs5 10:00 Fierro cath inserted, using sterile technique, 16 Fr., by me, by ED staff, balloon rs5 inflated, to gravity drainage, clamped. urine specimen collected. returned kavita urine. Patient tolerated well. 10:15 Inserted saline lock: 20 gauge in right upper arm, using aseptic technique. Blood rs5 collected. Flushed with 10 mL NS. 10:15 No provider procedures requiring assistance completed. rs5 11:40 Provided Education on: discharge instructions . rs5 11:55 IV discontinued, intact, bleeding controlled, No redness/swelling at site. Pressure rs5 dressing applied. Administered Medications: 10:50 Drug: NS 0.9% IV 500 ml 500 ml IV at 1 bolus once; to be given as a bolus over 30 rs5 minutes Volume: 500 ml; Route: IV; Rate: 1 bolus; Site: right upper arm; 11:40 Follow up: Response: No adverse reaction; IV Status: Completed infusion; IV Intake: rs5 500ml 10:50 Drug: Ciprofloxacin PO 250 mg PO once Route: PO; rs5 11:40 Follow up: Response: No adverse reaction rs5 11:10 Drug: Rocephin IV 1 grams IV at per protocol once; Given slow IV push per pharmacy rs5 instructions Route: IV; Rate: per protocol; Site: right upper arm; 11:30 Follow up: Response: No adverse reaction; IV Status: Completed infusion; IV Intake: [id number] Medication: 11:50 VIS not applicable for this client. rs5 Intake: 11:30 IV: 50ml; Total: 50ml. rs5 11:40 IV: 500ml; Total: 550ml. rs5 Outcome: 11:21 Discharge ordered by . matt 11:55 Discharged to home via wheelchair, with family, rs5 11:55 Condition: stable 11:55 Discharge instructions given to patient, family, Instructed on discharge instructions, follow up and referral plans. medication usage, Demonstrated understanding of instructions, follow-up care, medications, Prescriptions given X 1, 11:58 Patient left the ED. rs5 Addendum: 09/03/2024 15:25 Addendum: Culture Results: Positive urine culture. Bacteria is resistant to, has j l7 intermediate sensitivity, or is not tested against prescribed antibiotics. Report given to JAMESON for further evaluation and then to ore digger for follow up with patient. Phone call Attempt #1 left . 15:39 Addendum: Culture Results: Prescription called-in to pharmacy of choice. Pt returned j l7 call, Rx called in to [facility] in [place] [phone], Bactrim DS-PO-BID x 7 days #14. Signatures: Mehran Soni MD MD cha Baxter, Heather, RN RN Erica Brice RN RN [id number] Alec Tello RN RN rs5 Esthela Hart Corrections: (The following items were deleted from the chart) 08/29 13:25 10:18 General: Appears in no apparent distress. rs5 rs5
[2024-08-29 12:08] VITALS: BP 156/78; TEMP 98; O2SAT 100
== END 2024-08-29 11:58 | disposition home or self-care (01) ==
LOC: ER 09:30
DX: T83.098A Other mechanical complication of other urinary catheter, initial encounter (principal); N39.0 Urinary tract infection, site not specified
CPT/HCPCS: 96365; 87088; 85025; 81001; 87086; 36415; 87077 ×2; 87186 ×2; 80053; 51702; 99285; J7040; J0696